=== PATIENT | female | born 1945 | race Caucasian/White ===

== ENCOUNTER → 2018-04-21 | Outpatient (CLI) | payer MEDICARE ==
[2018-04-21 17:43] LABS: Blood Urea Nitrogen 13 mg/dL (7-17)
--- NOTE | 2018-04-22 07:29 | CT ---
EXAMINATION TYPE: CT abdomen w con DATE OF EXAM: 04/21/2018 HISTORY: LUQ abd pain and constipation. CT DLP: 960.7mGycm Automated Exposure Control for Dose Reduction was Utilized. CONTRAST: CT scan of the abdomen is performed with oral and with IV Contrast, patient injected with 100ml mL of Isovue M300. COMPARISON: None. FINDINGS: LUNG BASES: Some focal lingular and right middle lobe linear scarring and/or atelectasis axial images 5 and 9 are both appreciated. LIVER/GB: Cholecystectomy clips are present. PANCREAS: No significant abnormality is seen. SPLEEN: No significant abnormality is seen. ADRENALS: No significant abnormality is seen. KIDNEYS: Subcentimeter low dense lesion anteriorly lower pole level left kidney series 5 image 48 is too small to further characterize but presumed benign. BOWEL: Oral contrast does not reach colonic level making evaluation slightly suboptimal. There is no suspicious small or large bowel dilatation seen. Decompressed redundant sigmoid colon is present. The re is poor distention of colon near level of splenic flexure also noted. There is no suspicious small bowel dilatation. LYMPH NODES: No greater than 1cm abdominal lymph nodes are appreciated. OSSEOUS STRUCTURES: Some loss of normal lumbar lordosis is seen. There is facet arthropathy lower lum bar levels. OTHER: No significant additional abnormality is seen. IMPRESSION: No significant acute finding is seen to account for patient's clinical symptoms.
== END | disposition home or self-care (01) ==
LOC: RADCTMAIN 17:13
DX: R10.12 Left upper quadrant pain (principal)
CPT/HCPCS: 82565; 84520; 74160; 36415; Q9967

== ENCOUNTER 2018-06-13 15:08 | Emergency (ER) | payer MEDICARE ==
--- NOTE | 2018-06-13 15:40 | ED ---
General Adult HPI - General Chief complaint: Chest Pain Stated complaint: Chest Pain Time Seen by Provider: 06/13/18 15:08 Source: patient, RN notes reviewed Mode of arrival: wheelchair Limitations: no limitations - History of Present Illness Initial comments: This is a 73-year-old female presents emergency department with past medical history significant for TIA high blood pressure and high cholesterol. Patient presents today because earlier morning she woke up with some pain in the lateral left chest wall. Patient states it hurts to take deep breaths any particular hurts to sneeze or cough. Patient states the pain is not there she just rests and does not take any deep breaths or does not cough or sneeze. Patient states she has not been coughing a lot however. Patient states it also hurts to press on the lateral chest wall. Patient denies any shortness of breath or difficulty breathing. Patient denies any diaphoresis. Patient denies any nausea vomiting. Patient denies any abdominal pain. Patient denies any anterior chest pain. Patient describes the pain is very sharp in nature particularly with coughing or sneezing. Patient denies any headache patient denies numbness weakness. Patient denies being lightheaded dizzy or having any near syncopal episode. Patient denies any recent fever or chills. - Related Data Home Medications Medication Instructions Recorded Confirmed Levothyroxine Sodium [Synthroid] 75 mcg PO DAILY 01/22/16 06/13/18 Simvastatin [Zocor] 10 mg PO HS 01/22/16 06/13/18 Multivit with Calcium,Iron,Min 1 tab PO DAILY 01/28/16 06/13/18 [Women's Daily Multivitamin] Pantoprazole Sodium 20 mg PO DAILY 06/13/18 06/13/18 Previous Rx's Medication Instructions Recorded Aspirin EC [Ecotrin] 325 mg PO DAILY #0 01/24/16 Clopidogrel [Plavix] 75 mg PO DAILY #0 01/24/16 Allergies Allergy/AdvReac Type Severity Reaction Status Date / Time codeine Allergy Unknown Verified 06/13/18 15:42 Review of Systems ROS Statement: Those systems with pertinent positive or pertinent negative responses have been documented in the HPI. ROS Other: All systems not noted in ROS Statement are negative. Past Medical History Past Medical History: CVA/TIA, GERD/Reflux, Hyperlipidemia, Hypertension, Thyroid Disorder Additional Past Medical History / Comment(s): 3-2-16 ADMITTED WITH STROKE LIKE SYMPTOMS-pt. states was told didn't have stroke, had TIA couple yrs. ago, saw family dr for cold sx., & cough History of Any Multi-Drug Resistant Organisms: None Reported Past Surgical History: Appendectomy, Section, Cholecystectomy Past Anesthesia/Blood Transfusion Reactions: No Reported Reaction Additional Past Anesthesia/Blood Transfusion Reaction / Comment(s): MILD CLAUSTROPHOBIA Past Psychological History: No Psychological Hx Reported Smoking Status: Never smoker Past Alcohol Use History: None Reported Past Drug Use History: None Reported - Past Family History Mother Family Medical History: Cancer Additional Family Medical History / Comment(s): UNSURE WHAT TYPE OF CANCER Father Family Medical History: Cancer Additional Family Medical History / Comment(s): BONE CANCER Brother(s) Family Medical History: Asthma Sister(s) Family Medical History: No Reported History Son(s) Family Medical History: No Reported History General Exam - General Exam Comments Initial Comments: GENERAL: Patient is well-developed and well-nourished. Patient is nontoxic and well- hydrated and is in mild distress. ENT: Neck is soft and supple. No significant lymphadenopathy is noted. Oropharynx is clear. Moist mucous membranes. Neck has full range of motion without eliciting any pain. EYES: The sclera were anicteric and conjunctiva were pink and moist. Extraocular movements were intact and pupils were equal round and reactive to light. Eyelids were unremarkable. PULMONARY: Unlabored respirations. Good breath sounds bilaterally. No audible rales rhonchi or wheezing was noted. CARDIOVASCULAR: There is a regular rate and rhythm without any murmurs gallops or rubs. ABDOMEN: Soft and nontender with normal bowel sounds. SKIN: Skin is clear with no lesions or rashes and otherwise unremarkable. NEUROLOGIC: Patient is alert and oriented x3. Cranial nerves II through XII are grossly intact. Motor and sensory are also intact. Normal speech, volume and content. Symmetrical smile. MUSCULOSKELETAL: Normal extremities with adequate strength and full range of motion. LYMPHATICS: No significant lymphadenopathy is noted PSYCHIATRIC: Normal psychiatric evaluation. Normal interpersonal interactions appears functionally intact in deals appropriately with others. No signs of depression. No signs of anxiety. Limitations: no limitations Course Vital Signs 06/13/18 06/13/18 15:16 16:52 Temperature 98.4 F Pulse Rate 79 70 Respiratory 20 18 Rate Blood Pressure 145/84 132/83 O2 Sat by Pulse 96 96 Oximetry Medical Decision Making - Medical Decision Making EKG shows normal sinus rhythm at 79 bpm WV interval is 154 QRS 76 QT interval 398 QTC is 456. EKG shows no ST segment elevation or depression or T-wave abdomen is noted. Patient's chest x-ray showed no acute abnormality. Patient received Toradol after the Toradol was given I went back to reevaluate her and she stated that it improved her pain considerably. - Lab Data Result diagrams: 06/13/18 15:34 06/13/18 15:34 Lab Results 06/13/18 06/13/18 06/13/18 Range/Units 15:34 15:34 15:34 WBC 6.8 (3.8-10.6) k/uL RBC 4.80 (3.80-5.40) m/uL Hgb 14.7 (11.4-16.0) gm/dL Hct 42.7 (34.0-46.0) % MCV 88.8 (80.0-100.0) fL MCH 30.6 (25.0-35.0) pg MCHC 34.5 (31.0-37.0) g/dL RDW 13.2 (11.5-15.5) % Plt Count 248 (150-450) k/uL Neutrophils % 70 % Lymphocytes % 17 % Monocytes % 9 % Eosinophils % 2 % Basophils % 1 % Neutrophils # 4.8 (1.3-7.7) k/uL Lymphocytes # 1.1 (1.0-4.8) k/uL Monocytes # 0.6 (0-1.0) k/uL Eosinophils # 0.2 (0-0.7) k/uL Basophils # 0.1 (0-0.2) k/uL PT (9.0-12.0) sec INR (<1.2) APTT (22.0-30.0) sec Sodium 140 (137-145) mmol/L Potassium 3.8 (3.5-5.1) mmol/L Chloride 110 H (98-107) mmol/L Carbon Dioxide 22 (22-30) mmol/L Anion Gap 8 mmol/L BUN 14 (7-17) mg/dL Creatinine 0.57 (0.52-1.04) mg/dL Est GFR (CKD-EPI)AfAm >90 (>60 ml/min/1.73 sqM) Est GFR (CKD-EPI)NonAf >90 (>60 ml/min/1.73 sqM) Glucose 111 H (74-99) mg/dL Calcium 8.9 (8.4-10.2) mg/dL Magnesium 2.2 (1.6-2.3) mg/dL Total Bilirubin 0.5 (0.2-1.3) mg/dL AST 32 (14-36) U/L ALT 41 (9-52) U/L Alkaline Phosphatase 70 (38-126) U/L Total Creatine Kinase 28 L (30-135) U/L CK-MB (CK-2) <0.2 (0.0-2.4) ng/mL CK-MB (CK-2) Rel Index Troponin I <0.012 (0.000-0.034) ng/mL Total Protein 6.6 (6.3-8.2) g/dL Albumin 3.6 (3.5-5.0) g/dL 06/13/18 Range/Units 15:34 WBC (3.8-10.6) k/uL RBC (3.80-5.40) m/uL Hgb (11.4-16.0) gm/dL Hct (34.0-46.0) % MCV (80.0-100.0) fL MCH (25.0-35.0) pg MCHC (31.0-37.0) g/dL RDW (11.5-15.5) % Plt Count (150-450) k/uL Neutrophils % % Lymphocytes % % Monocytes % % Eosinophils % % Basophils % % Neutrophils # (1.3-7.7) k/uL Lymphocytes # (1.0-4.8) k/uL Monocytes # (0-1.0) k/uL Eosinophils # (0-0.7) k/uL Basophils # (0-0.2) k/uL PT 10.8 (9.0-12.0) sec INR 1.1 (<1.2) APTT 23.7 (22.0-30.0) sec Sodium (137-145) mmol/L Potassium (3.5-5.1) mmol/L Chloride (98-107) mmol/L Carbon Dioxide (22-30) mmol/L Anion Gap mmol/L BUN (7-17) mg/dL Creatinine (0.52-1.04) mg/dL Est GFR (CKD-EPI)AfAm (>60 ml/min/1.73 sqM) Est GFR (CKD-EPI)NonAf (>60 ml/min/1.73 sqM) Glucose (74-99) mg/dL Calcium (8.4-10.2) mg/dL Magnesium (1.6-2.3) mg/dL Total Bilirubin (0.2-1.3) mg/dL AST (14-36) U/L ALT (9-52) U/L Alkaline Phosphatase (38-126) U/L Total Creatine Kinase (30-135) U/L CK-MB (CK-2) (0.0-2.4) ng/mL CK-MB (CK-2) Rel Index Troponin I (0.000-0.034) ng/mL Total Protein (6.3-8.2) g/dL Albumin (3.5-5.0) g/dL Disposition Clinical Impression: Chest wall pain Disposition: HOME SELF-CARE Condition: Good Instructions: Chest Wall Pain (ED) Is patient prescribed a controlled substance at d/c from ED?: No Referrals: Mayda Adames DO [Primary Care Provider] - 1-2 days Time of Disposition: 17:17
[2018-06-13 15:48] LABS: Basophils # (A) 0.1 k/uL (0-0.2); Basophils % (A) 1 %; Eosinophils # (A) 0.2 k/uL (0-0.7); Eosinophils % (A) 2 %; HCT 42.7 % (34.0-46.0); HGB 14.7 gm/dL (11.4-16.0); Lymphocytes # (A) 1.1 k/uL (1.0-4.8); Lymphocytes % (A) 17 %; MCH 30.6 pg (25.0-35.0); MCHC 34.5 g/dL (31.0-37.0); MCV 88.8 fL (80.0-100.0); Mean Platelet Volume 7.6; Monocytes # (A) 0.6 k/uL (0-1.0); Monocytes % (A) 9 %; Neutrophils # (A) 4.8 k/uL (1.3-7.7); Neutrophils % (A) 70 %; Platelet Count 248 k/uL (150-450); RDW 13.2 % (11.5-15.5); WBC 6.8 k/uL (3.8-10.6)
--- NOTE | 2018-06-13 15:55 | XR ---
EXAMINATION TYPE: XR chest 2V DATE OF EXAM: 06/13/2018 COMPARISON: 01/22/2016 HISTORY: 73-year-old female with chest pain TECHNIQUE: PA and lateral views FINDINGS: Heart upper limits of normal in size. Mild elongation thoracic aorta. Some strandy atelectasis medial right base. No consolidation or pleural effusion otherwise seen. IMPRESSION: No acute cardiopulmonary process.
[2018-06-13 15:58] LABS: ALT 41 U/L (9-52); AST 32 U/L (14-36); Albumin 3.6 g/dL (3.5-5.0); Alkaline Phosphatase 70 U/L (38-126); Anion Gap 8 mmol/L; Blood Urea Nitrogen 14 mg/dL (7-17); Calcium 8.9 mg/dL (8.4-10.2); Carbon Dioxide 22 mmol/L (22-30); Chloride 110 mmol/L (98-107); Glucose 111 mg/dL (74-99); Magnesium 2.2 mg/dL (1.6-2.3); Potassium 3.8 mmol/L (3.5-5.1); Sodium 140 mmol/L (137-145); Total Bilirubin 0.5 mg/dL (0.2-1.3); Total Protein 6.6 g/dL (6.3-8.2)
[2018-06-13 16:11] LABS: Creatine Kinase 28 U/L (30-135)
[2018-06-13] MEDS ORDERED: KETOROLAC 60 MG/2 ML VIAL IVP STA (16:18)
[2018-06-13 16:21] LABS: INR 1.1 (<1.2); Partial Thromboplastin Time 23.7 sec (22.0-30.0); Prothrombin Time 10.8 sec (9.0-12.0)
[2018-06-13 16:24] LABS: Creatine Kinase MB <0.2 ng/mL (0.0-2.4); Troponin I <0.012 ng/mL (0.000-0.034)
[2018-06-13 16:53] VITALS: BP 132/83; PULSE 70; RESP 18
[2018-06-13 17:23] VITALS: TEMP 98
== END 2018-06-13 17:26 | disposition home or self-care (01) ==
LOC: EC 15:08
DX: R07.89 Other chest pain (principal); E78.5 Hyperlipidemia, unspecified; E78.00 Pure hypercholesterolemia, unspecified; I10 Essential (primary) hypertension; K21.9 Gastro-esophageal reflux disease without esophagitis; E07.9 Disorder of thyroid, unspecified; Z79.899 Other long term (current) drug therapy; Z88.5 Allergy status to narcotic agent
CPT/HCPCS: 36415; 93005; 80053; 82550; 82553; 83735; 84484; 85025; 85610; 85730; 71046; 99285; 96374; J1885

== ENCOUNTER 2018-07-18 17:56 | Inpatient (IN) | payer MEDICARE ==
[2018-07-18] MEDS ORDERED: SODIUM CHLORIDE 0.9% 1,000 ML IV STA (18:22)
--- NOTE | 2018-07-18 18:38 | ED ---
General Adult HPI - General Chief complaint: Neuro Symptoms/Deficit Stated complaint: Numbness in face Time Seen by Provider: 07/18/18 18:22 Source: patient Mode of arrival: ambulatory Limitations: no limitations - History of Present Illness Initial comments: Kyra is a 73-year-old female who presents the emergency department today for evaluation of right-sided facial droop. Patient reports that on she noted that her face seemed to be drooping, she was evaluated at an outside hospital advised that this drooping was likely secondary to a muscle spasm in her neck, she was prescribed steroids and muscle relaxers and discharged home. Today the patient followed up with her primary care physician for repeat evaluation who expressed concern that she may have had a stroke and advised her to come to the ER for further evaluation. Patient reports that she has noted right side of her face is drooping and feels numb, this has persisted since , she also states that occasionally when she is talking she feels like she is not pronouncing words properly. Patient denies any additional symptoms including fevers, chills, nausea or vomiting, chest pain or palpitations. - Related Data Home Medications Medication Instructions Recorded Confirmed Levothyroxine Sodium [Synthroid] 75 mcg PO DAILY 01/22/16 07/18/18 Simvastatin [Zocor] 10 mg PO HS 01/22/16 07/18/18 Multivit with Calcium,Iron,Min 1 tab PO DAILY 01/28/16 07/18/18 [Women's Daily Multivitamin] Pantoprazole Sodium 20 mg PO DAILY 06/13/18 07/18/18 Eye Lubricant Combination No.1 1 applic BOTH EYES DAILY 07/18/18 07/18/18 [[place]] Previous Rx's Medication Instructions Recorded Aspirin EC [Ecotrin] 325 mg PO DAILY #0 01/24/16 Clopidogrel [Plavix] 75 mg PO DAILY #0 01/24/16 Allergies Allergy/AdvReac Type Severity Reaction Status Date / Time codeine Allergy Unknown Verified 07/18/18 19:49 Review of Systems ROS Statement: Those systems with pertinent positive or pertinent negative responses have been documented in the HPI. ROS Other: All systems not noted in ROS Statement are negative. Past Medical History Past Medical History: CVA/TIA, GERD/Reflux, Hyperlipidemia, Hypertension, Thyroid Disorder Additional Past Medical History / Comment(s): 3-2-16 ADMITTED WITH STROKE LIKE SYMPTOMS-pt. states was told didn't have stroke, history of TIAs History of Any Multi-Drug Resistant Organisms: None Reported Past Surgical History: Appendectomy, Section, Cholecystectomy Past Anesthesia/Blood Transfusion Reactions: No Reported Reaction Additional Past Anesthesia/Blood Transfusion Reaction / Comment(s): MILD CLAUSTROPHOBIA Past Psychological History: No Psychological Hx Reported Smoking Status: Never smoker Past Alcohol Use History: None Reported Past Drug Use History: None Reported - Past Family History Mother Family Medical History: Cancer Additional Family Medical History / Comment(s): UNSURE WHAT TYPE OF CANCER Father Family Medical History: Cancer Additional Family Medical History / Comment(s): BONE CANCER Brother(s) Family Medical History: Asthma Sister(s) Family Medical History: No Reported History Son(s) Family Medical History: No Reported History General Exam Limitations: no limitations General appearance: alert, in no apparent distress Head exam: Present: atraumatic, normocephalic Eye exam: Present: PERRL, EOMI. Absent: scleral icterus ENT exam: Present: mucous membranes moist (bite kinga to right buccal mucosa) Neck exam: Present: full ROM Respiratory exam: Present: normal lung sounds bilaterally. Absent: respiratory distress Cardiovascular Exam: Present: regular rate, normal rhythm GI/Abdominal exam: Present: soft. Absent: distended Rectal exam: Present: deferred Extremities exam: Present: full ROM, normal capillary refill. Absent: pedal edema Back exam: Present: normal inspection Neurological exam: Present: alert, oriented X3, normal gait Expanded Patient oriented to: Present: person, place, time Speech: Present: fluid speech Cranial nerves: EOM's Intact: Normal, Gag Reflex: Normal, Tongue Deviation: Normal, Facial Sensation: Abnormal Right, Facial Palsy with Forehead Movement: Abnormal Right Cerebellar function: Finger to Nose: Normal, Heel to Rosas: Normal, Romberg: Normal Motor strength exam: RUE: 4, LUE: 4, RLE: 4, LLE: 4 Eye Response: (4) open spontaneously Motor Response: (6) obeys commands Verbal Response: (5) oriented Psychiatric exam: Present: normal affect, normal mood Skin exam: Present: warm, dry Course Vital Signs 08/27/18 08/27/18 08/27/18 17:59 18:30 19:00 Temperature 98.4 F 98.2 F Pulse Rate 71 75 61 Respiratory 18 18 16 Rate Blood Pressure 154/84 148/78 156/84 O2 Sat by Pulse 98 98 96 Oximetry 07/18/18 19:30 Temperature Pulse Rate 73 Respiratory 16 Rate Blood Pressure 157/90 O2 Sat by Pulse 95 Oximetry EKG Findings - EKG Comments: EKG Findings:: EKG obtained at 1826, rate of 66, rhythm is sinus, normal axis, normal intervals, KS 154, QRS 80, QTC 427, there are no acute ST elevations or depressions no evidence of acute ischemia or infarction or arrhythmia. Medical Decision Making - Medical Decision Making The patient was seen and evaluated, history is obtained from the patient as well as at bedside Patient with a history of TIAs in the past, developed right-sided facial droop on , was evaluated an outside hospital and advised that she is likely having a muscle spasm of her neck muscles. Was given steroids and muscle relaxers. Patient followed up with her primary care physician today who expressed concern that the patient may have had a CVA On initial evaluation the patient does have right-sided facial droop sparing the forehead however the patient does complain of feeling as though she cannot close her right eye and does have some tearing. On exam the patient can close her right eye fully. Labs and CT were ordered CT of the head reveals old ischemic changes, nothing acute -however I do feel the patient requires further evaluation by neurology for possible CVA with right -sided deficit Patient care was discussed with Dr. Barkley who accepts admission, requests MRI of brain, CTA, Echo and consult to neurology Plan for admission was discussed with the patient who expresses some disappointment as she was scheduled to fly to [place] tomorrow for her nieces upcoming wedding. I advised the patient that at this time I feel is in her best interest and the interest of her [facility] and safety that she be evaluated. Patient is agreeable. Admission orders placed - Lab Data Result diagrams: 07/18/18 18:44 07/18/18 18:44 Lab Results 07/18/18 07/18/18 07/18/18 Range/Units 18:44 18:44 18:44 WBC 7.3 (3.8-10.6) k/uL RBC 4.77 (3.80-5.40) m/uL Hgb 14.2 (11.4-16.0) gm/dL Hct 43.6 (34.0-46.0) % MCV 91.4 (80.0-100.0) fL MCH 29.8 (25.0-35.0) pg MCHC 32.6 (31.0-37.0) g/dL RDW 13.3 (11.5-15.5) % Plt Count 252 (150-450) k/uL Neutrophils % 64 % Lymphocytes % 22 % Monocytes % 10 % Eosinophils % 2 % Basophils % 1 % Neutrophils # 4.7 (1.3-7.7) k/uL Lymphocytes # 1.6 (1.0-4.8) k/uL Monocytes # 0.7 (0-1.0) k/uL Eosinophils # 0.2 (0-0.7) k/uL Basophils # 0.0 (0-0.2) k/uL PT (9.0-12.0) sec INR (<1.2) APTT (22.0-30.0) sec Sodium 139 (137-145) mmol/L Potassium 3.7 (3.5-5.1) mmol/L Chloride 110 H (98-107) mmol/L Carbon Dioxide 22 (22-30) mmol/L Anion Gap 7 mmol/L BUN 21 H (7-17) mg/dL Creatinine 0.60 (0.52-1.04) mg/dL Est GFR (CKD-EPI)AfAm >90 (>60 ml/min/1.73 sqM) Est GFR (CKD-EPI)NonAf >90 (>60 ml/min/1.73 sqM) Glucose 95 (74-99) mg/dL Calcium 9.0 (8.4-10.2) mg/dL Total Bilirubin 0.4 (0.2-1.3) mg/dL AST 18 (14-36) U/L ALT 41 (9-52) U/L Alkaline Phosphatase 81 (38-126) U/L Total Creatine Kinase 29 L (30-135) U/L CK-MB (CK-2) 0.4 (0.0-2.4) ng/mL CK-MB (CK-2) Rel Index 1.4 Troponin I <0.012 (0.000-0.034) ng/mL Total Protein 6.5 (6.3-8.2) g/dL Albumin 3.5 (3.5-5.0) g/dL 07/18/18 Range/Units 18:44 WBC (3.8-10.6) k/uL RBC (3.80-5.40) m/uL Hgb (11.4-16.0) gm/dL Hct (34.0-46.0) % MCV (80.0-100.0) fL MCH (25.0-35.0) pg MCHC (31.0-37.0) g/dL RDW (11.5-15.5) % Plt Count (150-450) k/uL Neutrophils % % Lymphocytes % % Monocytes % % Eosinophils % % Basophils % % Neutrophils # (1.3-7.7) k/uL Lymphocytes # (1.0-4.8) k/uL Monocytes # (0-1.0) k/uL Eosinophils # (0-0.7) k/uL Basophils # (0-0.2) k/uL PT 10.4 (9.0-12.0) sec INR 1.1 (<1.2) APTT 22.9 (22.0-30.0) sec Sodium (137-145) mmol/L Potassium (3.5-5.1) mmol/L Chloride (98-107) mmol/L Carbon Dioxide (22-30) mmol/L Anion Gap mmol/L BUN (7-17) mg/dL Creatinine (0.52-1.04) mg/dL Est GFR (CKD-EPI)AfAm (>60 ml/min/1.73 sqM) Est GFR (CKD-EPI)NonAf (>60 ml/min/1.73 sqM) Glucose (74-99) mg/dL Calcium (8.4-10.2) mg/dL Total Bilirubin (0.2-1.3) mg/dL AST (14-36) U/L ALT (9-52) U/L Alkaline Phosphatase (38-126) U/L Total Creatine Kinase (30-135) U/L CK-MB (CK-2) (0.0-2.4) ng/mL CK-MB (CK-2) Rel Index Troponin I (0.000-0.034) ng/mL Total Protein (6.3-8.2) g/dL Albumin (3.5-5.0) g/dL Disposition Clinical Impression: Facial droop Disposition: ADMITTED IP TO THIS [facility] Condition: Stable Referrals: Mayda Adames DO [Primary Care Provider] - 1-2 days Time of Disposition: 21:37
[2018-07-18 18:55] LABS: Basophils % (A) 1 %; Eosinophils # (A) 0.2 k/uL (0-0.7); Eosinophils % (A) 2 %; HCT 43.6 % (34.0-46.0); HGB 14.2 gm/dL (11.4-16.0); Lymphocytes # (A) 1.6 k/uL (1.0-4.8); Lymphocytes % (A) 22 %; MCH 29.8 pg (25.0-35.0); MCHC 32.6 g/dL (31.0-37.0); MCV 91.4 fL (80.0-100.0); Mean Platelet Volume 7.2; Monocytes # (A) 0.7 k/uL (0-1.0); Monocytes % (A) 10 %; Neutrophils # (A) 4.7 k/uL (1.3-7.7); Neutrophils % (A) 64 %; Platelet Count 252 k/uL (150-450); RBC 4.77 m/uL (3.80-5.40); RDW 13.3 % (11.5-15.5); WBC 7.3 k/uL (3.8-10.6)
[2018-07-18 19:05] LABS: Creatine Kinase 29 U/L (30-135)
[2018-07-18 19:07] LABS: ALT 41 U/L (9-52); AST 18 U/L (14-36); Albumin 3.5 g/dL (3.5-5.0); Alkaline Phosphatase 81 U/L (38-126); Anion Gap 7 mmol/L; Blood Urea Nitrogen 21 mg/dL (7-17); Carbon Dioxide 22 mmol/L (22-30); Chloride 110 mmol/L (98-107); Glucose 95 mg/dL (74-99); Potassium 3.7 mmol/L (3.5-5.1); Sodium 139 mmol/L (137-145); Total Bilirubin 0.4 mg/dL (0.2-1.3); Total Protein 6.5 g/dL (6.3-8.2)
[2018-07-18 19:12] LABS: INR 1.1 (<1.2); Partial Thromboplastin Time 22.9 sec (22.0-30.0); Prothrombin Time 10.4 sec (9.0-12.0)
[2018-07-18 19:19] LABS: Creatine Kinase MB 0.4 ng/mL (0.0-2.4); Troponin I <0.012 ng/mL (0.000-0.034)
--- NOTE | 2018-07-18 19:26 | XR ---
EXAMINATION TYPE: XR chest 2V DATE OF EXAM: 07/18/2018 COMPARISON: 06/13/2018 HISTORY: Altered mental status TECHNIQUE: Frontal and lateral views of the chest are obtained. FINDINGS: There is no heart failure nor confluent pneumonic infiltrate. Costophrenic angles are agnieszka r. There are chest leads. Bony thorax is intact. IMPRESSION: No active cardiopulmonary disease. No change. Normal heart.
--- NOTE | 2018-07-18 19:28 | CT ---
EXAMINATION TYPE: CT brain wo con DATE OF EXAM: 07/18/2018 COMPARISON: 01/22/2016 HISTORY: Neuro deficits. CT DLP: 1067 mGycm Automated exposure control for dose reduction was used. FINDINGS: There is mild cerebral cortical atrophy. There is no mass effect nor midline shift. There is no sign of intracranial hemorrhage. There is some hypodensity in the anterior internal capsule bilaterally. T he calvarium appears intact. 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 NO ACUTE INTRACRANIAL ABNORMALITY. NO SIGNIF ICANT CHANGE.
--- NOTE | 2018-07-18 22:44 | CT ---
EXAMINATION TYPE: CT angio head neck DATE OF EXAM: 07/18/2018 HISTORY: Right facial droop. COMPARISON: None CT DLP: 263.1 mGycm. Automated Exposure Control for Dose Reduction was Utilized. TECHNIQUE: CTA scan of the neck is performed with IV Contrast, patient injected with 65 mL of Isovue 370, axial images are obtained, coronal and sagittal reformatted images are reviewed. Three-D recons tructed images are created on an independent workstation and reviewed. FINDINGS: There is normal branching pattern of the great vessels on the aortic arch. There is arterial flow in both vertebral arteries which are fairly symmetric. There is arterial flow in the vertebrobasilar artery system. There is arterial flow in the common internal and external egan tid arteries bilaterally. There is wide patency of the carotid artery bifurcations. There is no evide nce of carotid artery aneurysm or dissection. There is no evidence of carotid stenosis. There is no v ertebral artery dissection. There is arterial flow in the anterior middle and posterior cerebral arteries. I see no evidence of a neurysm or neovascularity. There is a large basilar artery. There is normal contrast opacification of the venous sinuses. There is no evidence of intracranial arterial stenosis. IMPRESSION: Negative CT angiogram of the neck. Negative CT angiogram of the brain. There is a large proximal basilar artery that measure 6 mm and probable normal variation.
[2018-07-18 23:01] VITALS: BMI 27.8
[2018-07-19 00:47] LABS: Cholesterol 158 mg/dL (<200); HDL Cholesterol 45 mg/dL (40-60); LDL Cholesterol,Calculated 89 mg/dL (0-99); Triglycerides 121 mg/dL (<150)
[2018-07-19] MEDS: LEVOTHYROXINE 75 MCG TAB PO SCH (07:58)
[2018-07-19] MEDS: PANTOPRAZOLE 40 MG TABLET PO SCH ×2 (07:58→23:16)
[2018-07-19] MEDS: CLOPIDOGREL 75 MG TAB PO SCH (07:58)
--- NOTE | 2018-07-19 10:28 | ECHOF ---
Referral Reason:Thrombus MEASUREMENTS -------- HEIGHT: 165.1 cm WEIGHT: 76.7 kg BP: 132/92 RVIDd: 2.8 cm (< 3.3) IVSd: 1.2 cm (0.6 - 1.1) LVIDd: 3.8 cm (3.9 - 5.3) LVPWd: 1.2 cm (0.6 - 1.1) IVSs: 1.9 cm LVIDs: 3.1 cm LVPWs: 1.7 cm LA Diam: 3.2 cm (2.7 - 3.8) LAESV Index (A-L): 14.71 ml/m Ao Diam: 3.5 cm (2.0 - 3.7) AV Cusp: 2.0 cm (1.5 - 2.6) MV EXCURSION: 13.991 mm (> 18.000) MV EF SLOPE: 28 mm/s (70 - 150) EPSS: 1.1 cm MV E Juan Manuel: 0.66 m/s MV DecT: 231 ms MV A Juan Manuel: 0.96 m/s MV E/A Ratio: 0.68 AR PHT: 1061 ms RAP: 5.00 mmHg RVSP: 25.15 mmHg FINDINGS -------- Sinus rhythm. This was a technically adequate study. The left ventricular size is normal. There is borderline concentric left ventricular hypertrophy. Overall left ventricular systolic function is normal with, an EF between 55 - 60 %. The right ventricle is normal in size. Normal LA size by volume 22+/-6 ml/m2. The right atrium is normal in size. The aortic valve is trileaflet and appears structurally normal. There is mild aortic regurgitation. The mitral valve is normal. Mild mitral regurgitation is present. Mild tricuspid regurgitation present. Right ventricular systolic pressure is normal at < 35 mmHg. Trace/mild (physiologic) pulmonic regurgitation. The aortic root size is normal. IVC Not well visulized. There is no pericardial effusion. CONCLUSIONS -------- 1. Sinus rhythm. 2. This was a technically adequate study. 3. The left ventricular size is normal. 4. There is borderline concentric left ventricular hypertrophy. 5. Overall left ventricular systolic function is normal with, an EF between 55 - 60 %. 6. Normal LA size by volume 22+/-6 ml/m2. 7. The aortic valve is trileaflet and appears structurally normal. 8. There is mild aortic regurgitation. 9. Mild mitral regurgitation is present. 10. Mild tricuspid regurgitation present. 11. Right ventricular systolic pressure is normal at < 35 mmHg. 12. Trace/mild (physiologic) pulmonic regurgitation. 13. The aortic root size is normal. 14. IVC Not well visulized. 15. There is no pericardial effusion. BILLET HEATER OPERATOR: Christine Melgar RDCS
--- NOTE | 2018-07-19 12:03 | MR ---
EXAMINATION TYPE: MR brain wo/w con DATE OF EXAM: 07/19/2018 COMPARISON: Prior CT brain and CTA brain 07/18/2018 HISTORY: right facial droop TECHNIQUE: Multiplanar, multisequence images of the brain and brainstem is performed without and with IV contras t, utilizing 7.5 mL intravenous Gadavist . FINDINGS: Diffusion weighted images demonstrate no evidence of a recent infarct or other diffusion ab normality. There is no extra-axial fluid collection. There are scattered and alignment periventricu lar and deep white matter, subcortical and periventricular hyperintensities on inversion recovery and T2-weighted sequences, greater than 50 lesions are present. The ventricular system and cisternal [facility] [place] are normal in size and appearance. Prominent basilar artery again noted. The brain volume is age appropriate. Midline structures demonstrate normal morphology. The craniocervical junction appears within normal limits. Post contrast images demonstrate no abnormal enhancement. The dural venous sinuses appear pa tent. The visualized sinuses are clear and the globes are intact. IMPRESSION: Age-related chronic small vessel ischemia likely the etiology of patient's white matter d emyelination.
--- NOTE | 2018-07-19 14:49 | P.HPIM ---
History of Present Illness H&P Date: 07/19/18 Chief Complaint: right facial droop 73-year-old lady patient of Drs. Hastings. She has underlying history of hypertension, previous T IA, hyperlipidemia, GERD, hypertensive cardiovascular disease, who presented to [facility] secondary to right facial droop. She was seen at [facility] one week prior to admission secondary to similar symptoms. She was given steroids and [place] and was discharged to home. They blamed it from musculoskeletal spasms, the facial droop persisted along with right-sided neck pain, and headache, no speech abnormalities no motor deficits in the upper and lower extremity, patient has tired feeling on the right arm however on my clinical examination on the patient , she also has difficulty in closing the right eye, and difficulty in raising the right eyebrow, raising concern for Rosa's palsy than CVA. Patient comes in to evaluate for neurologic deficits, CTA of the neck was requested along with MRI of the brain. Echocardiogram. Consult to neurology Dr. Leslie. Review of Systems Constitutional: Reports as per HPI, Denies anorexia, Denies chills, Denies chronic headaches, Denies chronic pain, Denies daytime sleepiness, Denies fatigue, Denies fever, Denies lethargy, Denies malaise, Denies night sweats, Denies poor appetite, Denies sweats, Denies weakness, Denies weight gain, Denies weight loss Ears, nose, mouth and throat: Reports as per HPI, Denies ant. neck pain, Denies bleeding gums, Denies dental pain, Denies dysphagia, Denies epistaxis, Denies headache, Denies hoarseness, Denies mouth pain, Denies nasal congestion, Denies nasal discharge, Denies neck fullness/pressure, Denies neck lump, Denies nose pain, Denies odynophagia, Denies post-nasal drip, Denies sinus pain, Denies sinus pressure, Denies swelling in mouth, Denies swelling in throat, Denies sore throat, Denies vertigo, Denies voice changes Cardiovascular: Reports as per HPI, Denies chest pain, Denies claudication, Denies decreased exercise tolerance, Denies dyspnea on exertion, Denies edema, Denies high blood pressure, Denies irregular heart beat, Denies leg edema, Denies lightheadedness, Denies orthopnea, Denies palpitations, Denies paroxysmal nocturnal dyspnea, Denies phlebitis, Denies rapid heart beat, Denies shortness of breath, Denies syncope Respiratory: Reports as per HPI, Denies congestion, Denies cough, Denies cough with sputum, Denies dyspnea, Denies excessive sputum, Denies hemoptysis, Denies home oxygen, Denies pain, Denies pain on inspiration, Denies pleurisy, Denies respiratory infections, Denies sleep apnea, Denies snoring, Denies wheezing Gastrointestinal: Reports as per HPI, Denies abdominal pain, Denies belching, Denies bloating, Denies BRBPR, Denies change in bowel habits, Denies coffee ground emesis, Denies constipation, Denies diarrhea, Denies dyspepsia, Denies early satiety, Denies excessive gas, Denies heartburn, Denies hematemesis, Denies hematochezia, Denies indigestion, Denies jaundice, Denies lactose intolerance, Denies loss of appetite, Denies melena, Denies nausea, Denies vomiting Genitourinary: Reports as per HPI, Denies abnormal vaginal bleeding, Denies decreased libido, Denies difficulty conceiving, Denies difficulty voiding, Denies dysmenorrhea, Denies dyspareunia, Denies dysuria, Denies flank pain, Denies genital sores, Denies hematuria, Denies hot flashes, Denies incomplete emptying, Denies kidney stones, Denies menorrhagia, Denies mixed incontinence, Denies nocturia, Denies pelvic pain, Denies post void dribbling, Denies , Denies prolapse symptoms, Denies stress incontinence, Denies urge incontinence , Denies urgency, Denies urinary frequency, Denies vaginal discharge, Denies vaginal dryness, Denies vaginal itching, Denies vaginal odor Menstruation: Denies as per HPI, Denies amenorrhea, Denies amenorrhea on BC, Denies currently menstrual, Denies cycle < 21 days, Denies cycle > 35 days, Denies cycle variable, Denies menses 1-7 days, Denies menses 8 or > days, Denies menses variable, Denies period heavy, Denies period light, Denies period normal, Denies period spotting, Denies post hysterectomy, Denies postmenopausal , Denies premenarcheal Musculoskeletal: Reports as per HPI, Denies arm numbness/tingling, Denies atrophy, Denies fractures, Denies frequent falls, Denies gait dysfunction, Denies hot joints, Denies leg numbness/tingling, Denies limitation of motion, Denies loss of height, Denies low back pain, Denies morning stiffness, Denies muscle cramps, Denies muscle weakness, Denies myalgias, Denies neck pain, Denies neck stiffness, Denies prior amputations, Denies redness of joints, Denies shooting arm pain, Denies shooting leg pain Integumentary: Reports as per HPI Neurological: Reports as per HPI, Reports motor disturbance (right facial droop right lid lag), Denies aphasia, Denies ataxia, Denies balance difficulties, Denies burning pain, Denies change in mentation, Denies change in smell/taste, Denies change in speech, Denies confusion, Denies convulsions, Denies double vision, Denies gait dysfunction, Denies head injury, Denies headaches, Denies hearing difficulties, Denies lack of coordination, Denies loss of vision, Denies memory loss, Denies migraines, Denies numbness, Denies paralysis, Denies paresthesias, Denies seizures, Denies sensory deficit, Denies spasticity, Denies syncope, Denies tic, Denies tingling, Denies transient paralysis, Denies tremors, Denies vertigo, Denies weakness, Denies visual changes Psychiatric: Reports as per HPI, Reports memory loss, Denies anhedonia, Denies anxiety, Denies anxiety attacks, Denies change in appetite, Denies change in libido, Denies change in sleep habits, Denies confusion, Denies depression, Denies difficulty concentrating, Denies disorientation, Denies hallucinations, Denies hopelessness, Denies hypersomnia, Denies insomnia, Denies irritability, Denies mood swings, Denies paranoia, Denies sadness/tearfulness, Denies sleep disturbances, Denies suicidal ideation Endocrine: Reports as per HPI, Denies cold intolerance, Denies deepening of the voice, Denies excessive sweating, Denies excessive thirst, Denies fatigue, Denies flushing, Denies heat intolerance, Denies high blood sugars, Denies increase in ring/shoe/hat size, Denies low blood sugars, Denies nocturia, Denies palpitations, Denies polydipsia, Denies polyphagia, Denies polyuria, Denies proptosis, Denies recent glucocorticoid use, Denies thyroid mass, Denies weight change Hematologic/Lymphatic: Reports as per HPI, Denies easy bleeding, Denies easy bruising, Denies lymphadenopathy, Denies lymphedema, Denies thrombophilia Allergic/Immunologic: Reports as per HPI, Denies allergic rhinitis, Denies anaphylaxis, Denies angioedema, Denies gluten intolerance, Denies persistent infections, Denies seasonal allergies, Denies urticaria, Denies wheezing Past Medical History Past Medical History: CVA/TIA, GERD/Reflux, Hyperlipidemia, Hypertension, Thyroid Disorder Additional Past Medical History / Comment(s): 89 ADMITTED WITH STROKE LIKE SYMPTOMS-pt. states was told didn't have stroke, history of TIAs,DIVERTICULITIS History of Any Multi-Drug Resistant Organisms: None Reported Past Surgical History: Appendectomy, Section, Cholecystectomy Past Anesthesia/Blood Transfusion Reactions: No Reported Reaction Additional Past Anesthesia/Blood Transfusion Reaction / Comment(s): MILD CLAUSTROPHOBIA Past Psychological History: No Psychological Hx Reported Smoking Status: Never smoker Past Alcohol Use History: None Reported Past Drug Use History: None Reported - Past Family History Mother Family Medical History: Cancer Additional Family Medical History / Comment(s): UNSURE WHAT TYPE OF CANCER Father Family Medical History: Cancer Additional Family Medical History / Comment(s): BONE CANCER Brother(s) Family Medical History: Asthma Sister(s) Family Medical History: No Reported History Son(s) Family Medical History: No Reported History Medications and Allergies Home Medications Medication Instructions Recorded Confirmed Type Levothyroxine Sodium [Synthroid] 75 mcg PO DAILY 01/22/16 07/18/18 History Simvastatin [Zocor] 10 mg PO HS 01/22/16 07/18/18 History Aspirin EC [Ecotrin] 325 mg PO DAILY #0 01/24/16 07/18/18 Rx Clopidogrel [Plavix] 75 mg PO DAILY #0 01/24/16 07/18/18 Rx Multivit with Calcium,Iron,Min 1 tab PO DAILY 01/28/16 07/18/18 History [Women's Daily Multivitamin] Pantoprazole Sodium 20 mg PO DAILY 06/13/18 07/18/18 History Eye Lubricant Combination No.1 1 applic BOTH EYES DAILY 07/18/18 07/18/18 History [Freshkote] Allergies Allergy/AdvReac Type Severity Reaction Status Date / Time codeine Allergy Unknown Verified 07/18/18 19:49 Physical Exam Vitals: Vital Signs Temp Pulse Pulse Resp BP BP Pulse Ox 07/19/18 12:00 70 18 143/85 93 L 07/19/18 08:00 69 18 135/88 96 07/19/18 03:57 64 18 07/19/18 03:56 97.2 F L 70 18 132/92 96 07/18/18 23:36 97.0 F L 62 17 130/76 98 07/18/18 22:29 97.5 F L 64 16 137/89 97 07/18/18 22:27 97.5 F L 64 15 137/99 97 07/18/18 19:30 73 16 157/90 95 07/18/18 19:00 61 16 156/84 96 07/18/18 18:30 98.2 F 75 18 148/78 98 07/18/18 17:59 98.4 F 71 18 154/84 98 Intake and Output 07/18/18 07/19/18 07/19/18 22:59 06:59 14:59 Intake Total 300 200 Balance 300 200 Intake: Oral 300 200 Other: Voiding Method Toilet # Voids 1 Weight 75.75 kg 76.7 kg - Constitutional General appearance: cooperative, no acute distress - EENT Right lid lag, flattened forehead crease right side right facial droop weekend blowing of the right cheek Eyes: anicteric sclerae, PERRLA, dentition normal, normal appearance ENT: hard of hearing, no hearing grossly normal, no NA/AT, no normal oropharynx , no other, no pharyngeal erythema, no thrush, no tonsillar exudates, no tonsillar swelling - Respiratory Respiratory: bilateral: CTA, negative: diminished, dullness, rales - Cardiovascular Rhythm: regular Heart sounds: normal: S1, S2 Abnormal Heart Sounds: no systolic murmur, no diastolic murmur, no rub, no S3 Gallop, no S4 Gallop, no click, no other - Gastrointestinal General gastrointestinal: normal bowel sounds, soft - Integumentary Integumentary: normal, normal turgor - Neurologic Neurologic: CNII-XII intact - Musculoskeletal Musculoskeletal: gait normal, strength equal bilaterally - Psychiatric Psychiatric: A&O x's 3, appropriate affect, intact judgment & insight Results CBC & Chem 7: 07/18/18 18:44 07/18/18 18:44 Labs: Abnormal Lab Results - Last 24 Hours (Table) 07/18/18 07/18/18 Range/Units 18:44 18:44 Chloride 110 H (98-107) mmol/L BUN 21 H (7-17) mg/dL Total Creatine Kinase 29 L (30-135) U/L Laboratory Results WBC 7.3 k/uL (3.8-10.6) 07/18/18 18:44 RBC 4.77 m/uL (3.80-5.40) 07/18/18 18:44 Hgb 14.2 gm/dL (11.4-16.0) 07/18/18 18:44 Hct 43.6 % (34.0-46.0) 07/18/18 18:44 MCV 91.4 fL (80.0-100.0) 07/18/18 18:44 MCH 29.8 pg (25.0-35.0) 07/18/18 18:44 MCHC 32.6 g/dL (31.0-37.0) 07/18/18 18:44 RDW 13.3 % (11.5-15.5) 07/18/18 18:44 Plt Count 252 k/uL (150-450) 07/18/18 18:44 Neutrophils % 64 % 07/18/18 18:44 Lymphocytes % 22 % 07/18/18 18:44 Monocytes % 10 % 07/18/18 18:44 Eosinophils % 2 % 07/18/18 18:44 Basophils % 1 % 07/18/18 18:44 Neutrophils # 4.7 k/uL (1.3-7.7) 07/18/18 18:44 Lymphocytes # 1.6 k/uL (1.0-4.8) 07/18/18 18:44 Monocytes # 0.7 k/uL (0-1.0) 07/18/18 18:44 Eosinophils # 0.2 k/uL (0-0.7) 07/18/18 18:44 Basophils # 0.0 k/uL (0-0.2) 07/18/18 18:44 PT 10.4 sec (9.0-12.0) 07/18/18 18:44 INR 1.1 (<1.2) 07/18/18 18:44 APTT 22.9 sec (22.0-30.0) 07/18/18 18:44 Sodium 139 mmol/L (137-145) 07/18/18 18:44 Potassium 3.7 mmol/L (3.5-5.1) 07/18/18 18:44 Chloride 110 mmol/L (98-107) H 07/18/18 18:44 Carbon Dioxide 22 mmol/L (22-30) 07/18/18 18:44 Anion Gap 7 mmol/L 07/18/18 18:44 BUN 21 mg/dL (7-17) H 07/18/18 18:44 Creatinine 0.60 mg/dL (0.52-1.04) 07/18/18 18:44 Est GFR (CKD-EPI)AfAm >90 (>60 ml/min/1.73 sqM) 07/18/18 18:44 Est GFR (CKD-EPI)NonAf >90 (>60 ml/min/1.73 sqM) 07/18/18 18:44 Glucose 95 mg/dL (74-99) 07/18/18 18:44 Calcium 9.0 mg/dL (8.4-10.2) 07/18/18 18:44 Total Bilirubin 0.4 mg/dL (0.2-1.3) 07/18/18 18:44 AST 18 U/L (14-36) 07/18/18 18:44 ALT 41 U/L (9-52) 07/18/18 18:44 Alkaline Phosphatase 81 U/L (38-126) 07/18/18 18:44 Total Creatine Kinase 29 U/L (30-135) L 07/18/18 18:44 CK-MB (CK-2) 0.4 ng/mL (0.0-2.4) 07/18/18 18:44 CK-MB (CK-2) Rel Index 1.4 07/18/18 18:44 Troponin I <0.012 ng/mL (0.000-0.034) 07/18/18 18:44 Total Protein 6.5 g/dL (6.3-8.2) 07/18/18 18:44 Albumin 3.5 g/dL (3.5-5.0) 07/18/18 18:44 Triglycerides 121 mg/dL (<150) 07/18/18 18:44 Cholesterol 158 mg/dL (<200) 07/18/18 18:44 LDL Cholesterol, Calc 89 mg/dL (0-99) 07/18/18 18:44 HDL Cholesterol 45 mg/dL (40-60) 07/18/18 18:44 Thrombosis Risk Factor Assmnt - Choose All That Apply Each Factor Represents 1 point: Obesity (BMI >25) Each Risk Factor Represents 2 Points: Age 61-74 years Thrombosis Risk Factor Assessment Total Risk Factor Score: 3 Thrombosis Risk Factor Assessment Level: Moderate Risk Assessment and Plan Plan: 1. Acute Rosa's palsy rather than CVA, patient's MRI was performed upon request ruled out CVA that shows age-related small vessel ischemia possibility of demyelinating lesions as the greater than 50 lesions present. CTA of the neck shows negative angiogram of the brain no evidence of carotid artery aneurysm or dissection, no evidence of carotid stenosis, no vertebral artery dissection large proximal basilar artery that measures 6 mm, possible normal variation. Patient is maintained on Plavix,, patient was started on Solu- Medrol 40 mg every every 6 hours 3 doses, and can be transitioned to oral prednisone anytime, patient also will be started on valacyclovir 1 g 3 times a day. Patient will be sent consultation by Dr. pineda on neurology, patient wants to wait for neurology prior to discharge 2. Abnormal MRI with possibility of demyelination 3. 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 Hyperlipidemia LDL of89 tried to the 121 6 Hypertension 7 Hypothyroidism 8 Echocardiogram findings showing EF 55-60%, concentric LVH, mild MR, mild AR, mild TR 9. CK D stage I. GFR over 90 Discharge planning, discharge later home today once seen by neurology, outpatient therapy
[2018-07-19] MEDS ORDERED: valACYclovir 500 MG TAB PO SCH (16:00)
[2018-07-19] MEDS ORDERED: methylPREDNISolone SOD SUCCI 40 MG/ML 1 ML VIAL IV SCH (16:00)
[2018-07-19] MEDS: valACYclovir HCL 1,000 MG TABLET PO SCH ×2 (17:42→20:27)
[2018-07-19] MEDS: INSULIN ASPART 100 UNIT/ML 1 ML 10 ML VIAL SQ SCH ×2 (17:50→21:36)
[2018-07-19] MEDS: ASPIRIN 325 MG TAB PO SCH (20:26)
[2018-07-19] MEDS: methylPREDNISolone SOD SUCCI 125 MG/2 ML VIAL IV SCH ×2 (20:30→23:12)
[2018-07-19] MEDS ORDERED: ATORVASTATIN 10 MG TAB PO SCH (21:00)
[2018-07-19 21:18] LABS: Glucose,Whole Blood 133 mg/dL (75-99)
--- NOTE | 2018-07-19 22:49 | CONS ---
CONSULTATION DATE OF CONSULTATION: 07/19/2018. CHIEF COMPLAINT: Right facial weakness. HISTORY OF PRESENT ILLNESS: Mrs. Stern is a pleasant 73-year-old female who is being evaluated by the neurology service per the request of Dr. Barkley for right facial weakness. The patient was brought into [facility] Emergency Room with the complaint of weakness involving her right face. She was initially seen late last week at [facility] with similar complaints and was given steroids and [place]. The patient states that when the symptoms did not improve, she decided to come into [facility] Emergency Room. She denies any symptoms in her extremities. She denies any previous history of Rosa palsy, but does report a previous history of transient ischemic attack. She does take Plavix and aspirin at home. The patient was started on IV Solu-Medrol 40 mg every 8 hours and Valtrex and admitted for further workup and management. An MRI of the brain was done which showed extensive small-vessel ischemic changes. Her CBC, INR, comprehensive metabolic profile, fasting lipid panel and cardiac enzymes were all reviewed and were normal. The patient also had a CT angiogram of the brain and neck, both of which were normal. At the time of my evaluation, she is sitting up in her bed and appears to be in no acute distress. She denies any new symptoms since her admission. PAST MEDICAL HISTORY: Transient ischemic attack, gastroesophageal reflux disease, dyslipidemia, hypertension, hypothyroidism, diverticulitis, history of appendectomy, , cholecystectomy. SOCIAL HISTORY: She denies any tobacco, alcohol or drug use. FAMILY HISTORY: Positive for cancer and asthma. HOME MEDICATIONS: Reviewed in the chart. ALLERGIES: CODEINE. REVIEW OF SYSTEMS: As mentioned above and otherwise negative. PHYSICAL EXAM: Vital signs show a temperature of 97.2, pulse 70, respirations 18, blood pressure 143/85. GENERAL APPEARANCE: The patient is a well-developed, female, who appears to be in no acute distress. She does have an obvious right facial drooping. NECK: Supple with no masses felt. HEENT: Normocephalic, atraumatic. Right facial weakness is seen. CARDIOVASCULAR: Regular rate and rhythm. ABDOMEN: Nontender nondistended. Extremities showed no edema or clubbing. NEUROLOGICAL: The patient is awake and oriented x3. Speech and language are normal. Strength is full in all 4 extremities. Sensory was normal to light touch in all 4 extremities. No tremors or seizure-like activity is seen. Cranial nerve testing showed right facial weakness involving the upper and lower face. IMPRESSION: 1. Rosa palsy, right side. 2. Extensive small vessel ischemic changes. 3. Hypertension. 4. Dyslipidemia. RECOMMENDATION: The patient's neurological examination is consistent with a Rosa palsy. I did review her CT scan of the brain and MRI of the brain. Both of which showed no evidence of any acute ischemia. She does have extensive small-vessel ischemic changes. She is already on Plavix and aspirin and I will continue her on this anti-platelet therapy. For her Rosa palsy, I will increase her IV Solu-Medrol to 125 mg every 8 hours. Continue Valtrex at the current dose. I do recommend an ophthalmic appointment, as her right eye is not closing due to the Rosa palsy. The patient does wear eyeglasses and she was told to always wear her glasses to protect her right eye, as her blinking is significantly affected. She will need Artificial Tears at least 4-6 times per day. She will also need outpatient physical therapy. No further inpatient neurological workup is needed. I will continue to follow with you as needed. Thank you for allowing me to participate in the care of your patient. If you have any questions, please feel free to contact me. BEAR / KALA: [phone] /
[2018-07-20 05:56] LABS: Glucose,Whole Blood 139 mg/dL (75-99)
[2018-07-20] MEDS: INSULIN ASPART 100 UNIT/ML 1 ML 10 ML VIAL SQ SCH ×2 (06:21→12:38)
[2018-07-20] MEDS ORDERED: ARTIFICIAL TEARS-HYPROMELLOSE DROPS 15 ML BTL BOTH EYES SCH (09:00)
[2018-07-20] MEDS: CLOPIDOGREL 75 MG TAB PO SCH (09:48)
[2018-07-20] MEDS: methylPREDNISolone SOD SUCCI 125 MG/2 ML VIAL IV SCH (09:48)
[2018-07-20] MEDS: ASPIRIN 325 MG TAB PO SCH (09:48)
[2018-07-20] MEDS: LEVOTHYROXINE 75 MCG TAB PO SCH (09:48)
[2018-07-20] MEDS: valACYclovir HCL 1,000 MG TABLET PO SCH (09:49)
[2018-07-20 10:05] VITALS: RESP 16
[2018-07-20 11:49] LABS: Glucose,Whole Blood 200 mg/dL (75-99)
[2018-07-20] MEDS ORDERED: MULTIVITAMINS, THERA 1 EACH TAB PO SCH (12:00)
[2018-07-20 12:43] VITALS: BP 121/79; PULSE 101; TEMP 97.2
--- NOTE | 2018-07-20 13:01 | P.DS ---
Providers Date of admission: 07/18/18 21:39 Expected date of discharge: 07/20/18 Attending physician: Janie Barkley Consults: 07/18/18 21:27 Consult Physician Urgent Consulting Provider: Patrick Haynes Consult Reason/Comments: rigth facial droop Do you want consulting provider notified?: Yes, Notify in am Primary care physician: Mayda Adames [facility] Course: 73-year-old lady patient of Drs. Hastings. She has underlying history of hypertension, previous TIA, hyperlipidemia, GERD, hypertensive cardiovascular disease, who presented to [facility] secondary to right facial droop. She was seen at [facility] one week prior to admission secondary to similar symptoms. She was given steroids and [place] and was discharged to home. They blamed it from musculoskeletal spasms, the facial droop persisted along with right-sided neck pain, and headache, no speech abnormalities no motor deficits in the upper and lower extremity, patient has tired feeling on the right arm however on my clinical examination on the patient, she also has difficulty in closing the right eye, and difficulty in raising the right eyebrow , raising concern for Rosa's palsy than CVA. Patient comes in to evaluate for neurologic deficits, CTA of the neck was requested along with MRI of the brain. Echocardiogram. Consult to neurology Dr. Leslie. 07/20: CTA of the head and neck shows negative for the brain. Large proximal basilar artery that measures 6 mm and probably normal variation. Echocardiogram reveals borderline concentric left nipple hypertrophy, EF 55-60% , mild mitral regurgitation, mild tricuspid regurgitation. MRI of the brain showed age-related chronic small vessel ischemic change likely the etiology of patient's white matter demyelination. Patient has been seen by Dr. Haynes and recommends continuing Plavix and aspirin for the extensive small vessel ischemic changes, and he increase his Solu-Medrol 225 mg every 8 hours recommends continuing Valtrex and recommends ophthalmic appointment, artificial tears 4-6 times per day and outpatient physical therapy. No further neurological workup is necessary. Patient will be discharged home today in stable condition. Discharge diagnoses: 1. Acute Rosa's palsy 2. Abnormal MRI with possibility of demyelination 3. 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 Hyperlipidemia LDL of89 tried to the 121 6. Hypertension 7. Hypothyroidism 8. CKD stage I. Discharge planning, discharge home today Impression and plan of care have been directed as dictated by the signing physician. Izabel Mcgregor nurse practitioner acting as scribe for signing physician. Patient Condition at Discharge: Good Plan - Discharge Summary Discharge Rx Participant: No New Discharge Prescriptions: New valACYclovir HCL [Valtrex] 1,000 mg PO TID 7 Days #21 tablet predniSONE 0 mg PO DIRECTED #30 tab Continue Simvastatin [Zocor] 10 mg PO HS Levothyroxine Sodium [Synthroid] 75 mcg PO DAILY Aspirin EC [Ecotrin] 325 mg PO DAILY #0 Clopidogrel [Plavix] 75 mg PO DAILY #0 Multivit with Calcium,Iron,Min [Women's Daily Multivitamin] 1 tab PO DAILY Pantoprazole Sodium 20 mg PO DAILY Eye Lubricant Combination No.1 [Freshkote] 1 applic BOTH EYES DAILY Discharge Medication List Levothyroxine Sodium [Synthroid] 75 mcg PO DAILY 01/22/16 [History] Simvastatin [Zocor] 10 mg PO HS 01/22/16 [History] Aspirin EC [Ecotrin] 325 mg PO DAILY #0 01/24/16 [Rx] Clopidogrel [Plavix] 75 mg PO DAILY #0 01/24/16 [Rx] Multivit with Calcium,Iron,Min [Women's Daily Multivitamin] 1 tab PO DAILY 01/27 [History] Pantoprazole Sodium 20 mg PO DAILY 06/13/18 [History] Eye Lubricant Combination No.1 [Freshkote] 1 applic BOTH EYES DAILY 07/18/18 [ History] valACYclovir HCL [Valtrex] 1,000 mg PO TID 7 Days #21 tablet 07/19/18 [Rx] predniSONE 0 mg PO DIRECTED #30 tab 07/20/18 [Rx] Follow up Appointment(s)/Referral(s): Layla Greenberg MD [STAFF PHYSICIAN] - 07/21/18 1:30 pm (Tomorrow. Please arrive a few minutes early to fill out paperwork) Mayda Adames DO [Primary Care Provider] - 07/29/18 9:20 am (Wednesday) Patrick Haynes MD [STAFF PHYSICIAN] - 3 Weeks (Spoke to corporate receptionist. Office will call with appointment time.) Patient Instructions/Handouts: Rosa Palsy (DC), Understanding Your Vision (GEN) , Your Vision (GEN) Activity/Diet/Wound Care/Special Instructions: Wear eye patch at night. Discharge Disposition: HOME SELF-CARE
== END 2018-07-20 13:08 | disposition home or self-care (01) | DRG 74 ==
LOC: EC 17:56 → 6SEL 21:39
PROVIDERS: ADMIT Family Medicine; ATTEND Family Medicine
DX: G51.0 Bell's palsy (principal); I08.1 Rheumatic disorders of both mitral and tricuspid valves; I13.10 Hypertensive heart and chronic kidney disease without heart failure, with stage 1 through stage 4 chronic kidney disease, or unspecified chronic kidney disease; N18.1 Chronic kidney disease, stage 1; E03.9 Hypothyroidism, unspecified; K21.9 Gastro-esophageal reflux disease without esophagitis; E78.5 Hyperlipidemia, unspecified; M54.2 Cervicalgia; R41.9 Unspecified symptoms and signs involving cognitive functions and awareness; R41.3 Other amnesia; F40.240 Claustrophobia; Z79.82 Long term (current) use of aspirin; Z79.02 Long term (current) use of antithrombotics/antiplatelets; Z79.890 Hormone replacement therapy; Z79.899 Other long term (current) drug therapy; Z86.73 Personal history of transient ischemic attack (TIA), and cerebral infarction without residual deficits; Z90.49 Acquired absence of other specified parts of digestive tract; Z87.19 Personal history of other diseases of the digestive system; Z88.5 Allergy status to narcotic agent; Z82.5 Family history of asthma and other chronic lower respiratory diseases; Z80.8 Family history of malignant neoplasm of other organs or systems
CPT/HCPCS: 36415; 70450; 70496; 70498; 70553; 71046; 80053; 80061; 82550; 82553; 84484; 85025; 85610; 85730; 93005; 93306; 96360; 99285

== ENCOUNTER → 2020-01-19 | Outpatient (CLI) | payer MEDICARE ==
--- NOTE | 2020-01-25 13:41 | MM ---
Reason for exam: screening (asymptomatic). Last mammogram was performed 1 year and 3 months ago. History: Patient is postmenopausal. Family history of breast cancer in aunt. Physical Findings: A clinical breast exam by your physician is recommended on an annual basis and results should be correlated with mammographic findings. MG 3D Screening Mammo W/Cad Bilateral CC and MLO view(s) were taken. Prior study comparison: October 26, 2018, mammogram, performed at [facility]. October 18, 2018, mammogram, performed at [facility]. There are scattered fibroglandular densities. Benign appearing few scattered bilateral calcifications. No true groups. No suspicious abnormality. No significant changes when compared with prior studies. ASSESSMENT: Benign, BI-RAD 2 RECOMMENDATION: Routine screening mammogram of both breasts in 1 year.
== END | disposition home or self-care (01) ==
LOC: RADMAMWWP 10:29
PROVIDERS: ATTEND Family Medicine
DX: Z12.31 Encounter for screening mammogram for malignant neoplasm of breast (principal)
CPT/HCPCS: 77063; 77067

== ENCOUNTER → 2021-02-03 | Outpatient (CLI) | payer MEDICARE ==
--- NOTE | 2021-02-05 11:56 | MM ---
Reason for exam: screening (asymptomatic). Last mammogram was performed 1 year and 1 month ago. History: Patient is postmenopausal. Family history of breast cancer in aunt. Physical Findings: A clinical breast exam by your physician is recommended on an annual basis and results should be correlated with mammographic findings. MG 3D Screening Mammo W/Cad Bilateral CC and MLO view(s) were taken. Prior study comparison: January 19, 2020, bilateral MG 3d screening mammo w/cad. October 26, 2018, mammogram, performed at [facility]. There are scattered fibroglandular densities. There is chronic nodularity in the left breast. No significant changes when compared with prior studies. ASSESSMENT: Benign, BI-RAD 2 RECOMMENDATION: Routine screening mammogram of both breasts in 1 year.
--- NOTE | 2021-02-07 08:03 | BD ---
EXAMINATION TYPE: Axial Bone Density DATE OF EXAM: 02/03/2021 COMPARISON: NONE CLINICAL HISTORY: Height: 61.5 Weight: 169.9 FRAX RISK QUESTIONS: Alcohol (3 or more units per day): no Family History (Parent hip fracture): no Glucocorticoids (More than 3mos): no (Ex: prednisone, prednisolone, methylprednisolone, dexamethasone, and hydrocortisone). History of Fracture in Adulthood: no Secondary Osteoporosis: 1. Type 1 Diabetes: no 2. Hyperthyroidism: no 3. Menopause before 45: no 4. Malnutrition: no 5. Chronic liver disease: no Rheumatoid Arthritis: no Current Tobacco Use: no RISK FACTORS HISTORY OF: Surgery to Spine/Hip(right/left)/Wrist (right/left): no Family History of Osteoporosis: no Active: no Diet low in dairy products/other sources of calcium: yes Postmenopausal woman: age 62 Lost more than 2 inches in height since high school: no MEDICATIONS: vitamin, aspirin, plavix, simvastatin, pantoprazole Thyroid Medications: synthroid How Lon years Additional History: EXAM MEASUREMENTS: Bone mineral densitometry was performed using the Bizimply System. Bone mineral density as measured about the Lumbar spine is: ----- L1-L4(G/cm2): 0.904 T Score Values are as follows: ----- L2: -2.8 ----- L3: -2.2 ----- L4: -1.8 ----- L1-L4: -2.3 Bone mineral density has: increased 5.2 % since study of: 10.09.2009 Bone mineral density about the R hip (g/cm2): 0.835 Bone mineral density about the L hip (g/cm2): 0.833 T Score values are as follows: -----R Neck: -1.5 -----L Neck: -1.5 -----R Total: -1.3 -----L Total: -0.7 Bone mineral density has: decreased -6.9 % since study of: 10.09.2009 IMPRESSION: Osteopenia (T Score between -2.5 and -1). There is slightly increased risk of fracture and the patient may be considered for treatment. Re-Screen 2-5 years. NOTE: T-SCORE=SD OF THE YOUNG ADULT MEAN.
== END ==
LOC: RADBDWWP 15:39
PROVIDERS: ATTEND Family Medicine
DX: Z12.31 Encounter for screening mammogram for malignant neoplasm of breast (principal); Z78.0 Asymptomatic menopausal state; Z80.3 Family history of malignant neoplasm of breast; M85.89 Other specified disorders of bone density and structure, multiple sites
CPT/HCPCS: 77063; 77067; 77080

== ENCOUNTER 2021-05-13 13:58 | Observation (INO) | payer MEDICARE ==
[2021-05-13 15:53] LABS: Basophils # (A) 0.1 k/uL (0-0.2); Basophils % (A) 1 %; Eosinophils # (A) 0.1 k/uL (0-0.7); Eosinophils % (A) 2 %; HCT 41.5 % (34.0-46.0); HGB 14.3 gm/dL (11.4-16.0); Lymphocytes # (A) 1.2 k/uL (1.0-4.8); Lymphocytes % (A) 16 %; MCH 31.7 pg (25.0-35.0); MCHC 34.5 g/dL (31.0-37.0); MCV 91.8 fL (80.0-100.0); Mean Platelet Volume 7.5; Monocytes # (A) 0.6 k/uL (0-1.0); Monocytes % (A) 8 %; Neutrophils # (A) 5.2 k/uL (1.3-7.7); Neutrophils % (A) 71 %; Platelet Count 245 k/uL (150-450); RBC 4.52 m/uL (3.80-5.40); RDW 12.4 % (11.5-15.5); WBC 7.3 k/uL (3.8-10.6)
[2021-05-13 16:01] LABS: Partial Thromboplastin Time 24.5 sec (22.0-30.0); Prothrombin Time 10.6 sec (9.0-12.0)
[2021-05-13 16:18] LABS: ALT 20 U/L (4-34); AST 22 U/L (14-36); African American GFR (CKD) >90 (>60 ml/min/1.73 sqM); Albumin 3.7 g/dL (3.5-5.0); Alkaline Phosphatase 83 U/L (38-126); Anion Gap 6 mmol/L; Blood Urea Nitrogen 16 mg/dL (7-17); Calcium 8.8 mg/dL (8.4-10.2); Carbon Dioxide 24 mmol/L (22-30); Chloride 109 mmol/L (98-107); Glucose 97 mg/dL (74-99); Non-African American GFR(CKD) >90 (>60 ml/min/1.73 sqM); Potassium 3.9 mmol/L (3.5-5.1); Sodium 139 mmol/L (137-145); Total Bilirubin 0.4 mg/dL (0.2-1.3); Total Protein 6.8 g/dL (6.3-8.2)
--- NOTE | 2021-05-13 16:51 | ED ---
General Adult HPI - General Chief complaint: Neuro Symptoms/Deficit Stated complaint: Arm numbness,Light headed Time Seen by Provider: 05/13/21 15:08 Source: patient, family, EMS Mode of arrival: EMS Limitations: no limitations - History of Present Illness Initial comments: This 76-year-old female presents with a complaint of developing some dizziness l ast night at approximately 11 PM. She then woke up with a feeling of some left arm numbness and weakness. She states that she was trying to grab a ball with her left hand which she does normally but was unable to do so very well. States that the symptoms have resolved at this point. She denies any difficulty with ambulation or any weakness or numbness of lower extremities. She denies any problems with vision or with speech. She does relate having a TIA approximately 8 years ago. She currently is on aspirin as well as Plavix. She denies any chest pain or shortness of breath. No other complaints or modifying factors. - Related Data Home Medications Medication Instructions Recorded Confirmed Levothyroxine Sodium [Synthroid] 75 mcg PO DAILY 01/22/16 05/13/21 Pantoprazole Sodium 20 mg PO DAILY 06/13/18 05/13/21 Polyvinyl Alcohol/Povidone 1 drop BOTH EYES DAILY PRN 07/18/18 05/13/21 [Freshkote Eye Drop] Aspirin EC [Ecotrin Low Dose] 81 mg PO DAILY 05/13/21 05/13/21 Multivit-Min/Iron/Folic/Lutein 1 tab PO DAILY 05/13/21 05/13/21 [Centrum Silver Women Tablet] Vit C/E/Zn/Coppr/Lutein/Zeaxan 1 cap PO BID 05/13/21 05/13/21 [Preservision Areds 2 Softgel] Previous Rx's Medication Instructions Recorded Clopidogrel [Plavix] 75 mg PO DAILY #0 01/24/16 Atorvastatin [Lipitor] 40 mg PO DAILY 30 Days #30 tab 05/15/21 Allergies Allergy/AdvReac Type Severity Reaction Status Date / Time codeine Allergy Unknown Verified 05/13/21 16:16 Review of Systems ROS Statement: Those systems with pertinent positive or pertinent negative responses have been documented in the HPI. ROS Other: All systems not noted in ROS Statement are negative. Past Medical History Past Medical History: CVA/TIA, GERD/Reflux, Hyperlipidemia, Hypertension, Thyroid Disorder Additional Past Medical History / Comment(s): 3-16 ADMITTED WITH STROKE LIKE SYMPTOMS-pt. states was told didn't have stroke, history of TIAs,DIVERTICULITIS History of Any Multi-Drug Resistant Organisms: None Reported Past Surgical History: Appendectomy, Section, Cholecystectomy Past Anesthesia/Blood Transfusion Reactions: No Reported Reaction Additional Past Anesthesia/Blood Transfusion Reaction / Comment(s): MILD CLAUSTROPHOBIA Past Psychological History: No Psychological Hx Reported Smoking Status: Never smoker Past Alcohol Use History: None Reported Past Drug Use History: None Reported - Past Family History Mother Family Medical History: Cancer Additional Family Medical History / Comment(s): UNSURE WHAT TYPE OF CANCER Father Family Medical History: Cancer Additional Family Medical History / Comment(s): BONE CANCER Brother(s) Family Medical History: Asthma Sister(s) Family Medical History: No Reported History Son(s) Family Medical History: No Reported History General Exam - General Exam Comments Initial Comments: GENERAL: The patient is well nourished and well hydrated. VITAL SIGNS: Heart rate, blood pressure, respiratory rate reviewed as recorded in nurse's notes. EYES: Pupils are round and reactive. Extraocular movements are intact. No conju nctival / lid redness or swelling. ENT: No external evidence of injury, swelling, or ecchymosis. Airway is patent. Throat is clear. NECK: Nontender. No swelling or evidence of injury. No subcutaneous emphysema. Trachea is midline. No thyroid mass. HEART: Regular rate and rhythm. Good peripheral pulses. LUNGS/CHEST: Breath sounds clear and equal bilaterally. No rales, rhonchi, or wheezes. No ecchymosis, subcutaneous emphysema, or tenderness. ABDOMEN: Abdomen soft without tenderness. No palpable masses or organomegaly. No peritoneal signs. No abdominal wall swelling or ecchymosis. EXTREMITIES: No extremity tenderness. Normal muscle tone and function. No thoracolumbar tenderness. There is no identifiable weakness identified to the extremities. There is no identifiable numbness currently. NEUROLOGIC: Sensation is grossly intact. Cranial nerve exam reveals face is symmetrical, tongue is midline, speech is clear. SKIN: No abrasions or ecchymosis is noted. No induration or masses noted. PSYCHIATRIC: Alert and oriented. Appropriate behavior and judgment. Limitations: no limitations Course Vital Signs 06/05/13/21 05/13/21 14:30 15:05 16:33 Temperature 98.2 F 98.2 F Pulse Rate 73 73 87 Respiratory 16 16 18 Rate Blood Pressure 141/83 141/83 140/78 O2 Sat by Pulse 97 97 97 Oximetry Medical Decision Making - Medical Decision Making The patient was seen and examined. All diagnostics are reviewed. An EKG is done which shows a normal sinus rhythm at a rate of 70. There is no acute ST-T wave changes noted. The WV intervals 174, the QRS duration is 76, and the QTC intervals 440. Laboratory is reviewed and overall is unremarkable. CTA of the head and neck and noncontrasted CT are all essentially within normal limits. Her symptoms seem consistent with a TIA. It is felt as though she would benefit from admission and neurology evaluation. Case is discussed with internal medicine and patient is admitted with neurology to consult. - Lab Data Result diagrams: 05/13/21 15:42 05/13/21 15:42 Lab Results 05/13/21 05/13/21 05/13/21 Range/Units 15:42 15:42 15:42 WBC 7.3 (3.8-10.6) k/uL RBC 4.52 (3.80-5.40) m/uL Hgb 14.3 (11.4-16.0) gm/dL Hct 41.5 (34.0-46.0) % MCV 91.8 (80.0-100.0) fL MCH 31.7 (25.0-35.0) pg MCHC 34.5 (31.0-37.0) g/dL RDW 12.4 (11.5-15.5) % Plt Count 245 (150-450) k/uL MPV 7.5 Neutrophils % 71 % Lymphocytes % 16 % Monocytes % 8 % Eosinophils % 2 % Basophils % 1 % Neutrophils # 5.2 (1.3-7.7) k/uL Lymphocytes # 1.2 (1.0-4.8) k/uL Monocytes # 0.6 (0-1.0) k/uL Eosinophils # 0.1 (0-0.7) k/uL Basophils # 0.1 (0-0.2) k/uL PT 10.6 (9.0-12.0) sec INR 1.0 (<1.2) APTT 24.5 (22.0-30.0) sec Sodium 139 (137-145) mmol/L Potassium 3.9 (3.5-5.1) mmol/L Chloride 109 H (98-107) mmol/L Carbon Dioxide 24 (22-30) mmol/L Anion Gap 6 mmol/L BUN 16 (7-17) mg/dL Creatinine 0.51 L (0.52-1.04) mg/dL Est GFR (CKD-EPI)AfAm >90 (>60 ml/min/1.73 sqM) Est GFR (CKD-EPI)NonAf >90 (>60 ml/min/1.73 sqM) Glucose 97 (74-99) mg/dL Calcium 8.8 (8.4-10.2) mg/dL Total Bilirubin 0.4 (0.2-1.3) mg/dL AST 22 (14-36) U/L ALT 20 (4-34) U/L Alkaline Phosphatase 83 (38-126) U/L Troponin I (0.000-0.034) ng/mL Total Protein 6.8 (6.3-8.2) g/dL Albumin 3.7 (3.5-5.0) g/dL TSH (0.465-4.680) mIU/L 05/13/21 05/13/21 Range/Units 15:42 15:42 WBC (3.8-10.6) k/uL RBC (3.80-5.40) m/uL Hgb (11.4-16.0) gm/dL Hct (34.0-46.0) % MCV (80.0-100.0) fL MCH (25.0-35.0) pg MCHC (31.0-37.0) g/dL RDW (11.5-15.5) % Plt Count (150-450) k/uL MPV Neutrophils % % Lymphocytes % % Monocytes % % Eosinophils % % Basophils % % Neutrophils # (1.3-7.7) k/uL Lymphocytes # (1.0-4.8) k/uL Monocytes # (0-1.0) k/uL Eosinophils # (0-0.7) k/uL Basophils # (0-0.2) k/uL PT (9.0-12.0) sec INR (<1.2) APTT (22.0-30.0) sec Sodium (137-145) mmol/L Potassium (3.5-5.1) mmol/L Chloride (98-107) mmol/L Carbon Dioxide (22-30) mmol/L Anion Gap mmol/L BUN (7-17) mg/dL Creatinine (0.52-1.04) mg/dL Est GFR (CKD-EPI)AfAm (>60 ml/min/1.73 sqM) Est GFR (CKD-EPI)NonAf (>60 ml/min/1.73 sqM) Glucose (74-99) mg/dL Calcium (8.4-10.2) mg/dL Total Bilirubin (0.2-1.3) mg/dL AST (14-36) U/L ALT (4-34) U/L Alkaline Phosphatase (38-126) U/L Troponin I <0.012 (0.000-0.034) ng/mL Total Protein (6.3-8.2) g/dL Albumin (3.5-5.0) g/dL TSH 1.070 (0.465-4.680) mIU/L Disposition Clinical Impression: Left arm weakness, Dizziness, Left arm numbness, Transient ischemic attack Disposition: ADMITTED IP TO THIS [facility] Condition: Stable Is patient prescribed a controlled substance at d/c from ED?: No Time of Disposition: 19:00 Decision Date: 05/13/21 Decision Time: 19:00
--- NOTE | 2021-05-13 17:19 | CT ---
EXAMINATION TYPE: CT brain wo con for TPA DATE OF EXAM: 05/13/2021 COMPARISON: 07/18/2018 HISTORY: dizziness, left arm numbness CT DLP: 1014 mGycm Automated exposure control for dose reduction was used. There is cerebral atrophy. There is no mass effect nor midline shift. There is no sign of intracrania l hemorrhage. The calvarium is intact. there is some hypodensity in the anterior internal capsule bi laterally. Skull base appears intact. There is normal aeration of the mastoid sinuses. There is proba mono a 1 cm old lacunar infarct in the left parietal lobe near the internal capsule. IMPRESSION: Cerebral atrophy. Chronic small vessel ischemia. No change compared to old exam.
--- NOTE | 2021-05-13 17:39 | CT ---
EXAMINATION TYPE: CT angio head neck DATE OF EXAM: 05/13/2021 COMPARISON: 07/18/2018 HISTORY: left arm numbness, dizziness CT DLP: 419.4 mGycm Automated exposure control for dose reduction was used. CONTRAST: Performed with IV Contrast, patient injected with 65 mL of Isovue 370. There are 3-D post processed images. Images obtained from the aortic arch to the vertex of the brain with IV contrast. There is normal branching pattern of the great vessels on the aortic arch. There is arterial flow in the common internal and external carotid arteries bilaterally. There is wide patency of the carotid a rtery bifurcations. There is arterial flow in both vertebral arteries. There is no evidence of caroti d or vertebral artery aneurysm or dissection. There is arterial flow in the vertebrobasilar artery sy stem. There is arterial flow in the anterior middle and posterior cerebral arteries. There is mild ectasia of the basilar artery without evidence of an aneurysm. There is no mass effect. There is no evidence of intracranial aneurysm or neovascularity. There is no evidence of hemodynamic stenosis. There is no rmal enhancement of the venous sinuses. Basilar artery ectasia measuring 6 mm is stable compared to o ld exam. IMPRESSION: Negative CT angiogram of the neck. Negative CT angiogram of the brain. No change.
--- NOTE | 2021-05-13 18:14 | XR ---
EXAMINATION TYPE: XR chest 2V DATE OF EXAM: 05/13/2021 COMPARISON: 07/18/2018 HISTORY: Altered mental status TECHNIQUE: FINDINGS: There is no heart failure nor confluent pneumonic infiltrate. Costophrenic angles are clear . There are chest leads. Bony thorax is intact. Thoracic aorta is atheromatous. IMPRESSION: No active cardiopulmonary disease. No significant change.
[2021-05-13] MEDS ORDERED: ARTIFICIAL TEARS-HYPROMELLOSE DROPS 15 ML BTL BOTH EYES PRN (19:06)
[2021-05-13] MEDS: VIT A,C & E-LUTEIN-MINERALS 1 EACH TAB PO SCH (21:10)
[2021-05-13] MEDS: ATORVASTATIN 20 MG TAB PO SCH (21:11)
--- NOTE | 2021-05-13 23:03 | HP ---
HISTORY AND PHYSICAL DATE OF SERVICE: 05/13/2021 CHIEF COMPLAINTS: Left hand numbness and dizziness. I am covering for Dr. Wheatley. HISTORY OF PRESENT ILLNESS: This 76-year-old woman with a past medical history of multiple medical problems, CVA/TIA, GERD, hypertension, hyperlipidemia, hypothyroidism, previous history of stroke- like symptoms developed dizziness and also patient had numbness of the left arm and the patient was concerned. The patient came to [facility] and admitted for further evaluation and treatment. The patient was unable to grab the ball and some weakness was also noted and the patient had a CT scan of the brain and CT angio which showed only some cerebral atrophy and small-vessel ischemia. Neurology evaluation has been sought. There is no history of fever, rigors. No history of headache, loss of consciousness, seizures. PAST MEDICAL: CVA, GERD, hyperlipidemia, appendectomy, section, claustrophobia, mild. MEDICATIONS: Home medications are vitamin C, zinc, multivitamin, aspirin, eye drops, Protonix. Synthroid, Plavix. Doses reviewed. ALLERGIES: CODEINE. FAMILY HISTORY: History of cancer in the family. SOCIAL HISTORY: No history of smoking. No alcohol intake. REVIEW OF SYSTEMS: ENT As mentioned earlier. CARDIOVASCULAR No angina or palpitations. RESPIRATORY No cough, no hemoptysis. GI No nausea, vomiting, or diarrhea. No dysuria or hematuria. NERVOUS As mentioned earlier. ALLERGY/IMMUNOLOGY No asthma or hayfever. MUSCULOSKELETAL As mentioned earlier. HEMATOLOGY/ONCOLOGY Negative. ENDOCRINE No history of diabetes or hypothyroidism. CONSTITUTIONAL As mentioned earlier. DERMATOLOGY Negative. RHEUMATOLOGY Negative, PSYCHIATRY As mentioned earlier. PHYSICAL EXAMINATION: Alert and oriented x3. Pulse 73, blood pressure 141/86, respirations 16, temperature 98.2, pulse ox 97% on room air. HEENT: Conjunctivae normal. Oral mucosa moist. NECK: No jugular venous distention. No lymph node enlargement. CARDIOVASCULAR: S1, S2, muffled. No S3, no S4, RESPIRATORY: Diminished breath sounds at the bases. No rhonchi, no crackles. ABDOMEN: Soft, nontender. No mass palpable. LEGS: No edema, no swelling. NERVOUS SYSTEM: Higher functions mentioned earlier. Moves all four limbs. No focal motor or sensory deficits. LYMPHATICS: No lymph node in neck or axilla. SKIN: No rash. JOINTS: No active deforming arthropathy. LABS: At this time show CBC within normal limits. Creatinine 0.9. CT scan noted. ASSESSMENT: 1. Dizziness and as well as left hand numbness for evaluation, possible acute transient ischemic attack. 2. History of CVA, TIA. 3. History of gastroesophageal reflux disease. 4. Hypertension. 5. Hyperlipidemia. 6. History of hypothyroidism. 7. History of appendectomy history. 8. History of section. 9. History of mild claustrophobia. RECOMMENDATIONS: In this 76-year-old woman who presented with multiple complex medical issues, we will monitor the patient closely, continue the current management and symptomatic treatment. Continue the antiplatelet agents, Lipitor. Otherwise, complete neurovascular workup, neurology evaluation. Resume the home medications. Prognosis guarded because of multiple complex medical issues. Further recommendations to follow. MMODL / IJN: [id number] /
[2021-05-14] MEDS: LEVOTHYROXINE 75 MCG TAB PO SCH (06:11)
[2021-05-14] MEDS: ATORVASTATIN 20 MG TAB PO SCH (08:39)
[2021-05-14] MEDS: MULTIVITAMINS, THERA 1 EACH TAB PO SCH (08:39)
[2021-05-14] MEDS: CLOPIDOGREL 75 MG TAB PO SCH (08:39)
[2021-05-14] MEDS: ASPIRIN 81 MG PO SCH (08:39)
[2021-05-14] MEDS: ENOXAPARIN 40 MG/0.4 ML SYRINGE SQ SCH (08:40)
[2021-05-14] MEDS: VIT A,C & E-LUTEIN-MINERALS 1 EACH TAB PO SCH ×2 (08:40→22:00)
[2021-05-14] MEDS: PANTOPRAZOLE SODIUM 40 MG GRANULE PKT PO SCH (08:45)
--- NOTE | 2021-05-14 12:56 | ECHOF ---
Referral Reason:Thrombus MEASUREMENTS -------- HEIGHT: 167.6 cm WEIGHT: 77.1 kg BP: 165/81 RVIDd: 2.9 cm (< 3.3) IVSd: 1.1 cm (0.6 - 1.1) LVIDd: 3.7 cm (3.9 - 5.3) LVPWd: 1.1 cm (0.6 - 1.1) IVSs: 1.7 cm LVIDs: 2.5 cm LVPWs: 1.8 cm LA Diam: 3.2 cm (2.7 - 3.8) LAESV Index (A-L): 23.00 ml/m Ao Diam: 3.4 cm (2.0 - 3.7) AV Cusp: 2.0 cm (1.5 - 2.6) MV EXCURSION: 11.714 mm (> 18.000) MV EF SLOPE: 26 mm/s (70 - 150) EPSS: 0.3 cm MV E Juan Manuel: 0.82 m/s MV DecT: 191 ms MV A Juan Manuel: 0.94 m/s MV E/A Ratio: 0.87 AR PHT: 763 ms RAP: 5.00 mmHg RVSP: 25.25 mmHg FINDINGS -------- Sinus rhythm. This was a technically adequate study. The left ventricular size is normal. There is borderline concentric left ventricular hypertrophy. Overall left ventricular systolic function is normal with, an EF between 60 - 65 %. The right ventricle is normal in size. Normal LA size by volume 22+/-6 ml/m2. The right atrium is normal in size. Interatrial and interventricular septum intact. There is [id number] aortic regurgitation. The mitral valve is normal. Mild tricuspid regurgitation present. Right ventricular systolic pressure is normal at < 35 mmHg. Trace/mild (physiologic) pulmonic regurgitation. The aortic root size is normal. IVC Not well visulized. There is no pericardial effusion. CONCLUSIONS -------- 1. The left ventricular size is normal. 2. There is borderline concentric left ventricular hypertrophy. 3. Overall left ventricular systolic function is normal with, an EF between 60 - 65 %. 4. Mild tricuspid regurgitation present. 5. Trace/mild (physiologic) pulmonic regurgitation. 6. There is no pericardial effusion. OPERATIONS RESEARCH MANAGER: Christine Melgar RDCS
--- NOTE | 2021-05-14 13:25 | P.PN ---
Subjective 76-year-old female with history of CVA came in with complaints of numbness in the left thumb patient denied any neck pain. Patient underwent workup with the CT angio of the head and neck and CT of the head which were negative. Patient had an echocardiogram which showed EF of around 65% without any ventricular thrombus. Patient will be evaluated by neurology. Lipase panel was ordered and results are still pending. Patient came in with the dizziness still complaining of dizziness which is lightheadedness although etiology of this dizziness is not really clear at this time. Patient is presently on 81 mg of aspirin. Her tingling numbness in the left arm along with weakness resolved yesterday after few hours of onset of symptoms. Constitutional: Denied any fatigue denied any fever. Cardio vascular: denied any chest pain, palpitations Gastrointestinal denied any nausea vomiting Pulmonary: Denied any shortness of breath cough Neurologic denied any new focal deficits All inpatient medications were reviewed and appropriate changes in these medications as dictated in the interval history and assessment and plan. Objective - Vital Signs Vital signs: Vital Signs Temp 97.7 F 05/14/21 07:00 Pulse 68 05/14/21 07:30 Resp 16 05/14/21 08:00 BP 142/82 05/14/21 07:30 Pulse Ox 96 05/14/21 07:00 Intake & Output 05/13/21 05/14/21 05/14/21 18:59 06:59 18:59 Intake Total 800 Balance 800 Weight 77.111 kg 77.111 kg Intake: Oral 800 Other: Voiding Method Toilet Toilet - Exam PHYSICAL EXAMINATION: GENERAL: The patient is alert and oriented x3, not in any acute distress. Well developed, well nourished. HEENT: Pupils are round and equally reacting to light. EOMI. No scleral icterus. No conjunctival pallor. Normocephalic, atraumatic. No pharyngeal erythema. No thyromegaly. CARDIOVASCULAR: S1 and S2 present. No murmurs, rubs, or gallops. PULMONARY: Chest is clear to auscultation, no wheezing or crackles. ABDOMEN: Soft, nontender, nondistended, normoactive bowel sounds. No palpable organomegaly. MUSCULOSKELETAL: No joint swelling or deformity. EXTREMITIES: No cyanosis, clubbing, or pedal edema. NEUROLOGICAL: Gross neurological examination did not reveal any focal deficits. SKIN: No rashes. - Labs CBC & Chem 7: 05/13/21 15:42 05/13/21 15:42 Labs: Abnormal Lab Results - Last 24 Hours (Table) 05/13/21 Range/Units 15:42 Chloride 109 H (98-107) mmol/L Creatinine 0.51 L (0.52-1.04) mg/dL Assessment and Plan Plan: -Left arm numbness and weakness: Patient is being evaluated for TIA although patient doesn't have any facial numbness or weakness. Neurology will evaluate the patient workup as mentioned above. -Dizziness/lightheadedness: Vertigo etiology is not clear although workup is so far negative -History of her TIA in the past Gastroesophageal reflux disease -Hypothyroidism -DVT prophylaxis: Ambulation
[2021-05-14 14:00] LABS: Chol/HDL Ratio 4.85; LDL Cholesterol,Calculated 124.2 mg/dL (0.0-131.0); VLDL Calculation 33.8 mg/dL (5.00-40.00)
--- NOTE | 2021-05-14 14:00 | P.CNNES ---
History of Present Illness Consult date: 05/14/21 Requesting physician: Hola Freeman Reason for Consult: TIA History of Present Illness: This is a 76-year-old woman with medical history of TIA, [place] palsy but does not remember which side, hypertension, hyperlipidemia, hypothyroidism percent emergency department on 05/13/2021 for dizziness that started the the night prior to presenting to the hospital around 11 PM. She was also complaining of left arm numbness and weakness. She felt like her left hand was weak and tingling. She stated that her dizziness she felt lightheaded as well as she felt the room is spinning mostly when she was moving the. Denies difficulty getting her words out or swallowing. She currently feels her weakness and tingling has resolved. She feels still dizzy when she is moving. Denies any diplopia, ringing in the ears or any near hearing loss. Denies any head trauma. Denies any focal weakness. She said that in the past she is to follow-up with Dr. Chan but has not done so recently. Home medication consisted off Plavix 75 mg daily, aspirin 81 mg daily, Protonix, Synthroid. Some of the workup in the hospital consisted of: Initial vital signs: Blood pressure of 141/83, heart rate is 73, respiratory of 16, initial temperature of 90.2 Fahrenheit oral and pulse ox of 97%. Orthostatic vitals is a supine blood pressure is 142/82 with a heart rate is 68; sitting is 155/96 with a heart rate is 69 and standing is 174/93 with a heart rate 72. Orthostatics are negative. CT of the head is reported as cerebral atrophy. Chronic small vessel ischemia. No change compared to old exam. CT angiography of the head and neck was reported as negative CT angiography of the head and neck. No change. EKG is reported as normal sinus rhythm. Normal EKG. CBC with differential as well as a the chemistry panel seems unremarkable. TSH is 1.070 which is within normal limits. Of note upon reviewing the patient's medical record that she was last seen by Dr. Kenney Chan on the 01/24/2016 and in his excessive plan he stated that the #1 acute ischemic stroke number to his expressive aphasia syndrome. And that the plan he stated that the patient came in that because of increased confusion disorientation and she had MRI of the brain which is reported as increased signal involving the dural on the T2 FLAIR data set within the supra-and infratentorial region is of uncertain etiology. Meningitis is not excluded. Chronic inflammatory processes skin the result in the similar appearance. The postcontrast MRI of the brain is recommended that. No MRI evidence to suggest acute vascular insult. Then the MRI with contrast as reported as there is enhancement O of the left and the right frontal and parietal cerebral lobe throughout. Differential could include meningitis and metastasis. Patient had a last MRI of the brain w/ and w/o on 07/11/2018 and is reported as age-related chronic small vessel ischemia likely etiology outpatient white matter demyelination. SHe had about puncture and the was clear, colorless, nuclear cells 0, glucose is 53 which is within normal limits, protein is 47 also within normal limits She had an EEG on 01/23/2016 and it is reported as moderately abnormal in diffuse fashion due to slowing of the EEG background. The EEG felt to reveal any focal lateralized or epileptiform normality. Review of Systems Review of system: The 12 point system was reviewed and apparent positive and negative per HPI. Past Medical History Past Medical History: CVA/TIA, GERD/Reflux, Hyperlipidemia, Thyroid Disorder Additional Past Medical History / Comment(s): 3--16 ADMITTED WITH STROKE LIKE SYMPTOMS-pt. states was told didn't have stroke, history of TIAs,DIVERTICULITIS History of Any Multi-Drug Resistant Organisms: None Reported Past Surgical History: Appendectomy, Section, Cholecystectomy Past Anesthesia/Blood Transfusion Reactions: No Reported Reaction Additional Past Anesthesia/Blood Transfusion Reaction / Comment(s): MILD CLAUSTROPHOBIA Past Psychological History: No Psychological Hx Reported Smoking Status: Never smoker Past Alcohol Use History: None Reported Past Drug Use History: None Reported - Past Family History Mother Family Medical History: Cancer Additional Family Medical History / Comment(s): UNSURE WHAT TYPE OF CANCER Father Family Medical History: Cancer Additional Family Medical History / Comment(s): BONE CANCER Brother(s) Family Medical History: Asthma Sister(s) Family Medical History: No Reported History Son(s) Family Medical History: No Reported History Medications and Allergies Home Medications Medication Instructions Recorded Confirmed Type Levothyroxine Sodium [Synthroid] 75 mcg PO DAILY 01/22/16 05/13/21 History Clopidogrel [Plavix] 75 mg PO DAILY #0 01/24/16 05/13/21 Rx Pantoprazole Sodium 20 mg PO DAILY 06/13/18 05/13/21 History Polyvinyl Alcohol/Povidone 1 drop BOTH EYES DAILY PRN 07/18/18 05/13/21 History [[place] Eye Drop] Aspirin EC [Ecotrin Low Dose] 81 mg PO DAILY 05/13/21 05/13/21 History Multivit-Min/Iron/Folic/Lutein 1 tab PO DAILY 05/13/21 05/13/21 History [Centrum Silver Women Tablet] Vit C/E/Zn/Coppr/Lutein/Zeaxan 1 cap PO BID 05/13/21 05/13/21 History [Preservision Areds 2 Softgel] Allergies Allergy/AdvReac Type Severity Reaction Status Date / Time codeine Allergy Unknown Verified 05/13/21 16:16 Physical Examination - Vital Signs Vital Signs: Vital Signs Temp Pulse Pulse Pulse Pulse Pulse Resp 05/14/21 08:00 16 05/14/21 07:30 69 72 68 05/14/21 07:00 97.7 F 70 16 05/14/21 01:01 97.9 F 63 16 05/13/21 22:00 18 05/13/21 21:33 98.0 F 69 18 05/13/21 16:33 87 18 05/13/21 15:05 98.2 F 73 16 05/13/21 14:30 98.2 F 73 16 BP BP BP BP BP Pulse Ox 05/14/21 08:00 05/14/21 07:30 155/96 174/93 142/82 05/14/21 07:00 158/77 96 05/14/21 01:01 165/81 95 05/13/21 22:00 05/13/21 21:33 130/80 96 05/13/21 16:33 140/78 97 05/13/21 15:05 141/83 97 05/13/21 14:30 141/83 97 Intake and Output 05/13/21 05/14/21 05/14/21 22:59 06:59 14:59 Intake Total 400 400 Balance 400 400 Intake: Oral 400 400 Other: Voiding Method Toilet Toilet Weight 77.111 kg GENERAL: The patient is lying in bed and is not in acute distress. CHEST: The heart rate is regular rate rhythm. No murmurs to auscultation. No carotid bruit bilaterally. LUNG: Clear to auscultation bilaterally no wheezing noted throughout. Not labored breathing. ABDOMEN/GI: Bowel sounds present in all 4 quadrants. No tenderness to palpation throughout. NEUROLOGICAL: Higher mental function: The patient is awake, alert, oriented to self, place and time. Patient is following commands. No aphasia and no neglect. Cranial nerves: The pupils are round, equal and reactive to light and accommo dation. Visual koehler are full to confrontation throughout. Extraocular movement is intact no nystagmus is noted. Facial sensation is normal to touch throughout. The facial strength is normal throughout. Hearing is mildly to moderately decreased bilaterally to hand rub. Tongue is midline and moved [id number] without any difficulty. No dysarthria is noted. Shoulder shrug is normal bilaterally. Motor: Gait is somewhat slow but not swaying to one side or the other. The strength is 5 over 5 throughout. Normal tone and bulk. Cerebellum: Normal finger to nose bilaterally. Sensation: Sensation is normal to touch throughout. Reflexes (right/left): 2+ Plantars are downgoing bilaterally. Results Patel virus PCR was not detected - Laboratory Findings CBC and BMP: 05/13/21 15:42 05/13/21 15:42 Abnormal Lab Findings: Abnormal Labs 05/13/21 15:42 Chloride 109 H Creatinine 0.51 L Assessment and Plan Assessment: Transient left hand weakness, tingling as well but continues to have vertigo. Likely due to Transient ischemic attack. History of TIA in the past Hypertension Hyperlipidemia Hypothyroidism Plan: Orthostatic vitals is a supine blood pressure is 142/82 with a heart rate is 68; sitting is 155/96 with a heart rate is 69 and standing is 174/93 with a heart rate 72. Orthostatics are negative. CT of the head is reported as cerebral atrophy. Chronic small vessel ischemia. No change compared to old exam. CT angiography of the head and neck was reported as negative CT angiography of the head and neck. No change. TSH is 1.070 which is within normal limits. Of note: History of meningeal enchancement of bilateral frontal/parietal region in 2016 imaging and CSF was negative for meningitis. her last MRI Brain w/ and w/o was not reported as enhancement. Not sure exact etiology. She has continued on the home dose of aspirin 81 and Plavix 75 mg daily. Patient refused the it to be on Brilinta and to discontinue Plavix. She was to continue on the same medication of her antiplatelets. Increased Lipitor 20 mg daily to 40mg daily. 2-D echo and lipid panel are ordered by the ED team is pending I consulted the physical therapy and occupational therapy I ordered HbA1c. Q4 hour neuro checks. Continue continous cardiac monitoring. Will defer the rest of medical management to the primary team. The patient stated if MRI Brain is negative for stroke she would like to be discharged home today. She was notified that she needs to follow-up with a neurologist as outpatient within 1-2 weeks (She will attempt to follow-up with Dr. Chan). The plan is discussed with the patient's son who is at bedside and her nurse. Thank you for the consultation. Marco Bhandari MD Neuro-Hospitalist Time with Patient: Greater than 30
[2021-05-14 22:03] LABS: Hemoglobin A1C 5.8 % (4.0-6.0)
--- NOTE | 2021-05-14 22:16 | MR ---
EXAMINATION TYPE: MR brain wo/w con DATE OF EXAM: 05/14/2021 COMPARISON: 07/19/2018 HISTORY: Left arm weakness, vertigo. CONTRAST: Standard multiplanar, multisequence MRI departmental protocol utilizing 7.5 mL intravenous Gadavist g adolinium contrast. There is some cerebral cortical atrophy. There is no mass effect nor midline shift. There is no sign of intracranial hemorrhage. Diffusion images show no evidence of an acute infarct. There are multiple foci of increased signal in the periventricular white matter on the T2 and FLAIR i mages. These are somewhat coalescent and measure up to 1 cm. Total number is approximately 35. There are scattered smaller foci at the zamora-white matter junction measuring up to 4 mm. The camden shows a small area of slight increased signal on the right side on the FLAIR images. This me asures 5 mm. The cerebellum is intact. There is mild thinning of the corpus callosum. The contrast images show no pathologic enhancement. There is normal enhancement of the venous sinuses . Sella turcica appears normal. There is no evidence of orbital mass. IMPRESSION: Extensive white matter signal changes around the ventricles and to a lesser extent more peripherally in the zamora-white matter junction. This appears not significantly different than old exam and could r elate to microvascular ischemia or demyelinating disease. No significant change overall compared to o ld exam. No acute infarct.
[2021-05-15] MEDS: VIT A,C & E-LUTEIN-MINERALS 1 EACH TAB PO SCH ×2 (00:03→09:26)
[2021-05-15] MEDS: LEVOTHYROXINE 75 MCG TAB PO SCH (06:00)
[2021-05-15 08:20] VITALS: BP 155/81; PULSE 77; RESP 16; TEMP 98
[2021-05-15] MEDS ORDERED: ATORVASTATIN 40 MG TAB PO SCH (09:00)
[2021-05-15] MEDS: ASPIRIN 81 MG PO SCH (09:25)
[2021-05-15] MEDS: MULTIVITAMINS, THERA 1 EACH TAB PO SCH (09:25)
[2021-05-15] MEDS: CLOPIDOGREL 75 MG TAB PO SCH (09:25)
[2021-05-15] MEDS: PANTOPRAZOLE SODIUM 40 MG GRANULE PKT PO SCH (09:26)
[2021-05-15] MEDS: ENOXAPARIN 40 MG/0.4 ML SYRINGE SQ SCH (09:26)
--- NOTE | 2021-05-15 16:32 | P.DS ---
Providers Date of admission: 05/13/21 19:02 Expected date of discharge: 05/15/21 Attending physician: Candida Chapman Consults: 05/13/21 19:03 Consult Physician Routine Consulting Provider: Marco Bhandari Consult Reason/Comments: tia Do you want consulting provider notified?: Yes Primary care physician: Marcelo Wheatley [facility] Course: Final diagnosis -Left arm numbness and weakness: possible TIA -Dizziness/lightheadedness: Vertigo etiology is not clear although workup is so far negative -History of TIA in the past -Gastroesophageal reflux disease -Hypothyroidism -DVT prophylaxis Discharge disposition Patient is being discharged in a stable condition with guarded prognosis to home. Patient will follow-up with in the outpatient setting upon discharge. Patient is to follow-up with neuro outpatient. Patient sees Dr. Solomon in the outpatient setting. Total time taken is greater than 35 minutes. Hospital course 76-year-old female with history of CVA came in with complaints of numbness in the left thumb patient denied any neck pain. Patient underwent workup with the CT angio of the head and neck and CT of the head which were negative. Patient had an echocardiogram which showed EF of around 65% without any ventricular thrombus. Patient will be evaluated by neurology. Lipase panel was ordered and results are still pending. Patient came in with the dizziness still complaining of dizziness which is lightheadedness although etiology of this dizziness is not really clear at this time. Patient is presently on 81 mg of aspirin. Her tingling numbness in the left arm along with weakness resolved yesterday after few hours of onset of symptoms. 05/15/2021 Patient is seen in follow-up this morning with no acute overnight issues. Patient underwent MRI which was negative for acute infarct. Patient instructed to closely follow with neurology outpatient and continue with aspirin and Plavix along with statin. Patient also instructed to follow-up with primary care provider upon discharge. Patient is asking to go home. Currently no reports of chest pain, shortness of breath, or palpitations. Patient is afebrile. No reports of nausea or vomiting and patient is tolerating diet. He should denies any dizziness or difficulty walking, or neuro deficits. Patient will be discharged home today. On exam vital signs are stable. Cardio S1, S2 are muffled. Respiratory system shows diminished breath sounds at the bases with no wheezing or rhonchi noted. Abdomen is soft and nontender. Nervous system shows no focal deficits. Please refer to medication reconciliation sheet for a list of medications. Patient Condition at Discharge: Stable Plan - Discharge Summary Discharge Rx Participant: No New Discharge Prescriptions: New Atorvastatin [Lipitor] 40 mg PO DAILY 30 Days #30 tab Continue Levothyroxine Sodium [Synthroid] 75 mcg PO DAILY Clopidogrel [Plavix] 75 mg PO DAILY #0 Pantoprazole Sodium 20 mg PO DAILY Polyvinyl Alcohol/Povidone [[place] Eye Drop] 1 drop BOTH EYES DAILY PRN PRN Reason: DRY EYES Aspirin EC [Ecotrin Low Dose] 81 mg PO DAILY Vit C/E/Zn/Coppr/Lutein/Zeaxan [Preservision Areds 2 Softgel] 1 cap PO BID Multivit-Min/Iron/Folic/Lutein [Centrum Silver Women Tablet] 1 tab PO DAILY Discharge Medication List Levothyroxine Sodium [Synthroid] 75 mcg PO DAILY 01/22/16 [History] Clopidogrel [Plavix] 75 mg PO DAILY #0 01/24/16 [Rx] Pantoprazole Sodium 20 mg PO DAILY 06/13/18 [History] Polyvinyl Alcohol/Povidone [[place] Eye Drop] 1 drop BOTH EYES DAILY PRN 07/18/18 [History] Aspirin EC [Ecotrin Low Dose] 81 mg PO DAILY 05/13/21 [History] Multivit-Min/Iron/Folic/Lutein [Centrum Silver Women Tablet] 1 tab PO DAILY 05/13/21 [History] Vit C/E/Zn/Coppr/Lutein/Zeaxan [Preservision Areds 2 Softgel] 1 cap PO BID 05/13/21 [History] Atorvastatin [Lipitor] 40 mg PO DAILY 30 Days #30 tab 05/15/21 [Rx] Follow up Appointment(s)/Referral(s): Nohemy Chan MD [REFERRING] - 1 Week (office will call patient with a ppointment time) Marcelo Wheatley MD [Primary Care Provider] - 1-2 days (please call office for appointment time) Patient Instructions/Handouts: Transient Ischemic Attack (DC), Heart Healthy Diet (DC) Activity/Diet/Wound Care/Special Instructions: Activity Limited until follow-up Follow-up with primary care provider upon discharge Follow-up with neurology outpatient this week Continue with aspirin and Plavix Continue with cholesterol medication Continue current diet Discharge Disposition: HOME SELF-CARE
--- NOTE | 2021-05-15 17:35 | P.PN ---
Subjective Progress Note Date: 05/15/21 The patient was seen at that side and she feels she is back to baseline. She denies of any neurological deficits. Objective - Vital Signs Vital signs: Vital Signs Temp 98.0 F 05/15/21 07:00 Pulse 77 05/15/21 07:00 Resp 16 05/15/21 07:00 BP 155/81 05/15/21 07:00 Pulse Ox 94 L 05/15/21 07:00 Intake & Output 05/14/21 05/15/21 05/15/21 18:59 06:59 18:59 Intake Total 600 200 Balance 600 200 Intake: Oral 600 200 Other: Voiding Method Toilet Toilet Toilet # Voids 3 1 - Exam GENERAL: The patient is lying in bed and is not in acute distress. NEUROLOGICAL: Higher mental function: The patient is awake, alert, oriented to self, place and time. Patient is following commands. No aphasia and no neglect. Cranial nerves: The pupils are round, equal and reactive to light and accommodation. Visual koehler are full to confrontation throughout. Extraocular movement is intact no nystagmus is noted. Facial sensation is normal to touch throughout. The facial strength is normal throughout. Hearing is mildly to moderately decreased bilaterally to hand rub. Tongue is midline and moved [id number] without any difficulty. No dysarthria is noted. Shoulder shrug is normal bilaterally. Motor: Gait is somewhat slow but not swaying to one side or the other. The strength is 5 over 5 throughout. Normal tone and bulk. Cerebellum: Normal finger to nose bilaterally. Sensation: Sensation is normal to touch throughout. Reflexes (right/left): 2+ Plantars are downgoing bilaterally. - Labs CBC & Chem 7: 05/13/21 15:42 05/13/21 15:42 Assessment and Plan Assessment: Transient left hand weakness, tingling as well but continues to have vertigo. Likely due to Transient ischemic attack. History of TIA in the past Hypertension Hyperlipidemia Hypothyroidism Plan: * Orthostatic vitals is a supine blood pressure is 142/82 with a heart rate is 68; sitting is 155/96 with a heart rate is 69 and standing is 174/93 with a heart rate 72. Orthostatics are negative. * Of note: History of meningeal enchancement of bilateral frontal/parietal region in 2016 imaging and CSF was negative for meningitis. her last MRI Brain w/ and w/o was not reported as enhancement. Not sure exact etiology. * MRI of the brain w/ and w/o on 05/14/21 is reported as extensive white matter signal changes around the ventricular and to lesser extent more preferably in the zamora-white matter junction. This appears not significantly different and old and could relate to microvascular ischemia or D buying disease. No significant change overall compared to old exam. No acute infarct. * 2-D echo was reported as borderline concerning the ventricular atrophy. Ejection fraction of 60-65%. * Hemoglobin A1c is 5.8. TSH is 1.07 which are normal * Lipid panel: Triglyceride of 169, cholesterol 19 and, LDLs 124 and HDL is 41. The LDL goal and strokes is less than 70. * She has continued on the home dose of aspirin 81 and Plavix 75 mg daily. Carlos powell refused the it to be on Brilinta and to discontinue Plavix. She was to continue on the same medication of her antiplatelets. Increased Lipitor 20 mg daily to 40mg daily. * Physical therapy and occupational therapy are consulted. * Q4 hour neuro checks. * Continue continous cardiac monitoring. * Will defer the rest of medical management to the primary team. * She was notified that she needs to follow-up with a neurologist as outpatient within 1-2 weeks (She will attempt to follow-up with Dr. Chan). The plan is discussed with the patient's son who is at bedside and her nurse. . Marco Bhandari MD Neuro-Hospitalist Time with Patient: Less than 30
== END 2021-05-15 13:35 | disposition home or self-care (01) ==
LOC: EC 13:58 → 6NMEDSUR 19:02
PROVIDERS: ADMIT Hospitalist; ATTEND Hospitalist
DX: G45.9 Transient cerebral ischemic attack, unspecified (principal); R42 Dizziness and giddiness; R20.0 Anesthesia of skin; R20.2 Paresthesia of skin; K21.9 Gastro-esophageal reflux disease without esophagitis; I10 Essential (primary) hypertension; E78.5 Hyperlipidemia, unspecified; Z20.822 Contact with and (suspected) exposure to COVID-19; E03.9 Hypothyroidism, unspecified; F40.240 Claustrophobia; R53.1 Weakness; G51.0 Bell's palsy; Z79.899 Other long term (current) drug therapy; Z88.5 Allergy status to narcotic agent; Z79.890 Hormone replacement therapy; Z79.82 Long term (current) use of aspirin; Z79.02 Long term (current) use of antithrombotics/antiplatelets; Z90.89 Acquired absence of other organs; Z90.49 Acquired absence of other specified parts of digestive tract; Z86.73 Personal history of transient ischemic attack (TIA), and cerebral infarction without residual deficits; Z87.19 Personal history of other diseases of the digestive system; Z98.891 History of uterine scar from previous surgery; Z82.5 Family history of asthma and other chronic lower respiratory diseases; Z80.9 Family history of malignant neoplasm, unspecified
CPT/HCPCS: 96372 ×2; 99285; 36415; 93005; 93306; 97162; 80061; 80053; 84443; 84484; 85025; 85610; 85730; 83036; 87635; 71046; 70496; 70450; 70498; 70553; G0378 ×3; J1650 ×2; A9585; Q9967

== ENCOUNTER → 2021-07-10 | Outpatient (CLI) | payer MEDICARE ==
[2021-07-10 19:25] LABS: Basophils # (A) 0.09 X 10*3/uL (0.00-0.10); Basophils % (A) 1.4 %; Eosinophils # (A) 0.17 X 10*3/uL (0.04-0.35); Eosinophils % (A) 2.6 %; HGB 15.1 g/dL (12.0-15.0); Lymphocytes % (A) 21.1 %; MCH 30.9 pg (27.0-32.0); MCHC 32.8 g/dL (32.0-37.0); MCV 94.3 fL (80.0-97.0); Mean Platelet Volume 11.4 fL (9.5-12.2); Monocytes # (A) 0.94 X 10*3/uL (0.20-1.00); Monocytes % (A) 14.2 %; Neutrophils # (A) 4.01 X 10*3/uL (1.80-7.70); Neutrophils % (A) 60.2 %; Platelet Count 247 X 10*3/uL (140-440); RBC 4.88 X 10*6/uL (4.10-5.20); RDW 12.6 % (11.5-14.5); WBC 6.64 X 10*3/uL (4.50-10.00)
[2021-07-10 21:51] LABS: African American GFR (CKD) 102.6 (60.0-200.0); Albumin 4.1 g/dL (3.80-4.90); Albumin/Globulin Ratio 1.46 (1.60-3.17); Anion Gap 10.8 mmol/L (4.00-12.00); BUN/Creat Ratio 21.67 Ratio (12.00-20.00); Carbon Dioxide 25.2 mmol/L (21.6-31.8); Chol/HDL Ratio 4.18; Globulin 2.8 g/dL (1.6-3.3); Non-African American GFR(CKD) 88.5 (60.0-200.0); Total Bilirubin 0.8 mg/dL (0.3-1.2); Total Protein 6.9 g/dL (6.2-8.2)
[2021-07-10 22:26] LABS: Hemoglobin A1C 5.4 % (4.0-6.0)
== END | disposition home or self-care (01) ==
LOC: LABWHC1 11:37
PROVIDERS: ATTEND Family Medicine
DX: I10 Essential (primary) hypertension (principal); E11.9 Type 2 diabetes mellitus without complications
CPT/HCPCS: 36415; 80053; 80061; 83036; 84443; 85025

== ENCOUNTER 2021-07-30 17:36 | Emergency (ER) | payer MEDICARE ==
[2021-07-30 17:51] VITALS: RESP 18; TEMP 98.1
[2021-07-30] MEDS ORDERED: IBUPROFEN 800 MG TAB PO STA (18:21)
--- NOTE | 2021-07-30 20:01 | US ---
EXAMINATION TYPE: US venous doppler duplex LE LT DATE OF EXAM: 07/30/2021 6:56 PM COMPARISON: NONE CLINICAL HISTORY: pain. left leg pain SIDE PERFORMED: left TECHNIQUE: The lower extremity deep venous system is examined utilizing real time linear array sonog eva with graded compression, doppler sonography and color-flow sonography. VESSELS IMAGED: Common Femoral Vein Deep Femoral Vein Greater Saphenous Vein * Femoral Vein Popliteal Vein Small Saphenous Vein * Proximal Calf Veins (* superficial vessels) Left Leg: Negative for DVT. Medial left calf, there is a complex fluid collection measuring 2.3 x 1. 0 x 2.8 cm IMPRESSION: No evidence of left lower extremity DVT. Fluid collection within the medial calf, appears simple on the represent Galarza's cyst. Confirmation w ith MRI may be obtained as clinically indicated.
--- NOTE | 2021-07-30 20:19 | ED ---
Lower Extremity Injury HPI - General Chief Complaint: Extremity Injury, Lower Stated Complaint: Pain in Lt Leg Time Seen by Provider: 07/30/21 18:17 Source: patient, RN notes reviewed Mode of arrival: ambulatory Limitations: no limitations - History of Present Illness Initial Comments: Patient is a 76-year-old female that presents to emergency department complaining of left calf pain. She notes that she slipped while walking between 2 cars grabbed onto the lateral one tried standing up and noticed that she had pain and left calf. She notes that she called her nurse friends who said that if her calf was purple she should come in for evaluation. Patient denied any history of clots. She is able to ambulate with pain. She was otherwise well-appearing 76 she'll female in no apparent distress or pain. She denied any chest pain shortness of breath headache nausea vomiting diarrhea constipation fever fatigue chills. - Related Data Home Medications Medication Instructions Recorded Confirmed Levothyroxine Sodium [Synthroid] 75 mcg PO DAILY 01/22/16 07/30/21 Aspirin EC [Ecotrin Low Dose] 81 mg PO DAILY 05/13/21 07/30/21 Multivit-Min/Iron/Folic/Lutein 1 tab PO DAILY 05/13/21 07/30/21 [Centrum Silver Women Tablet] Vit C/E/Zn/Coppr/Lutein/Zeaxan 1 cap PO BID 05/13/21 07/30/21 [Preservision Areds 2 Softgel] Pantoprazole [Protonix] 40 mg PO DAILY 07/30/21 07/30/21 Previous Rx's Medication Instructions Recorded Clopidogrel [Plavix] 75 mg PO DAILY #0 01/24/16 Atorvastatin [Lipitor] 40 mg PO DAILY 30 Days #30 tab 05/15/21 Allergies Allergy/AdvReac Type Severity Reaction Status Date / Time codeine Allergy Unknown Verified 07/30/21 20:00 Review of Systems ROS Statement: Those systems with pertinent positive or pertinent negative responses have been documented in the HPI. ROS Other: All systems not noted in ROS Statement are negative. Past Medical History Past Medical History: CVA/TIA, GERD/Reflux, Hyperlipidemia, Hypertension, Thyroid Disorder Additional Past Medical History / Comment(s): 3-2-16 ADMITTED WITH STROKE LIKE SYMPTOMS-pt. states was told didn't have stroke, history of TIAs,DIVERTICULITIS History of Any Multi-Drug Resistant Organisms: None Reported Past Surgical History: Appendectomy, Section, Cholecystectomy Past Anesthesia/Blood Transfusion Reactions: No Reported Reaction Additional Past Anesthesia/Blood Transfusion Reaction / Comment(s): MILD C LAUSTROPHOBIA Past Psychological History: No Psychological Hx Reported Smoking Status: Never smoker Past Alcohol Use History: None Reported Past Drug Use History: None Reported - Past Family History Mother Family Medical History: Cancer Additional Family Medical History / Comment(s): UNSURE WHAT TYPE OF CANCER Father Family Medical History: Cancer Additional Family Medical History / Comment(s): BONE CANCER Brother(s) Family Medical History: Asthma Sister(s) Family Medical History: No Reported History Son(s) Family Medical History: No Reported History General Exam Limitations: no limitations General appearance: alert, in no apparent distress Head exam: Present: atraumatic, normocephalic, normal inspection Eye exam: Present: normal appearance, PERRL, EOMI. Absent: scleral icterus, conjunctival injection, periorbital swelling Neck exam: Present: normal inspection Respiratory exam: Present: normal lung sounds bilaterally. Absent: respiratory distress, wheezes, rales, rhonchi, stridor Cardiovascular Exam: Present: regular rate, normal rhythm, normal heart sounds. Absent: systolic murmur, diastolic murmur, rubs, gallop, clicks Extremities exam: Present: normal inspection, full ROM, normal capillary refill. Absent: tenderness, pedal edema, joint swelling, calf tenderness Left Lower Leg exam: Present: full ROM, tenderness (Posterior aspect), ecchymosis (Posterior calf). Absent: normal inspection, swelling, abrasion, laceration, deformity, crepitus, dislocation, erythema Neurological exam: Present: alert, oriented X3 Psychiatric exam: Present: normal affect, normal mood Skin exam: Present: warm, dry, intact, normal color. Absent: rash Course Vital Signs 07/30/21 17:48 Temperature 98.1 F Pulse Rate 68 Respiratory 18 Rate Blood Pressure 154/94 O2 Sat by Pulse 96 Oximetry Medical Decision Making - Medical Decision Making 76-year-old female complaining of left lower extremity pain and minimal swelling. Ultrasound of the left lower extremity ordered. 800 mg of Motrin ordered for pain. Ultrasound shows a posterior medial fluid collection consistent with hematoma, and Galarza's cyst. Case discussed with Dr. Blackwell, patient can discharge home with follow-up to orthopedics for possible muscle tear. - Radiology Data Radiology results: report reviewed, image reviewed Ultrasound left lower extremity: Fluid collection with in the medial calf, appears simple on the represent Galarza's cyst. Confirmation with MRI may be obtained as clinically indicated. No evidence for DVT. Disposition Clinical Impression: Pain of left calf, Hematoma of left lower leg, Bakers cyst Disposition: HOME SELF-CARE Condition: Stable Instructions (If sedation given, give patient instructions): Hematoma (ED) Additional Instructions: Please return to the Emergency Department if symptoms worsen or any other concerns. Follow-up with orthopedics as needed. Take, Motrin as needed for pain. Is patient prescribed a controlled substance at d/c from ED?: No Referrals: Marcelo Wheatley MD [Primary Care Provider] - 1-2 days Time of Disposition: 20:19
[2021-07-30 20:37] VITALS: BP 147/78; PULSE 69
== END 2021-07-30 20:36 | disposition home or self-care (01) ==
LOC: EC 17:36
DX: S80.12XA Contusion of left lower leg, initial encounter (principal); M71.22 Synovial cyst of popliteal space [Baker], left knee; I10 Essential (primary) hypertension; E07.9 Disorder of thyroid, unspecified; Z88.5 Allergy status to narcotic agent; Z79.890 Hormone replacement therapy; W01.0XXA Fall on same level from slipping, tripping and stumbling without subsequent striking against object, initial encounter; Y93.01 Activity, walking, marching and hiking
CPT/HCPCS: 99283

== ENCOUNTER 2021-09-09 17:33 | Inpatient (IN) | payer MEDICARE ==
[2021-09-09] MEDS ORDERED: SODIUM CHLORIDE 0.9% 500 ML 500 ML IV STA (17:53)
[2021-09-09] MEDS ORDERED: ACETAMINOPHEN TAB 500 MG TAB PO STA (17:54)
[2021-09-09] MEDS ORDERED: IBUPROFEN 600 MG TAB PO STA (17:54)
[2021-09-09] MEDS ORDERED: ALBUTEROL HFA INHALER INHALATION STA (17:54)
[2021-09-09] MEDS ORDERED: DEXAMETHASONE SOD PHOSPHATE 10 MG/ML 1 ML VIAL IV STA (17:54)
--- NOTE | 2021-09-09 17:59 | ED ---
General Adult HPI - General Chief complaint: Upper Respiratory Infection Stated complaint: MANUELITO Time Seen by Provider: 09/09/21 17:35 Source: patient, RN notes reviewed, old records reviewed Mode of arrival: wheelchair Limitations: no limitations - History of Present Illness Initial comments: This is a 76-year-old female presents emergency Department stating for about 12 days she's been having upper respiratory infection. Patient states she's been tested for COVID she's negative. Patient states the cough and fatigue is getting considerably worse. Patient states she's also much more short of breath than she normally was. Patient was oxygenating 75% triage. Patient denies any chest pain or palpitations. Patient denies any abdominal pain. Patient denies any nausea vomiting diarrhea. Patient states she hasn't been eating or drinking much. - Related Data Home Medications Medication Instructions Recorded Confirmed Levothyroxine Sodium [Synthroid] 75 mcg PO DAILY 01/22/16 09/09/21 Aspirin EC [Ecotrin Low Dose] 81 mg PO DAILY 05/13/21 09/09/21 Multivit-Min/Iron/Folic/Lutein 1 tab PO DAILY 05/13/21 09/09/21 [Centrum Silver Women Tablet] Vit C/E/Zn/Coppr/Lutein/Zeaxan 1 cap PO BID 05/13/21 09/09/21 [Preservision Areds 2 Softgel] Pantoprazole [Protonix] 40 mg PO DAILY 07/30/21 09/09/21 Azithromycin [Zithromax] 500 mg PO DAILY 09/09/21 09/09/21 Meclizine HCl 12.5 mg PO BID PRN 09/09/21 09/09/21 methylPREDNISolone [Medrol Dose See Taper PO DIRECTED 09/09/21 09/09/21 Pack] Previous Rx's Medication Instructions Recorded Clopidogrel [Plavix] 75 mg PO DAILY #0 01/24/16 Atorvastatin [Lipitor] 40 mg PO DAILY 30 Days #30 tab 05/15/21 Allergies Allergy/AdvReac Type Severity Reaction Status Date / Time codeine Allergy Unknown Verified 09/09/21 19:00 Review of Systems ROS Statement: Those systems with pertinent positive or pertinent negative responses have been documented in the HPI. ROS Other: All systems not noted in ROS Statement are negative. Past Medical History Past Medical History: CVA/TIA, GERD/Reflux, Hyperlipidemia, Hypertension, Thyroid Disorder Additional Past Medical History / Comment(s): 3-2-16 ADMITTED WITH STROKE LIKE SYMPTOMS-pt. states was told didn't have stroke, history of TIAs,DIVERTICULITIS History of Any Multi-Drug Resistant Organisms: None Reported Past Surgical History: Appendectomy, Section, Cholecystectomy Past Anesthesia/Blood Transfusion Reactions: No Reported Reaction Additional Past Anesthesia/Blood Transfusion Reaction / Comment(s): MILD CLAUSTROPHOBIA Past Psychological History: No Psychological Hx Reported Smoking Status: Never smoker Past Alcohol Use History: None Reported Past Drug Use History: None Reported - Past Family History Mother Family Medical History: Cancer Additional Family Medical History / Comment(s): UNSURE WHAT TYPE OF CANCER Father Family Medical History: Cancer Additional Family Medical History / Comment(s): BONE CANCER Brother(s) Family Medical History: Asthma Sister(s) Family Medical History: No Reported History Son(s) Family Medical History: No Reported History General Exam - General Exam Comments Initial Comments: GENERAL: Patient is well-developed and well-nourished. Patient is nontoxic and well- hydrated and is in mild distress. ENT: Neck is soft and supple. No significant lymphadenopathy is noted. Oropharynx is clear. Moist mucous membranes. Neck has full range of motion without eliciting any pain. EYES: The sclera were anicteric and conjunctiva were pink and moist. Extraocular movements were intact and pupils were equal round and reactive to light. Eyelid s were unremarkable. PULMONARY: Patient has crackles bilateral bases CARDIOVASCULAR: There is a regular rate and rhythm without any murmurs gallops or rubs. ABDOMEN: Soft and nontender with normal bowel sounds. SKIN: Skin is clear with no lesions or rashes and otherwise unremarkable. NEUROLOGIC: Patient is alert and oriented x3. Cranial nerves II through XII are grossly intact. Motor and sensory are also intact. Normal speech, volume and content. Symmetrical smile. MUSCULOSKELETAL: Normal extremities with adequate strength and full range of motion. No lower extremity swelling or edema. No calf tenderness. LYMPHATICS: No significant lymphadenopathy is noted PSYCHIATRIC: Normal psychiatric evaluation. Limitations: no limitations Course Vital Signs 09/09/21 09/09/21 17:34 18:02 Temperature 100.6 F H Pulse Rate 107 H 97 Respiratory 22 22 Rate Blood Pressure 103/58 106/69 O2 Sat by Pulse 76 L 90 L Oximetry Medical Decision Making - Medical Decision Making EKG shows sinus tachycardia 101 bpm NV interval 138 QRSs 84 QT interval 364 QTC is 471. Patient's EKG shows no ST segment elevation or depression Chest x-ray shows bilateral infiltrates consistent with COVID pneumonia. Patient also has a white count so I'm going to treat the patient as if there may be a secondary bacterial infection. Patient got 2 g Rocephin emergency department started the patient so some. Spoke with Dr. Wheatley he agreed to admit the patient admitted the patient consult pulmonology and I continued a Decadron regime. Patient also is albuterol inhaler in the emergency department. Patient's pulse ox on 4 L was 90% - Lab Data Result diagrams: 09/09/21 17:59 09/09/21 17:59 Lab Results 09/09/21 09/09/21 09/09/21 Range/Units 17:59 17:59 17:59 WBC 14.6 H (3.8-10.6) k/uL RBC 4.71 (3.80-5.40) m/uL Hgb 15.0 (11.4-16.0) gm/dL Hct 42.1 (34.0-46.0) % MCV 89.5 (80.0-100.0) fL MCH 31.9 (25.0-35.0) pg MCHC 35.7 (31.0-37.0) g/dL RDW 12.8 (11.5-15.5) % Plt Count 353 (150-450) k/uL MPV 8.2 Neutrophils % 91 % Lymphocytes % 3 % Monocytes % 5 % Eosinophils % 0 % Basophils % 0 % Neutrophils # 13.2 H (1.3-7.7) k/uL Lymphocytes # 0.4 L (1.0-4.8) k/uL Monocytes # 0.7 (0-1.0) k/uL Eosinophils # 0.0 (0-0.7) k/uL Basophils # 0.0 (0-0.2) k/uL D-Dimer 0.70 H (<0.60) mg/L FEU Sodium (137-145) mmol/L Potassium (3.5-5.1) mmol/L Chloride (98-107) mmol/L Carbon Dioxide (22-30) mmol/L Anion Gap mmol/L BUN (7-17) mg/dL Creatinine (0.52-1.04) mg/dL Est GFR (CKD-EPI)AfAm (>60 ml/min/1.73 sqM) Est GFR (CKD-EPI)NonAf (>60 ml/min/1.73 sqM) Glucose (74-99) mg/dL Plasma Lactic Acid Josh (0.7-2.0) mmol/L Calcium (8.4-10.2) mg/dL Total Bilirubin (0.2-1.3) mg/dL AST (14-36) U/L ALT (4-34) U/L Alkaline Phosphatase (38-126) U/L Troponin I (0.000-0.034) ng/mL Total Protein (6.3-8.2) g/dL Albumin (3.5-5.0) g/dL Influenza Type A (PCR) Not Detected (Not Detectd) Influenza Type B (PCR) Not Detected (Not Detectd) RSV (PCR) Not Detected (Not Detectd) SARS-CoV-2 (PCR) Detected A (Not Detectd) 09/09/21 09/09/21 09/09/21 Range/Units 17:59 17:59 17:59 WBC (3.8-10.6) k/uL RBC (3.80-5.40) m/uL Hgb (11.4-16.0) gm/dL Hct (34.0-46.0) % MCV (80.0-100.0) fL MCH (25.0-35.0) pg MCHC (31.0-37.0) g/dL RDW (11.5-15.5) % Plt Count (150-450) k/uL MPV Neutrophils % % Lymphocytes % % Monocytes % % Eosinophils % % Basophils % % Neutrophils # (1.3-7.7) k/uL Lymphocytes # (1.0-4.8) k/uL Monocytes # (0-1.0) k/uL Eosinophils # (0-0.7) k/uL Basophils # (0-0.2) k/uL D-Dimer (<0.60) mg/L FEU Sodium 131 L (137-145) mmol/L Potassium 3.3 L (3.5-5.1) mmol/L Chloride 98 (98-107) mmol/L Carbon Dioxide 22 (22-30) mmol/L Anion Gap 11 mmol/L BUN 16 (7-17) mg/dL Creatinine 0.67 (0.52-1.04) mg/dL Est GFR (CKD-EPI)AfAm >90 (>60 ml/min/1.73 sqM) Est GFR (CKD-EPI)NonAf 86 (>60 ml/min/1.73 sqM) Glucose 155 H (74-99) mg/dL Plasma Lactic Acid Josh 3.3 H* (0.7-2.0) mmol/L Calcium 8.3 L (8.4-10.2) mg/dL Total Bilirubin 1.4 H (0.2-1.3) mg/dL AST 119 H (14-36) U/L ALT 69 H (4-34) U/L Alkaline Phosphatase 92 (38-126) U/L Troponin I 0.012 (0.000-0.034) ng/mL Total Protein 6.5 (6.3-8.2) g/dL Albumin 3.0 L (3.5-5.0) g/dL Influenza Type A (PCR) (Not Detectd) Influenza Type B (PCR) (Not Detectd) RSV (PCR) (Not Detectd) SARS-CoV-2 (PCR) (Not Detectd) Critical Care Time Critical Care Time: Yes Total Critical Care Time: 35 Disposition Clinical Impression: Pneumonia due to COVID-19 virus Disposition: ADMITTED IP TO THIS [facility] Referrals: Marcelo Wheatley MD [Primary Care Provider] - 1-2 days Time of Disposition: 20:10
[2021-09-09 18:06] LABS: Basophils % (A) 0 %; Eosinophils % (A) 0 %; HCT 42.1 % (34.0-46.0); Lymphocytes # (A) 0.4 k/uL (1.0-4.8); Lymphocytes % (A) 3 %; MCH 31.9 pg (25.0-35.0); MCHC 35.7 g/dL (31.0-37.0); MCV 89.5 fL (80.0-100.0); Mean Platelet Volume 8.2; Monocytes # (A) 0.7 k/uL (0-1.0); Monocytes % (A) 5 %; Neutrophils # (A) 13.2 k/uL (1.3-7.7); Neutrophils % (A) 91 %; Platelet Count 353 k/uL (150-450); RBC 4.71 m/uL (3.80-5.40); RDW 12.8 % (11.5-15.5); WBC 14.6 k/uL (3.8-10.6)
[2021-09-09 18:17] LABS: ALT 69 U/L (4-34); AST 119 U/L (14-36); African American GFR (CKD) >90 (>60 ml/min/1.73 sqM); Alkaline Phosphatase 92 U/L (38-126); Anion Gap 11 mmol/L; Blood Urea Nitrogen 16 mg/dL (7-17); Calcium 8.3 mg/dL (8.4-10.2); Carbon Dioxide 22 mmol/L (22-30); Chloride 98 mmol/L (98-107); Glucose 155 mg/dL (74-99); Non-African American GFR(CKD) 86 (>60 ml/min/1.73 sqM); Potassium 3.3 mmol/L (3.5-5.1); Sodium 131 mmol/L (137-145); Total Bilirubin 1.4 mg/dL (0.2-1.3); Total Protein 6.5 g/dL (6.3-8.2)
[2021-09-09] MEDS ORDERED: cefTRIAXone IN SWFI 1,000 MG/10 ML SYRINGE IVP STA (19:16)
[2021-09-09] MEDS ORDERED: SODIUM CHLORIDE 0.9% 1,000 ML IV ONE ×2 (19:40→20:12)
--- NOTE | 2021-09-09 20:06 | XR ---
EXAMINATION TYPE: XR chest 2V DATE OF EXAM: 09/09/2021 COMPARISON: 05/13/2021 HISTORY: 76 years Female. STUDY INDICATION GIVEN: difficulty breathing . TECHNIQUE: Frontal and lateral chest radiographs IMPRESSION: New patchy bibasilar opacities right greater than left concerning for multifocal pneumonia. Mild inte rstitial prominence likely reflective of mild pulmonary edema. There is mild enlargement of the heart. No pneumothorax or pleural effusion seen. No acute osseous abnormality seen.
[2021-09-09] MEDS ORDERED: AZITHROMYCIN 500 MG in SODIUM CHLORIDE 0.9% 250 ML IVPB STA (20:14)
[2021-09-10] MEDS: SYMBICORT 160-4.5 MCG INHALER INHALATION SCH ×2 (07:47→19:50)
[2021-09-10] MEDS: PANTOPRAZOLE 40 MG TABLET PO SCH (08:27)
[2021-09-10] MEDS: ENOXAPARIN 40 MG/0.4 ML SYRINGE SQ SCH (08:27)
[2021-09-10] MEDS: ATORVASTATIN 40 MG TAB PO SCH (08:27)
[2021-09-10] MEDS: ASCORBIC ACID 500 MG TAB PO SCH (08:27)
[2021-09-10] MEDS: ZINC SULFATE 220 MG CAP PO SCH (08:27)
[2021-09-10] MEDS: LEVOTHYROXINE 75 MCG TAB PO SCH (08:28)
[2021-09-10] MEDS: VIT A,C & E-LUTEIN-MINERALS 1 EACH TAB PO SCH (08:28)
[2021-09-10] MEDS: CLOPIDOGREL 75 MG TAB PO SCH (08:28)
[2021-09-10] MEDS: ASPIRIN 81 MG PO SCH (08:28)
[2021-09-10] MEDS: ERGOCALCIFEROL 1,250 MCG (50,000 IU) CAPSULE PO SCH (08:28)
[2021-09-10] MEDS ORDERED: dexAMETHasone 2 MG TAB PO SCH (09:00)
[2021-09-10] MEDS ORDERED: DEXAMETHASONE SOD PHOSPHATE 10 MG/ML 1 ML VIAL IV SCH (09:00)
--- NOTE | 2021-09-10 12:55 | ECHOF ---
Referral Reason:hypoxia MEASUREMENTS -------- HEIGHT: 162.6 cm WEIGHT: 77.1 kg BP: IVSd: 1.0 cm (0.6 - 1.1) LVIDd: 3.5 cm (3.9 - 5.3) LVPWd: 1.2 cm (0.6 - 1.1) EDV(Teich): 49 ml IVSs: 1.5 cm LVIDs: 1.7 cm LVPWs: 1.8 cm %IVS Thck: 53 % ESV(Teich): 8 ml EF(Teich): 83 % %FS: 51 % SV(Teich): 41 ml Ao Diam: 2.9 cm (2.0 - 3.7) LA Diam: 2.4 cm (2.7 - 3.8) AV Cusp: 1.5 cm (1.5 - 2.6) EPSS: 0.8 cm MV E Juan Manuel: 0.76 m/s MV DecT: 158 ms MV Dec Davidson: 4.8 m/s MV A Juan Manuel: 0.91 m/s MV E/A Ratio: 0.83 MV PHT: 46 ms MR Vmax: 1.29 m/s MR maxP.68 mmHg AV Vmax: 1.40 m/s AV maxP.82 mmHg AR Vmax: 2.27 m/s AR maxP.58 mmHg AR PHT: 934 ms AR Dec Time: 3220 ms AR Dec Davidson: 0.7 m/s TR Vmax: 2.01 m/s TR maxP.17 mmHg RAP: 5.00 mmHg RVSP: 21.17 mmHg MV EF SLOPE: 37.61 mm/s (70 - 150) MV EXCURSION: 10.07 mm (> 18.000) FINDINGS -------- This was a technically good study. The left ventricular size is normal. Left ventricular wall thickness is normal. Overall left vent ricular systolic function is normal with, an EF between 55 - 60 %. The right ventricle is normal in size. The left atrial size is normal. The right atrial size is normal. The aortic valve is trileaflet and appears structurally normal. There is mild aortic regurgitation. The mitral valve is normal. Mild mitral regurgitation is present. The tricuspid valve appears structurally normal. Trace tricuspid regurgitation present. Right arturo tricular systolic pressure is normal at < 35 mmHg. There is no pulmonic regurgitation present. The aortic root size is normal. Normal inferior vena cava with normal inspiratory collapse consistent with estimated right atrial pre ssure of 5 mmHg. There is no pericardial effusion. CONCLUSIONS -------- 1. The left ventricular size is normal. 2. Left ventricular wall thickness is normal. 3. Overall left ventricular systolic function is normal with, an EF between 55 - 60 %. 4. There is mild aortic regurgitation. 5. Mild mitral regurgitation is present. 6. Trace tricuspid regurgitation present. 7. There is no pericardial effusion. VISION REHABILITATION THERAPIST: Regina Manriquez RDCS
--- NOTE | 2021-09-10 16:45 | P.CNPUL ---
History of Present Illness Consult date: 09/10/21 Reason for consult: dyspnea, cough, hypoxemia Chief complaint: Shortness breath History of present illness: Patient is a 76-year-old female who came into the hospital with increasing aches and pains malaise, symptoms started about 10-12 days ago, patient has outpatient covert testing which was negative however due to worsening system symptoms she decided to come into the hospital, patient oxygen saturation was just 75% in triage at room air, her appetite has been poor as well on specific questioning she denies any chest pain, denies any nausea vomiting diarrhea Past medical history significant for hypothyroidism, GERD, history of TIA, hypertension and hypertensive cardiovascular disease, thyroid disorder, history of the stroke,/TIA, patient is a nonsmokerhistory of substance In emergency department she underwent a chest x-ray which revealed bilateral patchy infiltrate more so on the bases on the right side compared to left side, EKG revealed sinus tachycardia, echocardiogram revealed ejection fraction 55%, mild TR and MR was noted along with AR, labs are significant for leukocytosis with WBC count of 14,600, primarily elevated 0.7, sodium is 1:30" 3.3, BUN/creatinine 16.67, glucose 155, AST and ALT Elevated, lactic acid is 3.3,, T-max 100.6 now currently afebrile, she is 90% on 15 L nonrebreather mask improved to 94% currently on 15 L nonrebreather mask, she came back positive for COVID-19 infection PCR, pro-calcitonin also elevated of 0.13 currently she is being treated with Y Lucinda as well as Zithromax, Decadron 6 mg daily, Lovenox 40 mg daily Review of Systems All systems: negative Past Medical History Past Medical History: CVA/TIA, GERD/Reflux, Hyperlipidemia, Hypertension, Thyroid Disorder Additional Past Medical History / Comment(s): 3-2-16 ADMITTED WITH STROKE LIKE SYMPTOMS-pt. states was told didn't have stroke, history of TIAs,DIVERTICULITIS History of Any Multi-Drug Resistant Organisms: None Reported Past Surgical History: Appendectomy, Section, Cholecystectomy Past Anesthesia/Blood Transfusion Reactions: No Reported Reaction Additional Past Anesthesia/Blood Transfusion Reaction / Comment(s): MILD CLAUSTROPHOBIA Past Psychological History: No Psychological Hx Reported Smoking Status: Never smoker Past Alcohol Use History: None Reported Past Drug Use History: None Reported - Past Family History Mother Family Medical History: Cancer Additional Family Medical History / Comment(s): UNSURE WHAT TYPE OF CANCER Father Family Medical History: Cancer Additional Family Medical History / Comment(s): BONE CANCER Brother(s) Family Medical History: Asthma Sister(s) Family Medical History: No Reported History Son(s) Family Medical History: No Reported History Medications and Allergies Home Medications Medication Instructions Recorded Confirmed Type Levothyroxine Sodium [Synthroid] 75 mcg PO DAILY 01/22/16 09/09/21 History Clopidogrel [Plavix] 75 mg PO DAILY #0 01/24/16 09/09/21 Rx Aspirin EC [Ecotrin Low Dose] 81 mg PO DAILY 05/13/21 09/09/21 History Multivit-Min/Iron/Folic/Lutein 1 tab PO DAILY 05/13/21 09/09/21 History [Centrum Silver Women Tablet] Vit C/E/Zn/Coppr/Lutein/Zeaxan 1 cap PO BID 05/13/21 09/09/21 History [Preservision Areds 2 Softgel] Atorvastatin [Lipitor] 40 mg PO DAILY 30 Days #30 tab 05/15/21 09/09/21 Rx Pantoprazole [Protonix] 40 mg PO DAILY 07/30/21 09/09/21 History Azithromycin [Zithromax] 500 mg PO DAILY 09/09/21 09/09/21 History Meclizine HCl 12.5 mg PO BID PRN 09/09/21 09/09/21 History methylPREDNISolone [Medrol Dose See Taper PO DIRECTED 09/09/21 09/09/21 History Pack] Allergies Allergy/AdvReac Type Severity Reaction Status Date / Time codeine Allergy Unknown Verified 09/09/21 19:00 Physical Exam Vitals: Vital Signs Temp Pulse Resp BP Pulse Ox 09/10/21 16:24 97.3 F L 75 22 109/68 94 L 09/10/21 12:00 80 22 115/74 94 L 09/10/21 11:00 81 22 94 L 09/10/21 10:20 84 22 94 L 09/10/21 08:00 97.2 F L 86 22 110/68 94 L 09/10/21 06:00 68 20 119/69 93 L 09/10/21 05:00 63 22 115/77 93 L 09/10/21 04:00 68 21 111/77 93 L 09/10/21 03:00 68 22 98/63 93 L 09/10/21 02:00 65 22 102/60 90 L 09/10/21 01:00 71 22 106/65 88 L 09/10/21 00:00 76 22 110/66 88 L 09/09/21 23:00 97.5 F L 83 22 110/66 94 L 09/09/21 20:00 87 22 101/64 92 L 09/09/21 18:02 97 22 106/69 90 L 09/09/21 17:34 100.6 F H 107 H 22 103/58 76 L - Constitutional General appearance: mild distress - EENT Eyes: PERRLA Ears: bilateral: normal - Neck Neck: normal ROM Carotids: bilateral: upstroke normal - Respiratory Respiratory: bilateral: diminished - Cardiovascular Rhythm: regular Heart sounds: normal: S1, S2 - Gastrointestinal General gastrointestinal: decreased bowel sounds - Neurologic Neurologic: CNII-XII intact - Musculoskeletal Musculoskeletal: generalized weakness - Psychiatric Psychiatric: A&O x's 3, appropriate affect Results - Laboratory Findings CBC and BMP: 09/09/21 17:59 09/09/21 17:59 PT/INR, D-dimer D-Dimer 0.70 mg/L FEU (<0.60) H 09/09/21 17:59 Abnormal lab findings: Abnormal Labs 09/09/21 09/09/21 09/09/21 17:59 17:59 17:59 WBC 14.6 H Neutrophils # 13.2 H Lymphocytes # 0.4 L D-Dimer 0.70 H Sodium Potassium Glucose Plasma Lactic Acid Josh Calcium Total Bilirubin AST ALT Albumin Procalcitonin SARS-CoV-2 (PCR) Detected A 09/09/21 09/09/21 09/09/21 17:59 17:59 20:17 WBC Neutrophils # Lymphocytes # D-Dimer Sodium 131 L Potassium 3.3 L Glucose 155 H Plasma Lactic Acid Josh 3.3 H* Calcium 8.3 L Total Bilirubin 1.4 H AST 119 H ALT 69 H Albumin 3.0 L Procalcitonin 0.13 H SARS-CoV-2 (PCR) - Diagnostic Findings Chest x-ray: report reviewed, image reviewed Assessment and Plan Assessment: Acute hypoxic respiratory failure Sepsis due to COVID-19 pneumonia with elevated lactic acid COVID-19 pneumonia Electrolyte imbalance with hypokalemia Elevated liver enzymes Elevated d-dimer and pro-calcitonin Plan: We'll start IV steroids Continue high flow oxygen with deep breathing exercise incentive spirometry Continue Lovenox 40 mg daily for now Will schedule computed tomography scan angiogram to rule out pulmonary embolism Patient is out of window of beneficial effect of REMdesivir Further recommendations pending plan of care as per clinical response of patient Time with Patient: Greater than 30
[2021-09-10] MEDS ORDERED: AZITHROMYCIN 500 MG in SODIUM CHLORIDE 0.9% 250 ML IVPB SCH (21:00)
[2021-09-10] MEDS: methylPREDNISolone SOD SUCCI 125 MG/2 ML VIAL IV SCH (21:21)
--- NOTE | 2021-09-10 22:52 | P.CONS ---
History of Present Illness - Reason for Consult Consult date: 09/10/21 Covid 19 pneumonia Requesting physician: Marcelo Wheatley - Chief Complaint weakness and shortness of breath x 10 days - History of Present Illness History of present illness : Patient is 76-year-old female presenting to the ER last night for evaluation of generalized weakness increasing shortness of breath and fatigue in this patient symptom has been going on for about 10 to 12 days patient denies having any URI symptoms patient denies high-grade fever did have some chills positive has been profound weakness and no energy along with generalized body aches the patient also have increasing shortness of breath patient did have a cough which is mild to moderate intensity but mostly dry in nature not been up any purulent sputum did have some nausea decreased oral intake but no vomiting did have diarrhea but no abdominal mucus in the stool on presentation to the hospital the patient did have a fever of 100.6 daily for right the patient was hypoxic with O2 sat of 76% on arrival she is currently 90% on 12 L high flow oxygen patient did have a white count of 14.6 with a left shift and lymphopenia D-dimer was 0.70 pulmonary congestion was 3.3 creatinine was normal limits other mildly elevated riggs PCR was positive for calcium 0.13 patient did have a chest x-ray new patchy bibasilar opacities right greater than left concerning for multifocal pneumonia patient was admitted to hospital infectious disease was consulted for further management Review of system: CONSTITUTIONAL: Positive for weakness along with the fever. EYES: No complaint. ENT: No complaint. RESPIRATORY as per history of present illness. CARDIOVASCULAR: No complaint. GENITOURINARY: No complaint. GASTROINTESTINAL: As per history of present illness. MUSCULOSKELETAL: No complaint. INTEGUMENTARY: No complaint. PSYCHOLOGIC: No complaint. ENDOCRINE: No complaint. NEUROLOGIC: No complaint. Past medical history : Reviewed, documented below Past surgical history : Reviewed, documented below Social history: Reviewed, documented below Medications: Reviewed, as documented below EXAMINATION: Vital sigans= Reviewed and documented below GENERAL DESCRIPTION: Elderly female lying in bed, no distress. No tachypnea or accessory muscle of respiration use. HEENT: Shows Pallor , no scleral icterus. Oral mucous membrane is dry. NECK: Trachea central, no thyromegaly. LUNGS: Unlabored breathing. Coarse rhonchi bilaterally. HEART: S1, S2, regular rate and rhythm. ABDOMEN: Soft, no tenderness , guarding or rigidity EXTREMITIES: No edema of feet. SKIN: No rash, no masses palpable. NEUROLOGICAL: The patient is awake, alert, oriented x3, mood and affect normal. LABS AND RADIOLOGY: Reviewed results see below Assessment : Patient presented to hospital with acute respiratory failure in this patient did have significant hypoxemia on presentation with O2 sats of 76% patient did have evidence of multifocal pneumonia secondary to COVID-19 infection in this patient unfortunately presented to hospital almost 10 to 12 days after symptom onset and would not qualify for remdesivir per my clinical policy may be candidate for Baricitinab Plan: 1-patient started on Lovenox Solu-Medrol zinc and ascorbic acid 2-no need for systemic antibiotic therapy clinically doubt secondary bacterial pneumonia Zithromax discontinued 3-detailed discussion with pharmacist about Baricitinab, however apparently patient do not qualify per [facility] policy 4-droplet isolation and respiratory support We will follow on clinical condition and cultures to further adjust medication if needed Thank you for this consultation we will follow the patient along with you Past Medical History Past Medical History: CVA/TIA, GERD/Reflux, Hyperlipidemia, Hypertension, Thyr oid Disorder Additional Past Medical History / Comment(s): 01-22-16 ADMITTED WITH STROKE LIKE SYMPTOMS-pt. states was told didn't have stroke, history of TIAs,DIVERTICULITIS History of Any Multi-Drug Resistant Organisms: None Reported Past Surgical History: Appendectomy, Section, Cholecystectomy Past Anesthesia/Blood Transfusion Reactions: No Reported Reaction Additional Past Anesthesia/Blood Transfusion Reaction / Comm: MILD CLAUSTROPHOBIA Past Psychological History: No Psychological Hx Reported Smoking Status: Never smoker Past Alcohol Use History: None Reported Past Drug Use History: None Reported - Past Family History Mother Family Medical History: Cancer Additional Family Medical History / Comment(s): UNSURE WHAT TYPE OF CANCER Father Family Medical History: Cancer Additional Family Medical History / Comment(s): BONE CANCER Brother(s) Family Medical History: Asthma Sister(s) Family Medical History: No Reported History Son(s) Family Medical History: No Reported History Medications and Allergies Home Medications Medication Instructions Recorded Confirmed Type Levothyroxine Sodium [Synthroid] 75 mcg PO DAILY 01/22/16 09/09/21 History Clopidogrel [Plavix] 75 mg PO DAILY #0 01/24/16 09/09/21 Rx Aspirin EC [Ecotrin Low Dose] 81 mg PO DAILY 05/13/21 09/09/21 History Multivit-Min/Iron/Folic/Lutein 1 tab PO DAILY 05/13/21 09/09/21 History [Centrum Silver Women Tablet] Vit C/E/Zn/Coppr/Lutein/Zeaxan 1 cap PO BID 05/13/21 09/09/21 History [Preservision Areds 2 Softgel] Atorvastatin [Lipitor] 40 mg PO DAILY 30 Days #30 tab 05/15/21 09/09/21 Rx Pantoprazole [Protonix] 40 mg PO DAILY 07/30/21 09/09/21 History Azithromycin [Zithromax] 500 mg PO DAILY 09/09/21 09/09/21 History Meclizine HCl 12.5 mg PO BID PRN 09/09/21 09/09/21 History methylPREDNISolone [Medrol Dose See Taper PO DIRECTED 09/09/21 09/09/21 History Pack] Allergies Allergy/AdvReac Type Severity Reaction Status Date / Time codeine Allergy Unknown Verified 09/09/21 19:00 Physical Exam Vitals: Vital Signs Temp Pulse Resp BP Pulse Ox 09/10/21 12:00 80 22 115/74 94 L 09/10/21 11:00 81 22 94 L 09/10/21 10:20 84 22 94 L 09/10/21 08:00 86 22 110/68 94 L 09/10/21 06:00 68 20 119/69 93 L 09/10/21 05:00 63 22 115/77 93 L 09/10/21 04:00 68 21 111/77 93 L 09/10/21 03:00 68 22 98/63 93 L 09/10/21 02:00 65 22 102/60 90 L 09/10/21 01:00 71 22 106/65 88 L 09/10/21 00:00 76 22 110/66 88 L 09/09/21 23:00 97.5 F L 83 22 110/66 94 L 09/09/21 20:00 87 22 101/64 92 L 09/09/21 18:02 97 22 106/69 90 L 09/09/21 17:34 100.6 F H 107 H 22 103/58 76 L Results CBC & Chem 7: 09/09/21 17:59 09/09/21 17:59 Labs: Abnormal Lab Results - Last 24 Hours (Table) 09/09/21 09/09/21 09/09/21 Range/Units 17:59 17:59 17:59 WBC 14.6 H (3.8-10.6) k/uL Neutrophils # 13.2 H (1.3-7.7) k/uL Lymphocytes # 0.4 L (1.0-4.8) k/uL D-Dimer 0.70 H (<0.60) mg/L FEU Sodium (137-145) mmol/L Potassium (3.5-5.1) mmol/L Glucose (74-99) mg/dL Plasma Lactic Acid Josh (0.7-2.0) mmol/L Calcium (8.4-10.2) mg/dL Total Bilirubin (0.2-1.3) mg/dL AST (14-36) U/L ALT (4-34) U/L Albumin (3.5-5.0) g/dL Procalcitonin (0.02-0.09) ng/mL SARS-CoV-2 (PCR) Detected A (Not Detectd) 09/09/21 09/09/21 09/09/21 Range/Units 17:59 17:59 20:17 WBC (3.8-10.6) k/uL Neutrophils # (1.3-7.7) k/uL Lymphocytes # (1.0-4.8) k/uL D-Dimer (<0.60) mg/L FEU Sodium 131 L (137-145) mmol/L Potassium 3.3 L (3.5-5.1) mmol/L Glucose 155 H (74-99) mg/dL Plasma Lactic Acid Josh 3.3 H* (0.7-2.0) mmol/L Calcium 8.3 L (8.4-10.2) mg/dL Total Bilirubin 1.4 H (0.2-1.3) mg/dL AST 119 H (14-36) U/L ALT 69 H (4-34) U/L Albumin 3.0 L (3.5-5.0) g/dL Procalcitonin 0.13 H (0.02-0.09) ng/mL SARS-CoV-2 (PCR) (Not Detectd)
--- NOTE | 2021-09-10 23:06 | CT ---
EXAMINATION TYPE: CT angio chest DATE OF EXAM: 09/10/2021 COMPARISON: None HISTORY: SOB CT DLP: 390.6 mGycm Automated exposure control for dose reduction was used. CONTRAST: Performed with IV Contrast, patient injected with 100 mL of Isovue 370. Images obtained from the thoracic inlet to the diaphragm with IV contrast. There are 3-D post process ed images. There is some coarse interstitial density in the lung koehler bilaterally. There is groundglass inters titial infiltrate. There are a few mediastinal lymph nodes that measure up to 1.5 cm. There are a few bronchial lymph nodes up to 1 cm. Thoracic aorta shows no aneurysm or dissection. The ascending aort a measures 3.4 cm. There are clips from cholecystectomy. Liver and spleen and stomach that are visualized appear intact. Pancreas is intact. There is normal contrast opacification of the pulmonary arteries. There are no filling defects. Thoracic vertebra appear intact. There is no compression fracture. Sternum is intact. The ribs appear intact. IMPRESSION: No evidence of pulmonary embolism. There is diffuse groundglass pulmonary interstitial pneumonia. The re is no discrete significant solid pulmonary mass.
[2021-09-11] MEDS: methylPREDNISolone SOD SUCCI 125 MG/2 ML VIAL IV SCH ×4 (00:41→18:01)
[2021-09-11] MEDS: LEVOTHYROXINE 75 MCG TAB PO SCH (05:54)
[2021-09-11] MEDS: SYMBICORT 160-4.5 MCG INHALER INHALATION SCH ×2 (05:56→21:12)
--- NOTE | 2021-09-11 08:45 | HP ---
HISTORY AND PHYSICAL This is a 76-year-old white female admitted with COVID pneumonia she came in with failed outpatient treatment after 12 or 14 days. She was started on steroids, zinc. Hospital will not let us use remdesivir at this time. 1 is going to try to start another medication of some kind to treat the COVID. Will give her Symbicort inhaler, Lovenox subcutaneously. Chest CTA was done today which shows COVID pneumonia bilaterally. No pulmonary embolism. She states she is breathing a little bit better but not much since admission. REVIEW OF SYSTEMS: Fourteen-point review of systems: Weakness, fatigue, loss of taste and smell, generalized weakness. Otherwise negative. PAST MEDICAL HISTORY: Hypothyroidism, CVA, TIA, GERD, dyslipidemia, hypertension, hypothyroidism, PAST SURGICAL HISTORY: Appendectomy, , cholecystectomy. FAMILY HISTORY: Mother with bone cancer. Brother with asthma. Sister negative. MEDICATIONS: Lipitor 40 mg daily, Protonix 40 mg daily, meclizine 12.5 b.i.d., azithromycin 500 mg daily, steroids. ALLERGIES: CODEINE. PHYSICAL EXAMINATION: Temperature is 97.3, pulse 80s to 90s, respiratory rate 18 to 22, blood pressure 111 to 130s over 60s to 70s. O2 on admission was 76. Now she is 94 on 2 L. LUNGS: Scattered rhonchi, wheeze. Decreased breath sounds. CARDIOVASCULAR: S1, S2. GI: Soft. INTEGUMENT: Dry skin. Poor skin turgor. Dry mucous membranes. PSYCH: Fair mood and affect. LABS: White count 14.6, hemoglobin is 13.2. COVID positive. Elevated LDH, elevated ferritin. ASSESSMENT: 1. Acute hypoxemic respiratory failure with sepsis secondary to COVID-19 pneumonia. 2. Lactic acidosis. 3. COVID-19 pneumonia. 4. Electrolyte imbalance. 5. Hypokalemia. 6. Elevated D-dimer, procalcitonin. IV steroids, IV antibiotics. Lovenox. Please see further orders. Prognosis extremely guarded. MMODL / IJN: [id number] /
[2021-09-11] MEDS: PANTOPRAZOLE 40 MG TABLET PO SCH (10:14)
[2021-09-11] MEDS: VIT A,C & E-LUTEIN-MINERALS 1 EACH TAB PO SCH ×2 (10:14→21:05)
[2021-09-11] MEDS: ASPIRIN 81 MG PO SCH (10:14)
[2021-09-11] MEDS: ENOXAPARIN 40 MG/0.4 ML SYRINGE SQ SCH (10:14)
[2021-09-11] MEDS: CLOPIDOGREL 75 MG TAB PO SCH (10:14)
[2021-09-11] MEDS: ATORVASTATIN 40 MG TAB PO SCH (10:14)
[2021-09-11] MEDS: ASCORBIC ACID 500 MG TAB PO SCH (10:14)
[2021-09-11] MEDS: ZINC SULFATE 220 MG CAP PO SCH (10:15)
[2021-09-11 13:07] LABS: Basophils # (A) 0.03 X 10*3/uL (0.00-0.10); Basophils % (A) 0.2 %; Eosinophils # (A) 0 X 10*3/uL (0.04-0.35); Eosinophils % (A) 0 %; HGB 14.1 g/dL (12.0-15.0); Lymphocytes # (A) 0.49 X 10*3/uL (0.90-5.00); Lymphocytes % (A) 3.3 %; MCH 30.5 pg (27.0-32.0); MCHC 33.6 g/dL (32.0-37.0); MCV 90.9 fL (80.0-97.0); Mean Platelet Volume 10.5 fL (9.5-12.2); Monocytes # (A) 0.84 X 10*3/uL (0.20-1.00); Monocytes % (A) 5.7 %; Neutrophils # (A) 13.11 X 10*3/uL (1.80-7.70); Neutrophils % (A) 89.3 %; Platelet Count 462 X 10*3/uL (140-440); RBC 4.62 X 10*6/uL (4.10-5.20); RDW 12.9 % (11.5-14.5); WBC 14.69 X 10*3/uL (4.50-10.00)
[2021-09-11 13:28] LABS: African American GFR (CKD) 101.6 (60.0-200.0); Albumin 2.8 g/dL (3.8-4.9); Albumin/Globulin Ratio 0.95 (1.60-3.17); Anion Gap 17.2 mmol/L (4.00-12.00); BUN/Creat Ratio 26.17 Ratio (12.00-20.00); Blood Urea Nitrogen 16.2 mg/dL (9.0-27.0); C Reactive Protein 6.5 mg/dL (0.00-0.80); Calcium 8.2 mg/dL (8.7-10.3); Carbon Dioxide 18.8 mmol/L (21.6-31.8); Globulin 2.9 g/dL (1.6-3.3); Non-African American GFR(CKD) 87.6 (60.0-200.0); Total Bilirubin 0.7 mg/dL (0.30-1.20); Total Protein 5.7 g/dL (6.2-8.2)
--- NOTE | 2021-09-11 17:17 | PN ---
PROGRESS NOTE DATE OF SERVICE: 09/11/2021 REASON FOR FOLLOWUP: COVID-19 pneumonia. INTERVAL HISTORY: The patient is afebrile. The patient is breathing slightly comfortably still requiring high-flow oxygen, though. The patient denies having any chest pain. Cough, but not bringing up any sputum. No abdominal pain or diarrhea. PHYSICAL EXAMINATION: Blood pressure 119/73 with a pulse of 90, temperature 98.5. She is 90% on 15 L high- flow oxygen. General description is a middle-aged female lying in bed in no distress. RESPIRATORY SYSTEM: Unlabored breathing. Coarse breath sounds bilaterally. No wheeze. HEART: S1, S2. Regular rate and rhythm. ABDOMEN: Soft. No tenderness. LABS: Hemoglobin is 14.9, white count 14.69, creatinine 0.6. DIAGNOSTIC IMPRESSION AND PLAN: Patient with acute COVID-19 pneumonia. The patient does not qualify for remdesivir or baricitinib; [facility] policy. Patient is covered with Lovenox while monitoring clinical course closely. Continue supportive care. MMODL / IJN: [id number] /
--- NOTE | 2021-09-11 23:50 | P.PN ---
Progress Note - Text Progress Note Date: 09/11/21 Presenting complaint: Short of breath Interval history: Admitted with COVID 19 pneumonia 09/11/2021: Reclining in bed. High flow nasal cannula. 8 some. Congested cough. Tired. No bowel movement. Review of systems: Was done for constitutional, cardiovascular, GI, pulmonary. relevant finding as above Active Medications Ascorbic Acid (Ascorbic Acid 500 Mg Tab) 1,000 mg PO DAILY [facility] Last Admin: 09/11/21 10:14 Dose: 1,000 mg Documented by: Aspirin (Aspirin 81 Mg) 81 mg PO DAILY [facility] Last Admin: 09/11/21 10:14 Dose: 81 mg Documented by: Atorvastatin Calcium (Atorvastatin 40 Mg Tab) 40 mg PO DAILY [facility] Last Admin: 09/11/21 10:14 Dose: 40 mg Documented by: Budesonide/Formoterol Fumarate (Symbicort 160-4.5 Mcg Inhaler) 2 puff INHALATION RT-BID [facility] Last Admin: 09/11/21 21:12 Dose: 2 puff Documented by: Clopidogrel Bisulfate (Clopidogrel 75 Mg Tab) 75 mg PO DAILY [facility] Last Admin: 09/11/21 10:14 Dose: 75 mg Documented by: Enoxaparin Sodium (Enoxaparin 40 Mg/0.4 Ml Syringe) 40 mg SQ DAILY [facility] Last Admin: 09/11/21 10:14 Dose: 40 mg Documented by: Ergocalciferol (Ergocalciferol 1,250 Mcg (50,000 Iu) Capsule) 1,250 mcg PO Q72H [facility] Last Admin: 09/10/21 08:28 Dose: 1,250 mcg Documented by: Levothyroxine Sodium (Levothyroxine 75 Mcg Tab) 75 mcg PO DAILY@0630 [facility] Last Admin: 09/11/21 05:54 Dose: 75 mcg Documented by: Methylprednisolone Sodium Succinate (Methylprednisolone Sod Succi 125 Mg/2 Ml Vial) 60 mg IV Q6HR [facility] Last Admin: 09/11/21 18:01 Dose: 60 mg Documented by: Multivitamins/Minerals (Vit A,C & H-Gstpmn-Eflfgbvl 1 Each Tab) 1 each PO BID [facility] Last Admin: 09/11/21 21:05 Dose: 1 each Documented by: Pantoprazole Sodium (Pantoprazole 40 Mg Tablet) 40 mg PO AC-BRKFST [facility] Last Admin: 09/11/21 10:14 Dose: 40 mg Documented by: Zinc Sulfate (Zinc Sulfate 220 Mg Cap) 220 mg PO DAILY [facility] Last Admin: 09/11/21 10:15 Dose: 220 mg Documented by: On examination: VITAL SIGNS: 98.2, 81, 19, 131/70, 90% on 15 L high flow cannula GENERAL APPEARANCE: Laying in bed, awake, tired, short of breath. PSYCHIATRY: Alert and oriented x3. Mood and affect anxious NEUROLOGICAL: No facial asymmetry. Moving all 4 limbs Rest of exam per pulmonary and nursing Investigations: WBC 4.6 hemoglobin 14.1 d-dimer 1 potassium 3. 16.2 creatinine 0.6 AST 44 ALT 51 CRP 6.5 pro-calcitonin 0.95 Influenza type A, type B, RSV [PCR]: All not detected COVID 19 E CRR: Detected CT angiogram chest: No evidence of PE. Diffuse groundglass pulmonary interstitial pneumonia. 2-D echocardiogram: EF 55-60% Assessment plan: -Acute severe COVID 19 pneumonitis: Slow to respond. Patient did not qualify for Remdesivir or antibodies. Subcu Lovenox. Steroids. -Acute hypoxic respiratory failure: Slow to respond On 15 L high flow oxygen -GERD Protonix 40 mg a day -Hyperlipidemia Lipitor 40 mg a day -Hypothyroid Synthroid 75 g a day Patient currently on IV Solu-Medrol, zinc, vitamin D 2. High flow oxygen. Patient advised to sit up in a chair as possible. Incentive spirometry.
[2021-09-12] MEDS: methylPREDNISolone SOD SUCCI 125 MG/2 ML VIAL IV SCH ×5 (01:13→23:50)
[2021-09-12] MEDS: LEVOTHYROXINE 75 MCG TAB PO SCH (06:10)
[2021-09-12] MEDS: SYMBICORT 160-4.5 MCG INHALER INHALATION SCH ×2 (07:50→19:50)
[2021-09-12] MEDS: ENOXAPARIN 40 MG/0.4 ML SYRINGE SQ SCH (09:13)
[2021-09-12] MEDS: ATORVASTATIN 40 MG TAB PO SCH (09:14)
[2021-09-12] MEDS: ASPIRIN 81 MG PO SCH (09:14)
[2021-09-12] MEDS: CLOPIDOGREL 75 MG TAB PO SCH (09:15)
[2021-09-12] MEDS: ASCORBIC ACID 500 MG TAB PO SCH (09:15)
[2021-09-12] MEDS: ZINC SULFATE 220 MG CAP PO SCH (09:15)
[2021-09-12] MEDS: PANTOPRAZOLE 40 MG TABLET PO SCH (09:16)
[2021-09-12] MEDS: VIT A,C & E-LUTEIN-MINERALS 1 EACH TAB PO SCH ×2 (09:41→20:24)
--- NOTE | 2021-09-12 12:25 | P.PN ---
Subjective Progress Note Date: 09/12/21 Principal diagnosis: Acute hypoxic respiratory failure Sepsis due to COVID-19 pneumonia with elevated lactic acid COVID-19 pneumonia Electrolyte imbalance with hypokalemia Elevated liver enzymes Elevated d-dimer and pro-calcitonin 09/12/2021, patient seen eval examined during the rounds labs reviewed medications reviewed care plan discussed, respiratory status is still marginal but stable, patient remains on 100% oxygen nonrebreather mask, T-max is 99.4, saturation is 89% to 90%, computed tomography scan of his chest consistent with interstitial pneumonia and COVID-19, no pulmonary embolism seen, patient remains on IV steroids and anticoagulation breathing treatment and continuation of home medications, Patient is a 76-year-old female who came into the hospital with increasing aches and pains malaise, symptoms started about 10-12 days ago, patient has outpatient covert testing which was negative however due to worsening system symptoms she decided to come into the hospital, patient oxygen saturation was just 75% in triage at room air, her appetite has been poor as well on specific questioning she denies any chest pain, denies any nausea vomiting diarrhea Past medical history significant for hypothyroidism, GERD, history of TIA, hypertension and hypertensive cardiovascular disease, thyroid disorder, history of the stroke,/TIA, patient is a nonsmokerhistory of substance In emergency department she underwent a chest x-ray which revealed bilateral pat alexi infiltrate more so on the bases on the right side compared to left side, EKG revealed sinus tachycardia, echocardiogram revealed ejection fraction 55%, mild TR and MR was noted along with AR, labs are significant for leukocytosis with WBC count of 14,600, primarily elevated 0.7, sodium is 1:30" 3.3, BUN/creatinine 16.67, glucose 155, AST and ALT Elevated, lactic acid is 3.3,, T-max 100.6 now currently afebrile, she is 90% on 15 L nonrebreather mask improved to 94% currently on 15 L nonrebreather mask, she came back positive for COVID-19 infection PCR, pro-calcitonin also elevated of 0.13 currently she is being treated with Y Lucinda as well as Zithromax, Decadron 6 mg daily, Lovenox 40 mg daily Objective - Vital Signs Vital signs: Vital Signs Temp 99.4 F 09/12/21 10:00 Pulse 99 09/12/21 10:00 Resp 16 10/22/21 10:00 BP 134/80 09/12/21 10:00 Pulse Ox 89 L 09/12/21 10:00 Intake & Output 09/11/21 09/12/21 09/12/21 18:59 06:59 18:59 Intake Total 400 236 Output Total 500 Balance -100 236 Intake: Oral 400 236 Output: Urine 500 Other: Voiding Method Toilet Toilet Toilet Bedside Commode Bedside Commode Bedside Commode # Voids 3 # Bowel Movements 1 - Exam - Constitutional General appearance: mild distress - EENT Eyes: PERRLA Ears: bilateral: normal - Neck Neck: normal ROM Carotids: bilateral: upstroke normal - Respiratory Respiratory: bilateral: diminished - Cardiovascular Rhythm: regular Heart sounds: normal: S1, S2 - Gastrointestinal General gastrointestinal: decreased bowel sounds - Neurologic Neurologic: CNII-XII intact - Musculoskeletal Musculoskeletal: generalized weakness - Psychiatric Psychiatric: A&O x's 3, appropriate affect - Labs CBC & Chem 7: 09/11/21 07:07 09/11/21 07:07 Labs: Abnormal Lab Results - Last 24 Hours (Table) 09/11/21 09/11/21 Range/Units 07:07 07:07 WBC 14.69 H (4.50-10.00) X 10*3/uL Plt Count 462 H (140-440) X 10*3/uL Immature Gran # 0.22 H (0.00-0.04) X 10*3/uL Neutrophils # 13.11 H (1.80-7.70) X 10*3/uL Lymphocytes # 0.49 L (0.90-5.00) X 10*3/uL Eosinophils # 0 L (0.04-0.35) X 10*3/uL Potassium 3.0 L (3.5-5.5) mmol/L Carbon Dioxide 18.8 L (21.6-31.8) mmol/L Anion Gap 17.20 H (4.00-12.00) mmol/L BUN/Creatinine Ratio 26.17 H (12.00-20.00) Ratio Glucose 140 H (70-110) mg/dL Calcium 8.2 L (8.7-10.3) mg/dL Ferritin 644.0 H (10.0-291.0) ng/mL AST 44 H (13-35) U/L ALT 51 H (8-44) U/L Lactate Dehydrogenase 524 H (120-246) U/L C-Reactive Protein 6.50 H (0.00-0.80) mg/dL Total Protein 5.7 L (6.2-8.2) g/dL Albumin 2.8 L (3.8-4.9) g/dL Albumin/Globulin Ratio 0.95 L (1.60-3.17) g/dL Microbiology - Last 24 Hours (Table) 09/09/21 18:53 Blood Culture - Preliminary Blood No Growth after 48 hours 09/09/21 18:53 Blood Culture - Preliminary Blood No Growth after 48 hours Assessment and Plan Assessment: Acute hypoxic respiratory failure Sepsis due to COVID-19 pneumonia with elevated lactic acid COVID-19 pneumonia Electrolyte imbalance with hypokalemia Elevated liver enzymes Elevated d-dimer and pro-calcitonin Plan: Continue steroids Continue high flow oxygen with deep breathing exercise incentive spirometry Continue Lovenox 40 mg daily for now Computed tomography scan reviewed Further recommendations pending plan of care as per clinical response of patient Time with Patient: Greater than 30
--- NOTE | 2021-09-12 16:44 | P.PN ---
Progress Note - Text Progress Note Date: 09/12/21 Presenting complaint: Short of breath Interval history: Admitted with COVID 19 pneumonia 09/11/2021: Reclining in bed. High flow nasal cannula. 8 some. Congested cough. Tired. No bowel movement. 09/12/2021: Sitting up in a chair. Some shortness of breath. Eating some. Had a bowel movement. Diet. On 15 L of high flow nasal cannula. Review of systems: Was done for constitutional, cardiovascular, GI, pulmonary. relevant finding as above Active Medications Ascorbic Acid (Ascorbic Acid 500 Mg Tab) 1,000 mg PO DAILY [facility] Last Admin: 09/12/21 09:15 Dose: 1,000 mg Documented by: Aspirin (Aspirin 81 Mg) 81 mg PO DAILY [facility] Last Admin: 09/12/21 09:14 Dose: 81 mg Documented by: Atorvastatin Calcium (Atorvastatin 40 Mg Tab) 40 mg PO DAILY [facility] Last Admin: 09/12/21 09:14 Dose: 40 mg Documented by: Baricitinib (Baricitinib 2 Mg Tablet) 4 mg PO DAILY@1700 [facility] Stop: 09/25/21 17:01 Budesonide/Formoterol Fumarate (Symbicort 160-4.5 Mcg Inhaler) 2 puff INHALATION RT-BID [facility] Last Admin: 09/12/21 07:50 Dose: 2 puff Documented by: Clopidogrel Bisulfate (Clopidogrel 75 Mg Tab) 75 mg PO DAILY [facility] Last Admin: 09/12/21 09:15 Dose: 75 mg Documented by: Enoxaparin Sodium (Enoxaparin 40 Mg/0.4 Ml Syringe) 40 mg SQ DAILY [facility] Last Admin: 09/12/21 09:13 Dose: 40 mg Documented by: Ergocalciferol (Ergocalciferol 1,250 Mcg (50,000 Iu) Capsule) 1,250 mcg PO Q72H [facility] Last Admin: 09/10/21 08:28 Dose: 1,250 mcg Documented by: Levothyroxine Sodium (Levothyroxine 75 Mcg Tab) 75 mcg PO DAILY@0630 [facility] Last Admin: 09/12/21 06:10 Dose: 75 mcg Documented by: Methylprednisolone Sodium Succinate (Methylprednisolone Sod Succi 125 Mg/2 Ml V ial) 60 mg IV Q6HR [facility] Last Admin: 09/12/21 13:05 Dose: 60 mg Documented by: Multivitamins/Minerals (Vit A,C & Y-Ofrota-Dfdtdlmm 1 Each Tab) 1 each PO BID [facility] Last Admin: 09/12/21 09:41 Dose: 1 each Documented by: Pantoprazole Sodium (Pantoprazole 40 Mg Tablet) 40 mg PO AC-BRKFST [facility] Last Admin: 09/12/21 09:16 Dose: 40 mg Documented by: Zinc Sulfate (Zinc Sulfate 220 Mg Cap) 220 mg PO DAILY [facility] Last Admin: 09/12/21 09:15 Dose: 220 mg Documented by: On examination: VITAL SIGNS: 99.4, 99, 16, 134/80, 89% on 15 L high flow nasal cannula GENERAL APPEARANCE: Up in a chair, awake, tired, short of breath. PSYCHIATRY: Alert and oriented x3. Mood and affect anxious NEUROLOGICAL: No facial asymmetry. Moving all 4 limbs Rest of exam per pulmonary and nursing Investigations: WBC 4.6 hemoglobin 14.1 d-dimer 1 potassium 3. 16.2 creatinine 0.6 AST 44 ALT 51 CRP 6.5 pro-calcitonin 0.95 Influenza type A, type B, RSV [PCR]: All not detected COVID 19 E CRR: Detected CT angiogram chest: No evidence of PE. Diffuse groundglass pulmonary interstitial pneumonia. 2-D echocardiogram: EF 55-60% Assessment plan: -Acute severe COVID 19 pneumonitis: Slow to respond. Patient did not qualify for Remdesivir or antibodies. Subcu Lovenox. Steroids. -Acute hypoxic respiratory failure: Slow to respond On 15 L high flow oxygen -GERD Protonix 40 mg a day -Hyperlipidemia Lipitor 40 mg a day -Hypothyroid Synthroid 75 g a day IV Solu-Medrol, zinc, vitamin D 2. High flow oxygen. Incentive spirometry. Discussed
[2021-09-12] MEDS: BARICITINIB 2 MG TABLET PO SCH (17:46)
--- NOTE | 2021-09-12 22:37 | PN ---
PROGRESS NOTE DATE OF SERVICE: 09/12/2021 REASON FOR FOLLOWUP: COVID-19 pneumonia. INTERVAL HISTORY: The patient is afebrile. The patient did have slight worsening of her clinical condition and is currently on a non-rebreather. The patient denies having any chest pain, though she did have a cough, not bringing up any sputum. No vomiting, no abdominal pain and no diarrhea. PHYSICAL EXAMINATION: Blood pressure 119/77 with a pulse of 103, temperature 97.9. She is 90% on 15 L high- flow oxygen. General description is an elderly female up in the room in no distress. RESPIRATORY SYSTEM: Unlabored breathing. Decreased intensity of breath sounds. No wheeze. HEART: S1, S2. Regular rate and rhythm. ABDOMEN: Soft. No tenderness. EXTREMITIES: No edema of the feet. LABS: Hemoglobin is 14.9, white count of 14.69. D-dimer is 1.0. DIAGNOSTIC IMPRESSION AND PLAN: Patient with acute COVID-19 pneumonia in this patient who did not qualify for remdesivir, as the patient was on day 12 of her illness when she presented to hospital. Initially she did not qualify for baricitinib; however, with worsening of her clinical condition it was discussed in detail with the pharmacist, and the patient now qualifies for baricitinib, which has been ordered. Will recheck her inflammatory markers tomorrow and continue with Solu-Medrol, Lovenox and ascorbic acid. Continue supportive care. MMODL / IJN: [id number] /
[2021-09-13] MEDS: methylPREDNISolone SOD SUCCI 125 MG/2 ML VIAL IV SCH ×2 (06:10→11:41)
[2021-09-13] MEDS: LEVOTHYROXINE 75 MCG TAB PO SCH (06:20)
[2021-09-13 07:04] LABS: ALT 47 U/L (4-34); AST 43 U/L (14-36); African American GFR (CKD) >90 (>60 ml/min/1.73 sqM); Albumin 2.5 g/dL (3.5-5.0); Albumin/Globulin Ratio 0.8; Alkaline Phosphatase 75 U/L (38-126); Anion Gap 8 mmol/L; Blood Urea Nitrogen 22 mg/dL (7-17); C Reactive Protein 2.9 mg/dL (<1.0); Calcium 8.3 mg/dL (8.4-10.2); Carbon Dioxide 25 mmol/L (22-30); Chloride 105 mmol/L (98-107); Glucose 149 mg/dL (74-99); LDH 878 U/L (313-618); Non-African American GFR(CKD) 89 (>60 ml/min/1.73 sqM); Potassium 3.9 mmol/L (3.5-5.1); Sodium 138 mmol/L (137-145); Total Bilirubin 0.5 mg/dL (0.2-1.3); Total Protein 5.5 g/dL (6.3-8.2)
[2021-09-13] MEDS: SYMBICORT 160-4.5 MCG INHALER INHALATION SCH ×2 (07:56→19:44)
[2021-09-13 09:06] LABS: Basophils # (A) 0.04 X 10*3/uL (0.00-0.10); Basophils % (A) 0.5 %; Eosinophils # (A) 0 X 10*3/uL (0.04-0.35); Eosinophils % (A) 0 %; HCT 38.1 % (37.2-46.3); HGB 12.7 g/dL (12.0-15.0); Lymphocytes # (A) 0.52 X 10*3/uL (0.90-5.00); Lymphocytes % (A) 5.9 %; MCH 30.7 pg (27.0-32.0); MCHC 33.3 g/dL (32.0-37.0); Mean Platelet Volume 9.9 fL (9.5-12.2); Monocytes # (A) 0.66 X 10*3/uL (0.20-1.00); Monocytes % (A) 7.5 %; Neutrophils # (A) 7.26 X 10*3/uL (1.80-7.70); Neutrophils % (A) 82.1 %; Platelet Count 486 X 10*3/uL (140-440); RBC 4.14 X 10*6/uL (4.10-5.20); RDW 13.1 % (11.5-14.5); WBC 8.83 X 10*3/uL (4.50-10.00)
--- NOTE | 2021-09-13 09:10 | P.PN ---
Subjective Principal diagnosis: Acute hypoxic respiratory failure Sepsis due to COVID-19 pneumonia with elevated lactic acid COVID-19 pneumonia Electrolyte imbalance with hypokalemia Elevated liver enzymes Elevated d-dimer and pro-calcitonin 09/13/2021, patient seen eval examined during the rounds labs reviewed medications reviewed care plan discussed, patient remains on the 15 L high flow oxygen along with nonrebreather mask with that saturation is 88-90%, labs from today reviewed white cell count come down to 8000, labs stable production up to 3.9, BUN/creatinine 22/.6, 09/12/2021, patient seen eval examined during the rounds labs reviewed medications reviewed care plan discussed, respiratory status is still marginal but stable, patient remains on 100% oxygen nonrebreather mask, T-max is 99.4, saturation is 89% to 90%, computed tomography scan of his chest consistent with interstitial pneumonia and COVID-19, no pulmonary embolism seen, patient remains on IV steroids and anticoagulation breathing treatment and continuation of home medications, Patient is a 76-year-old female who came into the hospital with increasing aches and pains malaise, symptoms started about 10-12 days ago, patient has outpatient covert testing which was negative however due to worsening system symptoms she decided to come into the hospital, patient oxygen saturation was just 75% in triage at room air, her appetite has been poor as well on specific questioning she denies any chest pain, denies any nausea vomiting diarrhea Past medical history significant for hypothyroidism, GERD, history of TIA, hypertension and hypertensive cardiovascular disease, thyroid disorder, history of the stroke,/TIA, patient is a nonsmokerhistory of substance In emergency department she underwent a chest x-ray which revealed bilateral patchy infiltrate more so on the bases on the right side compared to left side, EKG revealed sinus tachycardia, echocardiogram revealed ejection fraction 55%, mild TR and MR was noted along with AR, labs are significant for leukocytosis with WBC count of 14,600, primarily elevated 0.7, sodium is 1:30" 3.3, BUN/creatinine 16.67, glucose 155, AST and ALT Elevated, lactic acid is 3.3,, T-max 100.6 now currently afebrile, she is 90% on 15 L nonrebreather mask improved to 94% currently on 15 L nonrebreather mask, she came back positive for COVID-19 infection PCR, pro-calcitonin also elevated of 0.13 currently she is being treated with Y Lucinda as well as Zithromax, Decadron 6 mg daily, Lovenox 40 mg daily Objective - Vital Signs Vital signs: Vital Signs Temp 97.5 F L 09/13/21 05:06 Pulse 69 09/13/21 05:06 Resp 17 09/13/21 05:06 BP 136/78 09/13/21 05:06 Pulse Ox 96 09/13/21 05:06 Intake & Output 09/12/21 09/13/21 09/13/21 18:59 06:59 18:59 Intake Total 1022 Balance 1022 Intake: Oral 1022 Other: Voiding Method Toilet Toilet Bedside Commode Bedside Commode # Voids 3 1 - Exam - Constitutional General appearance: mild distress - EENT Eyes: PERRLA Ears: bilateral: normal - Neck Neck: normal ROM Carotids: bilateral: upstroke normal - Respiratory Respiratory: bilateral: diminished - Cardiovascular Rhythm: regular Heart sounds: normal: S1, S2 - Gastrointestinal General gastrointestinal: decreased bowel sounds - Neurologic Neurologic: CNII-XII intact - Musculoskeletal Musculoskeletal: generalized weakness - Psychiatric Psychiatric: A&O x's 3, appropriate affect - Labs CBC & Chem 7: 09/11/21 07:07 09/13/21 05:56 Labs: Abnormal Lab Results - Last 24 Hours (Table) 09/13/21 09/13/21 Range/Units 05:56 05:56 D-Dimer 0.91 H (<0.60) mg/L FEU BUN 22 H (7-17) mg/dL Glucose 149 H (74-99) mg/dL Calcium 8.3 L (8.4-10.2) mg/dL AST 43 H (14-36) U/L ALT 47 H (4-34) U/L Lactate Dehydrogenase 878 H (313-618) U/L C-Reactive Protein 2.9 H (<1.0) mg/dL Total Protein 5.5 L (6.3-8.2) g/dL Albumin 2.5 L (3.5-5.0) g/dL Microbiology - Last 24 Hours (Table) 09/09/21 18:53 Blood Culture - Preliminary Blood No Growth after 72 hours 09/09/21 18:53 Blood Culture - Preliminary Blood No Growth after 72 hours Assessment and Plan Assessment: Acute hypoxic respiratory failure Sepsis due to COVID-19 pneumonia with elevated lactic acid COVID-19 pneumonia Electrolyte imbalance with hypokalemia Elevated liver enzymes Elevated d-dimer and pro-calcitonin Plan: Continue steroids Continue high flow oxygen with deep breathing exercise incentive spirometry Continue Lovenox 40 mg daily for now Computed tomography scan reviewed Further recommendations pending plan of care as per clinical response of patient Time with Patient: Greater than 30
[2021-09-13] MEDS: ASCORBIC ACID 500 MG TAB PO SCH (09:40)
[2021-09-13] MEDS: CLOPIDOGREL 75 MG TAB PO SCH (09:40)
[2021-09-13] MEDS: ASPIRIN 81 MG PO SCH (09:40)
[2021-09-13] MEDS: VIT A,C & E-LUTEIN-MINERALS 1 EACH TAB PO SCH ×2 (09:40→20:15)
[2021-09-13] MEDS: ENOXAPARIN 40 MG/0.4 ML SYRINGE SQ SCH (09:40)
[2021-09-13] MEDS: PANTOPRAZOLE 40 MG TABLET PO SCH (09:40)
[2021-09-13] MEDS: ATORVASTATIN 40 MG TAB PO SCH (09:40)
[2021-09-13] MEDS: ZINC SULFATE 220 MG CAP PO SCH (09:40)
[2021-09-13] MEDS: ERGOCALCIFEROL 1,250 MCG (50,000 IU) CAPSULE PO SCH (10:10)
--- NOTE | 2021-09-13 16:17 | P.PN ---
Progress Note - Text Progress Note Date: 09/13/21 Presenting complaint: Short of breath Interval history: Admitted with COVID 19 pneumonia 09/11/2021: Reclining in bed. High flow nasal cannula. 8 some. Congested cough. Tired. No bowel movement. 09/12/2021: Sitting up in a chair. Some shortness of breath. Eating some. Had a bowel movement. Diet. On 15 L of high flow nasal cannula. 09/13/2021: Reclining in bed. Short of breath. Eating some food. On 15 L high flow nasal cannula. Tired. Started on IV Baricitinib yesterday Review of systems: Was done for constitutional, cardiovascular, GI, pulmonary. relevant finding as above Active Medications Ascorbic Acid (Ascorbic Acid 500 Mg Tab) 1,000 mg PO DAILY [facility] Last Admin: 09/13/21 09:40 Dose: 1,000 mg Documented by: Aspirin (Aspirin 81 Mg) 81 mg PO DAILY [facility] Last Admin: 09/13/21 09:40 Dose: 81 mg Documented by: Atorvastatin Calcium (Atorvastatin 40 Mg Tab) 40 mg PO DAILY [facility] Last Admin: 09/13/21 09:40 Dose: 40 mg Documented by: Baricitinib (Baricitinib 2 Mg Tablet) 4 mg PO DAILY@1700 [facility] Stop: 09/25/21 17:01 Last Admin: 09/12/21 17:46 Dose: 4 mg Documented by: Budesonide/Formoterol Fumarate (Symbicort 160-4.5 Mcg Inhaler) 2 puff INHALATION RT-BID [facility] Last Admin: 09/13/21 07:56 Dose: 2 puff Documented by: Clopidogrel Bisulfate (Clopidogrel 75 Mg Tab) 75 mg PO DAILY [facility] Last Admin: 09/13/21 09:40 Dose: 75 mg Documented by: Enoxaparin Sodium (Enoxaparin 40 Mg/0.4 Ml Syringe) 40 mg SQ DAILY [facility] Last Admin: 09/13/21 09:40 Dose: 40 mg Documented by: Ergocalciferol (Ergocalciferol 1,250 Mcg (50,000 Iu) Capsule) 1,250 mcg PO Q72H [facility] Last Admin: 09/13/21 10:10 Dose: 1,250 mcg Documented by: Levothyroxine Sodium (Levothyroxine 75 Mcg Tab) 75 mcg PO DAILY@0630 [facility] Last Admin: 09/13/21 06:20 Dose: 75 mcg Documented by: Methylprednisolone Sodium Succinate (Methylprednisolone Sod Succi 125 Mg/2 Ml Vial) 60 mg IV Q6HR [facility] Last Admin: 09/13/21 11:41 Dose: 60 mg Documented by: Multivitamins/Minerals (Vit A,C & C-Rnnbps-Mhvnqrha 1 Each Tab) 1 each PO BID [facility] Last Admin: 09/13/21 09:40 Dose: 1 each Documented by: Pantoprazole Sodium (Pantoprazole 40 Mg Tablet) 40 mg PO AC-BRKFST [facility] Last Admin: 09/13/21 09:40 Dose: 40 mg Documented by: Zinc Sulfate (Zinc Sulfate 220 Mg Cap) 220 mg PO DAILY [facility] Last Admin: 09/13/21 09:40 Dose: 220 mg Documented by: On examination: VITAL SIGNS: 97.5, 75, 20, 140s over 70, 93% on 15 L GENERAL APPEARANCE: Reclining in bed awake, tired, short of breath. PULMONARY: Respiratory rate increased PSYCHIATRY: Alert and oriented x3. Mood and affect anxious NEUROLOGICAL: No facial asymmetry. Moving all 4 limbs Rest of exam per pulmonary and nursing Investigations: September 13: White count 8.3 hemoglobin 12.7 d-dimer 0.91 potassium 3.9 creatinine 0.6 WBC 4.6 hemoglobin 14.1 d-dimer 1 potassium 3. 16.2 creatinine 0.6 AST 44 ALT 51 CRP 6.5 pro-calcitonin 0.95 Influenza type A, type B, RSV [PCR]: All not detected COVID 19 E CRR: Detected CT angiogram chest: No evidence of PE. Diffuse groundglass pulmonary interstitial pneumonia. 2-D echocardiogram: EF 55-60% Assessment plan: -Acute severe COVID 19 pneumonitis: Slow to respond. Patient did not qualify for Remdesivir or antibodies. Subcu Lovenox. Steroids. Started Baricitinib on September 12 -Acute hypoxic respiratory failure: Slow to respond On 15 L high flow oxygen -GERD Protonix 40 mg a day -Hyperlipidemia Lipitor 40 mg a day -Hypothyroid Synthroid 75 g a day -Hypoalbuminemia, acute phase reactant -Mild hepatitis, likely from COVID 19 IV Solu-Medrol, zinc, vitamin D 2. High flow oxygen. Incentive spirometry. Discussed. IV Baricitinib
[2021-09-13] MEDS: BARICITINIB 2 MG TABLET PO SCH (16:43)
[2021-09-13] MEDS: methylPREDNISolone SOD SUCCI 40 MG/ML 1 ML VIAL IV SCH (20:15)
[2021-09-13 20:31] LABS: Glucose,Whole Blood 230 mg/dL (75-99)
--- NOTE | 2021-09-13 22:02 | PN ---
PROGRESS NOTE DATE OF SERVICE: 09/13/2021 REASON FOR FOLLOWUP: COVID-19 pneumonia. INTERVAL HISTORY: The patient is afebrile. Mentioned breathing slightly comfortably, however, still requiring nonrebreather. The patient denies having any chest pain. Cough has decreased in intensity, mostly dry in nature. No vomiting. No abdominal pain, no diarrhea. PHYSICAL EXAMINATION: Blood pressure 121/75 with a pulse of 70, temperature 97.6. She is 93% on 15 L high- flow oxygen. General description is a middle-aged female up in the room in no distress. Respiratory system: Unlabored breathing, decreased intensity of the breath sounds. No wheeze. Heart S1, S2. Regular rate and rhythm. Abdomen soft, no tenderness. Extremities: No edema of the feet. LABS: Hemoglobin is 12.7, white count 8.83, creatinine 0.60. DIAGNOSTIC IMPRESSION AND PLAN: Patient with acute COVID-19 pneumonia in this patient did have worsening after ( ). She has been started on baricitinib, to continue ( ), Lovenox, zinc and ascorbic acid and continue with supportive care. MMODL / IJN: [id number] /
[2021-09-14] MEDS: methylPREDNISolone SOD SUCCI 40 MG/ML 1 ML VIAL IV SCH ×3 (05:03→22:05)
[2021-09-14] MEDS: LEVOTHYROXINE 75 MCG TAB PO SCH (05:03)
[2021-09-14] MEDS: SYMBICORT 160-4.5 MCG INHALER INHALATION SCH ×2 (07:42→20:52)
[2021-09-14] MEDS: ENOXAPARIN 40 MG/0.4 ML SYRINGE SQ SCH (09:25)
[2021-09-14] MEDS: VIT A,C & E-LUTEIN-MINERALS 1 EACH TAB PO SCH ×2 (09:26→22:05)
[2021-09-14] MEDS: ZINC SULFATE 220 MG CAP PO SCH (09:26)
[2021-09-14] MEDS: ASCORBIC ACID 500 MG TAB PO SCH (09:26)
[2021-09-14] MEDS: CLOPIDOGREL 75 MG TAB PO SCH (09:26)
[2021-09-14] MEDS: PANTOPRAZOLE 40 MG TABLET PO SCH (09:26)
[2021-09-14] MEDS: ATORVASTATIN 40 MG TAB PO SCH (09:26)
[2021-09-14] MEDS: ASPIRIN 81 MG PO SCH (09:26)
[2021-09-14] MEDS: BARICITINIB 2 MG TABLET PO SCH (15:53)
--- NOTE | 2021-09-14 22:15 | P.PN ---
Progress Note - Text Progress Note Date: 09/14/21 Presenting complaint: Short of breath Interval history: Admitted with COVID 19 pneumonia 09/11/2021: Reclining in bed. High flow nasal cannula. 8 some. Congested cough. Tired. No bowel movement. 09/12/2021: Sitting up in a chair. Some shortness of breath. Eating some. Had a bowel movement. Diet. On 15 L of high flow nasal cannula. 09/13/2021: Reclining in bed. Short of breath. Eating some food. On 15 L high flow nasal cannula. Tired. Started on IV Baricitinib yesterday 09/14/2021: Sitting on the chair. Short of breath. Eating close to 100%. On 15 L high flow nasal cannula. Short of breath. Cough Review of systems: Was done for constitutional, cardiovascular, GI, pulmonary. relevant finding as above Active Medications Ascorbic Acid (Ascorbic Acid 500 Mg Tab) 1,000 mg PO DAILY [facility] Last Admin: 09/14/21 09:26 Dose: 1,000 mg Documented by: Aspirin (Aspirin 81 Mg) 81 mg PO DAILY [facility] Last Admin: 09/14/21 09:26 Dose: 81 mg Documented by: Atorvastatin Calcium (Atorvastatin 40 Mg Tab) 40 mg PO DAILY [facility] Last Admin: 09/14/21 09:26 Dose: 40 mg Documented by: Baricitinib (Baricitinib 2 Mg Tablet) 4 mg PO DAILY@1700 [facility] Stop: 09/25/21 17:01 Last Admin: 09/14/21 15:53 Dose: 4 mg Documented by: Budesonide/Formoterol Fumarate (Symbicort 160-4.5 Mcg Inhaler) 2 puff INHALATION RT-BID [facility] Last Admin: 09/14/21 20:52 Dose: 2 puff Documented by: Clopidogrel Bisulfate (Clopidogrel 75 Mg Tab) 75 mg PO DAILY [facility] Last Admin: 09/14/21 09:26 Dose: 75 mg Documented by: Enoxaparin Sodium (Enoxaparin 40 Mg/0.4 Ml Syringe) 40 mg SQ DAILY [facility] Last Admin: 09/14/21 09:25 Dose: 40 mg Documented by: Ergocalciferol (Ergocalciferol 1,250 Mcg (50,000 Iu) Capsule) 1,250 mcg PO Q72H [facility] Last Admin: 09/13/21 10:10 Dose: 1,250 mcg Documented by: Levothyroxine Sodium (Levothyroxine 75 Mcg Tab) 75 mcg PO DAILY@0630 [facility] Last Admin: 09/14/21 05:03 Dose: 75 mcg Documented by: Methylprednisolone Sodium Succinate (Methylprednisolone Sod Succi 40 Mg/Ml 1 Ml Vial) 40 mg IV Q8H [facility] Last Admin: 09/14/21 22:05 Dose: 40 mg Documented by: Multivitamins/Minerals (Vit A,C & A-Yotqjo-Osjahdgk 1 Each Tab) 1 each PO BID [facility] Last Admin: 09/14/21 22:05 Dose: 1 each Documented by: Pantoprazole Sodium (Pantoprazole 40 Mg Tablet) 40 mg PO AC-BRKFST [facility] Last Admin: 09/14/21 09:26 Dose: 40 mg Documented by: Zinc Sulfate (Zinc Sulfate 220 Mg Cap) 220 mg PO DAILY [facility] Last Admin: 09/14/21 09:26 Dose: 220 mg Documented by: On examination: VITAL SIGNS: 97.8, 93, 22, 115/73, 91% on 15 L GENERAL APPEARANCE: Sitting up in a chair, tired, short of breath. PULMONARY: Respiratory rate increased PSYCHIATRY: Alert and oriented x3. Mood and affect anxious NEUROLOGICAL: No facial asymmetry. Moving all 4 limbs Rest of exam per pulmonary and nursing Investigations: September 14: D-dimer 1.1 CRP 1.5 September 13: White count 8.3 hemoglobin 12.7 d-dimer 0.91 potassium 3.9 creatinine 0.6 WBC 4.6 hemoglobin 14.1 d-dimer 1 potassium 3. 16.2 creatinine 0.6 AST 44 ALT 51 CRP 6.5 pro-calcitonin 0.95 Influenza type A, type B, RSV [PCR]: All not detected COVID 19 E CRR: Detected CT angiogram chest: No evidence of PE. Diffuse groundglass pulmonary interstitial pneumonia. 2-D echocardiogram: EF 55-60% Assessment plan: -Acute severe COVID 19 pneumonitis: Slow to respond. Patient did not qualify for Remdesivir or antibodies. Subcu Lovenox. Steroids. Started Baricitinib on September 12 -Acute hypoxic respiratory failure: Slow to respond On 15 L high flow oxygen -GERD Protonix 40 mg a day -Hyperlipidemia Lipitor 40 mg a day -Hypothyroid Synthroid 75 g a day -Hypoalbuminemia, acute phase reactant -Mild hepatitis, likely from COVID 19 IV Solu-Medrol, zinc, vitamin D 2. High flow oxygen-15 L. Discussed. IV Baricitinib
--- NOTE | 2021-09-14 22:23 | PN ---
PROGRESS NOTE DATE OF SERVICE: 09/14/2021 REASON FOR FOLLOWUP: COVID-19 pneumonia. INTERVAL HISTORY: The patient is afebrile. The patient is breathing slightly comfortably today. The patient denies having any chest pain. Did have a cough, decreased in intensity. No vomiting. No abdominal pain or diarrhea. PHYSICAL EXAMINATION: Blood pressure 124/78 with a pulse of 81, temperature 97.4. He is 92% on 15 L high- flow oxygen. General description is an elderly female up in the chair in no distress. RESPIRATORY SYSTEM: Unlabored breathing. Decreased intensity of breath sounds. No wheeze. HEART: S1, S2. Regular rate and rhythm. ABDOMEN: Soft. No tenderness. EXTREMITIES: No edema of the feet. LABS: No new labs have been obtained today. DIAGNOSTIC IMPRESSION AND PLAN: Patient with acute COVID-19 pneumonia. Patient is currently covered with Solu-Medrol, Lovenox, baricitinib, zinc and ascorbic acid; to continue while monitoring clinical course closely. Continue with supportive care. MMODL / IJN: [id number] /
[2021-09-15] MEDS: methylPREDNISolone SOD SUCCI 40 MG/ML 1 ML VIAL IV SCH ×3 (03:30→21:22)
[2021-09-15] MEDS: LEVOTHYROXINE 75 MCG TAB PO SCH (03:30)
[2021-09-15] MEDS: SYMBICORT 160-4.5 MCG INHALER INHALATION SCH ×2 (07:35→20:17)
[2021-09-15] MEDS: ENOXAPARIN 40 MG/0.4 ML SYRINGE SQ SCH (08:34)
[2021-09-15] MEDS: ATORVASTATIN 40 MG TAB PO SCH (08:34)
[2021-09-15] MEDS: VIT A,C & E-LUTEIN-MINERALS 1 EACH TAB PO SCH ×2 (08:34→21:23)
[2021-09-15] MEDS: CLOPIDOGREL 75 MG TAB PO SCH (08:34)
[2021-09-15] MEDS: PANTOPRAZOLE 40 MG TABLET PO SCH (08:34)
[2021-09-15] MEDS: ASCORBIC ACID 500 MG TAB PO SCH (08:34)
[2021-09-15] MEDS: ZINC SULFATE 220 MG CAP PO SCH (08:34)
[2021-09-15] MEDS: ASPIRIN 81 MG PO SCH (08:34)
[2021-09-15] MEDS: BARICITINIB 2 MG TABLET PO SCH (16:41)
--- NOTE | 2021-09-16 00:11 | PN ---
PROGRESS NOTE This 76-year-old COVID pneumonia. Remains 89% on 12 L. Blood pressure 127/82, temperature 98.3, pulse 98, respiratory rate 18-20. CARDIOVASCULAR: S1, S2. LUNGS: Scattered rhonchi and wheeze. HEMATOLOGY: Negative Homans. ASSESSMENT: 1. COVID-19 pneumonia. 2. Acute hypoxemic respiratory distress. 3. Generalized weakness, fatigue. 4. Hypoxemia, significant nature. Continue with Lovenox, baricitinib, zinc, ascorbic acid, Solu-Medrol. Prognosis extremely guarded. Will need Dr. Wells for rehab. MMODL / IJN: [id number] /
--- NOTE | 2021-09-16 01:06 | PN ---
PROGRESS NOTE DATE OF SERVICE: 09/15/2021 REASON FOR FOLLOWUP: COVID-19 pneumonia. INTERVAL HISTORY: The patient is afebrile. The patient is breathing slightly comfortably. The patient denies having any chest pain. She did have a cough; no sputum, though. No nausea, no vomiting. No abdominal pain or diarrhea. PHYSICAL EXAMINATION: Blood pressure 119/74 with a pulse of 90, temperature 97.7. She is 94% on 12 L high- flow oxygen. General description is a middle-aged female up in the bed in no distress. RESPIRATORY SYSTEM: Unlabored breathing. Decreased intensity of breath sounds. No wheeze. HEART: S1, S2. Regular rate and rhythm. ABDOMEN: Soft. No tenderness. LABS: D-dimer is 1.09. CRP is 1.3. DIAGNOSTIC IMPRESSION AND PLAN: Patient with acute COVID-19 pneumonia in this patient who did have minimal clinical improvement. Patient to continue with baricitinib, Solu-Medrol, Lovenox, zinc and ascorbic acid. Continue with supportive care. MMODL / IJN: [id number] /
[2021-09-16] MEDS: LEVOTHYROXINE 75 MCG TAB PO SCH (05:07)
[2021-09-16] MEDS: methylPREDNISolone SOD SUCCI 40 MG/ML 1 ML VIAL IV SCH ×3 (05:08→20:46)
[2021-09-16] MEDS: PANTOPRAZOLE 40 MG TABLET PO SCH (07:40)
[2021-09-16] MEDS: ASPIRIN 81 MG PO SCH (07:40)
[2021-09-16] MEDS: CLOPIDOGREL 75 MG TAB PO SCH (07:40)
[2021-09-16] MEDS: ENOXAPARIN 40 MG/0.4 ML SYRINGE SQ SCH (07:40)
[2021-09-16] MEDS: ERGOCALCIFEROL 1,250 MCG (50,000 IU) CAPSULE PO SCH (07:40)
[2021-09-16] MEDS: ASCORBIC ACID 500 MG TAB PO SCH (07:40)
[2021-09-16] MEDS: ZINC SULFATE 220 MG CAP PO SCH (07:40)
[2021-09-16] MEDS: VIT A,C & E-LUTEIN-MINERALS 1 EACH TAB PO SCH ×2 (07:40→20:46)
[2021-09-16] MEDS: ATORVASTATIN 40 MG TAB PO SCH (07:41)
[2021-09-16] MEDS: SYMBICORT 160-4.5 MCG INHALER INHALATION SCH ×2 (07:50→21:06)
--- NOTE | 2021-09-16 08:04 | XR ---
EXAMINATION TYPE: XR chest 1V DATE OF EXAM: 09/16/2021 CLINICAL HISTORY: COVID progress study. TECHNIQUE: Single AP portable upright view of the chest is obtained. COMPARISON: Chest x-ray from one week earlier. CTA chest 6 days ago. FINDINGS: Multifocal and diffuse reticular and reticulonodular opacities bilaterally are redemonstra david with relative sparing of the left upper lung. Stable cardiomegaly. Underlying scoliosis is redemo nstrated. Elevated left hemidiaphragm again seen. IMPRESSION: Multifocal and diffuse bilateral reticular and reticulonodular opacities consistent with covid-19 infection are redemonstrated. No significant change from most recent prior studies.
[2021-09-16 10:18] LABS: ALT 55 U/L (4-34); AST 35 U/L (14-36); African American GFR (CKD) >90 (>60 ml/min/1.73 sqM); Albumin 2.7 g/dL (3.5-5.0); Albumin/Globulin Ratio 0.8; Alkaline Phosphatase 104 U/L (38-126); Anion Gap 7 mmol/L; Blood Urea Nitrogen 17 mg/dL (7-17); Calcium 8.7 mg/dL (8.4-10.2); Carbon Dioxide 28 mmol/L (22-30); Chloride 103 mmol/L (98-107); Globulin 3.2 g/dL; Glucose 144 mg/dL (74-99); Non-African American GFR(CKD) >90 (>60 ml/min/1.73 sqM); Potassium 5.2 mmol/L (3.5-5.1); Sodium 138 mmol/L (137-145); Total Bilirubin 0.9 mg/dL (0.2-1.3); Total Protein 5.9 g/dL (6.3-8.2)
--- NOTE | 2021-09-16 12:42 | P.CONS ---
History of Present Illness - Chief Complaint Pulmonary debility due to covert pneumonia - History of Present Illness I had the opportunity to see patient for inpatient rehab consultation with regard to pulmonary debility. Patient admitted to [facility] September 09 with shortness of breath 10 days' duration. Seen by Dr. Nicolas and Dr. Sawyer for covert positive pneumonia. Chest x-rays followed for infiltrates which are consistent. CTA demonstrates groundglass appearance and negative for PE. Previous functional history as elicited patient: 76-year-old right-handed white female who is single lives in a first-floor 2 floor home with son and granddaughter. She was retired and son in disability. Granddaughter is a student. Patient describes that she did most of the cooking, laundry, driving a. Independent with standing shower and gait without device. PCP Dr. Marcelo Wheatley. Denies tobacco or alcohol. Review of Systems Review of systems: ENT: Denies sneezes or discharge. Eyes: Denies discharge or photophobia. Cardiac: Denies chest pain or palpitation. Pulmonary: Moderate shortness of breath. Breast: Denies discharge or lumps. Gastrointestinal: Denies nausea, emesis, constipation, diarrhea. Genitourinary: Denies discharge or frequency. Musculoskeletal: Denies muscle or bone aches. Neurologic: Generalized weakness. Endocrine: Denies shakes or sweats. Oncology: Denies cancers. Dermatologic: Denies rash, itching, pruritus. ALLERGY/immunology: Denies sneezes, rashes. Past Medical History Past Medical History: CVA/TIA, GERD/Reflux, Hyperlipidemia, Hypertension, Thyroid Disorder Additional Past Medical History / Comment(s): 3-2-16 ADMITTED WITH STROKE LIKE SYMPTOMS-pt. states was told didn't have stroke, history of TIAs,DIVERTICULITIS History of Any Multi-Drug Resistant Organisms: None Reported Past Surgical History: Appendectomy, Section, Cholecystectomy Past Anesthesia/Blood Transfusion Reactions: No Reported Reaction Additional Past Anesthesia/Blood Transfusion Reaction / Comm: MILD CLAUSTROPHOBIA Past Psychological History: No Psychological Hx Reported Smoking Status: Never smoker Past Alcohol Use History: None Reported Past Drug Use History: None Reported - Past Family History Mother Family Medical History: Cancer Additional Family Medical History / Comment(s): UNSURE WHAT TYPE OF CANCER Father Family Medical History: Cancer Additional Family Medical History / Comment(s): BONE CANCER Brother(s) Family Medical History: Asthma Sister(s) Family Medical History: No Reported History Son(s) Family Medical History: No Reported History Medications and Allergies Home Medications Medication Instructions Recorded Confirmed Type Levothyroxine Sodium [Synthroid] 75 mcg PO DAILY 01/22/16 09/09/21 History Clopidogrel [Plavix] 75 mg PO DAILY #0 01/24/16 09/09/21 Rx Aspirin EC [Ecotrin Low Dose] 81 mg PO DAILY 05/13/21 09/09/21 History Multivit-Min/Iron/Folic/Lutein 1 tab PO DAILY 05/13/21 09/09/21 History [Centrum Silver Women Tablet] Vit C/E/Zn/Coppr/Lutein/Zeaxan 1 cap PO BID 05/13/21 09/09/21 History [Preservision Areds 2 Softgel] Atorvastatin [Lipitor] 40 mg PO DAILY 30 Days #30 tab 05/15/21 09/09/21 Rx Pantoprazole [Protonix] 40 mg PO DAILY 07/30/21 09/09/21 History Azithromycin [Zithromax] 500 mg PO DAILY 09/09/21 09/09/21 History Meclizine HCl 12.5 mg PO BID PRN 09/09/21 09/09/21 History methylPREDNISolone [Medrol Dose See Taper PO DIRECTED 09/09/21 09/09/21 History Pack] Allergies Allergy/AdvReac Type Severity Reaction Status Date / Time codeine Allergy Unknown Verified 09/09/21 19:00 Physical Exam Vitals: Vital Signs Temp Pulse Resp BP Pulse Ox 09/16/21 09:19 98.2 F 100 18 120/77 89 L 09/16/21 07:50 92 L 09/16/21 07:40 81 21 09/16/21 05:38 98.4 F 81 21 138/77 93 L 09/16/21 01:59 97.6 F 84 20 163/83 91 L 09/15/21 20:00 97.7 F 90 19 118/74 94 L 09/15/21 17:08 98.3 F 98 18 127/82 89 L 09/15/21 14:43 98.1 F 105 H 20 126/75 89 L Intake and Output 09/15/21 09/16/21 09/16/21 22:59 06:59 14:59 Other: Voiding Method Toilet Bedside Commode # Voids 3 1 Skin: Atrophic, intact. General: Medium build and comfortable appearance. Head: Normocephalic, atraumatic. Eyes: Symmetric. Pupils equal round. Ears: Symmetric. Hearing within normal limits. Mouth: Clear. Neck: Supple. Carotid without bruit. Cardiac: Regular rate and rhythm. Lungs: Clear anteriorly and posteriorly. Abdomen: Soft active nontender. Extremities: Normal tone. Neurological: Mental status: Alert, cooperative, pleasant. Cranial nerves: Symmetric facial tone and trapezius. Motor: Can actively elevate all 4 limbs off of bed. Sensation: Intact throughout. DTRs: Symmetric and equal throughout. Mobility: Requires physical assist for bed mobility. Results CBC & Chem 7: 09/13/21 05:56 09/16/21 09:21 Labs: Abnormal Lab Results - Last 24 Hours (Table) 09/16/21 Range/Units 09:21 Potassium 5.2 H (3.5-5.1) mmol/L Glucose 144 H (74-99) mg/dL ALT 55 H (4-34) U/L Total Protein 5.9 L (6.3-8.2) g/dL Albumin 2.7 L (3.5-5.0) g/dL Microbiology - Last 24 Hours (Table) 09/09/21 18:53 Blood Culture - Final Blood No Growth after 144 hours 09/09/21 18:53 Blood Culture - Final Blood No Growth after 144 hours Assessment and Plan (1) Pneumonia due to COVID-19 virus Current Visit: Yes Status: Acute Code(s): U07.1 - COVID-19; J12.82 - Pneumonia due to coronavirus disease 2019 SNOMED Code(s): [id number] Plan: Impression: 1. Pulmonary debility with recent, pneumonia and acute hypoxic respiratory failure. 2. Hypertension. 3. Dyslipidemia. 4. History of stroke with left hemiparesthesias and a aphasia/dysarthria. 5. Hypothyroid. 6. Reflux. Comments and plan: Purpose of the consult was for possible inpatient rehabilitation. To this end, have prescribed physical and occupational therapies. Follow therapies with yourself. Have discussed with patient that there will be involved insurance criteria and guidelines regard to admission processes.
[2021-09-16] MEDS: BARICITINIB 2 MG TABLET PO SCH (16:34)
--- NOTE | 2021-09-16 18:30 | P.PN ---
Subjective Progress Note Date: 09/16/21 Principal diagnosis: Acute hypoxic respiratory failure Sepsis due to COVID-19 pneumonia with elevated lactic acid COVID-19 pneumonia Electrolyte imbalance with hypokalemia Elevated liver enzymes Elevated d-dimer and pro-calcitonin 09/16/2021, patient seen eval examined during the rounds labs reviewed medications reviewed care plan discussed, respiratory status remains marginal get short of breath activity and exertion, patient still have dry nonproductive cough, she is on 12 L high flow oxygen at times he uses a mask as well, she is afebrile with heart rate of 102, blood pressure HEENT hemodynamic stable oxygen saturation improved to 90-94% now, chest x-ray earlier this morning continued to show multifocal diffuse reticular and radicular nodular appearance bilaterally 09/15/2021, patient overall in good spirits breathing comfortably but get short of breath on activity and exertion continue to have intermittent dry cough, patient remains on 12 L high flow oxygen along with as needed 15 L face mask, remains afebrile, oxygen saturation is mostly 89-92%, d-dimer remains elevated, patient remains on the Lovenox IV steroids will repeat follow-up chest x-ray 09/13/2021, patient seen eval examined during the rounds labs reviewed medications reviewed care plan discussed, patient remains on the 15 L high flow oxygen along with nonrebreather mask with that saturation is 88-90%, labs from today reviewed white cell count come down to 8000, labs stable production up to 3.9, BUN/creatinine 22/.6, 09/12/2021, patient seen eval examined during the rounds labs reviewed medications reviewed care plan discussed, respiratory status is still marginal but stable, patient remains on 100% oxygen nonrebreather mask, T-max is 99.4, saturation is 89% to 90%, computed tomography scan of his chest consistent with interstitial pneumonia and COVID-19, no pulmonary embolism seen, patient remains on IV steroids and anticoagulation breathing treatment and continuation of home medications, Patient is a 76-year-old female who came into the hospital with increasing aches and pains malaise, symptoms started about 10-12 days ago, patient has outpatient covert testing which was negative however due to worsening system symptoms she decided to come into the hospital, patient oxygen saturation was just 75% in triage at room air, her appetite has been poor as well on specific questioning she denies any chest pain, denies any nausea vomiting diarrhea Past medical history significant for hypothyroidism, GERD, history of TIA, hypertension and hypertensive cardiovascular disease, thyroid disorder, history of the stroke,/TIA, patient is a nonsmokerhistory of substance In emergency department she underwent a chest x-ray which revealed bilateral patchy infiltrate more so on the bases on the right side compared to left side, EKG revealed sinus tachycardia, echocardiogram revealed ejection fraction 55%, mild TR and MR was noted along with AR, labs are significant for leukocytosis with WBC count of 14,600, primarily elevated 0.7, sodium is 1:30" 3.3, BUN/creatinine 16.67, glucose 155, AST and ALT Elevated, lactic acid is 3.3,, T-max 100.6 now currently afebrile, she is 90% on 15 L nonrebreather mask improved to 94% currently on 15 L nonrebreather mask, she came back positive for COVID-19 infection PCR, pro-calcitonin also elevated of 0.13 currently she is being treated with Y Lucinda as well as Zithromax, Decadron 6 mg daily, Lovenox 40 mg daily Objective - Vital Signs Vital signs: Vital Signs Temp 98.8 F 09/16/21 17:20 Pulse 102 H 09/16/21 17:20 Resp 20 09/16/21 17:20 BP 118/76 09/16/21 17:20 Pulse Ox 92 L 09/16/21 17:20 Intake & Output 09/15/21 09/16/21 09/16/21 18:59 06:59 18:59 Output Total 1 Balance -1 Weight 77.111 kg Output: Urine 1 Other: Voiding Method Toilet Toilet Bedside Commode Bedside Commode # Voids 3 1 # Bowel Movements 1 - Exam - Constitutional General appearance: mild distress - EENT Eyes: PERRLA Ears: bilateral: normal - Neck Neck: normal ROM Carotids: bilateral: upstroke normal - Respiratory Respiratory: bilateral: diminished - Cardiovascular Rhythm: regular Heart sounds: normal: S1, S2 - Gastrointestinal General gastrointestinal: decreased bowel sounds - Neurologic Neurologic: CNII-XII intact - Musculoskeletal Musculoskeletal: generalized weakness - Psychiatric Psychiatric: A&O x's 3, appropriate affect - Labs CBC & Chem 7: 09/13/21 05:56 09/16/21 09:21 Labs: Abnormal Lab Results - Last 24 Hours (Table) 09/16/21 Range/Units 09:21 Potassium 5.2 H (3.5-5.1) mmol/L Glucose 144 H (74-99) mg/dL ALT 55 H (4-34) U/L Total Protein 5.9 L (6.3-8.2) g/dL Albumin 2.7 L (3.5-5.0) g/dL Microbiology - Last 24 Hours (Table) 09/09/21 18:53 Blood Culture - Final Blood No Growth after 144 hours 09/09/21 18:53 Blood Culture - Final Blood No Growth after 144 hours Assessment and Plan Assessment: Acute hypoxic respiratory failure Sepsis due to COVID-19 pneumonia with elevated lactic acid COVID-19 pneumonia 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
--- NOTE | 2021-09-16 22:28 | PN ---
PROGRESS NOTE Kyra Stern is a 76-year-old white female with COVID-19 pneumonia. Remains on Symbicort, Plavix, Lovenox, vitamin D, Synthroid, Solu-Medrol, Protonix, Orazinc, vitamin C, aspirin. The patient is sitting up in a chair, feels like she is getting better. We are going to get a consult with Dr. Wells for rehab. She is 92% to 94% on 12 L. Blood pressure is 118/76, heart rate is 100 to 102, respiratory rate 18 to 20, temperature 98. Cardiovascular: S1, S2. Lungs: Scattered rhonchi and wheeze. Hematology: Negative Homans. Psych: Fair mood and affect. Neurologic: Alert and oriented x3. ASSESSMENT: 1. COVID-19 pneumonia. 2. Encephalopathy. 3. Acute hypoxemic respiratory distress. Plan is to continue current treatment. 4. Pulmonary debility with recent pneumonia. 5. Hypoxemic respiratory distress. 6. Hypertension. 7. Dyslipidemia. 8. Prior history of stroke. 9. Hypothyroid. 10.Gastroesophageal reflux disease. PT/OT. Waiting for Dr. Wells to approve transfer to the rehab center. Prognosis guarded. Continue with weaning oxygen as tolerated. MMODL / IJN: [id number] /
--- NOTE | 2021-09-16 23:04 | PN ---
PROGRESS NOTE DATE OF SERVICE: 09/16/2021 REASON FOR FOLLOWUP: COVID-19 pneumonia. INTERVAL HISTORY: The patient is afebrile. The patient is breathing slightly comfortably, still requiring non-rebreather the patient denies having any chest pain or any worsening cough. No abdominal pain or diarrhea. PHYSICAL EXAMINATION: Blood pressure is 130/75 with a pulse of 72, temperature 98.2. She is 90% on L high-flow oxygen. General description is an elderly female up in the bed in no distress. RESPIRATORY SYSTEM: Unlabored breathing. Coarse breath sounds at the bases bilaterally. No wheeze. HEART: S1, S2. Regular rate and rhythm. ABDOMEN: Soft. No tenderness. EXTREMITIES: No edema of the feet. LABS: Creatinine 0.56. CRP is down to 1.3. DIAGNOSTIC IMPRESSION AND PLAN: Patient with acute respiratory failure secondary to COVID-19 infection. Patient is currently on baricitinib and Solu-Medrol, Lovenox, zinc and ascorbic acid along with respiratory support. Monitor clinical course closely. MMODL / IJN: [id number] /
[2021-09-17] MEDS: methylPREDNISolone SOD SUCCI 40 MG/ML 1 ML VIAL IV SCH ×3 (05:09→20:04)
[2021-09-17] MEDS: LEVOTHYROXINE 75 MCG TAB PO SCH (05:09)
[2021-09-17 07:07] LABS: Basophils % (A) 0 %; Eosinophils % (A) 0 %; HCT 43.3 % (34.0-46.0); HGB 14.3 gm/dL (11.4-16.0); Lymphocytes # (A) 0.3 k/uL (1.0-4.8); Lymphocytes % (A) 2 %; MCH 31.2 pg (25.0-35.0); MCHC 33.2 g/dL (31.0-37.0); Mean Platelet Volume 7.3; Monocytes # (A) 0.5 k/uL (0-1.0); Monocytes % (A) 3 %; Neutrophils # (A) 14.1 k/uL (1.3-7.7); Neutrophils % (A) 94 %; Platelet Count 577 k/uL (150-450); RDW 13.1 % (11.5-15.5)
[2021-09-17 07:21] LABS: ALT 47 U/L (4-34); AST 27 U/L (14-36); African American GFR (CKD) >90 (>60 ml/min/1.73 sqM); Albumin 2.6 g/dL (3.5-5.0); Albumin/Globulin Ratio 0.8; Alkaline Phosphatase 85 U/L (38-126); Anion Gap 3 mmol/L; Blood Urea Nitrogen 17 mg/dL (7-17); Calcium 8.6 mg/dL (8.4-10.2); Carbon Dioxide 29 mmol/L (22-30); Chloride 105 mmol/L (98-107); Globulin 3.1 g/dL; Glucose 123 mg/dL (74-99); Non-African American GFR(CKD) >90 (>60 ml/min/1.73 sqM); Potassium 5.6 mmol/L (3.5-5.1); Sodium 137 mmol/L (137-145); Total Bilirubin 0.8 mg/dL (0.2-1.3); Total Protein 5.7 g/dL (6.3-8.2)
[2021-09-17] MEDS: SYMBICORT 160-4.5 MCG INHALER INHALATION SCH ×2 (08:15→21:30)
[2021-09-17] MEDS: ENOXAPARIN 40 MG/0.4 ML SYRINGE SQ SCH (08:55)
[2021-09-17] MEDS: ATORVASTATIN 40 MG TAB PO SCH (08:56)
[2021-09-17] MEDS: ASPIRIN 81 MG PO SCH (08:56)
[2021-09-17] MEDS: ZINC SULFATE 220 MG CAP PO SCH (08:56)
[2021-09-17] MEDS: CLOPIDOGREL 75 MG TAB PO SCH (08:56)
[2021-09-17] MEDS: ASCORBIC ACID 500 MG TAB PO SCH (08:56)
[2021-09-17] MEDS: PANTOPRAZOLE 40 MG TABLET PO SCH (08:56)
[2021-09-17] MEDS: VIT A,C & E-LUTEIN-MINERALS 1 EACH TAB PO SCH ×2 (08:56→20:03)
[2021-09-17] MEDS: BARICITINIB 2 MG TABLET PO SCH (15:57)
--- NOTE | 2021-09-17 19:17 | P.PN ---
Subjective Progress Note Date: 09/17/21 Principal diagnosis: Acute hypoxic respiratory failure Sepsis due to COVID-19 pneumonia with elevated lactic acid COVID-19 pneumonia Electrolyte imbalance with hypokalemia Elevated liver enzymes Elevated d-dimer and pro-calcitonin 09/17/2021, patient seen eval examined during the rounds labs reviewed medications reviewed care plan discussed, history status patient is still short of breath continued to require high flow oxygen via nasal cannula as well as nasal mask as needed, that oxygen saturation improved to 91-92%, patient remains afebrile, remains on IV steroids supplements and Lovenox for anticoagulation, less distress is used to see before 09/16/2021, patient seen eval examined during the rounds labs reviewed medications reviewed care plan discussed, respiratory status remains marginal get short of breath activity and exertion, patient still have dry nonproductive cough, she is on 12 L high flow oxygen at times he uses a mask as well, she is afebrile with heart rate of 102, blood pressure HEENT hemodynamic stable oxygen saturation improved to 90-94% now, chest x-ray earlier this morning continued to show multifocal diffuse reticular and radicular nodular appearance bilaterally 09/15/2021, patient overall in good spirits breathing comfortably but get short of breath on activity and exertion continue to have intermittent dry cough, patient remains on 12 L high flow oxygen along with as needed 15 L face mask, remains afebrile, oxygen saturation is mostly 89-92%, d-dimer remains elevated, patient remains on the Lovenox IV steroids will repeat follow-up chest x-ray 09/13/2021, patient seen eval examined during the rounds labs reviewed medicati ons reviewed care plan discussed, patient remains on the 15 L high flow oxygen along with nonrebreather mask with that saturation is 88-90%, labs from today reviewed white cell count come down to 8000, labs stable production up to 3.9, BUN/creatinine 22/.6, 09/12/2021, patient seen eval examined during the rounds labs reviewed medications reviewed care plan discussed, respiratory status is still marginal but stable, patient remains on 100% oxygen nonrebreather mask, T-max is 99.4, saturation is 89% to 90%, computed tomography scan of his chest consistent with interstitial pneumonia and COVID-19, no pulmonary embolism seen, patient remains on IV steroids and anticoagulation breathing treatment and continuation of home medications, Patient is a 76-year-old female who came into the hospital with increasing aches and pains malaise, symptoms started about 10-12 days ago, patient has outpatient covert testing which was negative however due to worsening system symptoms she decided to come into the hospital, patient oxygen saturation was just 75% in triage at room air, her appetite has been poor as well on specific questioning she denies any chest pain, denies any nausea vomiting diarrhea Past medical history significant for hypothyroidism, GERD, history of TIA, hypertension and hypertensive cardiovascular disease, thyroid disorder, history of the stroke,/TIA, patient is a nonsmokerhistory of substance In emergency department she underwent a chest x-ray which revealed bilateral p atchy infiltrate more so on the bases on the right side compared to left side, EKG revealed sinus tachycardia, echocardiogram revealed ejection fraction 55%, mild TR and MR was noted along with AR, labs are significant for leukocytosis with WBC count of 14,600, primarily elevated 0.7, sodium is 1:30" 3.3, BUN/creatinine 16.67, glucose 155, AST and ALT Elevated, lactic acid is 3.3,, T-max 100.6 now currently afebrile, she is 90% on 15 L nonrebreather mask improved to 94% currently on 15 L nonrebreather mask, she came back positive for COVID-19 infection PCR, pro-calcitonin also elevated of 0.13 currently she is being treated with Y Lucinda as well as Zithromax, Decadron 6 mg daily, Lovenox 40 mg daily Objective - Vital Signs Vital signs: Vital Signs Temp 98.6 F 09/17/21 18:00 Pulse 58 L 09/17/21 18:00 Resp 20 09/17/21 18:00 BP 127/75 09/17/21 18:00 Pulse Ox 91 L 09/17/21 18:00 Intake & Output 09/17/21 09/17/21 09/18/21 06:59 18:59 06:59 Intake Total 300 236 Balance 300 236 Intake: Oral 300 236 Other: # Voids 2 3 # Bowel Movements 1 - Exam - Constitutional General appearance: mild distress - EENT Eyes: PERRLA Ears: bilateral: normal - Neck Neck: normal ROM Carotids: bilateral: upstroke normal - Respiratory Respiratory: bilateral: diminished - Cardiovascular Rhythm: regular Heart sounds: normal: S1, S2 - Gastrointestinal General gastrointestinal: decreased bowel sounds - Neurologic Neurologic: CNII-XII intact - Musculoskeletal Musculoskeletal: generalized weakness - Psychiatric Psychiatric: A&O x's 3, appropriate affect - Labs CBC & Chem 7: 09/17/21 06:38 09/17/21 06:38 Labs: Abnormal Lab Results - Last 24 Hours (Table) 09/17/21 09/17/21 Range/Units 06:38 06:38 WBC 15.0 H (3.8-10.6) k/uL Plt Count 577 H (150-450) k/uL Neutrophils # 14.1 H (1.3-7.7) k/uL Lymphocytes # 0.3 L (1.0-4.8) k/uL Potassium 5.6 H (3.5-5.1) mmol/L Glucose 123 H (74-99) mg/dL ALT 47 H (4-34) U/L Total Protein 5.7 L (6.3-8.2) g/dL Albumin 2.6 L (3.5-5.0) g/dL Assessment and Plan Assessment: Acute hypoxic respiratory failure Sepsis due to COVID-19 pneumonia with elevated lactic acid COVID-19 pneumonia 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
--- NOTE | 2021-09-17 23:28 | PN ---
PROGRESS NOTE DATE OF SERVICE: 09/17/2021 REASON FOR FOLLOWUP: COVID-19 pneumonia. INTERVAL HISTORY: The patient is afebrile. She is breathing slightly comfortably, still requiring high- flow nasal cannula oxygen. Patient denies having any chest pain or worsening cough. No abdominal pain or diarrhea. PHYSICAL EXAMINATION: Blood pressure 137/51, pulse of 91, temperature 98.5. She is 89% on L high-flow oxygen. General description is an elderly female up in the bed in no distress. RESPIRATORY SYSTEM: Unlabored breathing. Decreased intensity of breath sounds. No wheeze. HEART: S1, S2. Regular rate and rhythm. ABDOMEN: Soft. No tenderness. LABS: Hemoglobin is , white count 15. BUN of 17, creatinine 0.52. DIAGNOSTIC IMPRESSION AND PLAN: Patient with acute COVID-19 pneumonia. The patient's condition remains critical. The patient is currently covered with baricitinib, dexamethasone, Lovenox, zinc, ascorbic acid; to continue along with respiratory support and monitor her clinical course closely. Prognosis remains guarded. MMODL / IJN: [id number] /
[2021-09-18] MEDS: methylPREDNISolone SOD SUCCI 40 MG/ML 1 ML VIAL IV SCH ×3 (04:02→20:39)
[2021-09-18] MEDS: LEVOTHYROXINE 75 MCG TAB PO SCH (05:36)
--- NOTE | 2021-09-18 07:06 | P.PN ---
Progress Note - Text Patient currently supervision level for except gait 50 ft hand held and toilet transfers. So would not meet insurance criteria for IPR admission.
[2021-09-18] MEDS: ATORVASTATIN 40 MG TAB PO SCH (07:20)
[2021-09-18] MEDS: ASCORBIC ACID 500 MG TAB PO SCH (07:20)
[2021-09-18] MEDS: PANTOPRAZOLE 40 MG TABLET PO SCH (07:20)
[2021-09-18] MEDS: CLOPIDOGREL 75 MG TAB PO SCH (07:20)
[2021-09-18] MEDS: ZINC SULFATE 220 MG CAP PO SCH (07:20)
[2021-09-18] MEDS: ASPIRIN 81 MG PO SCH (07:20)
[2021-09-18] MEDS: ENOXAPARIN 40 MG/0.4 ML SYRINGE SQ SCH (07:21)
[2021-09-18] MEDS: VIT A,C & E-LUTEIN-MINERALS 1 EACH TAB PO SCH ×2 (07:21→20:39)
[2021-09-18] MEDS: SYMBICORT 160-4.5 MCG INHALER INHALATION SCH ×2 (09:33→20:55)
--- NOTE | 2021-09-18 11:59 | P.PN ---
Subjective Progress Note Date: 09/18/21 Principal diagnosis: Acute hypoxic respiratory failure Sepsis due to COVID-19 pneumonia with elevated lactic acid COVID-19 pneumonia Electrolyte imbalance with hypokalemia Elevated liver enzymes Elevated d-dimer and pro-calcitonin 09/18/2021, patient seen eval examined during the rounds labs reviewed medications reviewed care plan discussed, oxygen saturation remained stable 92% on the high flow oxygen 12 L but however patient continued to require nonrebreather mask on top of that intermittently especially during some motion movement and activity, remains afebrile, will decrease the Solu-Medrol to every 12 now Other supportive measures and therapy 09/17/2021, patient seen eval examined during the rounds labs reviewed medications reviewed care plan discussed, history status patient is still short of breath continued to require high flow oxygen via nasal cannula as well as nasal mask as needed, that oxygen saturation improved to 91-92%, patient remains afebrile, remains on IV steroids supplements and Lovenox for anticoagulation, less distress is used to see before 09/16/2021, patient seen eval examined during the rounds labs reviewed medications reviewed care plan discussed, respiratory status remains marginal get short of breath activity and exertion, patient still have dry nonproductive cough, she is on 12 L high flow oxygen at times he uses a mask as well, she is afebrile with heart rate of 102, blood pressure HEENT hemodynamic stable oxygen saturation improved to 90-94% now, chest x-ray earlier this morning continued to show multifocal diffuse reticular and radicular nodular appearance bilaterally 09/15/2021, patient overall in good spirits breathing comfortably but get short of breath on activity and exertion continue to have intermittent dry cough, patient remains on 12 L high flow oxygen along with as needed 15 L face mask, remains afebrile, oxygen saturation is mostly 89-92%, d-dimer remains elevated, patient remains on the Lovenox IV steroids will repeat follow-up chest x-ray 09/13/2021, patient seen eval examined during the rounds labs reviewed medications reviewed care plan discussed, patient remains on the 15 L high flow oxygen along with nonrebreather mask with that saturation is 88-90%, labs from today reviewed white cell count come down to 8000, labs stable production up to 3.9, BUN/creatinine 22/.6, 09/12/2021, patient seen eval examined during the rounds labs reviewed medications reviewed care plan discussed, respiratory status is still marginal but stable, patient remains on 100% oxygen nonrebreather mask, T-max is 99.4, saturation is 89% to 90%, computed tomography scan of his chest consistent with interstitial pneumonia and COVID-19, no pulmonary embolism seen, patient remains on IV steroids and anticoagulation breathing treatment and continuation of home medications, Patient is a 76-year-old female who came into the hospital with increasing aches and pains malaise, symptoms started about 10-12 days ago, patient has outpatient covert testing which was negative however due to worsening system symptoms she decided to come into the hospital, patient oxygen saturation was just 75% in triage at room air, her appetite has been poor as well on specific questioning she denies any chest pain, denies any nausea vomiting diarrhea Past medical history significant for hypothyroidism, GERD, history of TIA, hypertension and hypertensive cardiovascular disease, thyroid disorder, history of the stroke,/TIA, patient is a nonsmokerhistory of substance In emergency department she underwent a chest x-ray which revealed bilateral patchy infiltrate more so on the bases on the right side compared to left side, EKG revealed sinus tachycardia, echocardiogram revealed ejection fraction 55%, mild TR and MR was noted along with AR, labs are significant for leukocytosis with WBC count of 14,600, primarily elevated 0.7, sodium is 1:30" 3.3, BUN/creatinine 16.67, glucose 155, AST and ALT Elevated, lactic acid is 3.3,, T-max 100.6 now currently afebrile, she is 90% on 15 L nonrebreather mask improved to 94% currently on 15 L nonrebreather mask, she came back positive for COVID-19 infection PCR, pro-calcitonin also elevated of 0.13 currently she is being treated with Y Lucinda as well as Zithromax, Decadr on 6 mg daily, Lovenox 40 mg daily Objective - Vital Signs Vital signs: Vital Signs Temp 98.2 F 09/18/21 09:54 Pulse 108 H 09/18/21 09:54 Resp 22 09/18/21 09:54 BP 107/64 09/18/21 09:54 Pulse Ox 92 L 09/18/21 09:54 Intake & Output 09/17/21 09/18/21 09/18/21 18:59 06:59 18:59 Intake Total 236 Balance 236 Intake: Oral 236 Other: # Voids 3 1 - Exam - Constitutional General appearance: mild distress - EENT Eyes: PERRLA Ears: bilateral: normal - Neck Neck: normal ROM Carotids: bilateral: upstroke normal - Respiratory Respiratory: bilateral: diminished - Cardiovascular Rhythm: regular Heart sounds: normal: S1, S2 - Gastrointestinal General gastrointestinal: decreased bowel sounds - Neurologic Neurologic: CNII-XII intact - Musculoskeletal Musculoskeletal: generalized weakness - Psychiatric Psychiatric: A&O x's 3, appropriate affect - Labs CBC & Chem 7: 09/17/21 06:38 09/18/21 04:30 Labs: Abnormal Lab Results - Last 24 Hours (Table) 09/18/21 Range/Units 04:30 Potassium 5.4 H (3.5-5.1) mmol/L Assessment and Plan Assessment: Acute hypoxic respiratory failure Sepsis due to COVID-19 pneumonia with elevated lactic acid COVID-19 pneumonia 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
[2021-09-18] MEDS: BARICITINIB 2 MG TABLET PO SCH (15:53)
--- NOTE | 2021-09-18 19:46 | PN ---
PROGRESS NOTE DATE OF SERVICE: 09/18/2021 REASON FOR FOLLOWUP: COVID-19 pneumonia. INTERVAL HISTORY: The patient is afebrile. The patient is currently breathing slightly comfortably. Still requiring ( ) high-flow oxygen. The patient denies having any chest pain. She did have a cough, mostly dry in nature. No nausea, no vomiting. No abdominal pain and no diarrhea. PHYSICAL EXAMINATION: Blood pressure 125/81, pulse of 99, temperature 98. She is 91% on 12 L high-flow oxygen. General description is an elderly female up in the bed in no distress. Respiratory system: Unlabored breathing, decreased intensity of breath sounds, no wheeze. Heart S1, S2. Regular rate and rhythm. Abdomen soft, no tenderness. LABS: Hemoglobin is 14.1, while count 15, creatinine 0.52 as of yesterday. Potassium 5.4. DIAGNOSTIC IMPRESSION AND PLAN: Patient with acute COVID-19 pneumonia, currently being treated with baricitinib, Solu- Medrol, Lovenox, zinc and ascorbic acid. Monitor clinical course closely. ( ) tomorrow. Continue supportive care. MMODL / IJN: [id number] /
--- NOTE | 2021-09-18 23:08 | PN ---
PROGRESS NOTE DATE OF SERVICE: 09/17/2021 This is a 76-year-old white female with COVID pneumonia, acute hypoxemic respiratory distress, maintaining 12 L, low 90s. Remains on IV Solu-Medrol, Lovenox, Plavix, Symbicort, baricitinib 4 mg p.o. daily, Lipitor, vitamin C . Prognosis extremely guarded. Slow improvement is seen and she is sitting up in chair daily. She is waiting for rehab. Lungs have decreased breath sounds x4. Cardiovascular: S1-S2. Hematology: Negative Homans. ASSESSMENT: 1. COVID pneumonia. 2. Encephalopathy. 3. Acute hypoxemic respiratory distress. Continue current medicines as mentioned above. Prognosis extremely guarded. PT/OT or rehab center will be needed. Wean down oxygen as tolerated. MMOZZIEL / FREDIN: [id number] /
--- NOTE | 2021-09-18 23:25 | PN ---
PROGRESS NOTE [id number]-old white female with COVID pneumonia remains on Lovenox, Solu-Medrol, Symbicort. She is 92% on 2 L. blood pressure, pulse is 82, temperature 98.6. Cardiovascular: S1, S2. Lungs: Rales at the base. Scattered rhonchi. Hematology: Negative Homans. Psych: Fair mood and affect. ASSESSMENT: 1. COVID pneumonia. 2. Chronic obstructive pulmonary disease. 3. Acute hypoxemic respiratory distress. 4. Generalized weakness. 5. Encephalopathy. Continue current treatment for COVID she is weaned on oxygen. Continue on blood thinners, etc. Prognosis guarded. Follow up in next 24 to 48 hours. MMODL / IJN: [id number] /
[2021-09-19] MEDS: LEVOTHYROXINE 75 MCG TAB PO SCH (05:44)
[2021-09-19] MEDS: SYMBICORT 160-4.5 MCG INHALER INHALATION SCH ×2 (07:55→20:28)
[2021-09-19] MEDS: ENOXAPARIN 40 MG/0.4 ML SYRINGE SQ SCH (08:45)
[2021-09-19] MEDS: ERGOCALCIFEROL 1,250 MCG (50,000 IU) CAPSULE PO SCH (08:45)
[2021-09-19] MEDS: methylPREDNISolone SOD SUCCI 40 MG/ML 1 ML VIAL IV SCH ×2 (08:45→21:09)
[2021-09-19] MEDS: VIT A,C & E-LUTEIN-MINERALS 1 EACH TAB PO SCH ×2 (08:45→21:09)
[2021-09-19] MEDS: ASCORBIC ACID 500 MG TAB PO SCH (08:46)
[2021-09-19] MEDS: PANTOPRAZOLE 40 MG TABLET PO SCH (08:46)
[2021-09-19] MEDS: ZINC SULFATE 220 MG CAP PO SCH (08:46)
[2021-09-19] MEDS: ATORVASTATIN 40 MG TAB PO SCH (08:46)
[2021-09-19] MEDS: CLOPIDOGREL 75 MG TAB PO SCH (08:46)
[2021-09-19] MEDS: ASPIRIN 81 MG PO SCH (08:47)
[2021-09-19 08:50] LABS: ALT 36 U/L (4-34); AST 21 U/L (14-36); African American GFR (CKD) >90 (>60 ml/min/1.73 sqM); Albumin 2.5 g/dL (3.5-5.0); Albumin/Globulin Ratio 0.8; Alkaline Phosphatase 76 U/L (38-126); Anion Gap 5 mmol/L; Blood Urea Nitrogen 18 mg/dL (7-17); Calcium 8.6 mg/dL (8.4-10.2); Carbon Dioxide 25 mmol/L (22-30); Chloride 105 mmol/L (98-107); Glucose 98 mg/dL (74-99); Non-African American GFR(CKD) >90 (>60 ml/min/1.73 sqM); Potassium 4.8 mmol/L (3.5-5.1); Sodium 135 mmol/L (137-145); Total Bilirubin 0.7 mg/dL (0.2-1.3); Total Protein 5.5 g/dL (6.3-8.2)
[2021-09-19 11:01] LABS: Basophils # (A) 0.03 X 10*3/uL (0.00-0.10); Basophils % (A) 0.2 %; Eosinophils # (A) 0 X 10*3/uL (0.04-0.35); Eosinophils % (A) 0 %; HCT 40.4 % (37.2-46.3); HGB 13.5 g/dL (12.0-15.0); Lymphocytes # (A) 0.43 X 10*3/uL (0.90-5.00); Lymphocytes % (A) 2.6 %; MCH 31.7 pg (27.0-32.0); MCHC 33.4 g/dL (32.0-37.0); MCV 94.8 fL (80.0-97.0); Monocytes # (A) 1.11 X 10*3/uL (0.20-1.00); Monocytes % (A) 6.7 %; Neutrophils # (A) 14.77 X 10*3/uL (1.80-7.70); Neutrophils % (A) 89.3 %; Platelet Count 502 X 10*3/uL (140-440); RBC 4.26 X 10*6/uL (4.10-5.20); RDW 13.5 % (11.5-14.5); WBC 16.54 X 10*3/uL (4.50-10.00)
--- NOTE | 2021-09-19 13:54 | P.PN ---
Subjective Progress Note Date: 09/19/21 Principal diagnosis: Acute hypoxic respiratory failure Sepsis due to COVID-19 pneumonia with elevated lactic acid COVID-19 pneumonia Electrolyte imbalance with hypokalemia Elevated liver enzymes Elevated d-dimer and pro-calcitonin 09/19/2021, patient seen eval examined, oxygen remains low requiring supplemental oxygen with 12-13 L high flow intermittently has been using mask as well, remains afebrile, labs reviewed white cell count 16,400 hemoglobin and hematocrit is 30 and 40, rehab has been following for placement, ID service following patient is still on too much oxygen to place and the rehab, 09/18/2021, patient seen eval examined during the rounds labs reviewed medications reviewed care plan discussed, oxygen saturation remained stable 92% on the high flow oxygen 12 L but however patient continued to require nonrebreather mask on top of that intermittently especially during some motion movement and activity, remains afebrile, will decrease the Solu-Medrol to every 12 now Other supportive measures and therapy 09/17/2021, patient seen eval examined during the rounds labs reviewed medications reviewed care plan discussed, history status patient is still short of breath continued to require high flow oxygen via nasal cannula as well as nasal mask as needed, that oxygen saturation improved to 91-92%, patient remains afebrile, remains on IV steroids supplements and Lovenox for anticoagulation, less distress is used to see before 09/16/2021, patient seen eval examined during the rounds labs reviewed medications reviewed care plan discussed, respiratory status remains marginal get short of breath activity and exertion, patient still have dry nonproductive cough, she is on 12 L high flow oxygen at times he uses a mask as well, she is afebrile with heart rate of 102, blood pressure HEENT hemodynamic stable oxygen saturation improved to 90-94% now, chest x-ray earlier this morning continued to show multifocal diffuse reticular and radicular nodular appearance bilaterally 09/15/2021, patient overall in good spirits breathing comfortably but get short of breath on activity and exertion continue to have intermittent dry cough, patient remains on 12 L high flow oxygen along with as needed 15 L face mask, remains afebrile, oxygen saturation is mostly 89-92%, d-dimer remains elevated, patient remains on the Lovenox IV steroids will repeat follow-up chest x-ray 09/13/2021, patient seen eval examined during the rounds labs reviewed medicati ons reviewed care plan discussed, patient remains on the 15 L high flow oxygen along with nonrebreather mask with that saturation is 88-90%, labs from today reviewed white cell count come down to 8000, labs stable production up to 3.9, BUN/creatinine 22/.6, 09/12/2021, patient seen eval examined during the rounds labs reviewed medications reviewed care plan discussed, respiratory status is still marginal but stable, patient remains on 100% oxygen nonrebreather mask, T-max is 99.4, saturation is 89% to 90%, computed tomography scan of his chest consistent with interstitial pneumonia and COVID-19, no pulmonary embolism seen, patient remains on IV steroids and anticoagulation breathing treatment and continuation of home medications, Patient is a 76-year-old female who came into the hospital with increasing aches and pains malaise, symptoms started about 10-12 days ago, patient has outpatient covert testing which was negative however due to worsening system symptoms she decided to come into the hospital, patient oxygen saturation was just 75% in triage at room air, her appetite has been poor as well on specific questioning she denies any chest pain, denies any nausea vomiting diarrhea Past medical history significant for hypothyroidism, GERD, history of TIA, hypertension and hypertensive cardiovascular disease, thyroid disorder, history of the stroke,/TIA, patient is a nonsmokerhistory of substance In emergency department she underwent a chest x-ray which revealed bilateral p atchy infiltrate more so on the bases on the right side compared to left side, EKG revealed sinus tachycardia, echocardiogram revealed ejection fraction 55%, mild TR and MR was noted along with AR, labs are significant for leukocytosis with WBC count of 14,600, primarily elevated 0.7, sodium is 1:30" 3.3, BUN/creatinine 16.67, glucose 155, AST and ALT Elevated, lactic acid is 3.3,, T-max 100.6 now currently afebrile, she is 90% on 15 L nonrebreather mask improved to 94% currently on 15 L nonrebreather mask, she came back positive for COVID-19 infection PCR, pro-calcitonin also elevated of 0.13 currently she is being treated with Y Lucinda as well as Zithromax, Decadron 6 mg daily, Lovenox 40 mg daily Objective - Vital Signs Vital signs: Vital Signs Temp 97.7 F 09/19/21 09:30 Pulse 76 09/19/21 09:30 Resp 20 09/19/21 09:30 BP 113/68 09/19/21 09:30 Pulse Ox 93 L 09/19/21 09:30 Intake & Output 09/18/21 09/19/21 09/19/21 18:59 06:59 18:59 Intake Total 400 Balance 400 Intake: Oral 400 Other: Voiding Method Toilet Bedside Commode # Voids 3 2 # Bowel Movements 0 - Exam - Constitutional General appearance: mild distress - EENT Eyes: PERRLA Ears: bilateral: normal - Neck Neck: normal ROM Carotids: bilateral: upstroke normal - Respiratory Respiratory: bilateral: diminished - Cardiovascular Rhythm: regular Heart sounds: normal: S1, S2 - Gastrointestinal General gastrointestinal: decreased bowel sounds - Neurologic Neurologic: CNII-XII intact - Musculoskeletal Musculoskeletal: generalized weakness - Psychiatric Psychiatric: A&O x's 3, appropriate affect - Labs CBC & Chem 7: 09/19/21 08:10 09/19/21 08:10 Labs: Abnormal Lab Results - Last 24 Hours (Table) 09/19/21 09/19/21 Range/Units 08:10 08:10 WBC 16.54 H (4.50-10.00) X 10*3/uL Plt Count 502 H (140-440) X 10*3/uL Immature Gran # 0.20 H (0.00-0.04) X 10*3/uL Neutrophils # 14.77 H (1.80-7.70) X 10*3/uL Lymphocytes # 0.43 L (0.90-5.00) X 10*3/uL Monocytes # 1.11 H (0.20-1.00) X 10*3/uL Eosinophils # 0 L (0.04-0.35) X 10*3/uL Sodium 135 L (137-145) mmol/L BUN 18 H (7-17) mg/dL Creatinine 0.50 L (0.52-1.04) mg/dL ALT 36 H (4-34) U/L Total Protein 5.5 L (6.3-8.2) g/dL Albumin 2.5 L (3.5-5.0) g/dL Assessment and Plan Assessment: Acute hypoxic respiratory failure Sepsis due to COVID-19 pneumonia with elevated lactic acid COVID-19 pneumonia 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
--- NOTE | 2021-09-19 15:38 | CDI ---
Documentation Clarification Form Date: 09/19/2021 03:22:54 PM From: Simona Wilson RN, CCDS Admit Date: 09/09/2021 08:12:00 PM Patient Name: Kyra Stern Visit Number: [id number] ATTENTION: The Clinical Documentation Specialists (CDI) and [facility] Coding Staff appreciate your assistance in clarifying documentation. Please respond to the clarification below the line at the bottom and electronically sign. The CDI & [facility] Coding staff will review the response and follow-up if needed. Please note: Queries are made part of the Legal Health Record. If you have any questions, please contact the author of this message via ITS. Dr. Marcelo Wheatley Encephalopathy is documented 09/16-09/18 Attending Progress Notes. Additional clarification regarding the type of encephalopathy is requested. History/Risk Factors: COVID 19, Acute Hypoxic Respiratory Failure, Elevated LFT's, Hypothyroid, CVA, HTN Clinical Indicators: 09/09-09/19 Labs: WBC 14.6/14.69/15/16.54, Neutrophils: 13.2/13.1/7.26/14.1/14.77, Ferritin 644/428, Total Bili 1.4/.7/.5, AST 119/44/43/35/27/21, ALT 69/51/47/55/47/36, LDH 524/878, CRP: 6.5/2.9/1.5/1.3 EEG: Not Done CT/MRI Brain: Not Done Documented infection: Covid 19 Pneumonia Metabolic Dysfunction: Acute hypoxemic Respiratory Failure Treatment: 09/09 Zithromax 500 mg IVPB OT 09/09 Rocephin 2gm IVPB x 1 09/12 Baricitinib 4 mg PO QD x 14 doses 09/10 Hexadrol 6 mg PO x 1 dose 09/09 Decadron 10 mg IVP OT followed by IV Solumedrol taper 09/09 1.5 L 0.9% NS IVF BOLUS followed by 1L @ 75 cc/hr. Please clarify the type of encephalopathy, if known: [ ] Anoxic Encephalopathy [ ] Metabolic Encephalopathy [ ] Septic Encephalopathy [ ] Other, please specify [ ] Unable to determine (Template Last Revised: January 2021) MTDD
[2021-09-19] MEDS: BARICITINIB 2 MG TABLET PO SCH (17:27)
--- NOTE | 2021-09-19 20:06 | PN ---
PROGRESS NOTE DATE OF SERVICE: 09/19/2021 REASON FOR FOLLOWUP: COVID-19 pneumonia. INTERVAL HISTORY: The patient is afebrile. Still complaining of shortness of breath and some right-sided chest pain. The patient denies any nausea. No vomiting, no abdominal pain and no diarrhea. PHYSICAL EXAMINATION: Her blood pressure is 107/69, pulse of 109, temperature 97.6. She is 93% on 13 L high- flow oxygen. General description is an elderly female up in the bed in no distress. RESPIRATORY SYSTEM: Unlabored breathing. Decreased intensity of breath sounds. No wheeze. HEART: S1, S2. Regular rate and rhythm. ABDOMEN: Soft. No tenderness. LABS: Hemoglobin 13.5, white count 16.54, creatinine 0.50. DIAGNOSTIC IMPRESSION AND PLAN: Patient with acute COVID-19 pneumonia in this patient currently on baricitinib, Lovenox, Solu-Medrol, zinc and ascorbic acid. Will in the x-ray tomorrow. Continue supportive care. MMODL / IJN: [id number] /
[2021-09-19] MEDS: AZITHROMYCIN 500 MG in SODIUM CHLORIDE 0.9% 250 ML IVPB SCH (22:38)
--- NOTE | 2021-09-19 22:41 | PN ---
PROGRESS NOTE COVID pneumonia. She is still sitting up in a chair. She still has shortness of breath, cough, congestion, not really improving in her vitals. Temperature is 98.1, pulse is 99-109, respiratory rate 18-20, blood pressure 129/82. She is 88% on high- flow 15 L of oxygen, between 13 and 15. Discussed with her about starting Luvox, antidepressant that helps with COVID. I am going to start that tonight. Will increase the Solu-Medrol, start her on azithromycin. Check chest x-ray, procalcitonin level. Continue current treatments. Lungs with scattered rhonchi and wheeze. Cardiovascular: S1, S2. Abdomen is soft. Neurologic: Alert and oriented x3. Hematology: Negative Homans. ASSESSMENT: 1. COVID pneumonia. 2. Acute hypoxemic respiratory distress. 3. Encephalopathy. 4. Depression. Not really improving. Continue with current treatments. Increase Solu-Medrol. Continue Lovenox. May have to increase Lovenox dose. Multivitamins. Prognosis extremely guarded. MMODL / IJN: [id number] /
[2021-09-19 23:25] LABS: Appearance,Urine Clear (Clear); Bilirubin,Urine Negative (Negative); Blood,Urine Negative (Negative); Color,Urine Light Yellow; Glucose,Urine (UA) Negative (Negative); Ketones,Urine Negative (Negative); Leukocyte Esterase,Urine Moderate (Negative); Mucus,Urine Rare /hpf; Nitrite,Urine Negative (Negative); PH, Urine 6.5 (5.0-8.0); Protein,Urine Negative (Negative); RBC,Urine 2 /hpf (0-5); Specific Gravity,Urine 1.013 (1.001-1.035); Squamous Epithelial Cell,Urine 1 /hpf (0-4); Urobilinogen,Urine <2.0 mg/dL (<2.0); WBC,Urine 10 /hpf (0-5)
[2021-09-20] MEDS: methylPREDNISolone SOD SUCCI 125 MG/2 ML VIAL IV SCH ×4 (00:10→17:05)
[2021-09-20] MEDS: LEVOTHYROXINE 75 MCG TAB PO SCH (05:41)
--- NOTE | 2021-09-20 08:00 | XR ---
EXAMINATION TYPE: XR chest 1V portable DATE OF EXAM: 09/20/2021 COMPARISON: Chest x-ray 09/16/2021 HISTORY: Pneumonia TECHNIQUE: Single frontal view of the chest is obtained. FINDINGS: There has been interval development of a crescentic lucency superolaterally in the right c hest adjacent to airspace disease within the lung. Bilateral airspace disease appears somewhat more c onfluent. No evident pleural effusion, cardiac mediastinal silhouette is likely stable. There are ove rlying artifacts. IMPRESSION: Difficult to exclude a small right apical pneumothorax, follow-up is suggested A Red level critical message alert has been initiated for Eze Sawyer via the [facility] Results System on 09/20/2021 7:58 AM. This message alert has been sent to Eze Sawyer via the preferences provided by the clinician for the receipt of Radiology Critical Findings. Message ID [id number].
[2021-09-20] MEDS: ASPIRIN 81 MG PO SCH (08:36)
[2021-09-20] MEDS: ENOXAPARIN 40 MG/0.4 ML SYRINGE SQ SCH (08:36)
[2021-09-20] MEDS: ZINC SULFATE 220 MG CAP PO SCH (08:36)
[2021-09-20] MEDS: ATORVASTATIN 40 MG TAB PO SCH (08:36)
[2021-09-20] MEDS: PANTOPRAZOLE 40 MG TABLET PO SCH (08:36)
[2021-09-20] MEDS: ASCORBIC ACID 500 MG TAB PO SCH (08:36)
[2021-09-20] MEDS: CLOPIDOGREL 75 MG TAB PO SCH (08:36)
[2021-09-20] MEDS: VIT A,C & E-LUTEIN-MINERALS 1 EACH TAB PO SCH ×2 (08:37→21:36)
[2021-09-20] MEDS: AZITHROMYCIN 500 MG in SODIUM CHLORIDE 0.9% 250 ML IVPB SCH (09:04)
[2021-09-20] MEDS: SYMBICORT 160-4.5 MCG INHALER INHALATION SCH ×2 (09:10→20:52)
--- NOTE | 2021-09-20 10:23 | CT ---
"EXAMINATION TYPE: CT chest wo con DATE OF EXAM: 09/20/2021 COMPARISON: CT chest 09/10/2021, chest x-ray same day HISTORY: Covid Pneumonia CT DLP: 361.7 mGycm. Automated Exposure Control for Dose Reduction was Utilized. TECHNIQUE: CT scan of the thorax is performed without IV contrast. FINDINGS: LUNGS: The lungs are remarkable for peripheral and confluent groundglass density within the lungs, bi lateral airspace disease is noted as on prior CT. There is a small right-sided pneumothorax as noted on plain film same date.. There is no pleural effusion. The tracheobronchial tree is patent. MEDIASTINUM: Lack of IV contrast is noted to limit evaluation for mediastinal and especially hilar ad enopathy. There are no definitive greater than 1 cm hilar or mediastinal lymph nodes. No cardiomega ly or pericardial effusion is seen. Prominence of pulmonary artery could be indicative of pulmonary a rtery hypertension. There are some coronary artery calcification. OTHER: Elevated left hemidiaphragm again noted. IMPRESSION: Small right pneumothorax as noted on patient's chest x-ray. Findings consistent with lenin ent's history of Covid pneumonia. Noncontrast exam. A Red level critical message alert has been initiated for Marcelo Wheatley MD via the [facility] | Critical Results System on 09/20/2021 10:21 AM. This message alert has been sent to Tal Abernathy via the preferences provided by the clinician for the receipt of Radiology Critical Findings. [place] ID [id number]."
[2021-09-20 11:54] LABS: Basophils % (A) 0 %; Eosinophils % (A) 0 %; HCT 42.2 % (34.0-46.0); HGB 13.3 gm/dL (11.4-16.0); Lymphocytes # (A) 0.2 k/uL (1.0-4.8); Lymphocytes % (A) 2 %; MCH 30.3 pg (25.0-35.0); MCHC 31.6 g/dL (31.0-37.0); MCV 96.1 fL (80.0-100.0); Mean Platelet Volume 7.5; Monocytes # (A) 0.4 k/uL (0-1.0); Monocytes % (A) 3 %; Neutrophils % (A) 95 %; Platelet Count 452 k/uL (150-450); RBC 4.39 m/uL (3.80-5.40); RDW 12.7 % (11.5-15.5); WBC 11.6 k/uL (3.8-10.6)
[2021-09-20 12:11] LABS: ALT 34 U/L (4-34); AST 19 U/L (14-36); African American GFR (CKD) >90 (>60 ml/min/1.73 sqM); Albumin 2.5 g/dL (3.5-5.0); Albumin/Globulin Ratio 0.9; Alkaline Phosphatase 96 U/L (38-126); Anion Gap 5 mmol/L; Blood Urea Nitrogen 18 mg/dL (7-17); C Reactive Protein 0.6 mg/dL (<1.0); Calcium 8.1 mg/dL (8.4-10.2); Carbon Dioxide 23 mmol/L (22-30); Chloride 105 mmol/L (98-107); Globulin 2.9 g/dL; Glucose 207 mg/dL (74-99); LDH 772 U/L (313-618); Non-African American GFR(CKD) >90 (>60 ml/min/1.73 sqM); Potassium 4.5 mmol/L (3.5-5.1); Sodium 133 mmol/L (137-145); Total Bilirubin 0.5 mg/dL (0.2-1.3); Total Protein 5.4 g/dL (6.3-8.2)
[2021-09-20] MEDS: BARICITINIB 2 MG TABLET PO SCH (17:06)
--- NOTE | 2021-09-20 18:07 | PN ---
PROGRESS NOTE DATE OF SERVICE: 09/20/2021 REASON FOR FOLLOWUP: COVID-19 pneumonia. INTERVAL HISTORY: The patient is afebrile. The patient's right-sided chest pain has slightly decreased in intensity. Still complaining of shortness of breath; no worsening, though. She is requiring 15 L high-flow oxygen. Patient denies having any nausea. No vomiting, no abdominal pain or diarrhea. PHYSICAL EXAMINATION: Blood pressure 115/74, pulse of 102, temperature 98.5. She is 90% on 15 L high-flow oxygen. General description is an elderly female lying in bed in no distress. RESPIRATORY SYSTEM: Unlabored breathing. Decreased intensity of breath sounds. No wheeze. HEART: S1, S2. Regular rate and rhythm. ABDOMEN: Soft. No tenderness. LABS: Hemoglobin 13.3, white count 11.6. D-dimer is 0.97, creatinine 0.47. The patient did have a chest x-ray suggestive of right-sided pneumothorax confirm it. DIAGNOSTIC IMPRESSION AND PLAN: Patient with acute COVID-19 pneumonia in this patient with acute respiratory failure, now with complicating factor of a pneumothorax. The patient is currently being monitored closely by Pulmonary Service. The patient is covered with baricitinib, Solu- Medrol, zinc and ascorbic acid; to continue while monitoring clinical course closely. Continue supportive care. MMODL / IJN: [id number] /
[2021-09-21] MEDS: methylPREDNISolone SOD SUCCI 125 MG/2 ML VIAL IV SCH ×5 (00:38→23:52)
[2021-09-21] MEDS: LEVOTHYROXINE 75 MCG TAB PO SCH (05:29)
--- NOTE | 2021-09-21 07:38 | XR ---
EXAMINATION TYPE: XR chest 1V portable DATE OF EXAM: 09/21/2021 COMPARISON: Chest x-ray 09/20/2021 HISTORY: Pneumothorax TECHNIQUE: Single frontal view of the chest is obtained. FINDINGS: Right-sided pneumothorax is slightly increased in size compared to previous exam. There is interval development of pneumomediastinum. Subcutaneous emphysema has developed over the left chest. Heart size is stable. No evident effusion. IMPRESSION: Interval pneumomediastinum, slight progression in patient's right-sided pneumothorax. Ad ditional findings above.
[2021-09-21] MEDS: SYMBICORT 160-4.5 MCG INHALER INHALATION SCH ×2 (07:51→19:52)
[2021-09-21] MEDS: CLOPIDOGREL 75 MG TAB PO SCH (09:16)
[2021-09-21] MEDS: ZINC SULFATE 220 MG CAP PO SCH (09:16)
[2021-09-21] MEDS: PANTOPRAZOLE 40 MG TABLET PO SCH (09:16)
[2021-09-21] MEDS: VIT A,C & E-LUTEIN-MINERALS 1 EACH TAB PO SCH ×2 (09:17→21:15)
[2021-09-21] MEDS: ATORVASTATIN 40 MG TAB PO SCH (09:17)
[2021-09-21] MEDS: ASPIRIN 81 MG PO SCH (09:17)
[2021-09-21] MEDS: ASCORBIC ACID 500 MG TAB PO SCH (09:17)
[2021-09-21] MEDS: FLUTICASONE 50MCG/SPRAY NASAL 16GM EA NOSTRIL SCH (09:18)
[2021-09-21] MEDS: ENOXAPARIN 40 MG/0.4 ML SYRINGE SQ SCH (09:18)
[2021-09-21] MEDS: AZITHROMYCIN 500 MG in SODIUM CHLORIDE 0.9% 250 ML IVPB SCH (09:34)
[2021-09-21] MEDS ORDERED: ACETAMINOPHEN TAB 325 MG TAB PO PRN (11:04)
--- NOTE | 2021-09-21 13:02 | PN ---
PROGRESS NOTE DATE OF SERVICE: 09/20/2021 76-year-old white female. She was found to have a small pneumothorax. Her chest x-ray and CT scan were not big enough to put a chest tube in. She is fighting COVID pneumonia. Her oxygen level is 90% on 15 high-flow. Temp 98, pulse 70-76, respiratory rate 18-20, blood pressure 130s/70s. Cardiovascular S1-S2. Lungs: Scattered rhonchi and wheeze GI soft. Hematology negative Homans'. White count remains high at 11.6, but is improved. D-dimer is 0.97, which I think is improved too. Sodium 133, potassium 4.5. UA shows moderate leukocyte esterase, 10 white cells. Blood cultures are negative. ASSESSMENT: COVID pneumonia and pneumothorax, new. Prognosis extremely guarded, acute hypoxic respiratory failure. Continue broad-spectrum treatment for COVID. Patient has slow improvement and not improving at all, she is about the same as she has been over the past week. Continue to maintain on 15 L at this time. MMODL / IJN: [id number] /
[2021-09-21] MEDS: BARICITINIB 2 MG TABLET PO SCH (17:52)
--- NOTE | 2021-09-21 22:25 | PN ---
PROGRESS NOTE This 76-year-old white female is being treated for COVID pneumonia. The patient still remains in critical condition, not really improving much. She is 88 to 90 on 15 L. Heart rate is about 102 to 103. Pulse is 97, 98. Blood pressure is 116 to 130s over 70s. CARDIOVASCULAR: S1, S2. LUNGS: Scattered rhonchi and wheeze. HEMATOLOGY: Negative Homans. PSYCH: Fair mood and affect. NEUROLOGIC: Alert and oriented x3. White count is down to 11.6. D-dimer 0.97. She has a mild pneumothorax, for which Cardiothoracic Surgery is going to be seeing her. Prognosis extremely guarded. Please see further orders. MMODL / IJN: [id number] /
--- NOTE | 2021-09-22 01:01 | PN ---
PROGRESS NOTE DATE OF SERVICE: 09/21/2021 REASON FOR FOLLOWUP: COVID-19 pneumonia. INTERVAL HISTORY: The patient is afebrile. The patient mentioned breathing slightly comfortably. The patient's chest pain has decreased in intensity. Denies having any nausea or vomiting. No abdominal pain or diarrhea. PHYSICAL EXAMINATION: Blood pressure is 128/86, pulse of 89, temperature 98.1. She is 90% on 15 L high-flow oxygen. General description is an elderly female lying in bed in no distress. RESPIRATORY SYSTEM: Unlabored breathing. Decreased intensity of breath sounds. No wheeze. HEART: S1, S2. Regular rate and rhythm. ABDOMEN: Soft. No tenderness. LABS: Hemoglobin is 13.3, white count 11.6, creatinine 0.47. DIAGNOSTIC IMPRESSION AND PLAN: Patient with acute COVID-[address] Surgery has been consulted. The patient is covered with Lovenox, Solu-Medrol, zinc and ascorbic acid along with baricitinib. Monitor clinical course closely. Continue supportive care. BEAR / FREDIN: [id number] /
[2021-09-22] MEDS: LEVOTHYROXINE 75 MCG TAB PO SCH (06:25)
[2021-09-22] MEDS: methylPREDNISolone SOD SUCCI 125 MG/2 ML VIAL IV SCH ×3 (06:25→17:38)
--- NOTE | 2021-09-22 07:13 | XR ---
EXAMINATION TYPE: XR chest 1V portable DATE OF EXAM: 09/22/2021 COMPARISON: Chest x-ray 09/21/2021 HISTORY: Pneumothorax TECHNIQUE: Single frontal view of the chest is obtained. FINDINGS: Small right apical pneumothorax is present, findings may be indicative of trapped lung. Bi lateral airspace disease is present. Pneumomediastinum changes are less conspicuous. Cardiac mediasti nal silhouette shows a similar appearance. No evident pleural effusion. There is emphysema is again s een. IMPRESSION: There is some improvement as described. Bilateral airspace disease persists.
[2021-09-22] MEDS: AZITHROMYCIN 500 MG in SODIUM CHLORIDE 0.9% 250 ML IVPB SCH (08:36)
[2021-09-22] MEDS: ATORVASTATIN 40 MG TAB PO SCH (08:37)
[2021-09-22] MEDS: ASPIRIN 81 MG PO SCH (08:37)
[2021-09-22] MEDS: ENOXAPARIN 40 MG/0.4 ML SYRINGE SQ SCH (08:37)
[2021-09-22] MEDS: ZINC SULFATE 220 MG CAP PO SCH (08:37)
[2021-09-22] MEDS: PANTOPRAZOLE 40 MG TABLET PO SCH (08:37)
[2021-09-22] MEDS: CLOPIDOGREL 75 MG TAB PO SCH (08:37)
[2021-09-22] MEDS: ERGOCALCIFEROL 1,250 MCG (50,000 IU) CAPSULE PO SCH (08:37)
[2021-09-22] MEDS: ASCORBIC ACID 500 MG TAB PO SCH (08:37)
[2021-09-22] MEDS: FLUTICASONE 50MCG/SPRAY NASAL 16GM EA NOSTRIL SCH (08:38)
[2021-09-22] MEDS: VIT A,C & E-LUTEIN-MINERALS 1 EACH TAB PO SCH ×2 (08:38→20:58)
[2021-09-22] MEDS: SYMBICORT 160-4.5 MCG INHALER INHALATION SCH ×2 (09:09→20:55)
--- NOTE | 2021-09-22 09:37 | P.GSCN ---
History of Present Illness Consult date: 09/22/21 Reason for Consult: Pneumothorax Requesting physician: Marcelo Wheatley History of present illness: This is a 76-year-old female who follows on an outpatient basis with Dr. Marcelo Wheatley for primary care. She is a previous medical history of hypertension, hyperlipidemia, hypothyroid, TIAs, GERD, never smoker. Apparently she's been having shortness of breath with cough over the past 2 weeks. States she was initially tested for covered by primary care and was diagnosed as negative, was given antibiotics and Medrol Dosepak. After several days she stated she was still not feeling any better, discussed with her primary care and was requested to report to the emergency room. In the ER her oxygen saturation was found to be 76% on room air. WBC 14.6, d-dimer 0.7, pro-calcitonin 0.13, lactic acid 3.3, and Covid PCR positive. Chest x-ray was concerning for multifocal pneumonia. Her temperature was 100.6F on admission. She was admitted for evaluation and treatment for Covid pneumonia with consultation placed to pulmonology and infectious disease. She is currently on IV steroids, IV Zithromax, zinc, and baricitinib. On September 20 she was noted to have a small pneumothorax on chest x-ray, chest CT was completed confirming small right sided pneumothorax. On September 21 her right-sided pneumothorax appeared slightly larger on chest x-ray and consultation was placed to Dr. Gambino from cardiothoracic surgery for recommendations. Review of Systems Review of systems was completed was negative except as noted - Respiratory Reports as per HPI, Reports congestion, Reports cough, Reports dyspnea, Reports respiratory infections Past Medical History Past Medical History: CVA/TIA, GERD/Reflux, Hyperlipidemia, Hypertension, Thyroid Disorder Additional Past Medical History / Comment(s): 3-2-16 ADMITTED WITH STROKE LIKE SYMPTOMS-pt. states was told didn't have stroke, history of TIAs,DIVERTICULITIS History of Any Multi-Drug Resistant Organisms: None Reported Past Surgical History: Appendectomy, Section, Cholecystectomy Past Anesthesia/Blood Transfusion Reactions: No Reported Reaction Additional Past Anesthesia/Blood Transfusion Reaction / Comm: MILD CLAUSTROPHOBIA Past Psychological History: No Psychological Hx Reported Smoking Status: Never smoker Past Alcohol Use History: None Reported Past Drug Use History: None Reported - Past Family History Mother Family Medical History: Cancer Additional Family Medical History / Comment(s): UNSURE WHAT TYPE OF CANCER Father Family Medical History: Cancer Additional Family Medical History / Comment(s): BONE CANCER Brother(s) Family Medical History: Asthma Sister(s) Family Medical History: No Reported History Son(s) Family Medical History: No Reported History Medications and Allergies Home Medications Medication Instructions Recorded Confirmed Type Levothyroxine Sodium [Synthroid] 75 mcg PO DAILY 01/22/16 09/09/21 History Clopidogrel [Plavix] 75 mg PO DAILY #0 01/24/16 09/09/21 Rx Aspirin EC [Ecotrin Low Dose] 81 mg PO DAILY 05/13/21 09/09/21 History Multivit-Min/Iron/Folic/Lutein 1 tab PO DAILY 05/13/21 09/09/21 History [Centrum Silver Women Tablet] Vit C/E/Zn/Coppr/Lutein/Zeaxan 1 cap PO BID 05/13/21 09/09/21 History [Preservision Areds 2 Softgel] Atorvastatin [Lipitor] 40 mg PO DAILY 30 Days #30 tab 05/15/21 09/09/21 Rx Pantoprazole [Protonix] 40 mg PO DAILY 07/30/21 09/09/21 History Azithromycin [Zithromax] 500 mg PO DAILY 09/09/21 09/09/21 History Meclizine HCl 12.5 mg PO BID PRN 09/09/21 09/09/21 History methylPREDNISolone [Medrol Dose See Taper PO DIRECTED 09/09/21 09/09/21 History Pack] Allergies Allergy/AdvReac Type Severity Reaction Status Date / Time codeine Allergy Unknown Verified 09/09/21 19:00 Surgical - Exam Vital Signs Temp Pulse Resp BP Pulse Ox 100.6 F H 107 H 22 103/58 76 L 09/09/21 17:34 09/09/21 17:34 09/09/21 17:34 09/09/21 17:34 09/09/21 17:34 CONSTITUTIONAL: Awake and alert, cooperative, well-developed, well-nourished, no pain EYES: Pupils equal, round, reactive to light, normal ocular movement ENT: Dry mucous membranes NECK: No masses, no bruits, trachea midline RESPIRATORY: Lungs sounds diminished and course bilaterally. Respirations even, nonlabored. Currently on 15 L high flow nasal cannula with oxygen saturation 90%. Strong cough. CARDIOVASCULAR: S1, S2 present. Regular rate and rhythm. Palpable peripheral pulses bilaterally. No edema present. No calf pain or tenderness noted. GASTROINTESTINAL: Abdomen soft, nontender, nondistended without masses or organomegaly noted. There is no rebound or guarding present. Active bowel sounds present 4 quadrants. GENITOURINARY: Deferred INTEGUMENTARY: Skin is warm and dry with evidence of good perfusion. NEUROLOGIC: Cranial nerves II through XII intact, normal coordination, no obvious motor or sensory deficits, speech is normal MUSKULOSKELETAL: Able to move all extremities, strength equal bilaterally, normal posture PSYCHIATRIC: Alert and oriented to person place and time, appropriate affect, intact judgment and insight Results - Labs 09/20/21 10:50 09/20/21 10:50 Abnormal Lab Results - Last 24 Hours (Table) 09/22/21 Range/Units 06:39 Plasma Lactic Acid Josh 2.2 H* (0.7-2.0) mmol/L - Imaging Chest x-ray: report reviewed, image reviewed CT scan - chest: report reviewed, image reviewed Assessment and Plan Assessment: 1. Small right-sided pneumothorax 2. COVID-19 pneumonia 3. Acute hypoxic respiratory failure, shortness of breath secondary to above 4. Sepsis with elevated lactic acid on admission, leukocytosis, febrile, se condary to above 5. History of hypertension 6. History of hyperlipidemia 7. Hypothyroid 8. History of TIAs 9. GERD 10. Never smoker Plan: The patient was seen and examined on the medical surgical unit. Chart/diagnostics reviewed. Case was discussed in detail with Dr. Gambino who did observe the patient yesterday and reviewed all of her scans as well as her history. At this time no surgical intervention is warranted. Continue to monitor daily chest x-rays. Encourage incentive spirometry use. Wean O2 as tolerated. Covid management per infectious disease, pulmonology. Medical management of other comorbidities per primary care. More recommendations to fol low based on patient's progress Thank you Dr. Wheatley for this consult. We will continue to follow along with you Time with Patient: Greater than 30
--- NOTE | 2021-09-22 09:59 | CDI ---
Documentation Clarification Form 2nd Request Date: 09/19/2021 03:22:54 PM From: Simona Wilson RN, CCDS Admit Date: 09/09/2021 08:12:00 PM Patient Name: Kyra Stern Visit Number: [id number] ATTENTION: The Clinical Documentation Specialists (CDI) and [facility] Coding Staff appreciate your assistance in clarifying documentation. Please respond to the clarification below the line at the bottom and electronically sign. The CDI & [facility] Coding staff will review the response and follow-up if needed. Please note: Queries are made part of the Legal Health Record. If you have any questions, please contact the author of this message via ITS. Dr. Marcelo Wheatley Encephalopathy is documented 09/16-09/18 Attending Progress Notes. Additional clarification regarding the type of encephalopathy is requested. History/Risk Factors: COVID 19, Acute Hypoxic Respiratory Failure, Elevated LFT's, Hypothyroid, CVA, HTN Clinical Indicators: 09/09-09/19 Labs: WBC 14.6/14.69/15/16.54, Neutrophils: 13.2/13.1/7.26/14.1/14.77, Ferritin 644/428, Total Bili 1.4/.7/.5, AST 119/44/43/35/27/21, ALT 69/51/47/55/47/36, LDH 524/878, CRP: 6.5/2.9/1.5/1.3 EEG: Not Done CT/MRI Brain: Not Done Documented infection: Covid 19 Pneumonia Metabolic Dysfunction: Acute hypoxemic Respiratory Failure Treatment: 09/09 Zithromax 500 mg IVPB OT 09/09 Rocephin 2gm IVPB x 1 09/12 Baricitinib 4 mg PO QD x 14 doses 09/10 Hexadrol 6 mg PO x 1 dose 09/09 Decadron 10 mg IVP OT followed by IV Solumedrol taper 09/09 1.5 L 0.9% NS IVF BOLUS followed by 1L @ 75 cc/hr. Please clarify the type of encephalopathy, if known: [ ] Anoxic Encephalopathy [ ] Metabolic Encephalopathy [ ] Septic Encephalopathy [ ] Other, please specify [ ] Unable to determine (Template Last Revised: January 2021) MTDD
[2021-09-22 11:07] LABS: Basophils # (A) 0.01 X 10*3/uL (0.00-0.10); Basophils % (A) 0.1 %; Eosinophils # (A) 0 X 10*3/uL (0.04-0.35); Eosinophils % (A) 0 %; HCT 41.2 % (37.2-46.3); HGB 13.3 g/dL (12.0-15.0); Lymphocytes # (A) 0.32 X 10*3/uL (0.90-5.00); Lymphocytes % (A) 2.8 %; MCH 30.4 pg (27.0-32.0); MCHC 32.3 g/dL (32.0-37.0); MCV 94.3 fL (80.0-97.0); Mean Platelet Volume 10.3 fL (9.5-12.2); Monocytes # (A) 0.65 X 10*3/uL (0.20-1.00); Monocytes % (A) 5.7 %; Neutrophils # (A) 10.42 X 10*3/uL (1.80-7.70); Neutrophils % (A) 90.8 %; Platelet Count 460 X 10*3/uL (140-440); RBC 4.37 X 10*6/uL (4.10-5.20); RDW 13.8 % (11.5-14.5); WBC 11.47 X 10*3/uL (4.50-10.00)
[2021-09-22] MEDS ORDERED: SODIUM CHLORIDE 0.9% 500 ML 250 ML IV ONE (11:19)
[2021-09-22 11:22] LABS: African American GFR (CKD) 103.6 (60.0-200.0); Albumin 2.9 g/dL (3.8-4.9); Albumin/Globulin Ratio 1.25 (1.60-3.17); Anion Gap 10.3 mmol/L (4.00-12.00); BUN/Creat Ratio 32.42 Ratio (12.00-20.00); Blood Urea Nitrogen 18.9 mg/dL (9.0-27.0); Calcium 8.5 mg/dL (8.7-10.3); Carbon Dioxide 22.9 mmol/L (21.6-31.8); Globulin 2.3 g/dL (1.6-3.3); Non-African American GFR(CKD) 89.4 (60.0-200.0); Potassium 4.8 mmol/L (3.5-5.5); Total Bilirubin 0.6 mg/dL (0.30-1.20); Total Protein 5.3 g/dL (6.2-8.2)
[2021-09-22] MEDS: SODIUM CHLORIDE 0.9% 1,000 ML IV SCH ×2 (13:09→20:58)
--- NOTE | 2021-09-22 16:10 | P.PN ---
Subjective Progress Note Date: 09/22/21 Principal diagnosis: Acute hypoxic respiratory failure Sepsis due to COVID-19 pneumonia with elevated lactic acid COVID-19 pneumonia Electrolyte imbalance with hypokalemia Elevated liver enzymes Elevated d-dimer and pro-calcitonin 09/22/2021, patient seen eval examined during the rounds care plan discussed with RN at length, labs reviewed radiographic studies reviewed, and computed tomography scan of his chest reviewed as well, patient has incidental tiny right-sided apical pneumothorax discovered, no significant change in oxygenation patient remains on the 12 L high flow oxygen and as needed 100% nonrebreather mask saturation 88-90%, denies any chest pain some discomfort as needed improved with the Tylenol, patient remains on IV steroids, today's x-ray shows some improvement in tiny pneumothorax as well as 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, thoracic surgery is on consult in case emergent chest tube is required, noted lactic acid slightly elevated showing up or trend, patient is on Zithromax we will add cephapirin as well for healthcare associated pneumonia, computed tomography scan x-ray remains unchanged continue show bilateral basal infiltrate as well as patchy upper lobe infiltrate consistent with COVID-19 pneumonia, white cell count improved to 11,400, platelet count 4 60,000, lactic acid is 2.4 subsequent 2.6, pro-calcitonin has been normal 0.03 still September 20, 09/19/2021, patient seen eval examined, oxygen remains low requiring supplemental oxygen with 12-13 L high flow intermittently has been using mask as well, remains afebrile, labs reviewed white cell count 16,400 hemoglobin and hematocrit is 30 and 40, rehab has been following for placement, ID service following patient is still on too much oxygen to place and the rehab, 09/18/2021, patient seen eval examined during the rounds labs reviewed medications reviewed care plan discussed, oxygen saturation remained stable 92% on the high flow oxygen 12 L but however patient continued to require nonrebreather mask on top of that intermittently especially during some motion movement and activity, remains afebrile, will decrease the Solu-Medrol to every 12 now Other supportive measures and therapy 09/17/2021, patient seen eval examined during the rounds labs reviewed medications reviewed care plan discussed, history status patient is still short of breath continued to require high flow oxygen via nasal cannula as well as nasal mask as needed, that oxygen saturation improved to 91-92%, patient remains afebrile, remains on IV steroids supplements and Lovenox for anticoagulation, less distress is used to see before 09/16/2021, patient seen eval examined during the rounds labs reviewed medications reviewed care plan discussed, respiratory status remains marginal get short of breath activity and exertion, patient still have dry nonproductive cough, she is on 12 L high flow oxygen at times he uses a mask as well, she is afebrile with heart rate of 102, blood pressure HEENT hemodynamic stable oxygen saturation improved to 90-94% now, chest x-ray earlier this morning continued to show multifocal diffuse reticular and radicular nodular appearance bilaterally 09/15/2021, patient overall in good spirits breathing comfortably but get short of breath on activity and exertion continue to have intermittent dry cough, patient remains on 12 L high flow oxygen along with as needed 15 L face mask, remains afebrile, oxygen saturation is mostly 89-92%, d-dimer remains elevated, patient remains on the Lovenox IV steroids will repeat follow-up chest x-ray 09/13/2021, patient seen eval examined during the rounds labs reviewed medic ations reviewed care plan discussed, patient remains on the 15 L high flow oxygen along with nonrebreather mask with that saturation is 88-90%, labs from today reviewed white cell count come down to 8000, labs stable production up to 3.9, BUN/creatinine 22/.6, 09/12/2021, patient seen eval examined during the rounds labs reviewed medications reviewed care plan discussed, respiratory status is still marginal but stable, patient remains on 100% oxygen nonrebreather mask, T-max is 99.4, saturation is 89% to 90%, computed tomography scan of his chest consistent with interstitial pneumonia and COVID-19, no pulmonary embolism seen, patient remains on IV steroids and anticoagulation breathing treatment and continuation of home medications, Patient is a 76-year-old female who came into the hospital with increasing aches and pains malaise, symptoms started about 10-12 days ago, patient has outpatient covert testing which was negative however due to worsening system symptoms she decided to come into the hospital, patient oxygen saturation was just 75% in triage at room air, her appetite has been poor as well on specific questioning she denies any chest pain, denies any nausea vomiting diarrhea Past medical history significant for hypothyroidism, GERD, history of TIA, hypertension and hypertensive cardiovascular disease, thyroid disorder, history of the stroke,/TIA, patient is a nonsmokerhistory of substance In emergency department she underwent a chest x-ray which revealed bilateral patchy infiltrate more so on the bases on the right side compared to left side, EKG revealed sinus tachycardia, echocardiogram revealed ejection fraction 55%, mild TR and MR was noted along with AR, labs are significant for leukocytosis with WBC count of 14,600, primarily elevated 0.7, sodium is 1:30" 3.3, BUN/creatinine 16.67, glucose 155, AST and ALT Elevated, lactic acid is 3.3,, T-max 100.6 now currently afebrile, she is 90% on 15 L nonrebreather mask improved to 94% currently on 15 L nonrebreather mask, she came back positive for COVID-19 infection PCR, pro-calcitonin also elevated of 0.13 currently she is being treated with Y Lucinda as well as Zithromax, Decadron 6 mg daily, Lovenox 40 mg daily Objective - Vital Signs Vital signs: Vital Signs Temp 97.6 F 09/22/21 13:00 Pulse 108 H 09/22/21 13:00 Resp 16 09/22/21 13:00 BP 115/71 09/22/21 13:00 Pulse Ox 90 L 09/22/21 13:00 Intake & Output 09/21/21 09/22/21 09/22/21 18:59 06:59 18:59 Intake Total 100 472 Balance 100 472 Intake: Oral 100 472 Other: Voiding Method Toilet Toilet Bedside Commode Bedside Commode # Voids 1 2 # Bowel Movements 2 - Exam - Constitutional General appearance: mild distress - EENT Eyes: PERRLA Ears: bilateral: normal - Neck Neck: normal ROM Carotids: bilateral: upstroke normal - Respiratory Respiratory: bilateral: diminished - Cardiovascular Rhythm: regular Heart sounds: normal: S1, S2 - Gastrointestinal General gastrointestinal: decreased bowel sounds - Neurologic Neurologic: CNII-XII intact - Musculoskeletal Musculoskeletal: generalized weakness - Psychiatric Psychiatric: A&O x's 3, appropriate affect - Labs CBC & Chem 7: 09/22/21 06:39 09/22/21 06:39 Labs: Abnormal Lab Results - Last 24 Hours (Table) 09/22/21 09/22/21 09/22/21 Range/Units 06:39 06:39 06:39 WBC 11.47 H (4.50-10.00) X 10*3/uL Plt Count 460 H (140-440) X 10*3/uL Immature Gran # 0.07 H (0.00-0.04) X 10*3/uL Neutrophils # 10.42 H (1.80-7.70) X 10*3/uL Lymphocytes # 0.32 L (0.90-5.00) X 10*3/uL Eosinophils # 0 L (0.04-0.35) X 10*3/uL BUN/Creatinine Ratio 32.42 H (12.00-20.00) Ratio Glucose 142 H (70-110) mg/dL Plasma Lactic Acid Josh 2.2 H* (0.7-2.0) mmol/L Calcium 8.5 L (8.7-10.3) mg/dL AST 12 L (13-35) U/L Total Protein 5.3 L (6.2-8.2) g/dL Albumin 2.9 L (3.8-4.9) g/dL Albumin/Globulin Ratio 1.25 L (1.60-3.17) g/dL 09/22/21 09/22/21 Range/Units 09:52 12:58 WBC (4.50-10.00) X 10*3/uL Plt Count (140-440) X 10*3/uL Immature Gran # (0.00-0.04) X 10*3/uL Neutrophils # (1.80-7.70) X 10*3/uL Lymphocytes # (0.90-5.00) X 10*3/uL Eosinophils # (0.04-0.35) X 10*3/uL BUN/Creatinine Ratio (12.00-20.00) Ratio Glucose (70-110) mg/dL Plasma Lactic Acid Josh 2.4 H* 2.6 H* (0.7-2.0) mmol/L Calcium (8.7-10.3) mg/dL AST (13-35) U/L Total Protein (6.2-8.2) g/dL Albumin (3.8-4.9) g/dL Albumin/Globulin Ratio (1.60-3.17) g/dL Assessment and Plan Assessment: Small tiny right apical pneumothorax incidentally discovered improved on today's radiographic study 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 Sepsis related to healthcare associated pneumonia cannot be excluded Acute hypoxic respiratory failure Sepsis due to COVID-19 pneumonia with elevated lactic acid COVID-19 pneumonia 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 Electrolyte imbalance with hypokalemia Elevated liver enzymes Elevated d-dimer and pro-calcitonin due to chronic inflammation Plan: As pneumothorax is very small to put any chest tube will monitor observe it Thoracic surgery on consult in case emergent chest tube was required Evaluated for healthcare associated pneumonia, will check pro-calcitonin level, will restart cefapime IV every 12 Continue steroids Continue deep breathing exercises incentive spirometry Continue high flow oxygen with deep breathing exercise incentive spirometry Titrated oxygen down as tolerated Continue Lovenox 40 mg daily for now Computed tomography scan reviewed and as well as recent chest x-ray reviewed Further recommendations pending plan of care as per clinical response of patient Time with Patient: Greater than 30
[2021-09-22] MEDS: BARICITINIB 2 MG TABLET PO SCH (17:39)
[2021-09-22] MEDS ORDERED: CEFEPIME 1 GM in SODIUM CHLORIDE 0.9% 50 ML IVPB SCH (21:00)
--- NOTE | 2021-09-22 22:11 | PN ---
PROGRESS NOTE DATE OF SERVICE: 09/22/2021 REASON FOR FOLLOWUP: COVID-19 pneumonia. INTERVAL HISTORY: The patient is afebrile. The patient is breathing slightly comfortably today, still requiring 15 L high-flow oxygen. No chest pain. No worsening cough or sputum production. No abdominal pain or diarrhea. PHYSICAL EXAMINATION: Blood pressure is 136/73, pulse of 83, temperature 97.6. She is 91% on 15 L high-flow oxygen. General description is an elderly female up in the chair in no distress. RESPIRATORY SYSTEM: Unlabored breathing. Decreased intensity of breath sounds. No wheeze. HEART: S1, S2. Regular rate and rhythm. ABDOMEN: Soft. No tenderness. LABS: Hemoglobin 13.3, white count 11.7. Lactic acid is elevated. Creatinine is 0.6. Chest x- ray did show some improvement. DIAGNOSTIC IMPRESSION AND PLAN: Patient with acute COVID-19 pneumonia with a complicated infection of a pneumothorax. However, the x-ray completed this morning did show some improvement. CT Surgery is following the patient. The patient is covered with baricitinib, Solu-Medrol, Lovenox, zinc and ascorbic acid; to continue while monitoring her clinical course closely. Continue supportive care. MMODL / IJN: [id number] /
--- NOTE | 2021-09-22 22:58 | PN ---
PROGRESS NOTE This 76-year-old [place] female with COVID-19 pneumonia is still on 15 L, but her saturations are anywhere from 90% to 94%. She has shortness of breath at rest or with any exertion. She has some cough and sputum production. Blood pressure is 136/73, pulse 83, temperature 97.6, 91 to 94 on 15 L high-flow. Sitting up in a chair. HEART: S1, S2. Lungs have rales and rhonchi at the base. ABDOMEN: Soft. Hemoglobin is 13 3, white count 11 7. Lactic acid is elevated. Increased fluids and boluses were given today for elevated lactic acid. Chest x-ray did show some improvement. She had complication of COVID-19 pneumonia with pneumothorax. Chest x- ray showed some improvement. CT Surgery is following her. Continue an baricitinib, Solu-Medrol, Lovenox, . Prognosis extremely guarded. MMODL / IJN: [id number] /
[2021-09-23] MEDS: methylPREDNISolone SOD SUCCI 125 MG/2 ML VIAL IV SCH ×5 (00:28→23:51)
[2021-09-23] MEDS: LEVOTHYROXINE 75 MCG TAB PO SCH (05:42)
--- NOTE | 2021-09-23 07:11 | P.PN ---
Progress Note - Text PT reports minimal assist for gait 30ft, no device. OT reports minimal assist for lower dress, bath, functional mobility/transfers. So now with safety concerns and could be IPR candidate. IPR currently full but could have bed later today or tomorrow.
[2021-09-23] MEDS: ASCORBIC ACID 500 MG TAB PO SCH (07:59)
[2021-09-23] MEDS: ZINC SULFATE 220 MG CAP PO SCH (07:59)
[2021-09-23] MEDS: ATORVASTATIN 40 MG TAB PO SCH (07:59)
[2021-09-23] MEDS: ENOXAPARIN 40 MG/0.4 ML SYRINGE SQ SCH (07:59)
[2021-09-23] MEDS: CLOPIDOGREL 75 MG TAB PO SCH (07:59)
[2021-09-23] MEDS: ASPIRIN 81 MG PO SCH (07:59)
[2021-09-23] MEDS: PANTOPRAZOLE 40 MG TABLET PO SCH (07:59)
[2021-09-23] MEDS: VIT A,C & E-LUTEIN-MINERALS 1 EACH TAB PO SCH ×2 (08:00→20:18)
[2021-09-23] MEDS: AZITHROMYCIN 500 MG TAB PO SCH (08:00)
[2021-09-23] MEDS: FLUTICASONE 50MCG/SPRAY NASAL 16GM EA NOSTRIL SCH (08:03)
--- NOTE | 2021-09-23 08:12 | P.PN ---
Subjective Progress Note Date: 09/23/21 Principal diagnosis: Small right-sided pneumothorax, COVID-19 pneumonia, acute hypoxic respiratory failure, sepsis with elevated lactic acid on admission, leukocytosis, febrile on admission. Previous medical history of hypertension, hyperlipidemia, hypothyroid, TIAs, GERD, never smoker, remains unvaccinated against Covid The patient is currently sitting up in bed on the medical surgical floor in no acute distress. Remains on 15 L high flow nasal cannula, only able to achieve 750 mL on incentive spirometry. Remains afebrile, lactic acid down to 1.9. Denies any pain, continues to reveal short of breath with activity. Chest x-ray reviewed this morning, right-sided pneumothorax appears minimal if at all Objective - Vital Signs Vital signs: Vital Signs Temp 98.0 F 09/23/21 05:09 Pulse 106 H 09/23/21 05:09 Resp 19 09/22/21 21:43 BP 169/88 09/23/21 05:09 Pulse Ox 95 09/23/21 05:09 Intake & Output 09/22/21 09/23/21 09/23/21 18:59 06:59 18:59 Intake Total 694 Balance 694 Intake: Oral 694 Other: # Voids 1 0 # Bowel Movements 0 - Exam CONSTITUTIONAL: Appears comfortable, cooperative, no acute distress RESPIRATORY: Lungs sounds diminished bilaterally with faint expiratory wheezes present. Respirations even, nonlabored. Currently on 15 L high flow nasal cannula with oxygen saturation 95%. Able to achieve 750 mL on incentive spirometry. Strong cough. CARDIOVASCULAR: S1, S2 present. Regular rate and rhythm. Palpable peripheral pulses bilaterally. No edema present. No calf pain or tenderness noted. GASTROINTESTINAL: Abdomen soft, nontender, nondistended. Active bowel sounds present 4 quadrants. Tolerating diet. GENITOURINARY: Continues to void clear, yellow urine INTEGUMENTARY: Skin is warm and dry with evidence of good perfusion. NEUROLOGIC: Cranial nerves II through XII intact MUSKULOSKELETAL: Able to move all extremities, strength equal bilaterally PSYCHIATRIC: Alert and oriented to person place and time, appropriate affect, intact judgment and insight - Allied health notes Allied health notes reviewed: nursing - Labs CBC & Chem 7: 09/23/21 07:27 09/22/21 06:39 Labs: Abnormal Lab Results - Last 24 Hours (Table) 09/22/21 09/22/21 09/22/21 Range/Units 06:39 06:39 09:52 WBC 11.47 H (4.50-10.00) X 10*3/uL Plt Count 460 H (140-440) X 10*3/uL Immature Gran # 0.07 H (0.00-0.04) X 10*3/uL Neutrophils # 10.42 H (1.80-7.70) X 10*3/uL Lymphocytes # 0.32 L (0.90-5.00) X 10*3/uL Eosinophils # 0 L (0.04-0.35) X 10*3/uL BUN/Creatinine Ratio 32.42 H (12.00-20.00) Ratio Glucose 142 H (70-110) mg/dL Plasma Lactic Acid Josh 2.4 H* (0.7-2.0) mmol/L Calcium 8.5 L (8.7-10.3) mg/dL AST 12 L (13-35) U/L Total Protein 5.3 L (6.2-8.2) g/dL Albumin 2.9 L (3.8-4.9) g/dL Albumin/Globulin Ratio 1.25 L (1.60-3.17) g/dL 09/22/21 09/22/21 09/22/21 Range/Units 12:58 16:51 19:39 WBC (4.50-10.00) X 10*3/uL Plt Count (140-440) X 10*3/uL Immature Gran # (0.00-0.04) X 10*3/uL Neutrophils # (1.80-7.70) X 10*3/uL Lymphocytes # (0.90-5.00) X 10*3/uL Eosinophils # (0.04-0.35) X 10*3/uL BUN/Creatinine Ratio (12.00-20.00) Ratio Glucose (70-110) mg/dL Plasma Lactic Acid Josh 2.6 H* 2.5 H* 2.6 H* (0.7-2.0) mmol/L Calcium (8.7-10.3) mg/dL AST (13-35) U/L Total Protein (6.2-8.2) g/dL Albumin (3.8-4.9) g/dL Albumin/Globulin Ratio (1.60-3.17) g/dL - Imaging and Cardiology Chest x-ray: image reviewed Assessment and Plan Assessment: 1. Small right-sided pneumothorax 2. COVID-19 pneumonia 3. Acute hypoxic respiratory failure, shortness of breath secondary to above 4. Sepsis with elevated lactic acid on admission, leukocytosis, febrile, secondary to above 5. History of hypertension 6. History of hyperlipidemia 7. Hypothyroid 8. History of TIAs 9. GERD 10. Never smoker Plan: 1. No surgical intervention is warranted, continue to monitor 2. Continue to monitor daily chest x-rays 3. Encourage incentive spirometry use 4. Wean O2 as tolerated 5. Covid management per infectious disease, pulmonology 6. Medical management of other comorbidities per primary care 7. More recommendations to follow based on patient's progress Time with Patient: Greater than 30
[2021-09-23 08:22] LABS: Basophils % (A) 0 %; Eosinophils % (A) 0 %; HCT 39.2 % (34.0-46.0); HGB 12.7 gm/dL (11.4-16.0); Lymphocytes # (A) 0.2 k/uL (1.0-4.8); Lymphocytes % (A) 2 %; MCH 31.5 pg (25.0-35.0); MCHC 32.5 g/dL (31.0-37.0); MCV 96.9 fL (80.0-100.0); Mean Platelet Volume 7.5; Monocytes # (A) 0.3 k/uL (0-1.0); Monocytes % (A) 3 %; Neutrophils # (A) 10.4 k/uL (1.3-7.7); Neutrophils % (A) 95 %; Platelet Count 335 k/uL (150-450); RBC 4.04 m/uL (3.80-5.40); RDW 12.9 % (11.5-15.5)
[2021-09-23] MEDS: SYMBICORT 160-4.5 MCG INHALER INHALATION SCH ×2 (08:28→22:18)
[2021-09-23 08:39] LABS: ALT 29 U/L (4-34); AST 17 U/L (14-36); African American GFR (CKD) >90 (>60 ml/min/1.73 sqM); Albumin 2.3 g/dL (3.5-5.0); Albumin/Globulin Ratio 0.9; Alkaline Phosphatase 69 U/L (38-126); Anion Gap 3 mmol/L; Blood Urea Nitrogen 16 mg/dL (7-17); Calcium 8.2 mg/dL (8.4-10.2); Carbon Dioxide 25 mmol/L (22-30); Chloride 108 mmol/L (98-107); Globulin 2.6 g/dL; Glucose 131 mg/dL (74-99); Non-African American GFR(CKD) >90 (>60 ml/min/1.73 sqM); Potassium 4.5 mmol/L (3.5-5.1); Sodium 136 mmol/L (137-145); Total Bilirubin 0.7 mg/dL (0.2-1.3); Total Protein 4.9 g/dL (6.3-8.2)
--- NOTE | 2021-09-23 09:26 | XR ---
EXAMINATION TYPE: XR chest 1V DATE OF EXAM: 09/23/2021 COMPARISON: 09/22/2021 INDICATION: Pneumothorax TECHNIQUE: Single frontal view of the chest is obtained. FINDINGS: The heart size is normal. The pulmonary vasculature is prominent. Previous right-sided pneumothorax resolved. Diffuse increased lung markings into the right perihilar region. Mid left and lower lung field consolidation is present. Subcutaneous emphysema is along the l eft chest. IMPRESSION: 1. Patchy bilateral lung infiltrates are nonspecific. Consider atypical pneumonia. 2. Prior right side pneumothorax resolved. Monitoring can be performed as clinically indicated.
--- NOTE | 2021-09-23 16:42 | P.PN ---
Subjective Progress Note Date: 09/23/21 Principal diagnosis: Acute hypoxic respiratory failure Sepsis due to COVID-19 pneumonia with elevated lactic acid COVID-19 pneumonia Electrolyte imbalance with hypokalemia Elevated liver enzymes Elevated d-dimer and pro-calcitonin 09/23/2021, patient seen eval reexamined during the rounds patient has been on 12 L high flow oxygen with that her sats are about 88-90%, as needed she has been using nonrebreather mask, chest x-ray performed today reviewed decrease in size of the mediastinal emphysema is noted, pneumothorax seen on the right upper extremity with sleep not visualized anymore, lactic acid as well as normalized, 09/22/2021, patient seen eval examined during the rounds care plan discussed with RN at length, labs reviewed radiographic studies reviewed, and computed tomography scan of his chest reviewed as well, patient has incidental tiny right-sided apical pneumothorax discovered, no significant change in oxygenation patient remains on the 12 L high flow oxygen and as needed 100% nonrebreather mask saturation 88-90%, denies any chest pain some discomfort as needed improved with the Tylenol, patient remains on IV steroids, today's x-ray shows some im provement in tiny pneumothorax as well as 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, thoracic surgery is on consult in case emergent chest tube is required, noted lactic acid slightly elevated showing up or trend, patient is on Zithromax we will add cephapirin as well for healthcare associated pneumonia, computed tomography scan x-ray remains unchanged continue show bilateral basal infiltrate as well as patchy upper lobe infiltrate consistent with COVID-19 pneumonia, white cell count improved to 11,400, platelet count 4 60,000, lactic acid is 2.4 subsequent 2.6, pro-calcitonin has been normal 0.03 still September 2009/19/2021, patient seen eval examined, oxygen remains low requiring supplemental oxygen with 12-13 L high flow intermittently has been using mask as well, remains afebrile, labs reviewed white cell count 16,400 hemoglobin and hematocrit is 30 and 40, rehab has been following for placement, ID service following patient is still on too much oxygen to place and the rehab, pro- calcitonin remains normal 09/18/2021, patient seen eval examined during the rounds labs reviewed medications reviewed care plan discussed, oxygen saturation remained stable 92% on the high flow oxygen 12 L but however patient continued to require nonrebreather mask on top of that intermittently especially during some motion movement and activity, remains afebrile, will decrease the Solu-Medrol to every 12 now Other supportive measures and therapy 09/17/2021, patient seen eval examined during the rounds labs reviewed medications reviewed care plan discussed, history status patient is still short of breath continued to require high flow oxygen via nasal cannula as well as nasal mask as needed, that oxygen saturation improved to 91-92%, patient remains afebrile, remains on IV steroids supplements and Lovenox for anticoagulation, less distress is used to see before 09/16/2021, patient seen eval examined during the rounds labs reviewed medications reviewed care plan discussed, respiratory status remains marginal get short of breath activity and exertion, patient still have dry nonproductive cough, she is on 12 L high flow oxygen at times he uses a mask as well, she is afebrile with heart rate of 102, blood pressure HEENT hemodynamic stable oxygen saturation improved to 90-94% now, chest x-ray earlier this morning continued to show multifocal diffuse reticular and radicular nodular appearance bilaterally 09/15/2021, patient overall in good spirits breathing comfortably but get short of breath on activity and exertion continue to have intermittent dry cough, patient remains on 12 L high flow oxygen along with as needed 15 L face mask, remains afebrile, oxygen saturation is mostly 89-92%, d-dimer remains elevated, patient remains on the Lovenox IV steroids will repeat follow-up chest x-ray 09/13/2021, patient seen eval examined during the rounds labs reviewed medications reviewed care plan discussed, patient remains on the 15 L high flow oxygen along with nonrebreather mask with that saturation is 88-90%, labs from today reviewed white cell count come down to 8000, labs stable production up to 3.9, BUN/creatinine 22/.6, 09/12/2021, patient seen eval examined during the rounds labs reviewed medications reviewed care plan discussed, respiratory status is still marginal but stable, patient remains on 100% oxygen nonrebreather mask, T-max is 99.4, saturation is 89% to 90%, computed tomography scan of his chest consistent with interstitial pneumonia and COVID-19, no pulmonary embolism seen, patient remains on IV steroids and anticoagulation breathing treatment and continuation of home medications, Patient is a 76-year-old female who came into the hospital with increasing aches and pains malaise, symptoms started about 10-12 days ago, patient has outpatient covert testing which was negative however due to worsening system symptoms she decided to come into the hospital, patient oxygen saturation was just 75% in triage at room air, her appetite has been poor as well on specific questioning she denies any chest pain, denies any nausea vomiting diarrhea Past medical history significant for hypothyroidism, GERD, history of TIA, hypertension and hypertensive cardiovascular disease, thyroid disorder, history of the stroke,/TIA, patient is a nonsmokerhistory of substance In emergency department she underwent a chest x-ray which revealed bilateral patchy infiltrate more so on the bases on the right side compared to left side, EKG revealed sinus tachycardia, echocardiogram revealed ejection fraction 55%, mild TR and MR was noted along with AR, labs are significant for leukocytosis with WBC count of 14,600, primarily elevated 0.7, sodium is 1:30" 3.3, BUN/creatinine 16.67, glucose 155, AST and ALT Elevated, lactic acid is 3.3,, T-max 100.6 now currently afebrile, she is 90% on 15 L nonrebreather mask improved to 94% currently on 15 L nonrebreather mask, she came back positive for COVID-19 infection PCR, pro-calcitonin also elevated of 0.13 currently she is being treated with Y Lucinda as well as Zithromax, D ecadron 6 mg daily, Lovenox 40 mg daily Objective - Vital Signs Vital signs: Vital Signs Temp 98.1 F 09/23/21 14:32 Pulse 102 H 09/23/21 14:32 Resp 20 09/23/21 14:32 BP 128/76 09/23/21 14:32 Pulse Ox 92 L 09/23/21 14:32 Intake & Output 09/22/21 09/23/21 09/23/21 18:59 06:59 18:59 Intake Total 694 Balance 694 Intake: Oral 694 Other: # Voids 1 0 # Bowel Movements 0 - Exam - Constitutional General appearance: mild distress - EENT Eyes: PERRLA Ears: bilateral: normal - Neck Neck: normal ROM Carotids: bilateral: upstroke normal - Respiratory Respiratory: bilateral: diminished - Cardiovascular Rhythm: regular Heart sounds: normal: S1, S2 - Gastrointestinal General gastrointestinal: decreased bowel sounds - Neurologic Neurologic: CNII-XII intact - Musculoskeletal Musculoskeletal: generalized weakness - Psychiatric Psychiatric: A&O x's 3, appropriate affect - Labs CBC & Chem 7: 09/23/21 07:27 09/23/21 07:27 Labs: Abnormal Lab Results - Last 24 Hours (Table) 09/22/21 09/22/21 09/23/21 Range/Units 16:51 19:39 07:27 WBC 11.0 H (3.8-10.6) k/uL Neutrophils # 10.4 H (1.3-7.7) k/uL Lymphocytes # 0.2 L (1.0-4.8) k/uL Sodium (137-145) mmol/L Chloride (98-107) mmol/L Creatinine (0.52-1.04) mg/dL Glucose (74-99) mg/dL Plasma Lactic Acid Josh 2.5 H* 2.6 H* (0.7-2.0) mmol/L Calcium (8.4-10.2) mg/dL Total Protein (6.3-8.2) g/dL Albumin (3.5-5.0) g/dL 09/23/21 Range/Units 07:27 WBC (3.8-10.6) k/uL Neutrophils # (1.3-7.7) k/uL Lymphocytes # (1.0-4.8) k/uL Sodium 136 L (137-145) mmol/L Chloride 108 H (98-107) mmol/L Creatinine 0.49 L (0.52-1.04) mg/dL Glucose 131 H (74-99) mg/dL Plasma Lactic Acid Josh (0.7-2.0) mmol/L Calcium 8.2 L (8.4-10.2) mg/dL Total Protein 4.9 L (6.3-8.2) g/dL Albumin 2.3 L (3.5-5.0) g/dL Assessment and Plan Assessment: Small tiny right apical pneumothorax incidentally discovered improved on today's radiographic study Mediastinal emphysema slightly improved on today's examination Sepsis related to COVID-19 pneumonia Acute hypoxic respiratory failure COVID-19 pneumonia 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 Electrolyte imbalance with hypokalemia Elevated liver enzymes Elevated d-dimer and pro-calcitonin due to chronic inflammation Plan: As pneumothorax is very small and on today's x-ray not visualized will get a follow-up chest x-ray Thoracic surgery on consult in case emergent chest tube was required Continue steroids Continue Baricitinib, Continue deep breathing exercises incentive spirometry Continue high flow oxygen with deep breathing exercise incentive spirometry Titrated oxygen down as tolerated Continue Lovenox 40 mg daily for now Computed tomography scan reviewed and as well as recent chest x-ray reviewed Further recommendations pending plan of care as per clinical response of patient Time with Patient: Greater than 30
[2021-09-23] MEDS: BARICITINIB 2 MG TABLET PO SCH (17:15)
[2021-09-23] MEDS: SODIUM CHLORIDE 0.9% 1,000 ML IV SCH ×2 (20:16→23:52)
--- NOTE | 2021-09-23 22:11 | PN ---
PROGRESS NOTE DATE OF SERVICE: 09/23/2021 REASON FOR FOLLOWUP: COVID-19 pneumonia. INTERVAL HISTORY: The patient is afebrile. The patient is breathing comfortably. Still requiring high- flow nasal cannula oxygen. Denies having any chest pain or worsening cough. No nausea, no vomiting. No abdominal pain or diarrhea. PHYSICAL EXAMINATION: Blood pressure 120/71 with pulse of 88, temperature 97.3. She is 96% on 15 L high-flow oxygen. General description is an elderly female up in the chair in no distress. RESPIRATORY SYSTEM: Unlabored breathing. Decreased intensity of breath sounds. No wheeze. HEART: S1, S2. Regular rate and rhythm. ABDOMEN: Soft. No tenderness. LAB: Hemoglobin is 12. , white count of 11. BUN of 16, creatinine 0.49. DIAGNOSTIC IMPRESSION AND PLAN: Patient with acute COVID-19 pneumonia in this patient who did have minimal clinical improvement. Condition remains patient did have resolution of the pneumothorax on the repeat x-rays. Patient is covered with baricitinib, Lovenox, Solu-Medrol; to continue along with respiratory support and monitor clinical course closely. MMODL / IJN: [id number] /
--- NOTE | 2021-09-24 06:09 | PN ---
PROGRESS NOTE SUBJECTIVE: 76-year-old female with Covid pneumonia, acute hypoxemic respiratory distress, is slowly improving. Her oxygen up to 96% on 15 L. Temperature 97.3, respiratory 18-20, blood pressure 130/71. Cardiovascular S1, S2. Lungs are rales at the bases. Hematology: Negative Homans'. Psych: Fair mood and affect. ASSESSMENT: 1. Acute hypoxemic respiratory distress secondary to Covid pneumonia. 2. A small pneumothorax. She appears to be slowly improving. 3. Pulmonary fibrosis due to Covid 19 pneumonia. 4. Electrolyte imbalance. 5. Hyperkalemia. 6. Elevated liver enzymes. 7. Elevated D-dimer and procalcitonin. 8. Prognosis extremely guarded. We will monitor slow improvement with her breathing. Wean oxygen as tolerated. Continue on current medications. Continue steroids. Continue baricitinib. Continue . Prognosis guarded. Continue current treatment. MMODL / IJN: [id number] /
[2021-09-24] MEDS: LEVOTHYROXINE 75 MCG TAB PO SCH (06:15)
[2021-09-24] MEDS: methylPREDNISolone SOD SUCCI 125 MG/2 ML VIAL IV SCH ×4 (06:15→23:28)
--- NOTE | 2021-09-24 07:34 | XR ---
EXAMINATION TYPE: XR chest 1V portable DATE OF EXAM: 09/24/2021 Comparison: 09/23/2021 Clinical History: 76-year-old female Covid pneumonia Findings: Heart is mildly enlarged. Diffuse interstitial and patchy bilateral airspace opacities have become sl ightly more confluent. No pleural effusion. Impression: Slight worsening multifocal patchy and interstitial infiltrates.
[2021-09-24] MEDS: SYMBICORT 160-4.5 MCG INHALER INHALATION SCH ×2 (08:00→20:37)
[2021-09-24 08:29] LABS: Basophils % (A) 0 %; Eosinophils % (A) 0 %; HCT 37.7 % (34.0-46.0); HGB 12.4 gm/dL (11.4-16.0); Lymphocytes # (A) 0.2 k/uL (1.0-4.8); Lymphocytes % (A) 2 %; MCH 31.7 pg (25.0-35.0); MCHC 32.8 g/dL (31.0-37.0); MCV 96.7 fL (80.0-100.0); Mean Platelet Volume 7.6; Monocytes # (A) 0.4 k/uL (0-1.0); Monocytes % (A) 4 %; Neutrophils % (A) 94 %; Platelet Count 301 k/uL (150-450); RDW 12.9 % (11.5-15.5); WBC 10.7 k/uL (3.8-10.6)
[2021-09-24] MEDS: ATORVASTATIN 40 MG TAB PO SCH (08:48)
[2021-09-24] MEDS: ENOXAPARIN 40 MG/0.4 ML SYRINGE SQ SCH (08:48)
[2021-09-24] MEDS: CLOPIDOGREL 75 MG TAB PO SCH (08:49)
[2021-09-24] MEDS: AZITHROMYCIN 500 MG TAB PO SCH (08:49)
[2021-09-24] MEDS: ASCORBIC ACID 500 MG TAB PO SCH (08:49)
[2021-09-24] MEDS: VIT A,C & E-LUTEIN-MINERALS 1 EACH TAB PO SCH ×2 (08:49→20:25)
[2021-09-24] MEDS: ASPIRIN 81 MG PO SCH (08:49)
[2021-09-24] MEDS: ZINC SULFATE 220 MG CAP PO SCH (08:49)
[2021-09-24] MEDS: PANTOPRAZOLE 40 MG TABLET PO SCH (08:49)
[2021-09-24 08:57] LABS: ALT 30 U/L (4-34); AST 19 U/L (14-36); African American GFR (CKD) >90 (>60 ml/min/1.73 sqM); Albumin 2.2 g/dL (3.5-5.0); Albumin/Globulin Ratio 0.8; Alkaline Phosphatase 63 U/L (38-126); Anion Gap 3 mmol/L; Blood Urea Nitrogen 15 mg/dL (7-17); Calcium 8.2 mg/dL (8.4-10.2); Carbon Dioxide 25 mmol/L (22-30); Chloride 108 mmol/L (98-107); Globulin 2.6 g/dL; Glucose 137 mg/dL (74-99); Non-African American GFR(CKD) >90 (>60 ml/min/1.73 sqM); Potassium 4.5 mmol/L (3.5-5.1); Sodium 136 mmol/L (137-145); Total Bilirubin 0.7 mg/dL (0.2-1.3); Total Protein 4.8 g/dL (6.3-8.2)
--- NOTE | 2021-09-24 09:06 | CDI ---
Documentation Clarification Form 3rd Request Date: 09/19/2021 03:22:54 PM From: Simona Wilson RN, CCDS Admit Date: 09/09/2021 08:12:00 PM Patient Name: Kyra Stern Visit Number: [id number] ATTENTION: The Clinical Documentation Specialists (CDI) and [facility] Coding Staff appreciate your assistance in clarifying documentation. Please respond to the clarification below the line at the bottom and electronically sign. The CDI & [facility] Coding staff will review the response and follow-up if needed. Please note: Queries are made part of the Legal Health Record. If you have any questions, please contact the author of this message via ITS. Dr. Marcelo Wheatley Encephalopathy is documented 09/16-09/18 Attending Progress Notes. Additional clarification regarding the type of encephalopathy is requested. History/Risk Factors: COVID 19, Acute Hypoxic Respiratory Failure, Elevated LFT's, Hypothyroid, CVA, HTN Clinical Indicators: 09/09-09/19 Labs: WBC 14.6/14.69/15/16.54, Neutrophils: 13.2/13.1/7.26/14.1/14.77, Ferritin 644/428, Total Bili 1.4/.7/.5, AST 119/44/43/35/27/21, ALT 69/51/47/55/47/36, LDH 524/878, CRP: 6.5/2.9/1.5/1.3 EEG: Not Done CT/MRI Brain: Not Done Documented infection: Covid 19 Pneumonia Metabolic Dysfunction: Acute hypoxemic Respiratory Failure Treatment: 09/09 Zithromax 500 mg IVPB OT 09/09 Rocephin 2gm IVPB x 1 09/12 Baricitinib 4 mg PO QD x 14 doses 09/10 Hexadrol 6 mg PO x 1 dose 09/09 Decadron 10 mg IVP OT followed by IV Solumedrol taper 09/09 1.5 L 0.9% NS IVF BOLUS followed by 1L @ 75 cc/hr. Please clarify the type of encephalopathy, if known: [ ] Anoxic Encephalopathy [ ] Metabolic Encephalopathy [ ] Septic Encephalopathy [ ] Other, please specify [ ] Unable to determine (Template Last Revised: January 2021) MTDD
[2021-09-24] MEDS: FLUTICASONE 50MCG/SPRAY NASAL 16GM EA NOSTRIL SCH (13:09)
[2021-09-24] MEDS: SODIUM CHLORIDE 0.9% 1,000 ML IV SCH ×2 (15:59→23:30)
--- NOTE | 2021-09-24 16:03 | P.PN ---
Subjective Progress Note Date: 09/24/21 Principal diagnosis: Acute hypoxic respiratory failure Sepsis due to COVID-19 pneumonia with elevated lactic acid COVID-19 pneumonia Electrolyte imbalance with hypokalemia Elevated liver enzymes Elevated d-dimer and pro-calcitonin 09/24/2021, patient seen eval examined during the rounds labs reviewed medications reviewed care plan discussed, respiratory status remains stable denies any chest pain, patient remains on high flow oxygen and needed has been using nonrebreather mask saturation are now mid 90s to low 90s, chest x-ray done earlier this morning reviewed no pneumothorax is seen, patient will get a midline, would plan to continue IV steroids and supportive care 09/23/2021, patient seen eval reexamined during the rounds patient has been on 12 L high flow oxygen with that her sats are about 88-90%, as needed she has been using nonrebreather mask, chest x-ray performed today reviewed decrease in size of the mediastinal emphysema is noted, pneumothorax seen on the right upper extremity with sleep not visualized anymore, lactic acid as well as normalized, 09/22/2021, patient seen eval examined during the rounds care plan discussed with RN at length, labs reviewed radiographic studies reviewed, and computed tomography scan of his chest reviewed as well, patient has incidental tiny right-sided apical pneumothorax discovered, no significant change in oxygenation patient remains on the 12 L high flow oxygen and as needed 100% nonrebreather mask saturation 88-90%, denies any chest pain some discomfort as needed improved with the Tylenol, patient remains on IV steroids, today's x-ray shows some improvement in tiny pneumothorax as well as 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, thoracic surgery is on consult in case emergent chest tube is required, noted lactic acid slightly elevated showing up or trend, patient is on Zithromax we will add cephapirin as well for healthcare associated pneumonia, computed tomography scan x-ray remains unchanged continue show bilateral basal infiltrate as well as patchy upper lobe infiltrate consistent with COVID-19 pneumonia, white cell count improved to 11,400, platelet count 4 60,000, lactic acid is 2.4 subsequent 2.6, pro-calcitonin has been normal 0.03 still September 20, 09/19/2021, patient seen eval examined, oxygen remains low requiring supplemental oxygen with 12-13 L high flow intermittently has been using mask as well, remains afebrile, labs reviewed white cell count 16,400 hemoglobin and hematocrit is 30 and 40, rehab has been following for placement, ID service following patient is still on too much oxygen to place and the rehab, pro- calcitonin remains normal 09/18/2021, patient seen eval examined during the rounds labs reviewed medications reviewed care plan discussed, oxygen saturation remained stable 92% on the high flow oxygen 12 L but however patient continued to require nonrebreather mask on top of that intermittently especially during some motion movement and activity, remains afebrile, will decrease the Solu-Medrol to every 12 now Other supportive measures and therapy 09/17/2021, patient seen eval examined during the rounds labs reviewed medications reviewed care plan discussed, history status patient is still short of breath continued to require high flow oxygen via nasal cannula as well as nasal mask as needed, that oxygen saturation improved to 91-92%, patient remains afebrile, remains on IV steroids supplements and Lovenox for anticoagulation, less distress is used to see before 09/16/2021, patient seen eval examined during the rounds labs reviewed medications reviewed care plan discussed, respiratory status remains marginal get short of breath activity and exertion, patient still have dry nonproductive cough, she is on 12 L high flow oxygen at times he uses a mask as well, she is afebrile with heart rate of 102, blood pressure HEENT hemodynamic stable oxygen saturation improved to 90-94% now, chest x-ray earlier this morning continued to show multifocal diffuse reticular and radicular nodular appearance bilaterally 09/15/2021, patient overall in good spirits breathing comfortably but get short of breath on activity and exertion continue to have intermittent dry cough, patient remains on 12 L high flow oxygen along with as needed 15 L face mask, remains afebrile, oxygen saturation is mostly 89-92%, d-dimer remains elevated, patient remains on the Lovenox IV steroids will repeat follow-up chest x-ray 09/13/2021, patient seen eval examined during the rounds labs reviewed medications reviewed care plan discussed, patient remains on the 15 L high flow oxygen along with nonrebreather mask with that saturation is 88-90%, labs from today reviewed white cell count come down to 8000, labs stable production up to 3.9, BUN/creatinine 22/.6, 09/12/2021, patient seen eval examined during the rounds labs reviewed medications reviewed care plan discussed, respiratory status is still marginal but stable, patient remains on 100% oxygen nonrebreather mask, T-max is 99.4, saturation is 89% to 90%, computed tomography scan of his chest consistent with interstitial pneumonia and COVID-19, no pulmonary embolism seen, patient remains on IV steroids and anticoagulation breathing treatment and continuation of home medications, Patient is a 76-year-old female who came into the hospital with increasing aches and pains malaise, symptoms started about 10-12 days ago, patient has outpatient covert testing which was negative however due to worsening system symptoms she decided to come into the hospital, patient oxygen saturation was just 75% in triage at room air, her appetite has been poor as well on specific questioning she denies any chest pain, denies any nausea vomiting diarrhea Past medical history significant for hypothyroidism, GERD, history of TIA, hypertension and hypertensive cardiovascular disease, thyroid disorder, history of the stroke,/TIA, patient is a nonsmokerhistory of substance In emergency department she underwent a chest x-ray which revealed bilateral patchy infiltrate more so on the bases on the right side compared to left side, EKG revealed sinus tachycardia, echocardiogram revealed ejection fraction 55%, mild TR and MR was noted along with AR, labs are significant for leukocytosis with WBC count of 14,600, primarily elevated 0.7, sodium is 1:30" 3.3, BUN/creatinine 16.67, glucose 155, AST and ALT Elevated, lactic acid is 3.3,, T-max 100.6 now currently afebrile, she is 90% on 15 L nonrebreather mask improved to 94% currently on 15 L nonrebreather mask, she came back positive for COVID-19 infection PCR, pro-calcitonin also elevated of 0.13 currently she is being treated with Y Lucinda as well as Zithromax, Decadron 6 mg daily, Lovenox 40 mg daily Objective - Vital Signs Vital signs: Vital Signs Temp 97.8 F 09/24/21 14:00 Pulse 79 09/24/21 14:00 Resp 16 09/24/21 14:00 BP 122/68 09/24/21 14:00 Pulse Ox 94 L 09/24/21 14:00 Intake & Output 09/23/21 09/24/21 09/24/21 18:59 06:59 18:59 Intake Total 1100 236 Balance 1100 236 Intake: Intake, IV Titration 650 Amount Cefepime 1 gm In Sodium 50 Chloride 0.9% 50 ml @ 12. 5 mls/hr IVPB Q12HR [facility] Rx#:[id number] Sodium Chloride 0.9% 1, 600 000 ml @ 75 mls/hr IV . [id number] [facility] Rx#:[id number] Oral 450 236 Other: Voiding Method Toilet Bedside Commode # Voids 3 1 - Exam - Constitutional General appearance: mild distress - EENT Eyes: PERRLA Ears: bilateral: normal - Neck Neck: normal ROM Carotids: bilateral: upstroke normal - Respiratory Respiratory: bilateral: diminished - Cardiovascular Rhythm: regular Heart sounds: normal: S1, S2 - Gastrointestinal General gastrointestinal: decreased bowel sounds - Neurologic Neurologic: CNII-XII intact - Musculoskeletal Musculoskeletal: generalized weakness - Psychiatric Psychiatric: A&O x's 3, appropriate affect - Labs CBC & Chem 7: 09/24/21 07:11 09/24/21 07:11 Labs: Abnormal Lab Results - Last 24 Hours (Table) 09/24/21 09/24/21 Range/Units 07:11 07:11 WBC 10.7 H (3.8-10.6) k/uL Neutrophils # 10.0 H (1.3-7.7) k/uL Lymphocytes # 0.2 L (1.0-4.8) k/uL Sodium 136 L (137-145) mmol/L Chloride 108 H (98-107) mmol/L Creatinine 0.48 L (0.52-1.04) mg/dL Glucose 137 H (74-99) mg/dL Calcium 8.2 L (8.4-10.2) mg/dL Total Protein 4.8 L (6.3-8.2) g/dL Albumin 2.2 L (3.5-5.0) g/dL Microbiology - Last 24 Hours (Table) 09/22/21 16:51 Blood Culture - Preliminary Blood No Growth after 24 hours Assessment and Plan Assessment: Pneumothorax right side resolved 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 Sepsis related to COVID-19 pneumonia Acute hypoxic respiratory failure COVID-19 pneumonia 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 Electrolyte imbalance with hypokalemia Elevated liver enzymes Elevated d-dimer and pro-calcitonin due to chronic inflammation Plan: Reviewed chest x-ray no pneumothorax seen mediastinal emphysema resolved significantly Continue steroids Continue Baricitinib, Continue deep breathing exercises incentive spirometry Continue high flow oxygen with deep breathing exercise incentive spirometry Titrated oxygen down as tolerated Continue Lovenox 40 mg daily for now Computed tomography scan reviewed and as well as recent chest x-ray reviewed Further recommendations pending plan of care as per clinical response of patient Time with Patient: Greater than 30
[2021-09-24] MEDS: BARICITINIB 2 MG TABLET PO SCH (16:35)
--- NOTE | 2021-09-24 23:52 | PN ---
PROGRESS NOTE DATE OF SERVICE: 09/24/2021 REASON FOR FOLLOWUP: COVID-19 pneumonia. INTERVAL HISTORY: Patient is afebrile. The patient is breathing slightly comfortably. However, still requiring 15 L high-flow nasal cannula oxygen. Denies having any chest pain. Did have a dry cough but not bringing up any sputum. No nausea, vomiting. No abdominal pain or diarrhea. PHYSICAL EXAMINATION: Blood pressure 121/69, pulse of 72, temperature of 97.9. She is 94% on 15 L high-flow oxygen. General description is an elderly female lying in bed in no distress. Respiratory system: Unlabored breathing. Decreased intensity in breath sounds. No wheeze. Heart S1, S2. Regular rate and rhythm. Abdomen is soft. No tenderness. LABS: Hemoglobin is 12.4, white count 10.7, creatinine 0.48. DIAGNOSTIC IMPRESSION AND PLAN: Patient with acute COVID-19 pneumonia with acute respiratory failure. Patient is currently on Baricitinib and Solu-Medrol, Lovenox, zinc and ascorbic acid to continue along with respiratory support and monitor clinical course closely. MMODL / IJN: [id number] /
--- NOTE | 2021-09-25 00:06 | PN ---
PROGRESS NOTE 76 -year-old white female Covid pneumonia. Remains on 14 L of oxygen. Continues current treatment at this time. Remains on Covid protocol, steroids, antivirals, Luvox. Still sitting up in the chair on 15 L, sating around 96-94. She looks better. Her chest x-ray is better. Lungs: Scattered rhonchi and wheeze. Cardiovascular S1-S2. Hematology: Negative Homans'. ASSESSMENT AND PLAN: 1. Covid pneumonia. 2. Acute hypoxemic respiratory failure. 3. Chronic obstructive pulmonary disease exacerbation. 4. Acute hypoxemic respiratory failure. 5. Prognosis guarded. 6. Follow up next 24 to 48 hours. 7. Continue with Covid protocol. 8. Current treatments steroids, antibiotics, antivirals, vitamins. PROGNOSIS: Guarded. Continue to wean oxygen as tolerated. PT, OT, Symbicort 160/4.5 two puffs b.i.d. MMMAYRA / FREDIN: [id number] /
[2021-09-25] MEDS: methylPREDNISolone SOD SUCCI 125 MG/2 ML VIAL IV SCH ×4 (05:59→23:24)
[2021-09-25] MEDS: LEVOTHYROXINE 75 MCG TAB PO SCH (05:59)
[2021-09-25] MEDS: SYMBICORT 160-4.5 MCG INHALER INHALATION SCH ×2 (07:41→20:37)
[2021-09-25 08:11] LABS: Basophils % (A) 0 %; Eosinophils % (A) 0 %; HCT 38.9 % (34.0-46.0); HGB 12.6 gm/dL (11.4-16.0); Lymphocytes # (A) 0.1 k/uL (1.0-4.8); Lymphocytes % (A) 1 %; MCH 31.3 pg (25.0-35.0); MCHC 32.3 g/dL (31.0-37.0); Mean Platelet Volume 7.4; Monocytes # (A) 0.3 k/uL (0-1.0); Monocytes % (A) 3 %; Neutrophils # (A) 9.9 k/uL (1.3-7.7); Neutrophils % (A) 96 %; Platelet Count 291 k/uL (150-450); RBC 4.01 m/uL (3.80-5.40); RDW 13.1 % (11.5-15.5); WBC 10.4 k/uL (3.8-10.6)
[2021-09-25 08:30] LABS: ALT 35 U/L (4-34); AST 20 U/L (14-36); African American GFR (CKD) >90 (>60 ml/min/1.73 sqM); Albumin 2.4 g/dL (3.5-5.0); Alkaline Phosphatase 77 U/L (38-126); Anion Gap 3 mmol/L; Blood Urea Nitrogen 16 mg/dL (7-17); Calcium 8.2 mg/dL (8.4-10.2); Carbon Dioxide 26 mmol/L (22-30); Chloride 108 mmol/L (98-107); Globulin 2.4 g/dL; Glucose 140 mg/dL (74-99); Non-African American GFR(CKD) >90 (>60 ml/min/1.73 sqM); Potassium 4.2 mmol/L (3.5-5.1); Sodium 137 mmol/L (137-145); Total Bilirubin 0.8 mg/dL (0.2-1.3); Total Protein 4.8 g/dL (6.3-8.2)
[2021-09-25] MEDS: FLUTICASONE 50MCG/SPRAY NASAL 16GM EA NOSTRIL SCH (09:09)
[2021-09-25] MEDS: ZINC SULFATE 220 MG CAP PO SCH (09:30)
[2021-09-25] MEDS: ATORVASTATIN 40 MG TAB PO SCH (09:30)
[2021-09-25] MEDS: ASCORBIC ACID 500 MG TAB PO SCH (09:30)
[2021-09-25] MEDS: ASPIRIN 81 MG PO SCH (09:30)
[2021-09-25] MEDS: CLOPIDOGREL 75 MG TAB PO SCH (09:32)
[2021-09-25] MEDS: AZITHROMYCIN 500 MG TAB PO SCH (09:32)
[2021-09-25] MEDS: VIT A,C & E-LUTEIN-MINERALS 1 EACH TAB PO SCH ×2 (09:32→21:06)
[2021-09-25] MEDS: PANTOPRAZOLE 40 MG TABLET PO SCH (09:32)
[2021-09-25] MEDS: ENOXAPARIN 40 MG/0.4 ML SYRINGE SQ SCH (09:33)
[2021-09-25] MEDS: ERGOCALCIFEROL 1,250 MCG (50,000 IU) CAPSULE PO SCH (09:33)
[2021-09-25] MEDS: SODIUM CHLORIDE 0.9% 1,000 ML IV SCH (16:51)
[2021-09-25] MEDS: BARICITINIB 2 MG TABLET PO SCH (16:51)
--- NOTE | 2021-09-25 22:34 | PN ---
PROGRESS NOTE DATE OF SERVICE: 09/25/2021 REASON FOR FOLLOWUP: COVID-19 pneumonia. INTERVAL HISTORY: The patient is afebrile. She mentioned breathing slightly comfortably. The patient denies having any chest pain. Cough has decreased in intensity. No abdominal pain or diarrhea. PHYSICAL EXAMINATION: Blood pressure is 126/72 with a pulse of 94, temperature 97.9. She is 93% on 15 L high- flow oxygen. General description is an elderly female up in the bed in no distress. RESPIRATORY SYSTEM: Unlabored breathing. Decreased intensity of breath sounds. No wheeze. HEART: S1, S2. Regular rate and rhythm. ABDOMEN: Soft. No tenderness. EXTREMITIES: No edema of the feet. LABS: Hemoglobin is 12.0, white count 10.4, creatinine 0.50. DIAGNOSTIC IMPRESSION AND PLAN: Patient with acute respiratory failure secondary to COVID-19 pneumonia in this patient who has completed a 2-week course of baricitinib. Seems to have some clinical improvement. However, x-rays did show slight worsening. Patient is to continue with Lovenox, Solu-Medrol, zinc and ascorbic acid along with respiratory support and monitor clinical course closely. MMODL / IJN: [id number] /
[2021-09-26] MEDS: SODIUM CHLORIDE 0.9% 1,000 ML IV SCH ×2 (04:17→18:27)
[2021-09-26] MEDS: LEVOTHYROXINE 75 MCG TAB PO SCH (05:43)
[2021-09-26] MEDS: methylPREDNISolone SOD SUCCI 125 MG/2 ML VIAL IV SCH ×2 (05:43→11:44)
[2021-09-26] MEDS: SYMBICORT 160-4.5 MCG INHALER INHALATION SCH ×2 (07:35→20:45)
[2021-09-26] MEDS: VIT A,C & E-LUTEIN-MINERALS 1 EACH TAB PO SCH ×2 (09:02→20:31)
[2021-09-26] MEDS: AZITHROMYCIN 500 MG TAB PO SCH (09:02)
[2021-09-26] MEDS: ENOXAPARIN 40 MG/0.4 ML SYRINGE SQ SCH (09:02)
[2021-09-26] MEDS: CLOPIDOGREL 75 MG TAB PO SCH (09:02)
[2021-09-26] MEDS: PANTOPRAZOLE 40 MG TABLET PO SCH (09:02)
[2021-09-26] MEDS: ATORVASTATIN 40 MG TAB PO SCH (09:02)
[2021-09-26] MEDS: ASCORBIC ACID 500 MG TAB PO SCH (09:02)
[2021-09-26] MEDS: ASPIRIN 81 MG PO SCH (09:02)
[2021-09-26] MEDS: ZINC SULFATE 220 MG CAP PO SCH (09:02)
[2021-09-26] MEDS: FLUTICASONE 50MCG/SPRAY NASAL 16GM EA NOSTRIL SCH (09:04)
[2021-09-26 15:17] LABS: Glucose,Whole Blood 197 mg/dL (75-99)
[2021-09-26] MEDS ORDERED: SODIUM CHLORIDE 0.9% 1,000 ML IV ONE (15:31)
[2021-09-26 15:44] LABS: Basophils % (A) 0 %; Eosinophils % (A) 0 %; HCT 39.3 % (34.0-46.0); HGB 12.8 gm/dL (11.4-16.0); Lymphocytes # (A) 0.1 k/uL (1.0-4.8); Lymphocytes % (A) 1 %; MCH 31.5 pg (25.0-35.0); MCHC 32.6 g/dL (31.0-37.0); MCV 96.9 fL (80.0-100.0); Mean Platelet Volume 7.6; Monocytes # (A) 0.3 k/uL (0-1.0); Monocytes % (A) 2 %; Neutrophils # (A) 12.3 k/uL (1.3-7.7); Neutrophils % (A) 97 %; Platelet Count 259 k/uL (150-450); RBC 4.05 m/uL (3.80-5.40); RDW 13.1 % (11.5-15.5); WBC 12.7 k/uL (3.8-10.6)
[2021-09-26 15:50] LABS: Glucose,Whole Blood 199 mg/dL (75-99)
[2021-09-26 16:03] LABS: Partial Thromboplastin Time 22.6 sec (22.0-30.0); Prothrombin Time 10.6 sec (9.0-12.0)
[2021-09-26 16:15] LABS: ALT 38 U/L (4-34); AST 24 U/L (14-36); African American GFR (CKD) >90 (>60 ml/min/1.73 sqM); Albumin 2.3 g/dL (3.5-5.0); Albumin/Globulin Ratio 0.9; Alkaline Phosphatase 95 U/L (38-126); Anion Gap 3 mmol/L; Blood Urea Nitrogen 14 mg/dL (7-17); Calcium 8.1 mg/dL (8.4-10.2); Carbon Dioxide 25 mmol/L (22-30); Chloride 108 mmol/L (98-107); Globulin 2.6 g/dL; Glucose 219 mg/dL (74-99); Non-African American GFR(CKD) >90 (>60 ml/min/1.73 sqM); Potassium 4.1 mmol/L (3.5-5.1); Sodium 136 mmol/L (137-145); Total Bilirubin 0.7 mg/dL (0.2-1.3); Total Protein 4.9 g/dL (6.3-8.2)
--- NOTE | 2021-09-26 16:31 | P.PN ---
Subjective Progress Note Date: 09/26/21 Principal diagnosis: Lower GI bleed Acute diverticulitis Acute hypoxic respiratory failure Sepsis due to COVID-19 pneumonia with elevated lactic acid COVID-19 pneumonia Electrolyte imbalance with hypokalemia Elevated liver enzymes Elevated d-dimer and Normal pro-calcitonin 09/26/2021, patient seen eval examined during the rounds patient has a massive lower GI bleed after that patient was starting feeling dizzy lightheaded blood was bright red patient emergently transferred to ICU Y tones were check blood pressure is stable status CBC was sent hemoglobin remained stable at 12 however patient has been rehydrated to 1 L of crystalloids has been given patient has been started on 100 mL an hour, Protonix have been changed to 40 mg IV every 12, general surgery on consult, will put patient on IV Zosyn likely diverticular bleed, will stop Lovenox, Plavix and aspirin for now, we'll check hemoglobin and hematocrit every 8 hourly, patient however remains on 15 L high flow oxygen sats are 96-97% significantly improved however we'll decrease IV steroids to every 8 instead of 60 every 6, critical care time spent 35 minutes 09/24/2021, patient seen eval examined during the rounds labs reviewed medications reviewed care plan discussed, respiratory status remains stable denies any chest pain, patient remains on high flow oxygen and needed has been using nonrebreather mask saturation are now mid 90s to low 90s, chest x-ray done earlier this morning reviewed no pneumothorax is seen, patient will get a midline, would plan to continue IV steroids and supportive care 09/23/2021, patient seen eval reexamined during the rounds patient has been on 12 L high flow oxygen with that her sats are about 88-90%, as needed she has been using nonrebreather mask, chest x-ray performed today reviewed decrease in size of the mediastinal emphysema is noted, pneumothorax seen on the right upper extremity with sleep not visualized anymore, lactic acid as well as normalized, 09/22/2021, patient seen eval examined during the rounds care plan discussed with RN at length, labs reviewed radiographic studies reviewed, and computed tomography scan of his chest reviewed as well, patient has incidental tiny right-sided apical pneumothorax discovered, no significant change in oxygenation patient remains on the 12 L high flow oxygen and as needed 100% nonrebreather mask saturation 88-90%, denies any chest pain some discomfort as needed improved with the Tylenol, patient remains on IV steroids, today's x-ray shows some improvement in tiny pneumothorax as well as 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, thoracic surgery is on consult in case emergent chest tube is required, noted lactic acid slightly elevated showing up or trend, patient is on Zithromax we will add cephapirin as well for healthcare associated pneumonia, computed tomography scan x-ray remains unchanged continue show bilateral basal infiltrate as well as patchy upper lobe infiltrate consistent with COVID-19 pneumonia, white cell count improved to 11,400, platelet count 4 60,000, lactic acid is 2.4 subsequent 2.6, pro-calcitonin has been normal 0.03 still September 20, 09/19/2021, patient seen eval examined, oxygen remains low requiring supplemental oxygen with 12-13 L high flow intermittently has been using mask as well, remains afebrile, labs reviewed white cell count 16,400 hemoglobin and hematocrit is 30 and 40, rehab has been following for placement, ID service following patient is still on too much oxygen to place and the rehab, pro- calcitonin remains normal 09/18/2021, patient seen eval examined during the rounds labs reviewed medications reviewed care plan discussed, oxygen saturation remained stable 92% on the high flow oxygen 12 L but however patient continued to require nonrebreather mask on top of that intermittently especially during some motion movement and activity, remains afebrile, will decrease the Solu-Medrol to every 12 now Other supportive measures and therapy 09/17/2021, patient seen eval examined during the rounds labs reviewed medications reviewed care plan discussed, history status patient is still short of breath continued to require high flow oxygen via nasal cannula as well as nasal mask as needed, that oxygen saturation improved to 91-92%, patient remains afebrile, remains on IV steroids supplements and Lovenox for anticoagulation, less distress is used to see before 09/16/2021, patient seen eval examined during the rounds labs reviewed medications reviewed care plan discussed, respiratory status remains marginal get short of breath activity and exertion, patient still have dry nonproductive cough, she is on 12 L high flow oxygen at times he uses a mask as well, she is afebrile with heart rate of 102, blood pressure HEENT hemodynamic stable oxygen saturation improved to 90-94% now, chest x-ray earlier this morning continued to show multifocal diffuse reticular and radicular nodular appearance bilaterally 09/15/2021, patient overall in good spirits breathing comfortably but get short of breath on activity and exertion continue to have intermittent dry cough, patient remains on 12 L high flow oxygen along with as needed 15 L face mask, remains afebrile, oxygen saturation is mostly 89-92%, d-dimer remains elevated, patient remains on the Lovenox IV steroids will repeat follow-up chest x-ray 09/13/2021, patient seen eval examined during the rounds labs reviewed medications reviewed care plan discussed, patient remains on the 15 L high flow oxygen along with nonrebreather mask with that saturation is 88-90%, labs from today reviewed white cell count come down to 8000, labs stable production up to 3.9, BUN/creatinine 22/.6, 09/12/2021, patient seen eval examined during the rounds labs reviewed medications reviewed care plan discussed, respiratory status is still marginal but stable, patient remains on 100% oxygen nonrebreather mask, T-max is 99.4, saturation is 89% to 90%, computed tomography scan of his chest consistent with interstitial pneumonia and COVID-19, no pulmonary embolism seen, patient remains on IV steroids and anticoagulation breathing treatment and continuation of home medications, Patient is a 76-year-old female who came into the hospital with increasing aches and pains malaise, symptoms started about 10-12 days ago, patient has outpatient covert testing which was negative however due to worsening system symptoms she decided to come into the hospital, patient oxygen saturation was just 75% in triage at room air, her appetite has been poor as well on specific questioning she denies any chest pain, denies any nausea vomiting diarrhea Past medical history significant for hypothyroidism, GERD, history of TIA, hypertension and hypertensive cardiovascular disease, thyroid disorder, history of the stroke,/TIA, patient is a nonsmokerhistory of substance In emergency department she underwent a chest x-ray which revealed bilateral patchy infiltrate more so on the bases on the right side compared to left side, EKG revealed sinus tachycardia, echocardiogram revealed ejection fraction 55%, mild TR and MR was noted along with AR, labs are significant for leukocytosis with WBC count of 14,600, primarily elevated 0.7, sodium is 1:30" 3.3, BUN/creatinine 16.67, glucose 155, AST and ALT Elevated, lactic acid is 3.3,, T-max 100.6 now currently afebrile, she is 90% on 15 L nonrebreather mask improved to 94% currently on 15 L nonrebreather mask, she came back positive for COVID-19 infection PCR, pro-calcitonin also elevated of 0.13 currently she is being treated with Y Lucinda as well as Zithromax, Decadron 6 mg daily, Lovenox 40 mg daily Objective - Vital Signs Vital signs: Vital Signs Temp 97.7 F 09/26/21 15:08 Pulse 96 09/26/21 15:22 Resp 18 09/26/21 15:08 BP 120/66 09/26/21 15:22 Pulse Ox 91 L 09/26/21 15:22 Intake & Output 09/25/21 09/26/21 09/26/21 18:59 06:59 18:59 Intake Total 236 990 Output Total 300 Balance 236 690 Intake: Intake, IV Titration 750 Amount Sodium Chloride 0.9% 1, 750 000 ml @ 75 mls/hr IV . [id number] [facility] Rx#:[id number] Oral 236 240 Output: Urine 300 Other: Voiding Method Bedside Commode Bedside Commode # Voids 1 2 - Exam - Constitutional General appearance: mild distress, bleeding currently stopped now - EENT Eyes: PERRLA Ears: bilateral: normal - Neck Neck: normal ROM Carotids: bilateral: upstroke normal - Respiratory Respiratory: bilateral: diminished - Cardiovascular Rhythm: regular Heart sounds: normal: S1, S2 - Gastrointestinal General gastrointestinal: decreased bowel sounds - Neurologic Neurologic: CNII-XII intact - Musculoskeletal Musculoskeletal: generalized weakness - Psychiatric Psychiatric: A&O x's 3, appropriate affect - Labs CBC & Chem 7: 09/26/21 15:22 09/26/21 15:22 Labs: Abnormal Lab Results - Last 24 Hours (Table) 09/26/21 09/26/21 09/26/21 Range/Units 15:09 15:22 15:22 WBC 12.7 H (3.8-10.6) k/uL Neutrophils # 12.3 H (1.3-7.7) k/uL Lymphocytes # 0.1 L (1.0-4.8) k/uL Sodium 136 L (137-145) mmol/L Chloride 108 H (98-107) mmol/L Glucose 219 H (74-99) mg/dL POC Glucose (mg/dL) 197 H (75-99) mg/dL Calcium 8.1 L (8.4-10.2) mg/dL ALT 38 H (4-34) U/L Total Protein 4.9 L (6.3-8.2) g/dL Albumin 2.3 L (3.5-5.0) g/dL 09/26/21 Range/Units 15:48 WBC (3.8-10.6) k/uL Neutrophils # (1.3-7.7) k/uL Lymphocytes # (1.0-4.8) k/uL Sodium (137-145) mmol/L Chloride (98-107) mmol/L Glucose (74-99) mg/dL POC Glucose (mg/dL) 199 H (75-99) mg/dL Calcium (8.4-10.2) mg/dL ALT (4-34) U/L Total Protein (6.3-8.2) g/dL Albumin (3.5-5.0) g/dL Microbiology - Last 24 Hours (Table) 09/22/21 16:51 Blood Culture - Preliminary Blood No Growth after 72 hours Assessment and Plan Assessment: Lower GI bleed massive initial hemoglobin however is stable likely diverticular bleed Suspect acute diverticulitis, Upper GI bleed manifesting of his lower GI bleed less likely however will increase Protonix to every 12 changed to IV keep patient nothing by mouth Pneumothorax right side resolved 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 Sepsis related to COVID-19 pneumonia Acute hypoxic respiratory failure COVID-19 pneumonia 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 Electrolyte imbalance with hypokalemia Elevated liver enzymes Elevated d-dimer and pro-calcitonin due to chronic inflammation Plan: IV fluid bolus 1 L followed by normal saline and received cc an hour Protonix 40 mg IV every 12 Zosyn 3.375 every 8 hourly for diverticulosis/diverticulitis Repeat H&H every 8 hourly transfuse his hemoglobin dropped down to 8 or recurrence of another massive bleed General surgery on consult Hold aspirin and Plavix and Lovenox Patient will be closely monitor observe in the ICU Reviewed chest x-ray no pneumothorax seen mediastinal emphysema resolved significantly Continue steroids, however we'll decrease the Solu-Medrol to 40 every 8 Monitor off of Baricitinib, Continue deep breathing exercises incentive spirometry Continue high flow oxygen with deep breathing exercise incentive spirometry Titrated oxygen down as tolerated Once stable will do the computed tomography scan of the abdominal and pelvis Time with Patient: Greater than 30
--- NOTE | 2021-09-26 18:14 | PN ---
PROGRESS NOTE DATE OF SERVICE: 09/25/2021. 76 -year-old white female. She was saturating in the low 90s to mid 90s on 15 L. Resting comfortably. She is sitting up in the chair. She still has progressive shortness of breath. Blood pressure is 126/72, pulse is 90, temp 97. O2 93 on 15 L high-flow. Lungs are nonlabored breathing. Heart: S1, S2. White count 10.4, hemoglobin 12, creatinine 0.5. ASSESSMENT: 1. Covid pneumonia. 2. Acute hypoxemic respiratory distress, some clinical improvement. X-ray shows slight worsening. Prognosis guarded. If she gets worse, we will transfer down to the ICU. Prognosis guarded. MMODL / IJN: [id number] /
--- NOTE | 2021-09-26 18:17 | PN ---
PROGRESS NOTE DATE OF SERVICE: 09/26/2021 REASON FOR FOLLOWUP: COVID-19 pneumonia. INTERVAL HISTORY: The patient is afebrile. The patient apparently did have a small bloody bowel movement for which the patient was transferred out of the ICU. The patient denies any abdominal pain. The patient denies any chest pain or shortness of breath or cough. Overall feeling better. PHYSICAL EXAMINATION: Blood pressure 120/66, pulse of 93, temperature 97.7. She is 99% on 15 L high-flow oxygen. General description is an elderly female lying in bed in no distress. Respiratory system: Unlabored breathing, decreased intensity of breath sounds. No wheeze. Heart S1, S2. Regular rate and rhythm. Abdomen: Soft. No tenderness. LABS: Hemoglobin is 12.1, white count 12.7, creatinine 0.54. DIAGNOSTIC IMPRESSION AND PLAN: Patient with acute respiratory failure secondary to Covid 19 pneumonia in this patient seems to have shown overall improvement in clinical condition now with concern for a GI bleed for which the patient is transferred to ICU. Hemoglobin will be monitored closely. stable. Continue the patient on Solu-Medrol, zinc and ascorbic acid and respiratory support. Discussed with the admitting physician. DERRICKL / IJN: [id number] /
--- NOTE | 2021-09-26 19:35 | P.EN ---
A- team: Indication: Bright red blood per rectum Arrived on Scene to find: Patient in chair with nursing present Patient seen and examined at bedside. [place] that she had to go to the bathroom, and nursing noted a large volume of bright red blood passing. SOB unchanged per patient, no chest pain, not light headed or dizzy, no abdominal pain, was unaware that she had blood in the stool. Hx Diverticultitis and acid reflux, no hx of GI bleed. Vital signs reviewed General: non toxic, no distress, appears at stated age Derm: warm, dry Head: atraumatic, normocephalic, symmetric Eyes: EOMI, no lid lag, anicteric sclera Mouth: no lip lesion, mucus membranes moist Cardiovascular: S1S2 reg, no murmur, positive posterior tibial pulse bilateral, Lungs: Course bs bilateral, no rhonchi, no rales , no accessory muscle use Abdominal: soft, nontender to palpation, no guarding, no appreciable organomegaly Ext: no gross muscle atrophy, no edema, no contractures Neuro: CN II-XI grossly intact, no focal neuro deficits Psych: Alert, oriented, appropriate affect Assessment: Acute GI bleed likely lower COVID pneumonia Plan: Transfer to ICU Hold aspirin, plavix, lovenox 0.9 NS 1L bolus Stat CBC, PT, PTT Type and screen Notified: Dr. Grier of GI bleed Dr. Nicolas of transfer to ICU, he arrived at bedside. A Total of 32 minutes of critical care time was spent on the complex care of this patient.
[2021-09-26] MEDS: PANTOPRAZOLE 40 MG/10 ML VIAL IVP SCH (20:30)
--- NOTE | 2021-09-26 20:37 | P.GSCN ---
History of Present Illness Consult date: 09/26/21 Reason for Consult: GI bleed History of present illness: 76-year-old female in the hospital for cold with pneumonia. Patient went to the restroom this afternoon felt dizzy and then became near syncopal. The A team was called. Repeat hemoglobin remained stable. Patient had a large amount of right red blood per rectum. Remains short of breath. No longer feels dizzy. Patient denies abdominal pain. No history of similar events. Last colonoscopy 3-5 years ago. History of polyps and diverticulosis. No history of ulcers. No black stools. Patient is on prophylactic Lovenox. Patient was transferred to the ICU for further evaluation. Coags are normal. Review of Systems The patient denies any acute changes in vision or hearing, no dysphagia or odynophagia, no chest pain or shortness of breath, no dysuria or hematuria, no headache, no runny nose, no melena, no unexplained weight loss Past Medical History Past Medical History: CVA/TIA, GERD/Reflux, Hyperlipidemia, Hypertension, Thyroid Disorder Additional Past Medical History / Comment(s): 3 ADMITTED WITH STROKE LIKE SYMPTOMS-pt. states was told didn't have stroke, history of TIAs,DIVERTICULITIS History of Any Multi-Drug Resistant Organisms: None Reported Past Surgical History: Appendectomy, Section, Cholecystectomy Past Anesthesia/Blood Transfusion Reactions: No Reported Reaction Additional Past Anesthesia/Blood Transfusion Reaction / Comm: MILD CLAUSTROPHOB IA Past Psychological History: No Psychological Hx Reported Smoking Status: Never smoker Past Alcohol Use History: None Reported Past Drug Use History: None Reported - Past Family History Mother Family Medical History: Cancer Additional Family Medical History / Comment(s): UNSURE WHAT TYPE OF CANCER Father Family Medical History: Cancer Additional Family Medical History / Comment(s): BONE CANCER Brother(s) Family Medical History: Asthma Sister(s) Family Medical History: No Reported History Son(s) Family Medical History: No Reported History Medications and Allergies Home Medications Medication Instructions Recorded Confirmed Type Levothyroxine Sodium [Synthroid] 75 mcg PO DAILY 01/22/16 09/09/21 History Clopidogrel [Plavix] 75 mg PO DAILY #0 01/24/16 09/09/21 Rx Aspirin EC [Ecotrin Low Dose] 81 mg PO DAILY 05/13/21 09/09/21 History Multivit-Min/Iron/Folic/Lutein 1 tab PO DAILY 05/13/21 09/09/21 History [Centrum Silver Women Tablet] Vit C/E/Zn/Coppr/Lutein/Zeaxan 1 cap PO BID 05/13/21 09/09/21 History [Preservision Areds 2 Softgel] Atorvastatin [Lipitor] 40 mg PO DAILY 30 Days #30 tab 05/15/21 09/09/21 Rx Pantoprazole [Protonix] 40 mg PO DAILY 07/30/21 09/09/21 History Azithromycin [Zithromax] 500 mg PO DAILY 09/09/21 09/09/21 History Meclizine HCl 12.5 mg PO BID PRN 09/09/21 09/09/21 History methylPREDNISolone [Medrol Dose See Taper PO DIRECTED 09/09/21 09/09/21 Hist ory Pack] Allergies Allergy/AdvReac Type Severity Reaction Status Date / Time codeine Allergy Unknown Verified 09/09/21 19:00 Surgical - Exam Vital Signs Temp Pulse Resp BP Pulse Ox 100.6 F H 107 H 22 103/58 76 L 09/09/21 17:34 09/09/21 17:34 09/09/21 17:34 09/09/21 17:34 09/09/21 17:34 Physical exam: General: Elderly female mildly short of breath HEENT: Normocephalic, sclerae nonicteric Abdomen: Nontender, nondistended Extremities: No edema Neuro: Alert and oriented Results - Labs 09/26/21 15:22 09/26/21 15:22 Abnormal Lab Results - Last 24 Hours (Table) 09/26/21 09/26/21 09/26/21 Range/Units 15:09 15:22 15:22 WBC 12.7 H (3.8-10.6) k/uL Neutrophils # 12.3 H (1.3-7.7) k/uL Lymphocytes # 0.1 L (1.0-4.8) k/uL Sodium 136 L (137-145) mmol/L Chloride 108 H (98-107) mmol/L Glucose 219 H (74-99) mg/dL POC Glucose (mg/dL) 197 H (75-99) mg/dL Calcium 8.1 L (8.4-10.2) mg/dL ALT 38 H (4-34) U/L Total Protein 4.9 L (6.3-8.2) g/dL Albumin 2.3 L (3.5-5.0) g/dL 09/26/21 Range/Units 15:48 WBC (3.8-10.6) k/uL Neutrophils # (1.3-7.7) k/uL Lymphocytes # (1.0-4.8) k/uL Sodium (137-145) mmol/L Chloride (98-107) mmol/L Glucose (74-99) mg/dL POC Glucose (mg/dL) 199 H (75-99) mg/dL Calcium (8.4-10.2) mg/dL ALT (4-34) U/L Total Protein (6.3-8.2) g/dL Albumin (3.5-5.0) g/dL Microbiology - Last 24 Hours (Table) 09/22/21 16:51 Blood Culture - Preliminary Blood No Growth after 96 hours Diabetes panel 09/26/21 Range/Units 15:22 Sodium 136 L (137-145) mmol/L Potassium 4.1 (3.5-5.1) mmol/L Chloride 108 H (98-107) mmol/L Carbon Dioxide 25 (22-30) mmol/L BUN 14 (7-17) mg/dL Creatinine 0.54 (0.52-1.04) mg/dL Glucose 219 H (74-99) mg/dL Calcium 8.1 L (8.4-10.2) mg/dL AST 24 (14-36) U/L ALT 38 H (4-34) U/L Alkaline Phosphatase 95 (38-126) U/L Total Protein 4.9 L (6.3-8.2) g/dL Albumin 2.3 L (3.5-5.0) g/dL Calcium panel 09/26/21 Range/Units 15:22 Calcium 8.1 L (8.4-10.2) mg/dL Albumin 2.3 L (3.5-5.0) g/dL Pituitary panel 09/26/21 Range/Units 15:22 Sodium 136 L (137-145) mmol/L Potassium 4.1 (3.5-5.1) mmol/L Chloride 108 H (98-107) mmol/L Carbon Dioxide 25 (22-30) mmol/L BUN 14 (7-17) mg/dL Creatinine 0.54 (0.52-1.04) mg/dL Glucose 219 H (74-99) mg/dL Calcium 8.1 L (8.4-10.2) mg/dL Adrenal panel 09/26/21 Range/Units 15:22 Sodium 136 L (137-145) mmol/L Potassium 4.1 (3.5-5.1) mmol/L Chloride 108 H (98-107) mmol/L Carbon Dioxide 25 (22-30) mmol/L BUN 14 (7-17) mg/dL Creatinine 0.54 (0.52-1.04) mg/dL Glucose 219 H (74-99) mg/dL Calcium 8.1 L (8.4-10.2) mg/dL Total Bilirubin 0.7 (0.2-1.3) mg/dL AST 24 (14-36) U/L ALT 38 H (4-34) U/L Alkaline Phosphatase 95 (38-126) U/L Total Protein 4.9 L (6.3-8.2) g/dL Albumin 2.3 L (3.5-5.0) g/dL Assessment and Plan (1) Lower GI bleed Narrative/Plan: 76-year-old female with lower GI bleed. Suspect probable diverticular source. Keep nothing by mouth. Recheck labs tomorrow. Maintain ICU observation. We'll follow. Current Visit: Yes Status: Acute Code(s): K92.2 - GASTROINTESTINAL HEMORRHAGE, UNSPECIFIED SNOMED Code(s): 56525383
[2021-09-26] MEDS: IOPAMIDOL CONTRAST (ORAL USE) VIAL PO PRN ×2 (20:48→21:58)
[2021-09-26 21:41] LABS: Basophils % (A) 0 %; Eosinophils % (A) 0 %; HCT 30.2 % (34.0-46.0); HGB 10.1 gm/dL (11.4-16.0); Lymphocytes # (A) 0.2 k/uL (1.0-4.8); Lymphocytes % (A) 1 %; MCH 32.2 pg (25.0-35.0); MCHC 33.6 g/dL (31.0-37.0); MCV 95.8 fL (80.0-100.0); Mean Platelet Volume 7.6; Monocytes # (A) 0.4 k/uL (0-1.0); Monocytes % (A) 3 %; Neutrophils # (A) 10.7 k/uL (1.3-7.7); Neutrophils % (A) 95 %; Platelet Count 216 k/uL (150-450); RBC 3.15 m/uL (3.80-5.40); WBC 11.3 k/uL (3.8-10.6)
[2021-09-26] MEDS: methylPREDNISolone SOD SUCCI 40 MG/ML 1 ML VIAL IV SCH (23:31)
[2021-09-26] MEDS: PIPERACILLIN-TAZOBACTAM 3.375 GM in SODIUM CHLORIDE 0.9% 100 ML IVPB SCH (23:31)
[2021-09-27 00:45] LABS: Basophils % (A) 0 %; Eosinophils # (A) 0.1 k/uL (0-0.7); Eosinophils % (A) 1 %; HCT 28.5 % (34.0-46.0); HGB 9.5 gm/dL (11.4-16.0); Lymphocytes # (A) 0.3 k/uL (1.0-4.8); Lymphocytes % (A) 3 %; MCH 32.3 pg (25.0-35.0); MCHC 33.2 g/dL (31.0-37.0); MCV 97.1 fL (80.0-100.0); Mean Platelet Volume 7.5; Monocytes # (A) 0.5 k/uL (0-1.0); Monocytes % (A) 4 %; Neutrophils # (A) 12.3 k/uL (1.3-7.7); Neutrophils % (A) 93 %; Platelet Count 220 k/uL (150-450); RBC 2.93 m/uL (3.80-5.40); RDW 13.9 % (11.5-15.5); WBC 13.3 k/uL (3.8-10.6)
--- NOTE | 2021-09-27 03:51 | CT ---
EXAMINATION TYPE: CT abdomen pelvis wo con DATE OF EXAM: 09/26/2021 COMPARISON: 04/21/2018 HISTORY: GI Bleed CT DLP: 987.50 mGycm Automated exposure control for dose reduction was used. Images obtained from the diaphragm to the floor the pelvis with oral contrast only. There is some patchy groundglass interstitial infiltrates in the lower lung koehler bilaterally. There is no pleural effusion. Heart size is normal. There is no pericardial effusion. Spleen is intact. Th ere is no evidence of pancreatic mass. There are clips from cholecystectomy. Liver has normal size an d contour. There is no focal defect. Bile ducts are not dilated. The stomach is intact. There is no adrenal mass. Kidneys have normal size. There is no hydronephrosis. There is no retroperi toneal adenopathy. Bladder distends smoothly. There is no inguinal hernia. There is no free fluid in the pelvis. There is no mesenteric edema. There is no ascites or free air. There is no bowel obstruction. Appendi x not definitely seen. No sign of thickened appendix. Lumbar vertebra have normal alignment. There is 20% anterior wedging of L1 vertebra related to an old mild compression fracture. There is L4-5 disc space narrowing. I see no acute fracture. Bony pelvis is intact. The hip joints are intact. IMPRESSION: No acute abnormality within the abdomen pelvis. Old L1 mild compression fracture. Patchy predominantly interstitial infiltrates at both lung bases appears new compared to old exam. Th is is consistent with multifocal pneumonia. Pulmonary infiltrates appear not changed compared to [facility] t [facility] scan of 09/20/2021.
[2021-09-27 04:51] LABS: Basophils % (A) 0 %; Eosinophils % (A) 0 %; HCT 28.4 % (34.0-46.0); HGB 9.6 gm/dL (11.4-16.0); Lymphocytes # (A) 0.2 k/uL (1.0-4.8); Lymphocytes % (A) 1 %; MCH 32.5 pg (25.0-35.0); MCHC 33.8 g/dL (31.0-37.0); MCV 96.2 fL (80.0-100.0); Mean Platelet Volume 7.9; Monocytes # (A) 0.5 k/uL (0-1.0); Monocytes % (A) 3 %; Neutrophils # (A) 15.3 k/uL (1.3-7.7); Neutrophils % (A) 95 %; Platelet Count 197 k/uL (150-450); RBC 2.95 m/uL (3.80-5.40); RDW 13.2 % (11.5-15.5); WBC 16.2 k/uL (3.8-10.6)
[2021-09-27 05:09] LABS: ALT 29 U/L (4-34); AST 16 U/L (14-36); African American GFR (CKD) >90 (>60 ml/min/1.73 sqM); Albumin 1.8 g/dL (3.5-5.0); Alkaline Phosphatase 57 U/L (38-126); Anion Gap 0 mmol/L; Blood Urea Nitrogen 22 mg/dL (7-17); Calcium 7.4 mg/dL (8.4-10.2); Carbon Dioxide 24 mmol/L (22-30); Chloride 110 mmol/L (98-107); Glucose 130 mg/dL (74-99); Non-African American GFR(CKD) >90 (>60 ml/min/1.73 sqM); Potassium 4.2 mmol/L (3.5-5.1); Sodium 134 mmol/L (137-145); Total Bilirubin 0.6 mg/dL (0.2-1.3); Total Protein 3.8 g/dL (6.3-8.2)
[2021-09-27] MEDS: LEVOTHYROXINE 75 MCG TAB PO SCH (05:47)
[2021-09-27] MEDS: SYMBICORT 160-4.5 MCG INHALER INHALATION SCH ×2 (08:27→20:32)
[2021-09-27] MEDS: ASCORBIC ACID 500 MG TAB PO SCH (08:49)
[2021-09-27] MEDS: ZINC SULFATE 220 MG CAP PO SCH (08:50)
[2021-09-27] MEDS: methylPREDNISolone SOD SUCCI 40 MG/ML 1 ML VIAL IV SCH ×2 (08:50→16:49)
[2021-09-27] MEDS: ATORVASTATIN 40 MG TAB PO SCH (08:50)
[2021-09-27] MEDS: PANTOPRAZOLE 40 MG/10 ML VIAL IVP SCH ×2 (08:50→20:45)
[2021-09-27] MEDS: SODIUM CHLORIDE 0.9% 1,000 ML IV SCH ×2 (08:51→20:44)
[2021-09-27] MEDS: PIPERACILLIN-TAZOBACTAM 3.375 GM in SODIUM CHLORIDE 0.9% 100 ML IVPB SCH ×2 (08:51→16:49)
[2021-09-27] MEDS: VIT A,C & E-LUTEIN-MINERALS 1 EACH TAB PO SCH ×2 (08:52→20:45)
[2021-09-27] MEDS: AZITHROMYCIN 500 MG TAB PO SCH (08:52)
[2021-09-27 09:18] LABS: Glucose,Whole Blood 129 mg/dL (75-99)
[2021-09-27 09:39] LABS: Basophils % (A) 0 %; Eosinophils # (A) 0.1 k/uL (0-0.7); Eosinophils % (A) 1 %; HCT 27.1 % (34.0-46.0); HGB 9.1 gm/dL (11.4-16.0); Lymphocytes # (A) 0.2 k/uL (1.0-4.8); Lymphocytes % (A) 2 %; MCH 32.6 pg (25.0-35.0); MCHC 33.6 g/dL (31.0-37.0); MCV 96.9 fL (80.0-100.0); Monocytes # (A) 0.3 k/uL (0-1.0); Monocytes % (A) 2 %; Neutrophils # (A) 12.4 k/uL (1.3-7.7); Neutrophils % (A) 95 %; Platelet Count 199 k/uL (150-450); RBC 2.79 m/uL (3.80-5.40); RDW 13.4 % (11.5-15.5)
--- NOTE | 2021-09-27 10:19 | P.PN ---
Subjective Progress Note Date: 09/27/21 Principal diagnosis: GI bleeding Patient remains in the ICU. Hemodynamically stable. Blood pressure has been on the lower side of normal however. She is not tachycardic. Denies abdominal pain. She had a CAT scan performed of the abdomen last night which showed fluid within the colon possibly consistent with blood. No obvious diverticulitis or mass. Hemoglobin this morning 9.1. She has had a few more bloody stools moderate sized 1 this morning. Objective - Vital Signs Vital signs: Vital Signs Temp 98.1 F 09/27/21 04:00 Pulse 89 09/27/21 07:00 Resp 14 09/27/21 07:00 BP 92/60 09/27/21 07:00 Pulse Ox 94 L 09/27/21 08:27 Intake & Output 09/26/21 09/27/21 09/27/21 18:59 06:59 18:59 Intake Total 75 1000 75 Output Total 1 300 Balance 74 700 75 Intake: Intake, IV Titration 75 1000 75 Amount Piperacillin-Tazobactam 3 100 .375 gm In Sodium Chloride 0.9% 100 ml @ 25 mls/hr IVPB Q8HR [facility] Rx# :[id number] Sodium Chloride 0.9% 1, 75 900 75 000 ml @ 75 mls/hr IV . [id number] [facility] Rx#:[id number] Output: Urine 300 Stool 1 Other: Voiding Method Bedside Commode Bedside Commode # Voids 1 # Bowel Movements 1 - Exam Abdomen: Soft, nontender, nondistended - Labs CBC & Chem 7: 09/27/21 04:17 09/27/21 04:17 Labs: Abnormal Lab Results - Last 24 Hours (Table) 09/26/21 09/26/21 09/26/21 Range/Units 15:09 15:22 15:22 WBC 12.7 H (3.8-10.6) k/uL RBC (3.80-5.40) m/uL Hgb (11.4-16.0) gm/dL Hct (34.0-46.0) % Neutrophils # 12.3 H (1.3-7.7) k/uL Lymphocytes # 0.1 L (1.0-4.8) k/uL Sodium 136 L (137-145) mmol/L Chloride 108 H (98-107) mmol/L BUN (7-17) mg/dL Creatinine (0.52-1.04) mg/dL Glucose 219 H (74-99) mg/dL POC Glucose (mg/dL) 197 H (75-99) mg/dL Calcium 8.1 L (8.4-10.2) mg/dL ALT 38 H (4-34) U/L Total Protein 4.9 L (6.3-8.2) g/dL Albumin 2.3 L (3.5-5.0) g/dL 09/26/21 09/26/21 09/27/21 Range/Units 15:48 20:59 00:27 WBC 11.3 H 13.3 H (3.8-10.6) k/uL RBC 3.15 L 2.93 L (3.80-5.40) m/uL Hgb 10.1 L 9.5 L (11.4-16.0) gm/dL Hct 30.2 L 28.5 L (34.0-46.0) % Neutrophils # 10.7 H 12.3 H (1.3-7.7) k/uL Lymphocytes # 0.2 L 0.3 L (1.0-4.8) k/uL Sodium (137-145) mmol/L Chloride (98-107) mmol/L BUN (7-17) mg/dL Creatinine (0.52-1.04) mg/dL Glucose (74-99) mg/dL POC Glucose (mg/dL) 199 H (75-99) mg/dL Calcium (8.4-10.2) mg/dL ALT (4-34) U/L Total Protein (6.3-8.2) g/dL Albumin (3.5-5.0) g/dL 09/27/21 09/27/21 09/27/21 Range/Units 04:17 04:17 04:17 WBC 13.0 H 16.2 H (3.8-10.6) k/uL RBC 2.79 L 2.95 L (3.80-5.40) m/uL Hgb 9.1 L 9.6 L (11.4-16.0) gm/dL Hct 27.1 L 28.4 L (34.0-46.0) % Neutrophils # 12.4 H 15.3 H (1.3-7.7) k/uL Lymphocytes # 0.2 L 0.2 L (1.0-4.8) k/uL Sodium 134 L (137-145) mmol/L Chloride 110 H (98-107) mmol/L BUN 22 H (7-17) mg/dL Creatinine 0.46 L (0.52-1.04) mg/dL Glucose 130 H (74-99) mg/dL POC Glucose (mg/dL) (75-99) mg/dL Calcium 7.4 L (8.4-10.2) mg/dL ALT (4-34) U/L Total Protein 3.8 L (6.3-8.2) g/dL Albumin 1.8 L (3.5-5.0) g/dL 09/27/21 Range/Units 09:17 WBC (3.8-10.6) k/uL RBC (3.80-5.40) m/uL Hgb (11.4-16.0) gm/dL Hct (34.0-46.0) % Neutrophils # (1.3-7.7) k/uL Lymphocytes # (1.0-4.8) k/uL Sodium (137-145) mmol/L Chloride (98-107) mmol/L BUN (7-17) mg/dL Creatinine (0.52-1.04) mg/dL Glucose (74-99) mg/dL POC Glucose (mg/dL) 129 H (75-99) mg/dL Calcium (8.4-10.2) mg/dL ALT (4-34) U/L Total Protein (6.3-8.2) g/dL Albumin (3.5-5.0) g/dL Microbiology - Last 24 Hours (Table) 09/22/21 16:51 Blood Culture - Preliminary Blood No Growth after 96 hours Assessment and Plan (1) Lower GI bleed Narrative/Plan: Patient with further bleeding overnight. We'll monitor throughout the afternoon and morning. If this persists will prep for EGD and colonoscopy tomorrow. Current Visit: Yes Status: Acute Code(s): K92.2 - GASTROINTESTINAL HEMORRHAGE, UNSPECIFIED SNOMED Code(s): 00548399
[2021-09-27] MEDS: FLUTICASONE 50MCG/SPRAY NASAL 16GM EA NOSTRIL SCH (10:41)
[2021-09-27] MEDS ORDERED: SODIUM CHLORIDE 0.9% 500 ML 500 ML IV ONE (11:44)
--- NOTE | 2021-09-27 16:00 | PN ---
PROGRESS NOTE 76-year-old white female who was transmitted to the ICU for GI bleeding, possibly due to anorectal fissure or hemorrhoids after she had a large bowel movement as she was severely constipated. Hemoglobin looks to be stable. She has improved breathing up to 98% on 15 L for her long herrmann with COVID pneumonia. Discussed the case with Dr. Sawyer. She remains on multiple medications for COVID. PHYSICAL EXAMINATION: Lungs are clear. Cardiovascular S1, S2. Neuro: She is alert and orient x3. Hematology negative Homans'. ASSESSMENT: 1. COVID pneumonia. 2. Probable rectal tear versus fissure versus acute diverticular bleed. Hemoglobin stable. Will keep monitoring the hemoglobin, treat her for COVID, possibly get her out of the ICU, she does not really need to be there at this time. MMODL / IJN: [id number] /
--- NOTE | 2021-09-27 16:33 | PN ---
PROGRESS NOTE DATE OF SERVICE: 09/27/2021 REASON FOR FOLLOWUP: COVID-19 pneumonia. INTERVAL HISTORY: Patient is afebrile. The patient is breathing comfortably. Still requiring 15 high- flow oxygen. Denies any chest pain or cough. No abdominal pain and no further bleeding from rectum per patient. PHYSICAL EXAMINATION: Blood pressure 108/65, pulse of 80, temperature 98. She is 95% on 15 L high flow oxygen. General description is an elderly female lying in bed in no distress. Respiratory system: Unlabored breathing, decreased breath sounds in the bases. No wheeze. Heart S1, S2. Regular rate and rhythm. Abdomen soft. No tenderness. LABS: Hemoglobin is 9.1, white count 13, BUN of 22, creatinine 0.46. DIAGNOSTIC PATIENT: This patient with acute respiratory failure secondary to COVID-19 pneumonia in this patient has completed her baricitinib, covered with Solu-Medrol. Zosyn has been added. We will repeat her inflammatory marker and procalcitonin to see the need for continuation of and monitor clinical course closely. MMODL / IJN: [id number] /
[2021-09-28] MEDS: PIPERACILLIN-TAZOBACTAM 3.375 GM in SODIUM CHLORIDE 0.9% 100 ML IVPB SCH ×4 (00:02→23:37)
[2021-09-28] MEDS: methylPREDNISolone SOD SUCCI 40 MG/ML 1 ML VIAL IV SCH ×4 (00:02→23:37)
[2021-09-28 00:41] LABS: Basophils % (A) 0 %; Eosinophils % (A) 0 %; HCT 26.5 % (34.0-46.0); HGB 8.7 gm/dL (11.4-16.0); Lymphocytes # (A) 0.2 k/uL (1.0-4.8); Lymphocytes % (A) 2 %; MCH 31.1 pg (25.0-35.0); MCHC 32.9 g/dL (31.0-37.0); MCV 94.6 fL (80.0-100.0); Mean Platelet Volume 7.9; Monocytes # (A) 0.5 k/uL (0-1.0); Monocytes % (A) 4 %; Neutrophils # (A) 11.1 k/uL (1.3-7.7); Neutrophils % (A) 93 %; Platelet Count 185 k/uL (150-450); RDW 14.1 % (11.5-15.5); WBC 11.9 k/uL (3.8-10.6)
[2021-09-28 06:16] LABS: Basophils % (A) 0 %; Eosinophils % (A) 0 %; HGB 8.4 gm/dL (11.4-16.0); Lymphocytes # (A) 0.1 k/uL (1.0-4.8); Lymphocytes % (A) 1 %; MCH 32.3 pg (25.0-35.0); MCHC 33.6 g/dL (31.0-37.0); MCV 96.1 fL (80.0-100.0); Mean Platelet Volume 8.2; Monocytes # (A) 0.4 k/uL (0-1.0); Monocytes % (A) 4 %; Neutrophils # (A) 9.5 k/uL (1.3-7.7); Neutrophils % (A) 94 %; Platelet Count 161 k/uL (150-450); RDW 13.6 % (11.5-15.5); WBC 10.1 k/uL (3.8-10.6)
[2021-09-28 06:31] LABS: ALT 30 U/L (4-34); AST 27 U/L (14-36); African American GFR (CKD) >90 (>60 ml/min/1.73 sqM); Albumin 1.9 g/dL (3.5-5.0); Alkaline Phosphatase 32 U/L (38-126); Anion Gap 1 mmol/L; Blood Urea Nitrogen 21 mg/dL (7-17); Calcium 7.5 mg/dL (8.4-10.2); Carbon Dioxide 22 mmol/L (22-30); Chloride 112 mmol/L (98-107); Glucose 111 mg/dL (74-99); Non-African American GFR(CKD) >90 (>60 ml/min/1.73 sqM); Potassium 4.5 mmol/L (3.5-5.1); Sodium 135 mmol/L (137-145); Total Bilirubin 0.7 mg/dL (0.2-1.3)
[2021-09-28] MEDS: SODIUM CHLORIDE 0.9% 1,000 ML IV SCH ×2 (06:55→20:33)
[2021-09-28] MEDS: LEVOTHYROXINE 75 MCG TAB PO SCH (06:55)
[2021-09-28] MEDS: SYMBICORT 160-4.5 MCG INHALER INHALATION SCH ×2 (07:44→20:33)
[2021-09-28] MEDS: PANTOPRAZOLE 40 MG/10 ML VIAL IVP SCH ×2 (08:39→20:33)
[2021-09-28] MEDS: ASCORBIC ACID 500 MG TAB PO SCH (08:40)
[2021-09-28] MEDS: ATORVASTATIN 40 MG TAB PO SCH (08:40)
[2021-09-28] MEDS: AZITHROMYCIN 500 MG TAB PO SCH (08:42)
[2021-09-28] MEDS: ERGOCALCIFEROL 1,250 MCG (50,000 IU) CAPSULE PO SCH (08:43)
[2021-09-28] MEDS: VIT A,C & E-LUTEIN-MINERALS 1 EACH TAB PO SCH ×2 (08:43→21:35)
--- NOTE | 2021-09-28 08:49 | P.PN ---
Subjective Progress Note Date: 09/28/21 Principal diagnosis: Lower GI bleed Acute diverticulitis Acute hypoxic respiratory failure Sepsis due to COVID-19 pneumonia with elevated lactic acid COVID-19 pneumonia Electrolyte imbalance with hypokalemia Elevated liver enzymes Elevated d-dimer and Normal pro-calcitonin #7 2020, patient seen and evaluated examined in the ICU awake and alert breathing comfortably, on 15 L mask saturation is 98%, denies any chest pain denies any cough or sputum production no more bleeding for the last 12 hours has been seen, hemoglobin dropped down to 8.4 appears to be post loss and dilutional effect, white cell count is 10,000 hemoglobin and hematocrit 8.425 platelets are 120 61,000, BUN/creatinine is 21.3. Sodium was 135, medications include Zithromax Solu-Medrol 40 every 8 Protonix 40 mg twice a day Zosyn and zinc. Computed tomography scan of the chest and pelvis reviewed, bases of x-ray shows interstitial infiltrate consistent with COVID-19 pneumonia L1 compression f racture seen no acute pathology identified on computed tomography scan of the abdominal and pelvis 09/26/2021, patient seen eval examined during the rounds patient has a massive lower GI bleed after that patient was starting feeling dizzy lightheaded blood was bright red patient emergently transferred to ICU Y tones were check blood pressure is stable status CBC was sent hemoglobin remained stable at 12 however patient has been rehydrated to 1 L of crystalloids has been given patient has been started on 100 mL an hour, Protonix have been changed to 40 mg IV every 12, general surgery on consult, will put patient on IV Zosyn likely diverticular bleed, will stop Lovenox, Plavix and aspirin for now, we'll check hemoglobin and hematocrit every 8 hourly, patient however remains on 15 L high flow oxygen sats are 96-97% significantly improved however we'll decrease IV steroids to every 8 instead of 60 every 6, critical care time spent 35 minutes 09/24/2021, patient seen eval examined during the rounds labs reviewed medications reviewed care plan discussed, respiratory status remains stable denies any chest pain, patient remains on high flow oxygen and needed has been using nonrebreather mask saturation are now mid 90s to low 90s, chest x-ray done earlier this morning reviewed no pneumothorax is seen, patient will get a midline, would plan to continue IV steroids and supportive care 09/23/2021, patient seen eval reexamined during the rounds patient has been on 12 L high flow oxygen with that her sats are about 88-90%, as needed she has been using nonrebreather mask, chest x-ray performed today reviewed decrease in size of the mediastinal emphysema is noted, pneumothorax seen on the right upper extremity with sleep not visualized anymore, lactic acid as well as normalized, 09/22/2021, patient seen eval examined during the rounds care plan discussed with RN at length, labs reviewed radiographic studies reviewed, and computed tomography scan of his chest reviewed as well, patient has incidental tiny right-sided apical pneumothorax discovered, no significant change in oxygenation patient remains on the 12 L high flow oxygen and as needed 100% nonrebreather mask saturation 88-90%, denies any chest pain some discomfort as needed improved with the Tylenol, patient remains on IV steroids, today's x-ray shows some improvement in tiny pneumothorax as well as 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, thoracic surgery is on consult in case emergent chest tube is required, noted lactic acid slightly elevated showing up or trend, patient is on Zithromax we will add cephapirin as well for healthcare associated pneumonia, computed tomography scan x-ray remains unchanged continue show bilateral basal infiltrate as well as patchy upper lobe infiltrate consistent with COVID-19 pneumonia, white cell count improved to 11,400, platelet count 4 60,000, lactic acid is 2.4 subsequent 2.6, pro-calcitonin has been normal 0.03 still September 20, 09/19/2021, patient seen eval examined, oxygen remains low requiring supplemental oxygen with 12-13 L high flow intermittently has been using mask as well, remains afebrile, labs reviewed white cell count 16,400 hemoglobin and hematocrit is 30 and 40, rehab has been following for placement, ID service following patient is still on too much oxygen to place and the rehab, pro- calcitonin remains normal 09/18/2021, patient seen eval examined during the rounds labs reviewed medications reviewed care plan discussed, oxygen saturation remained stable 92% on the high flow oxygen 12 L but however patient continued to require nonrebreather mask on top of that intermittently especially during some motion movement and activity, remains afebrile, will decrease the Solu-Medrol to every 12 now Other supportive measures and therapy 09/17/2021, patient seen eval examined during the rounds labs reviewed medications reviewed care plan discussed, history status patient is still short of breath continued to require high flow oxygen via nasal cannula as well as nasal mask as needed, that oxygen saturation improved to 91-92%, patient remains afebrile, remains on IV steroids supplements and Lovenox for anticoagulation, less distress is used to see before 09/16/2021, patient seen eval examined during the rounds labs reviewed medications reviewed care plan discussed, respiratory status remains marginal get short of breath activity and exertion, patient still have dry nonproductive cough, she is on 12 L high flow oxygen at times he uses a mask as well, she is afebrile with heart rate of 102, blood pressure HEENT hemodynamic stable oxygen saturation improved to 90-94% now, chest x-ray earlier this morning continued to show multifocal diffuse reticular and radicular nodular appearance bilaterally 09/15/2021, patient overall in good spirits breathing comfortably but get short of breath on activity and exertion continue to have intermittent dry cough, patient remains on 12 L high flow oxygen along with as needed 15 L face mask, remains afebrile, oxygen saturation is mostly 89-92%, d-dimer remains elevated, patient remains on the Lovenox IV steroids will repeat follow-up chest x-ray 09/13/2021, patient seen eval examined during the rounds labs reviewed medications reviewed care plan discussed, patient remains on the 15 L high flow oxygen along with nonrebreather mask with that saturation is 88-90%, labs from today reviewed white cell count come down to 8000, labs stable production up to 3.9, BUN/creatinine 22/.6, 09/12/2021, patient seen eval examined during the rounds labs reviewed medications reviewed care plan discussed, respiratory status is still marginal but stable, patient remains on 100% oxygen nonrebreather mask, T-max is 99.4, saturation is 89% to 90%, computed tomography scan of his chest consistent with interstitial pneumonia and COVID-19, no pulmonary embolism seen, patient remains on IV steroids and anticoagulation breathing treatment and continuation of home medications, Patient is a 76-year-old female who came into the hospital with increasing aches and pains malaise, symptoms started about 10-12 days ago, patient has outpatient covert testing which was negative however due to worsening system symptoms she decided to come into the hospital, patient oxygen saturation was just 75% in triage at room air, her appetite has been poor as well on specific questioning she denies any chest pain, denies any nausea vomiting diarrhea Past medical history significant for hypothyroidism, GERD, history of TIA, hypertension and hypertensive cardiovascular disease, thyroid disorder, history of the stroke,/TIA, patient is a nonsmokerhistory of substance In emergency department she underwent a chest x-ray which revealed bilateral patchy infiltrate more so on the bases on the right side compared to left side, EKG revealed sinus tachycardia, echocardiogram revealed ejection fraction 55%, mild TR and MR was noted along with AR, labs are significant for leukocytosis with WBC count of 14,600, primarily elevated 0.7, sodium is 1:30" 3.3, BUN/creatinine 16.67, glucose 155, AST and ALT Elevated, lactic acid is 3.3,, T-max 100.6 now currently afebrile, she is 90% on 15 L nonrebreather mask improved to 94% currently on 15 L nonrebreather mask, she came back positive for COVID-19 infection PCR, pro-calcitonin also elevated of 0.13 currently she is being treated with Y Lucinda as well as Zithromax, Decadron 6 mg daily, Lovenox 40 mg daily Objective - Vital Signs Vital signs: Vital Signs Temp 98.1 F 09/28/21 04:00 Pulse 63 09/28/21 07:00 Resp 14 09/28/21 07:00 BP 91/51 09/28/21 07:00 Pulse Ox 96 09/28/21 07:45 Intake & Output 09/27/21 09/28/21 09/28/21 19:59 06:59 18:59 Intake Total 100 Output Total Balance 100 Weight Intake: IV 100 Piperacillin-Tazobactam 3 .375 gm In Sodium Chloride 0.9% 100 ml @ 25 mls/hr IVPB Q8HR [facility] Rx# :[id number] Sodium Chloride 0.9% 1, 100 000 ml @ 100 mls/hr IV . Q10H [facility] Rx#:[id number] Intake, IV Titration Amount Sodium Chloride 0.9% 1, 000 ml @ 100 mls/hr IV . Q10H [facility] Rx#:[id number] Oral Output: Urine Stool Other: Voiding Method # Voids - Exam - Constitutional General appearance: mild distress, bleeding currently stopped now - EENT Eyes: PERRLA Ears: bilateral: normal - Neck Neck: normal ROM Carotids: bilateral: upstroke normal - Respiratory Respiratory: bilateral: diminished - Cardiovascular Rhythm: regular Heart sounds: normal: S1, S2 - Gastrointestinal General gastrointestinal: decreased bowel sounds - Neurologic Neurologic: CNII-XII intact - Musculoskeletal Musculoskeletal: generalized weakness - Psychiatric Psychiatric: A&O x's 3, appropriate affect - Labs CBC & Chem 7: 09/28/21 05:43 09/28/21 05:43 Labs: Abnormal Lab Results - Last 24 Hours (Table) 09/27/21 09/27/21 09/28/21 Range/Units 04:17 09:20 00:00 WBC 16.2 H 13.0 H 11.9 H (3.8-10.6) k/uL RBC 2.95 L 2.79 L 2.80 L (3.80-5.40) m/uL Hgb 9.6 L 9.1 L 8.7 L (11.4-16.0) gm/dL Hct 28.4 L 27.1 L 26.5 L (34.0-46.0) % Neutrophils # 15.3 H 12.4 H 11.1 H (1.3-7.7) k/uL Lymphocytes # 0.2 L 0.2 L 0.2 L (1.0-4.8) k/uL Sodium (137-145) mmol/L Chloride (98-107) mmol/L BUN (7-17) mg/dL Creatinine (0.52-1.04) mg/dL Glucose (74-99) mg/dL Calcium (8.4-10.2) mg/dL Alkaline Phosphatase (38-126) U/L Total Protein (6.3-8.2) g/dL Albumin (3.5-5.0) g/dL 09/28/21 09/28/21 Range/Units 05:43 05:43 WBC (3.8-10.6) k/uL RBC 2.60 L (3.80-5.40) m/uL Hgb 8.4 L (11.4-16.0) gm/dL Hct 25.0 L (34.0-46.0) % Neutrophils # 9.5 H (1.3-7.7) k/uL Lymphocytes # 0.1 L (1.0-4.8) k/uL Sodium 135 L (137-145) mmol/L Chloride 112 H (98-107) mmol/L BUN 21 H (7-17) mg/dL Creatinine 0.38 L (0.52-1.04) mg/dL Glucose 111 H (74-99) mg/dL Calcium 7.5 L (8.4-10.2) mg/dL Alkaline Phosphatase 32 L (38-126) U/L Total Protein 4.0 L (6.3-8.2) g/dL Albumin 1.9 L (3.5-5.0) g/dL Microbiology - Last 24 Hours (Table) 09/22/21 16:51 Blood Culture - Preliminary Blood No Growth after 120 hours Assessment and Plan Assessment: Lower GI bleed overall stable Acute blood loss anemia source of bleeding not checked identified appears to be lower GI bleed now stable Pneumothorax right side resolved 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 Sepsis related to COVID-19 pneumonia Acute hypoxic respiratory failure COVID-19 pneumonia 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 Electrolyte imbalance with hypokalemia Elevated liver enzymes Elevated d-dimer and pro-calcitonin due to chronic inflammation Plan: Continue gentle rehydration Protonix 40 mg IV every 12 Zosyn 3.375 every 8 hourly for diverticulosis/diverticulitis finish 5-7 day therapy We will check another hemoglobin and hematocrit later on today and then CBC once daily General surgery on consult recommendation noted and appreciated Hold aspirin and Plavix and Lovenox Patient can be moved out of ICU Continue steroid we'll taper to twice a day in next 24 hours Monitor off of Baricitinib, Continue deep breathing exercises incentive spirometry Continue high flow oxygen with deep breathing exercise incentive spirometry Titrated oxygen down as tolerated Once stable will do the computed tomography scan of the abdominal and pelvis Time with Patient: Greater than 30
--- NOTE | 2021-09-28 10:31 | P.PN ---
Subjective Progress Note Date: 09/28/21 Principal diagnosis: GI bleeding Patient doing well today. No further rectal bleeding. She has not had a bowel movement since yesterday early. Hemoglobin has drifted slightly lower with most recent hemoglobin 8.4. Patient states she was constipated prior to this event and did strain for that bowel movement. Objective - Vital Signs Vital signs: Vital Signs Temp 98.1 F 09/28/21 08:00 Pulse 67 09/28/21 10:00 Resp 16 09/28/21 10:00 BP 102/57 09/28/21 10:00 Pulse Ox 98 09/28/21 10:00 Intake & Output 09/27/21 09/28/21 09/28/21 19:59 06:59 18:59 Intake Total 450 Output Total Balance 450 Weight Intake: IV 450 Piperacillin-Tazobactam 3 50 .375 gm In Sodium Chloride 0.9% 100 ml @ 25 mls/hr IVPB Q8HR [facility] Rx# :[id number] Sodium Chloride 0.9% 1, 400 000 ml @ 100 mls/hr IV . Q10H [facility] Rx#:[id number] Intake, IV Titration Amount Sodium Chloride 0.9% 1, 000 ml @ 100 mls/hr IV . Q10H [facility] Rx#:[id number] Oral Output: Urine Stool Other: Voiding Method # Voids - Exam Abdomen: Soft, nontender, nondistended - Labs CBC & Chem 7: 09/28/21 05:43 09/28/21 05:43 Labs: Abnormal Lab Results - Last 24 Hours (Table) 09/27/21 09/27/21 09/28/21 Range/Units 04:17 09:20 00:00 WBC 16.2 H 13.0 H 11.9 H (3.8-10.6) k/uL RBC 2.95 L 2.79 L 2.80 L (3.80-5.40) m/uL Hgb 9.6 L 9.1 L 8.7 L (11.4-16.0) gm/dL Hct 28.4 L 27.1 L 26.5 L (34.0-46.0) % Neutrophils # 15.3 H 12.4 H 11.1 H (1.3-7.7) k/uL Lymphocytes # 0.2 L 0.2 L 0.2 L (1.0-4.8) k/uL Sodium (137-145) mmol/L Chloride (98-107) mmol/L BUN (7-17) mg/dL Creatinine (0.52-1.04) mg/dL Glucose (74-99) mg/dL Calcium (8.4-10.2) mg/dL Alkaline Phosphatase (38-126) U/L Total Protein (6.3-8.2) g/dL Albumin (3.5-5.0) g/dL 09/28/21 09/28/21 Range/Units 05:43 05:43 WBC (3.8-10.6) k/uL RBC 2.60 L (3.80-5.40) m/uL Hgb 8.4 L (11.4-16.0) gm/dL Hct 25.0 L (34.0-46.0) % Neutrophils # 9.5 H (1.3-7.7) k/uL Lymphocytes # 0.1 L (1.0-4.8) k/uL Sodium 135 L (137-145) mmol/L Chloride 112 H (98-107) mmol/L BUN 21 H (7-17) mg/dL Creatinine 0.38 L (0.52-1.04) mg/dL Glucose 111 H (74-99) mg/dL Calcium 7.5 L (8.4-10.2) mg/dL Alkaline Phosphatase 32 L (38-126) U/L Total Protein 4.0 L (6.3-8.2) g/dL Albumin 1.9 L (3.5-5.0) g/dL Microbiology - Last 24 Hours (Table) 09/22/21 16:51 Blood Culture - Preliminary Blood No Growth after 120 hours Assessment and Plan (1) Lower GI bleed Narrative/Plan: Patient doing well at this time. Continue to monitor hemoglobin. May require transfusion if hemoglobin drops significantly further. We will add Colace to her daily regimen. Begin clear liquids. Patient will require colonoscopy and upper endoscopy either later during this admission when she is doing better or possibly as an outpatient. Current Visit: Yes Status: Acute Code(s): K92.2 - GASTROINTESTINAL HEMORRHAGE, UNSPECIFIED SNOMED Code(s): 29847978
--- NOTE | 2021-09-28 11:04 | PN ---
PROGRESS NOTE Zsrlfni[age]zjo-tllz-old white female remains in the ICU. Hemoglobin is still stable at 8.7, now down to 8.4. She has bleeding when she has a large bowel movement. Otherwise she is not really bleeding. Wait for surgical recommendations. Going to continue her on her blood thinners at this time due to COVID. She is saturating high 90s on 15 L. Blood pressure 102/57, pulse 67, respiratory rate 16 to 18. CARDIOVASCULAR: S1, S2. GI: Soft. HEMATOLOGY: Negative Homans. PSYCH: Fair mood and affect. She had an abdominopelvic CT scan for bleeding yesterday that shows an old L1 compression fracture, patchy pneumonia, but no signs of bleeding. Continue to monitor hemoglobin. Prognosis guarded. Treat for COVID. Monitor her hemoglobin. MMODL / IJN: [id number] /
[2021-09-28] MEDS ORDERED: SODIUM CHLORIDE 0.9% 1,000 ML IV ONE (12:09)
[2021-09-28] MEDS: SODIUM FERRIC GLUCONAT-SUCROSE 125 MG in SODIUM CHLORIDE 0.9% 100 ML IVPB SCH (12:48)
[2021-09-28] MEDS: DOCUSATE 100 MG CAP PO SCH ×2 (12:48→20:33)
[2021-09-28] MEDS: FLUTICASONE 50MCG/SPRAY NASAL 16GM EA NOSTRIL SCH (16:22)
[2021-09-28 21:35] LABS: Basophils % (A) 0 %; Eosinophils % (A) 0 %; HCT 25.1 % (34.0-46.0); HGB 8.5 gm/dL (11.4-16.0); Lymphocytes # (A) 0.2 k/uL (1.0-4.8); Lymphocytes % (A) 2 %; MCH 32.4 pg (25.0-35.0); MCHC 33.7 g/dL (31.0-37.0); MCV 96.2 fL (80.0-100.0); Monocytes # (A) 0.4 k/uL (0-1.0); Monocytes % (A) 4 %; Neutrophils # (A) 8.7 k/uL (1.3-7.7); Neutrophils % (A) 93 %; Platelet Count 154 k/uL (150-450); RBC 2.61 m/uL (3.80-5.40); RDW 14.4 % (11.5-15.5); WBC 9.4 k/uL (3.8-10.6)
--- NOTE | 2021-09-28 22:10 | PN ---
PROGRESS NOTE DATE OF SERVICE: 09/28/2021 REASON FOR FOLLOWUP: COVID-19 pneumonia. INTERVAL HISTORY: The patient is afebrile. The patient is breathing more comfortably. She is currently up to 10 L nasal cannula. The patient denies any chest pain or worsening cough. No abdominal pain. No further bleeding per rectum. PHYSICAL EXAMINATION: Blood pressure /65, pulse of 78, temperature 98.1. She is 93% on 10 L high-flow oxygen. General description is an elderly female up in the chair in no distress. Respiratory system: Unlabored breathing, decreased intensity of breath sounds. No wheeze. Heart S1, S2. Regular rate and rhythm. Abdomen soft, no tenderness. LABS: Hemoglobin is 8.4, white count 10.1, creatinine 0.38. DIAGNOSTIC IMPRESSION AND PLAN: 1. Patient with acute respiratory failure secondary to COVID-19 pneumonia in this patient currently on Solu-Medrol, zinc and ascorbic acid. 2. Patient with a with negative CT of abdomen and pelvis. Surgery is following the patient closely. Continue with supportive care. MMODL / IJN: [id number] /
[2021-09-29] MEDS: SODIUM CHLORIDE 0.9% 1,000 ML IV SCH ×3 (05:11→14:34)
[2021-09-29 05:31] LABS: ALT 32 U/L (4-34); AST 22 U/L (14-36); African American GFR (CKD) >90 (>60 ml/min/1.73 sqM); Albumin 1.8 g/dL (3.5-5.0); Alkaline Phosphatase 44 U/L (38-126); Anion Gap 1 mmol/L; Blood Urea Nitrogen 15 mg/dL (7-17); Calcium 7.2 mg/dL (8.4-10.2); Carbon Dioxide 24 mmol/L (22-30); Chloride 107 mmol/L (98-107); Glucose 127 mg/dL (74-99); Non-African American GFR(CKD) >90 (>60 ml/min/1.73 sqM); Potassium 3.6 mmol/L (3.5-5.1); Sodium 132 mmol/L (137-145); Total Bilirubin 0.6 mg/dL (0.2-1.3); Total Protein 3.8 g/dL (6.3-8.2)
[2021-09-29 05:35] LABS: Basophils % (A) 0 %; Eosinophils # (A) 0.1 k/uL (0-0.7); Eosinophils % (A) 1 %; HCT 23.7 % (34.0-46.0); HGB 8.1 gm/dL (11.4-16.0); Lymphocytes # (A) 0.1 k/uL (1.0-4.8); Lymphocytes % (A) 1 %; MCH 32.2 pg (25.0-35.0); MCHC 34.1 g/dL (31.0-37.0); MCV 94.3 fL (80.0-100.0); Monocytes # (A) 0.3 k/uL (0-1.0); Monocytes % (A) 3 %; Neutrophils # (A) 8.6 k/uL (1.3-7.7); Neutrophils % (A) 94 %; Platelet Count 167 k/uL (150-450); RBC 2.52 m/uL (3.80-5.40); RDW 14.7 % (11.5-15.5); WBC 9.1 k/uL (3.8-10.6)
[2021-09-29] MEDS: LEVOTHYROXINE 75 MCG TAB PO SCH (06:19)
[2021-09-29] MEDS: SYMBICORT 160-4.5 MCG INHALER INHALATION SCH ×2 (07:37→21:37)
[2021-09-29] MEDS: methylPREDNISolone SOD SUCCI 40 MG/ML 1 ML VIAL IV SCH ×2 (08:37→15:37)
[2021-09-29] MEDS: PIPERACILLIN-TAZOBACTAM 3.375 GM in SODIUM CHLORIDE 0.9% 100 ML IVPB SCH ×2 (08:37→15:38)
[2021-09-29] MEDS: PANTOPRAZOLE 40 MG/10 ML VIAL IVP SCH ×2 (08:38→20:40)
[2021-09-29] MEDS: AZITHROMYCIN 500 MG TAB PO SCH (08:39)
[2021-09-29] MEDS: ZINC SULFATE 220 MG CAP PO SCH (08:39)
[2021-09-29] MEDS: ASCORBIC ACID 500 MG TAB PO SCH (08:39)
[2021-09-29] MEDS: ATORVASTATIN 40 MG TAB PO SCH (08:39)
[2021-09-29] MEDS: VIT A,C & E-LUTEIN-MINERALS 1 EACH TAB PO SCH ×2 (08:39→20:40)
[2021-09-29] MEDS: SODIUM FERRIC GLUCONAT-SUCROSE 125 MG in SODIUM CHLORIDE 0.9% 100 ML IVPB SCH (08:57)
[2021-09-29] MEDS: FLUTICASONE 50MCG/SPRAY NASAL 16GM EA NOSTRIL SCH (10:18)
--- NOTE | 2021-09-29 11:33 | P.PN ---
Subjective Progress Note Date: 09/29/21 Principal diagnosis: GI bleeding Patient feels well today. Still somewhat short of breath but improved. Hemoglobin 8.1. She had a small maroon stool yesterday afternoon and a very small one again this morning. Vitals are stable. Objective - Vital Signs Vital signs: Vital Signs Temp 98.3 F 09/29/21 08:00 Pulse 94 09/29/21 08:00 Resp 16 09/29/21 08:00 BP 102/60 09/29/21 08:00 Pulse Ox 93 L 09/29/21 08:00 Intake & Output 09/28/21 09/29/21 09/29/21 18:59 06:59 18:59 Intake Total 1425 1140 Output Total 300 1 Balance 1125 1139 Weight 84.6 kg Intake: IV 1325 900 Piperacillin-Tazobactam 3 125 .375 gm In Sodium Chloride 0.9% 100 ml @ 25 mls/hr IVPB Q8HR [facility] Rx# :[id number] Sodium Chloride 0.9% 1, 1200 900 000 ml @ 100 mls/hr IV . Q10H [facility] Rx#:[id number] Intake, IV Titration 100 Amount Piperacillin-Tazobactam 3 100 .375 gm In Sodium Chloride 0.9% 100 ml @ 25 mls/hr IVPB Q8HR [facility] Rx# :[id number] Oral 240 Output: Urine 300 Stool 1 Other: Voiding Method External Catheter External Catheter # Voids 2 # Bowel Movements 1 - Exam Abdomen: Soft, nontender, nondistended - Labs CBC & Chem 7: 09/29/21 04:47 09/29/21 04:47 Labs: Abnormal Lab Results - Last 24 Hours (Table) 09/28/21 09/29/21 09/29/21 Range/Units 20:48 04:47 04:47 RBC 2.61 L 2.52 L (3.80-5.40) m/uL Hgb 8.5 L 8.1 L (11.4-16.0) gm/dL Hct 25.1 L 23.7 L (34.0-46.0) % Neutrophils # 8.7 H 8.6 H (1.3-7.7) k/uL Lymphocytes # 0.2 L 0.1 L (1.0-4.8) k/uL Sodium 132 L (137-145) mmol/L Creatinine 0.40 L (0.52-1.04) mg/dL Glucose 127 H (74-99) mg/dL Calcium 7.2 L (8.4-10.2) mg/dL Total Protein 3.8 L (6.3-8.2) g/dL Albumin 1.8 L (3.5-5.0) g/dL Microbiology - Last 24 Hours (Table) 09/22/21 16:51 Blood Culture - Final Blood No Growth after 144 hours Assessment and Plan (1) Lower GI bleed Narrative/Plan: Patient did have some additional blood per rectum however this could be old blood that we are witnessing now. Will begin full liquid diet. Continue to f ollow hemoglobin. Current Visit: Yes Status: Acute Code(s): K92.2 - GASTROINTESTINAL HEMORRHAGE, UNSPECIFIED SNOMED Code(s): 60733412
[2021-09-29 13:07] LABS: Basophils % (A) 0 %; Eosinophils # (A) 0.1 k/uL (0-0.7); Eosinophils % (A) 1 %; HCT 25.9 % (34.0-46.0); HGB 8.3 gm/dL (11.4-16.0); Lymphocytes # (A) 0.1 k/uL (1.0-4.8); Lymphocytes % (A) 1 %; MCH 31.5 pg (25.0-35.0); MCHC 32.2 g/dL (31.0-37.0); Mean Platelet Volume 8.3; Monocytes # (A) 0.2 k/uL (0-1.0); Monocytes % (A) 2 %; Neutrophils # (A) 8.5 k/uL (1.3-7.7); Neutrophils % (A) 96 %; Platelet Count 134 k/uL (150-450); RBC 2.64 m/uL (3.80-5.40); RDW 13.8 % (11.5-15.5); WBC 8.8 k/uL (3.8-10.6)
[2021-09-29] MEDS: DOCUSATE 100 MG CAP PO SCH ×2 (13:59→20:39)
[2021-09-29] MEDS: methylPREDNISolone SOD SUCCI 125 MG/2 ML VIAL IV SCH (14:49)
--- NOTE | 2021-09-29 22:43 | PN ---
PROGRESS NOTE She has COVID pneumonia. She was transferred to the 4th floor out of the ICU today. She is saturating 94% on 9 L, and she was as high as 98 on 9 L today. Blood pressure 101/66, pulse in the 90s, temperature 98.1. CARDIOVASCULAR: S1, S2. LUNGS: Decreased breath sounds x4. Hemoglobin is 8.3. We are going to keep her on Venofer for iron infusions, as she has some small case of a GI bleed. We weaned her down from 15 L to 9 L, which is a miracle. She is breathing better. Prognosis guarded. Continue COVID treatments. Check for GI bleed. MMODL / IJN: [id number] /
--- NOTE | 2021-09-29 22:57 | PN ---
PROGRESS NOTE DATE OF SERVICE: 09/29/2021 REASON FOR FOLLOWUP: COVID-19 pneumonia. INTERVAL HISTORY: The patient is afebrile. The patient is breathing more comfortably. She is currently down to 9 L nasal cannula. Denies having any chest pain or worsening cough or abdominal pain and no further bleeding per rectum. PHYSICAL EXAMINATION: Blood pressure 101/66, pulse of 94, temperature 98.1. She is 94% on 9 L nasal cannula. General description is an elderly female up in the chair in no distress. Respiratory system: Unlabored breathing, decreased intensity of breath sounds. No wheeze. Heart S1, S2. Regular rate and rhythm. Abdomen soft, no tenderness. LABS: Hemoglobin is 8.3, white count 8.8, creatinine 0.40. DIAGNOSTIC IMPRESSION AND PLAN: Patient with acute COVID-19 pneumonia. This patient seems to have shown overall clinical improvement. Patient currently down to 9 L nasal cannula. She is covered with Solu-Medrol, zinc and ascorbic acid along with respiratory support. Will recheck her to see if there is any need for further antibiotic therapy at this point. Continue supportive care. MMODL / IJN: [id number] /
[2021-09-30] MEDS: methylPREDNISolone SOD SUCCI 40 MG/ML 1 ML VIAL IV SCH ×3 (00:05→15:46)
[2021-09-30] MEDS: PIPERACILLIN-TAZOBACTAM 3.375 GM in SODIUM CHLORIDE 0.9% 100 ML IVPB SCH ×3 (00:05→16:06)
[2021-09-30] MEDS: SODIUM CHLORIDE 0.9% 1,000 ML IV SCH ×3 (03:33→20:45)
[2021-09-30] MEDS: LEVOTHYROXINE 75 MCG TAB PO SCH (04:52)
[2021-09-30] MEDS: SYMBICORT 160-4.5 MCG INHALER INHALATION SCH ×2 (08:38→20:24)
[2021-09-30] MEDS: SODIUM FERRIC GLUCONAT-SUCROSE 125 MG in SODIUM CHLORIDE 0.9% 100 ML IVPB SCH (09:14)
[2021-09-30] MEDS: PANTOPRAZOLE 40 MG/10 ML VIAL IVP SCH ×2 (09:16→20:45)
[2021-09-30] MEDS: AZITHROMYCIN 500 MG TAB PO SCH (09:18)
[2021-09-30] MEDS: ASCORBIC ACID 500 MG TAB PO SCH (09:18)
[2021-09-30] MEDS: VIT A,C & E-LUTEIN-MINERALS 1 EACH TAB PO SCH ×2 (09:18→20:45)
[2021-09-30] MEDS: ZINC SULFATE 220 MG CAP PO SCH (09:19)
[2021-09-30] MEDS: FLUTICASONE 50MCG/SPRAY NASAL 16GM EA NOSTRIL SCH (09:19)
[2021-09-30] MEDS: DOCUSATE 100 MG CAP PO SCH ×2 (09:19→20:45)
[2021-09-30] MEDS: ATORVASTATIN 40 MG TAB PO SCH (09:19)
--- NOTE | 2021-09-30 09:57 | P.PN ---
Subjective Progress Note Date: 09/29/21 Principal diagnosis: Lower GI bleed Acute diverticulitis Acute hypoxic respiratory failure Sepsis due to COVID-19 pneumonia with elevated lactic acid COVID-19 pneumonia Electrolyte imbalance with hypokalemia Elevated liver enzymes Elevated d-dimer and Normal pro-calcitonin 09/29/2021, patient seen eval examined during the rounds respiratory status remained stable, continued to require less somewhat low oxygen, discussed with the respiratory therapist intervened and titrate oxygen down as tolerated maybe 1 L a day to keep saturation over 88% and above, general surgery is following for lower GI bleed hemoglobin however remains stable intermittent dark stools still present, anti-thrombolytic candidate for anticoagulants on hold including DVT prophylaxis along with aspirin and Plavix September 28 2021, patient seen and evaluated examined in the ICU awake and alert breathing comfortably, on 15 L mask saturation is 98%, denies any chest pain denies any cough or sputum production no more bleeding for the last 12 hours has been seen, hemoglobin dropped down to 8.4 appears to be post loss and dilutional effect, white cell count is 10,000 hemoglobin and hematocrit 8.425 platelets are 120 61,000, BUN/creatinine is 21.3. Sodium was 135, medications include Zithr omax Solu-Medrol 40 every 8 Protonix 40 mg twice a day Zosyn and zinc. Computed tomography scan of the chest and pelvis reviewed, bases of x-ray shows interstitial infiltrate consistent with COVID-19 pneumonia L1 compression fracture seen no acute pathology identified on computed tomography scan of the abdominal and pelvis 09/26/2021, patient seen eval examined during the rounds patient has a massive lower GI bleed after that patient was starting feeling dizzy lightheaded blood was bright red patient emergently transferred to ICU Y tones were check blood pressure is stable status CBC was sent hemoglobin remained stable at 12 however patient has been rehydrated to 1 L of crystalloids has been given patient has been started on 100 mL an hour, Protonix have been changed to 40 mg IV every 12, general surgery on consult, will put patient on IV Zosyn likely diverticular bleed, will stop Lovenox, Plavix and aspirin for now, we'll check hemoglobin and hematocrit every 8 hourly, patient however remains on 15 L high flow oxygen sats are 96-97% significantly improved however we'll decrease IV steroids to every 8 instead of 60 every 6, critical care time spent 35 minutes 09/24/2021, patient seen eval examined during the rounds labs reviewed medications reviewed care plan discussed, respiratory status remains stable denies any chest pain, patient remains on high flow oxygen and needed has been using nonrebreather mask saturation are now mid 90s to low 90s, chest x-ray done earlier this morning reviewed no pneumothorax is seen, patient will get a midline, would plan to continue IV steroids and supportive care 09/23/2021, patient seen eval reexamined during the rounds patient has been on 12 L high flow oxygen with that her sats are about 88-90%, as needed she has been using nonrebreather mask, chest x-ray performed today reviewed decrease in size of the mediastinal emphysema is noted, pneumothorax seen on the right upper extremity with sleep not visualized anymore, lactic acid as well as normalized, 09/22/2021, patient seen eval examined during the rounds care plan discussed with RN at length, labs reviewed radiographic studies reviewed, and computed tomography scan of his chest reviewed as well, patient has incidental tiny right-sided apical pneumothorax discovered, no significant change in oxygenation patient remains on the 12 L high flow oxygen and as needed 100% nonrebreather mask saturation 88-90%, denies any chest pain some discomfort as needed improved with the Tylenol, patient remains on IV steroids, today's x-ray shows some improvement in tiny pneumothorax as well as 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, thoracic surgery is on consult in case emergent chest tube is required, noted lactic acid slightly elevated showing up or trend, patient is on Zithromax we will add cephapirin as well for healthcare associated pneumonia, computed tomography scan x-ray remains unchanged continue show bilateral basal infiltrate as well as patchy upper lobe infiltrate consistent with COVID-19 pneumonia, white cell count improved to 11,400, platelet count 4 60,000, lactic acid is 2.4 subsequent 2.6, pro-calcitonin has been normal 0.03 still September 20, 09/19/2021, patient seen eval examined, oxygen remains low requiring sup plemental oxygen with 12-13 L high flow intermittently has been using mask as well, remains afebrile, labs reviewed white cell count 16,400 hemoglobin and hematocrit is 30 and 40, rehab has been following for placement, ID service following patient is still on too much oxygen to place and the rehab, pro- calcitonin remains normal 09/18/2021, patient seen eval examined during the rounds labs reviewed medications reviewed care plan discussed, oxygen saturation remained stable 92% on the high flow oxygen 12 L but however patient continued to require nonrebreather mask on top of that intermittently especially during some motion movement and activity, remains afebrile, will decrease the Solu-Medrol to every 12 now Other supportive measures and therapy 09/17/2021, patient seen eval examined during the rounds labs reviewed medications reviewed care plan discussed, history status patient is still short of breath continued to require high flow oxygen via nasal cannula as well as nasal mask as needed, that oxygen saturation improved to 91-92%, patient remains afebrile, remains on IV steroids supplements and Lovenox for anticoagulation, less distress is used to see before 09/16/2021, patient seen eval examined during the rounds labs reviewed medications reviewed care plan discussed, respiratory status remains marginal get short of breath activity and exertion, patient still have dry nonproductive cough, she is on 12 L high flow oxygen at times he uses a mask as well, she is afebrile with heart rate of 102, blood pressure HEENT hemodynamic stable oxygen saturation improved to 90-94% now, chest x-ray earlier this morning continued to show multifocal diffuse reticular and radicular nodular appearance bilaterally 09/15/2021, patient overall in good spirits breathing comfortably but get short of breath on activity and exertion continue to have intermittent dry cough, patient remains on 12 L high flow oxygen along with as needed 15 L face mask, remains afebrile, oxygen saturation is mostly 89-92%, d-dimer remains elevated, patient remains on the Lovenox IV steroids will repeat follow-up chest x-ray 09/13/2021, patient seen eval examined during the rounds labs reviewed medica tions reviewed care plan discussed, patient remains on the 15 L high flow oxygen along with nonrebreather mask with that saturation is 88-90%, labs from today reviewed white cell count come down to 8000, labs stable production up to 3.9, BUN/creatinine 22/.6, 09/12/2021, patient seen eval examined during the rounds labs reviewed medications reviewed care plan discussed, respiratory status is still marginal but stable, patient remains on 100% oxygen nonrebreather mask, T-max is 99.4, saturation is 89% to 90%, computed tomography scan of his chest consistent with interstitial pneumonia and COVID-19, no pulmonary embolism seen, patient remains on IV steroids and anticoagulation breathing treatment and continuation of home medications, Patient is a 76-year-old female who came into the hospital with increasing aches and pains malaise, symptoms started about 10-12 days ago, patient has outpatient covert testing which was negative however due to worsening system symptoms she decided to come into the hospital, patient oxygen saturation was just 75% in triage at room air, her appetite has been poor as well on specific questioning she denies any chest pain, denies any nausea vomiting diarrhea Past medical history significant for hypothyroidism, GERD, history of TIA, hypertension and hypertensive cardiovascular disease, thyroid disorder, history of the stroke,/TIA, patient is a nonsmokerhistory of substance In emergency department she underwent a chest x-ray which revealed bilateral patchy infiltrate more so on the bases on the right side compared to left side, EKG revealed sinus tachycardia, echocardiogram revealed ejection fraction 55%, mild TR and MR was noted along with AR, labs are significant for leukocytosis with WBC count of 14,600, primarily elevated 0.7, sodium is 1:30" 3.3, BUN/creatinine 16.67, glucose 155, AST and ALT Elevated, lactic acid is 3.3,, T-max 100.6 now currently afebrile, she is 90% on 15 L nonrebreather mask improved to 94% currently on 15 L nonrebreather mask, she came back positive for COVID-19 infection PCR, pro-calcitonin also elevated of 0.13 currently she is being treated with Y Lucinda as well as Zithromax, Decadron 6 mg daily, Lovenox 40 mg daily Objective - Vital Signs Vital signs: Vital Signs Temp 97.9 F 09/29/21 12:00 Pulse 75 09/29/21 12:00 Resp 16 09/29/21 12:00 BP 116/72 09/29/21 12:00 Pulse Ox 96 09/29/21 12:00 Intake & Output 09/28/21 09/29/21 09/29/21 18:59 06:59 18:59 Intake Total 1425 1140 Output Total 300 1 1 Balance 1125 1139 -1 Weight 84.6 kg Intake: IV 1325 900 Piperacillin-Tazobactam 3 125 .375 gm In Sodium Chloride 0.9% 100 ml @ 25 mls/hr IVPB Q8HR [facility] Rx# :[id number] Sodium Chloride 0.9% 1, 1200 900 000 ml @ 100 mls/hr IV . Q10H [facility] Rx#:[id number] Intake, IV Titration 100 Amount Piperacillin-Tazobactam 3 100 .375 gm In Sodium Chloride 0.9% 100 ml @ 25 mls/hr IVPB Q8HR [facility] Rx# :[id number] Oral 240 Output: Urine 300 Stool 1 1 Other: Voiding Method External Catheter External Catheter # Voids 2 1 # Bowel Movements 1 - Exam - Constitutional General appearance: mild distress, bleeding currently stopped now - EENT Eyes: PERRLA Ears: bilateral: normal - Neck Neck: normal ROM Carotids: bilateral: upstroke normal - Respiratory Respiratory: bilateral: diminished - Cardiovascular Rhythm: regular Heart sounds: normal: S1, S2 - Gastrointestinal General gastrointestinal: decreased bowel sounds - Neurologic Neurologic: CNII-XII intact - Musculoskeletal Musculoskeletal: generalized weakness - Psychiatric Psychiatric: A&O x's 3, appropriate affect - Labs CBC & Chem 7: 09/29/21 12:56 09/29/21 04:47 Labs: Abnormal Lab Results - Last 24 Hours (Table) 09/28/21 09/29/21 09/29/21 Range/Units 20:48 04:47 04:47 RBC 2.61 L 2.52 L (3.80-5.40) m/uL Hgb 8.5 L 8.1 L (11.4-16.0) gm/dL Hct 25.1 L 23.7 L (34.0-46.0) % Plt Count (150-450) k/uL Neutrophils # 8.7 H 8.6 H (1.3-7.7) k/uL Lymphocytes # 0.2 L 0.1 L (1.0-4.8) k/uL Sodium 132 L (137-145) mmol/L Creatinine 0.40 L (0.52-1.04) mg/dL Glucose 127 H (74-99) mg/dL Calcium 7.2 L (8.4-10.2) mg/dL Total Protein 3.8 L (6.3-8.2) g/dL Albumin 1.8 L (3.5-5.0) g/dL 09/29/21 Range/Units 12:56 RBC 2.64 L (3.80-5.40) m/uL Hgb 8.3 L (11.4-16.0) gm/dL Hct 25.9 L (34.0-46.0) % Plt Count 134 L (150-450) k/uL Neutrophils # 8.5 H (1.3-7.7) k/uL Lymphocytes # 0.1 L (1.0-4.8) k/uL Sodium (137-145) mmol/L Creatinine (0.52-1.04) mg/dL Glucose (74-99) mg/dL Calcium (8.4-10.2) mg/dL Total Protein (6.3-8.2) g/dL Albumin (3.5-5.0) g/dL Microbiology - Last 24 Hours (Table) 09/22/21 16:51 Blood Culture - Final Blood No Growth after 144 hours Assessment and Plan Assessment: Lower GI bleed overall stable Acute blood loss anemia source of bleeding not checked identified appears to be lower GI bleed now stable Pneumothorax right side resolved 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 Sepsis related to COVID-19 pneumonia Acute hypoxic respiratory failure COVID-19 pneumonia 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 Electrolyte imbalance with hypokalemia Elevated liver enzymes Elevated d-dimer and pro-calcitonin due to chronic inflammation Plan: Continue gentle rehydration Protonix 40 mg IV every 12 Zosyn 3.375 every 8 hourly for diverticulosis/diverticulitis finish 5-7 day therapy We will check another hemoglobin and hematocrit later on today and then CBC once daily General surgery on consult recommendation noted and appreciated Hold aspirin and Plavix and Lovenox Patient can be moved out of ICU Continue steroid we'll taper to twice a day in next 24 hours Monitor off of Baricitinib, Continue deep breathing exercises incentive spirometry Continue high flow oxygen with deep breathing exercise incentive spirometry Titrated oxygen down as tolerated Once stable will do the computed tomography scan of the abdominal and pelvis Time with Patient: Greater than 30
--- NOTE | 2021-09-30 10:01 | P.PN ---
Subjective Progress Note Date: 09/30/21 Principal diagnosis: Lower GI bleed Acute diverticulitis Acute hypoxic respiratory failure Sepsis due to COVID-19 pneumonia with elevated lactic acid COVID-19 pneumonia Electrolyte imbalance with hypokalemia Elevated liver enzymes Elevated d-dimer and Normal pro-calcitonin 09/30/2021, patient seen eval examined during rounds, patient is still short of breath on activity and exertion, on high flow oxygen 10 L currently she is down from 15 L, oxygen saturation 98%, white cell count 8800, hemoglobin is 8.3 which remains however stable 09/29/2021, patient seen eval examined during the rounds respiratory status remained stable, continued to require less somewhat low oxygen, discussed with the respiratory therapist intervened and titrate oxygen down as tolerated maybe 1 L a day to keep saturation over 88% and above, general surgery is following for lower GI bleed hemoglobin however remains stable intermittent dark stools still present, anti-thrombolytic candidate for anticoagulants on hold including DVT prophylaxis along with aspirin and Plavix September 28 2021, patient seen and evaluated examined in the ICU awake and alert breathing comfortably, on 15 L mask saturation is 98%, denies any chest pain denies any cough or sputum production no more bleeding for the last 12 hours has been seen, hemoglobin dropped down to 8.4 appears to be post loss and dilutional effect, white cell count is 10,000 hemoglobin and hematocrit 8.425 platelets are 120 61,000, BUN/creatinine is 21.3. Sodium was 135, medications include Zithromax Solu-Medrol 40 every 8 Protonix 40 mg twice a day Zosyn and zinc. Computed tomography scan of the chest and pelvis reviewed, bases of x-ray shows interstitial infiltrate consistent with COVID-19 pneumonia L1 compression fracture seen no acute pathology identified on computed tomography scan of the abdominal and pelvis 09/26/2021, patient seen eval examined during the rounds patient has a massive lower GI bleed after that patient was starting feeling dizzy lightheaded blood was bright red patient emergently transferred to ICU Y tones were check blood pressure is stable status CBC was sent hemoglobin remained stable at 12 however patient has been rehydrated to 1 L of crystalloids has been given patient has been started on 100 mL an hour, Protonix have been changed to 40 mg IV every 12, general surgery on consult, will put patient on IV Zosyn likely diverticular bleed, will stop Lovenox, Plavix and aspirin for now, we'll check hemoglobin and hematocrit every 8 hourly, patient however remains on 15 L high flow oxygen sats are 96-97% significantly improved however we'll decrease IV steroids to every 8 instead of 60 every 6, critical care time spent 35 minutes 09/24/2021, patient seen eval examined during the rounds labs reviewed medications reviewed care plan discussed, respiratory status remains stable denies any chest pain, patient remains on high flow oxygen and needed has been using nonrebreather mask saturation are now mid 90s to low 90s, chest x-ray done earlier this morning reviewed no pneumothorax is seen, patient will get a midline, would plan to continue IV steroids and supportive care 09/23/2021, patient seen eval reexamined during the rounds patient has been on 12 L high flow oxygen with that her sats are about 88-90%, as needed she has been using nonrebreather mask, chest x-ray performed today reviewed decrease in size of the mediastinal emphysema is noted, pneumothorax seen on the right upper extremity with sleep not visualized anymore, lactic acid as well as normalized, 09/22/2021, patient seen eval examined during the rounds care plan discussed with RN at length, labs reviewed radiographic studies reviewed, and computed tomography scan of his chest reviewed as well, patient has incidental tiny right-sided apical pneumothorax discovered, no significant change in oxygenation patient remains on the 12 L high flow oxygen and as needed 100% nonrebreather mask saturation 88-90%, denies any chest pain some discomfort as needed improved with the Tylenol, patient remains on IV steroids, today's x-ray shows some improvement in tiny pneumothorax as well as 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, thoracic surgery is on consult in case emergent chest tube is required, noted lactic acid slightly elevated showing up or trend, patient is on Zithromax we will add cephapirin as well for healthcare associated pneumonia, computed tomography scan x-ray remains unchanged continue show bilateral basal infiltrate as well as patchy upper lobe infiltrate consistent with COVID-19 pneumonia, white cell count improved to 11,400, platelet count 4 60,000, lactic acid is 2.4 subsequent 2.6, pro-calcitonin has been normal 0.03 still September 20, 09/19/2021, patient seen eval examined, oxygen remains low requiring supplemental oxygen with 12-13 L high flow intermittently has been using mask as well, remains afebrile, labs reviewed white cell count 16,400 hemoglobin and hematocrit is 30 and 40, rehab has been following for placement, ID service fol bunny patient is still on too much oxygen to place and the rehab, pro- calcitonin remains normal 09/18/2021, patient seen eval examined during the rounds labs reviewed medications reviewed care plan discussed, oxygen saturation remained stable 92% on the high flow oxygen 12 L but however patient continued to require nonrebreather mask on top of that intermittently especially during some motion movement and activity, remains afebrile, will decrease the Solu-Medrol to every 12 now Other supportive measures and therapy 09/17/2021, patient seen eval examined during the rounds labs reviewed medic ations reviewed care plan discussed, history status patient is still short of breath continued to require high flow oxygen via nasal cannula as well as nasal mask as needed, that oxygen saturation improved to 91-92%, patient remains afebrile, remains on IV steroids supplements and Lovenox for anticoagulation, less distress is used to see before 09/16/2021, patient seen eval examined during the rounds labs reviewed medications reviewed care plan discussed, respiratory status remains marginal get short of breath activity and exertion, patient still have dry nonproductive cough, she is on 12 L high flow oxygen at times he uses a mask as well, she is afebrile with heart rate of 102, blood pressure HEENT hemodynamic stable oxygen saturation improved to 90-94% now, chest x-ray earlier this morning continued to show multifocal diffuse reticular and radicular nodular appearance bilaterally 09/15/2021, patient overall in good spirits breathing comfortably but get short of breath on activity and exertion continue to have intermittent dry cough, patient remains on 12 L high flow oxygen along with as needed 15 L face mask, remains afebrile, oxygen saturation is mostly 89-92%, d-dimer remains elevated, patient remains on the Lovenox IV steroids will repeat follow-up chest x-ray 09/13/2021, patient seen eval examined during the rounds labs reviewed medications reviewed care plan discussed, patient remains on the 15 L high flow oxygen along with nonrebreather mask with that saturation is 88-90%, labs from today reviewed white cell count come down to 8000, labs stable production up to 3.9, BUN/creatinine 22/.6, 09/12/2021, patient seen eval examined during the rounds labs reviewed me dications reviewed care plan discussed, respiratory status is still marginal but stable, patient remains on 100% oxygen nonrebreather mask, T-max is 99.4, saturation is 89% to 90%, computed tomography scan of his chest consistent with interstitial pneumonia and COVID-19, no pulmonary embolism seen, patient remains on IV steroids and anticoagulation breathing treatment and continuation of home medications, Patient is a 76-year-old female who came into the hospital with increasing aches and pains malaise, symptoms started about 10-12 days ago, patient has outpatient covert testing which was negative however due to worsening system symptoms she decided to come into the hospital, patient oxygen saturation was just 75% in triage at room air, her appetite has been poor as well on specific questioning she denies any chest pain, denies any nausea vomiting diarrhea Past medical history significant for hypothyroidism, GERD, history of TIA, hypertension and hypertensive cardiovascular disease, thyroid disorder, history of the stroke,/TIA, patient is a nonsmokerhistory of substance In emergency department she underwent a chest x-ray which revealed bilateral patchy infiltrate more so on the bases on the right side compared to left side, EKG revealed sinus tachycardia, echocardiogram revealed ejection fraction 55%, mild TR and MR was noted along with AR, labs are significant for leukocytosis with WBC count of 14,600, primarily elevated 0.7, sodium is 1:30" 3.3, BUN/creatinine 16.67, glucose 155, AST and ALT Elevated, lactic acid is 3.3,, T-max 100.6 now currently afebrile, she is 90% on 15 L nonrebreather mask improved to 94% currently on 15 L nonrebreather mask, she came back positive for COVID-19 infection PCR, pro-calcitonin also elevated of 0.13 currently she is being treated with Y Lucinda as well as Zithromax, Decadron 6 mg daily, Lovenox 40 mg daily Objective - Vital Signs Vital signs: Vital Signs Temp 98.0 F 09/30/21 05:41 Pulse 87 09/30/21 05:41 Resp 20 09/30/21 05:41 BP 93/61 09/30/21 05:41 Pulse Ox 98 09/30/21 08:39 Intake & Output 09/29/21 09/30/21 09/30/21 18:59 06:59 18:59 Intake Total 100 Output Total 1 Balance 99 Intake: Intake, IV Titration 100 Amount Piperacillin-Tazobactam 3 100 .375 gm In Sodium Chloride 0.9% 100 ml @ 25 mls/hr IVPB Q8HR [facility] Rx# :[id number] Output: Stool 1 Other: # Voids 1 2 - Exam - Constitutional General appearance: mild distress, bleeding currently stopped now - EENT Eyes: PERRLA Ears: bilateral: normal - Neck Neck: normal ROM Carotids: bilateral: upstroke normal - Respiratory Respiratory: bilateral: diminished - Cardiovascular Rhythm: regular Heart sounds: normal: S1, S2 - Gastrointestinal General gastrointestinal: decreased bowel sounds - Neurologic Neurologic: CNII-XII intact - Musculoskeletal Musculoskeletal: generalized weakness - Psychiatric Psychiatric: A&O x's 3, appropriate affect - Labs CBC & Chem 7: 09/29/21 12:56 09/29/21 04:47 Labs: Abnormal Lab Results - Last 24 Hours (Table) 09/29/21 Range/Units 12:56 RBC 2.64 L (3.80-5.40) m/uL Hgb 8.3 L (11.4-16.0) gm/dL Hct 25.9 L (34.0-46.0) % Plt Count 134 L (150-450) k/uL Neutrophils # 8.5 H (1.3-7.7) k/uL Lymphocytes # 0.1 L (1.0-4.8) k/uL Assessment and Plan Assessment: Lower GI bleed overall stable Acute blood loss anemia source of bleeding not checked identified appears to be lower GI bleed now stable Pneumothorax right side resolved 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 Sepsis related to COVID-19 pneumonia Acute hypoxic respiratory failure COVID-19 pneumonia 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 Electrolyte imbalance with hypokalemia Elevated liver enzymes Elevated d-dimer and pro-calcitonin due to chronic inflammation Plan: Continue gentle rehydration Protonix 40 mg IV every 12 Zosyn 3.375 every 8 hourly for diverticulosis/diverticulitis finish 5-7 day therapy We will check another hemoglobin and hematocrit later on today and then CBC once daily General surgery on consult recommendation noted and appreciated Hold aspirin and Plavix and Lovenox Patient can be moved out of ICU Continue steroid we'll taper to twice a day in next 24 hours Monitor off of Baricitinib, Continue deep breathing exercises incentive spirometry Continue high flow oxygen with deep breathing exercise incentive spirometry Titrated oxygen down as tolerated Once stable will do the computed tomography scan of the abdominal and pelvis Time with Patient: Greater than 30
--- NOTE | 2021-09-30 10:07 | P.PN ---
<Portia Armstrong - Last Filed: 09/30/21 09:59> Subjective Progress Note Date: 09/30/21 CHIEF COMPLAINT: GI bleed HISTORY OF PRESENT ILLNESS: This 76-year-old female was admitted with Covid pneumonia. His hospitalization she became very dizzy and had a syncopal episode. She had a large amount of bright red blood per rectum. Her last colonoscopy was 3-5 years ago significant for polyps and diverticulosis. She had a CT of the abdomen L acute abnormality within the abdomen and pelvis. Likely dealing with a diverticular bleed which is resolving. Patient had a small amount of maroon colored stool yesterday evening. She is denying any dizziness, denies abdominal pain, nausea, or vomiting. She's had no coffee- ground or hematemesis. Hemoglobin has been stable today's hemoglobin at 8.3. Today's labs are currently pending. She's been prior, vital signs stable. PHYSICAL EXAM: VITAL SIGNS: Reviewed. GENERAL: Well-developed in no acute distress. HEENT: No sclera icterus. Extraocular movements grossly intact. Moist buccal mucosa. Head is atraumatic, normocephalic. ABDOMEN: Soft. Nondistended. Nontender. NEUROLOGIC: Alert and oriented. Cranial nerves II through XII grossly intact. ASSESSMENT: 1. Lower GI bleed likely diverticular PLAN: -Continue full liquid diet for now, consider advancing this evenin -No plans at this time for endoscopic evaluation -Continue to follow hemoglobin The impression and plan of care has been dictated as directed. Dr. Radu Grier I performed a history and examination of this patient, discussed the same with the dictator. I agree with the dictator's note ,documented as a scribe. Any additional findings or plans will be noted. Objective - Vital Signs Vital signs: Vital Signs Temp 98.0 F 09/30/21 05:41 Pulse 87 09/30/21 05:41 Resp 20 09/30/21 05:41 BP 93/61 09/30/21 05:41 Pulse Ox 98 09/30/21 05:41 Intake & Output 09/29/21 09/30/21 09/30/21 18:59 06:59 18:59 Intake Total 100 Output Total 1 Balance 99 Intake: Intake, IV Titration 100 Amount Piperacillin-Tazobactam 3 100 .375 gm In Sodium Chloride 0.9% 100 ml @ 25 mls/hr IVPB Q8HR [facility] Rx# :[id number] Output: Stool 1 Other: # Voids 1 2 - Labs CBC & Chem 7: 09/29/21 12:56 09/29/21 04:47 Labs: Abnormal Lab Results - Last 24 Hours (Table) 09/29/21 Range/Units 12:56 RBC 2.64 L (3.80-5.40) m/uL Hgb 8.3 L (11.4-16.0) gm/dL Hct 25.9 L (34.0-46.0) % Plt Count 134 L (150-450) k/uL Neutrophils # 8.5 H (1.3-7.7) k/uL Lymphocytes # 0.1 L (1.0-4.8) k/uL <Capo Grier - Last Filed: 09/30/21 16:25> Subjective As above. Patient did have some additional bleeding. Hemoglobin decreased further today. She remains asymptomatic. Begin clear liquids. Will plan colonoscopy or Wednesday. Agree with plans for transfusion. Objective - Vital Signs Vital signs: Vital Signs Temp 98.1 F 09/30/21 15:35 Pulse 92 09/30/21 15:35 Resp 20 09/30/21 13:51 BP 96/62 09/30/21 15:35 Pulse Ox 95 09/30/21 15:35 Intake & Output 09/29/21 09/30/21 09/30/21 18:59 06:59 18:59 Intake Total 100 279 Output Total 1 Balance 99 279 Weight 84.6 kg Intake: Intake, IV Titration 100 Amount Piperacillin-Tazobactam 3 100 .375 gm In Sodium Chloride 0.9% 100 ml @ 25 mls/hr IVPB Q8HR [facility] Rx# :[id number] Blood Product 279 Rc Pheresis 2 As3 Unit 279 [id number] Output: Stool 1 Other: # Voids 1 2 - Labs CBC & Chem 7: 09/30/21 06:04 09/30/21 06:04 Labs: Abnormal Lab Results - Last 24 Hours (Table) 09/30/21 09/30/21 09/30/21 Range/Units 06:04 06:04 12:28 RBC 2.22 L (4.10-5.20) X 10*6/uL Hgb 6.8 L* (12.0-15.0) g/dL Hct 21.2 L (37.2-46.3) % RDW 15.1 H (11.5-14.5) % Plt Count 124 L (140-440) X 10*3/uL Absolute Nucleated RBC 0.03 H (0.00-0.00) X 10*3/uL Immature Gran # 0.07 H (0.00-0.04) X 10*3/uL Lymphocytes # 0.18 L (0.90-5.00) X 10*3/uL Eosinophils # 0.02 L (0.04-0.35) X 10*3/uL NRBC/100 WBC Diff 0.4 H (0.0-0.0) /100 WBCS Potassium 3.4 L (3.5-5.5) mmol/L Chloride 110 H (96-109) mmol/L BUN 7.6 L (9.0-27.0) mg/dL Creatinine 0.4 L (0.6-1.5) mg/dL Glucose 135 H (70-110) mg/dL Calcium 7.1 L (8.7-10.3) mg/dL Total Protein 3.4 L (6.2-8.2) g/dL Albumin 2.0 L (3.8-4.9) g/dL Globulin 1.4 L (1.6-3.3) g/dL Albumin/Globulin Ratio 1.43 L (1.60-3.17) g/dL Crossmatch See Detail Assessment and Plan (1) Lower GI bleed Current Visit: Yes Status: Acute Code(s): K92.2 - GASTROINTESTINAL HEMORRHAGE, UNSPECIFIED SNOMED Code(s): 42320139
[2021-09-30 11:06] LABS: African American GFR (CKD) 117.3 (60.0-200.0); Albumin/Globulin Ratio 1.43 (1.60-3.17); Anion Gap 8.5 mmol/L (4.00-12.00); Blood Urea Nitrogen 7.6 mg/dL (9.0-27.0); Calcium 7.1 mg/dL (8.7-10.3); Carbon Dioxide 22.5 mmol/L (21.6-31.8); Globulin 1.4 g/dL (1.6-3.3); Non-African American GFR(CKD) 101.2 (60.0-200.0); Potassium 3.4 mmol/L (3.5-5.5); Total Bilirubin 0.4 mg/dL (0.30-1.20); Total Protein 3.4 g/dL (6.2-8.2)
[2021-09-30 11:22] LABS: Basophils # (A) 0 X 10*3/uL (0.00-0.10); Basophils % (A) 0 %; Eosinophils # (A) 0.02 X 10*3/uL (0.04-0.35); Eosinophils % (A) 0.2 %; HCT 21.2 % (37.2-46.3); HGB 6.8 g/dL (12.0-15.0); Lymphocytes # (A) 0.18 X 10*3/uL (0.90-5.00); Lymphocytes % (A) 2.2 %; MCH 30.6 pg (27.0-32.0); MCHC 32.1 g/dL (32.0-37.0); MCV 95.5 fL (80.0-97.0); Mean Platelet Volume 11.1 fL (9.5-12.2); Monocytes # (A) 0.37 X 10*3/uL (0.20-1.00); Monocytes % (A) 4.5 %; Neutrophils # (A) 7.67 X 10*3/uL (1.80-7.70); Neutrophils % (A) 92.3 %; Platelet Count 124 X 10*3/uL (140-440); RBC 2.22 X 10*6/uL (4.10-5.20); RDW 15.1 % (11.5-14.5); WBC 8.31 X 10*3/uL (4.50-10.00)
[2021-09-30 14:21] VITALS: BMI 32.0
[2021-09-30 21:23] LABS: % Iron Saturation 96.57 (12.00-45.00)
--- NOTE | 2021-09-30 23:42 | PN ---
PROGRESS NOTE DATE OF SERVICE: 09/30/2021 REASON FOR FOLLOWUP: COVID-19 pneumonia. INTERVAL HISTORY: The patient is afebrile. The patient is breathing more comfortably. The patient denies having any chest pain, shortness of breath or cough. No abdominal pain or diarrhea. PHYSICAL EXAMINATION: Blood pressure 115/70 with a pulse of 79, temperature 97.8. General description is an elderly female up in the bed in no distress. Respiratory system: Unlabored breathing, decreased intensity of breath sounds. No wheeze. Heart S1, S2. Regular rate and rhythm. Abdomen soft, no tenderness. LABS: Hemoglobin , white count 8.3, creatinine 0.49. DIAGNOSTIC IMPRESSION AND PLAN: Patient with acute COVID-19 pneumonia in this patient who seems to have shown some clinical improvement, having received a 2-week course of baricitinib. Patient is currently on Solu-Medrol, zinc and ascorbic acid; to continue along with respiratory support. Monitor clinical course closely. MMODL / IJN: [id number] /
[2021-10-01] MEDS: methylPREDNISolone SOD SUCCI 40 MG/ML 1 ML VIAL IV SCH ×4 (00:01→23:11)
[2021-10-01] MEDS: PIPERACILLIN-TAZOBACTAM 3.375 GM in SODIUM CHLORIDE 0.9% 100 ML IVPB SCH ×4 (00:01→23:11)
--- NOTE | 2021-10-01 00:27 | PN ---
PROGRESS NOTE COVID-19. Patient is much better. Saturating 96 on 6 L. Blood pressure 116/66, temperature 97.4. CARDIOVASCULAR: S1, S2. LUNGS: Scattered rhonchi, wheeze. GI: Soft. HEMATOLOGY: Negative Homans. ASSESSMENT: 1. COVID-19 pneumonia. 2. Acute hypoxemic respiratory distress. 3. Severe anemia with hemoglobin 6.8. We are going to have to transfuse a unit of blood. Continue to monitor for signs of GI bleeding. Prognosis guarded. Continue with Venofer infusions. Prognosis guarded. MMODL / IJN: [id number] /
[2021-10-01] MEDS: LEVOTHYROXINE 75 MCG TAB PO SCH (06:00)
[2021-10-01] MEDS: SODIUM CHLORIDE 0.9% 1,000 ML IV SCH ×3 (06:05→22:11)
[2021-10-01] MEDS: VIT A,C & E-LUTEIN-MINERALS 1 EACH TAB PO SCH ×2 (08:22→19:59)
[2021-10-01] MEDS: ERGOCALCIFEROL 1,250 MCG (50,000 IU) CAPSULE PO SCH (08:22)
[2021-10-01] MEDS: AZITHROMYCIN 500 MG TAB PO SCH (08:22)
[2021-10-01] MEDS: ZINC SULFATE 220 MG CAP PO SCH (08:23)
[2021-10-01] MEDS: DOCUSATE 100 MG CAP PO SCH ×2 (08:23→20:00)
[2021-10-01] MEDS: ASCORBIC ACID 500 MG TAB PO SCH (08:23)
[2021-10-01] MEDS: ATORVASTATIN 40 MG TAB PO SCH (08:23)
[2021-10-01] MEDS: SYMBICORT 160-4.5 MCG INHALER INHALATION SCH ×2 (08:23→19:50)
[2021-10-01] MEDS: FLUTICASONE 50MCG/SPRAY NASAL 16GM EA NOSTRIL SCH (08:26)
[2021-10-01] MEDS: PANTOPRAZOLE 40 MG/10 ML VIAL IVP SCH ×2 (08:26→19:59)
[2021-10-01 09:31] LABS: Basophils # (A) 0 X 10*3/uL (0.00-0.10); Basophils % (A) 0 %; Eosinophils # (A) 0.01 X 10*3/uL (0.04-0.35); Eosinophils % (A) 0.1 %; HCT 24.8 % (37.2-46.3); Lymphocytes # (A) 0.22 X 10*3/uL (0.90-5.00); Lymphocytes % (A) 3.3 %; MCH 30.3 pg (27.0-32.0); MCHC 32.3 g/dL (32.0-37.0); MCV 93.9 fL (80.0-97.0); Mean Platelet Volume 10.8 fL (9.5-12.2); Monocytes # (A) 0.35 X 10*3/uL (0.20-1.00); Monocytes % (A) 5.2 %; Neutrophils % (A) 88.7 %; Platelet Count 112 X 10*3/uL (140-440); RBC 2.64 X 10*6/uL (4.10-5.20); RDW 16.7 % (11.5-14.5); WBC 6.76 X 10*3/uL (4.50-10.00)
[2021-10-01] MEDS ORDERED: PEG 3350-NA SULF,BICARB,CL/KCL 4,000 ML BOTTLE PO ONE (10:11)
--- NOTE | 2021-10-01 10:39 | P.PN ---
<Portia Armstrong - Last Filed: 10/01/21 10:25> Subjective Progress Note Date: 10/01/21 CHIEF COMPLAINT: GI bleed HISTORY OF PRESENT ILLNESS: This 76-year-old female was admitted with Covid pneumonia. His hospitalization she became very dizzy and had a syncopal episode. She had a large amount of bright red blood per rectum. Her last colonoscopy was 3-5 years ago significant for polyps and diverticulosis. She had a CT of the abdomen with no acute abnormality within the abdomen and pelvis. Yesterday the patient had a drop in her hemoglobin is 6.8, she is status post 1 unit of PRBC transfusion. She had a couple episodes of maroon colored stool yesterday. Nursing is reporting that through the night she had a very small bowel movement with a scant amount of blood. No bowel movement today. The patient denies any abdominal pain, cramping, nausea or vomiting. She denies any coffee-ground emesis or hematemesis. She is currently on 6 L high flow nasal cannula oxygen saturation at 96% S morning. Pulmonology and respiratory therapy following patient closely for Covid-19 pneumonia. Patient states her breathing is better today. Repeat hemoglobin today is 8.0. She's been afebrile. PHYSICAL EXAM: VITAL SIGNS: Reviewed. GENERAL: Well-developed in no acute distress. HEENT: No sclera icterus. Extraocular movements grossly intact. Moist buccal mucosa. Head is atraumatic, normocephalic. ABDOMEN: Soft. Nondistended. Nontender. NEUROLOGIC: Alert and oriented. Cranial nerves II through XII grossly intact. ASSESSMENT: 1. Lower GI bleed likely diverticular, however other possible etiologies need to be considered 2. Covid-19 pneumonia PLAN: -Continue clear liquid diet, nothing by mouth after midnight -Plan is for EGD and colonoscopy tomorrow if pulmonary/respiratory status stable -Bowel Prep today -Continue to follow hemoglobin, transfuse for hemoglobin less than 7 -We'll discuss with pulmonology for clearance to proceed with endoscopic evaluation The impression and plan of care has been dictated as directed. Dr. Radu Grier I performed a history and examination of this patient, discussed the same with the dictator. I agree with the dictator's note ,documented as a scribe. Any additional findings or plans will be noted. Objective - Vital Signs Vital signs: Vital Signs Temp 98.2 F 10/01/21 05:49 Pulse 88 10/01/21 05:49 Resp 19 10/01/21 05:49 BP 106/63 10/01/21 05:49 Pulse Ox 96 10/01/21 05:49 Intake & Output 09/30/21 10/01/21 10/01/21 18:59 06:59 18:59 Intake Total 279 Balance 279 Weight 84.6 kg Intake: Blood Product 279 Rc Pheresis 2 As3 Unit 279 [id number] Other: # Voids 1 4 # Bowel Movements 2 - Labs CBC & Chem 7: 10/01/21 06:28 09/30/21 06:04 Labs: Abnormal Lab Results - Last 24 Hours (Table) 09/30/21 09/30/21 09/30/21 Range/Units 06:04 06:04 12:28 RBC 2.22 L (4.10-5.20) X 10*6/uL Hgb 6.8 L* (12.0-15.0) g/dL Hct 21.2 L (37.2-46.3) % RDW 15.1 H (11.5-14.5) % Plt Count 124 L (140-440) X 10*3/uL Absolute Nucleated RBC 0.03 H (0.00-0.00) X 10*3/uL Immature Gran # 0.07 H (0.00-0.04) X 10*3/uL Lymphocytes # 0.18 L (0.90-5.00) X 10*3/uL Eosinophils # 0.02 L (0.04-0.35) X 10*3/uL NRBC/100 WBC Diff 0.4 H (0.0-0.0) /100 WBCS Potassium 3.4 L (3.5-5.5) mmol/L Chloride 110 H (96-109) mmol/L BUN 7.6 L (9.0-27.0) mg/dL Creatinine 0.4 L (0.6-1.5) mg/dL Glucose 135 H (70-110) mg/dL Calcium 7.1 L (8.7-10.3) mg/dL TIBC 175 L (228-460) ug/dL % Saturation 96.57 H (12.00-45.00) Transferrin 125.0 L (204.0-354.0) mg/dL Ferritin 772.0 H (10.0-291.0) ng/mL Total Protein 3.4 L (6.2-8.2) g/dL Albumin 2.0 L (3.8-4.9) g/dL Globulin 1.4 L (1.6-3.3) g/dL Albumin/Globulin Ratio 1.43 L (1.60-3.17) g/dL Crossmatch 09/30/21 Range/Units 12:28 RBC (4.10-5.20) X 10*6/uL Hgb (12.0-15.0) g/dL Hct (37.2-46.3) % RDW (11.5-14.5) % Plt Count (140-440) X 10*3/uL Absolute Nucleated RBC (0.00-0.00) X 10*3/uL Immature Gran # (0.00-0.04) X 10*3/uL Lymphocytes # (0.90-5.00) X 10*3/uL Eosinophils # (0.04-0.35) X 10*3/uL NRBC/100 WBC Diff (0.0-0.0) /100 WBCS Potassium (3.5-5.5) mmol/L Chloride (96-109) mmol/L BUN (9.0-27.0) mg/dL Creatinine (0.6-1.5) mg/dL Glucose (70-110) mg/dL Calcium (8.7-10.3) mg/dL TIBC (228-460) ug/dL % Saturation (12.00-45.00) Transferrin (204.0-354.0) mg/dL Ferritin (10.0-291.0) ng/mL Total Protein (6.2-8.2) g/dL Albumin (3.8-4.9) g/dL Globulin (1.6-3.3) g/dL Albumin/Globulin Ratio (1.60-3.17) g/dL Crossmatch See Detail <Capo Grier - Last Filed: 10/01/21 12:09> Subjective As above. Hemoglobin is stable after receiving 1 unit of blood. We'll proceed with upper and lower endoscopy tomorrow. Bowel prep today. Risks of bleeding, infection, perforation, respiratory failure discussed with patient. She understands these risks and is agreeable. Objective - Vital Signs Vital signs: Vital Signs Temp 98 F 10/01/21 09:01 Pulse 116 H 10/01/21 09:01 Resp 20 10/01/21 09:01 BP 124/74 10/01/21 09:01 Pulse Ox 90 L 10/01/21 09:01 Intake & Output 09/30/21 10/01/21 10/01/21 18:59 06:59 18:59 Intake Total 279 Balance 279 Weight 84.6 kg Intake: Blood Product 279 Rc Pheresis 2 As3 Unit 279 [id number] Other: # Voids 1 4 # Bowel Movements 2 - Labs CBC & Chem 7: 10/01/21 06:28 09/30/21 06:04 Labs: Abnormal Lab Results - Last 24 Hours (Table) 09/30/21 09/30/21 10/01/21 Range/Units 12:28 12:28 06:28 RBC 2.64 L (4.10-5.20) X 10*6/uL Hgb 8.0 L (12.0-15.0) g/dL Hct 24.8 L (37.2-46.3) % RDW 16.7 H (11.5-14.5) % Plt Count 112 L (140-440) X 10*3/uL Absolute Nucleated RBC 0.04 H (0.00-0.00) X 10*3/uL Immature Gran # 0.18 H (0.00-0.04) X 10*3/uL Lymphocytes # 0.22 L (0.90-5.00) X 10*3/uL Eosinophils # 0.01 L (0.04-0.35) X 10*3/uL NRBC/100 WBC Diff 0.6 H (0.0-0.0) /100 WBCS TIBC 175 L (228-460) ug/dL % Saturation 96.57 H (12.00-45.00) Transferrin 125.0 L (204.0-354.0) mg/dL Ferritin 772.0 H (10.0-291.0) ng/mL Crossmatch See Detail Assessment and Plan (1) Lower GI bleed Current Visit: Yes Status: Acute Code(s): K92.2 - GASTROINTESTINAL HEMORRHAGE, UNSPECIFIED SNOMED Code(s): 51259702
[2021-10-01] MEDS: SODIUM FERRIC GLUCONAT-SUCROSE 125 MG in SODIUM CHLORIDE 0.9% 100 ML IVPB SCH (12:29)
[2021-10-01 12:49] LABS: Albumin 2.2 g/dL (3.8-4.9); Albumin/Globulin Ratio 1.57 (1.60-3.17); Anion Gap 7.6 mmol/L (4.00-12.00); BUN/Creat Ratio 9.2 Ratio (12.00-20.00); Blood Urea Nitrogen 4.6 mg/dL (9.0-27.0); Calcium 7.3 mg/dL (8.7-10.3); Carbon Dioxide 24.4 mmol/L (21.6-31.8); Globulin 1.4 g/dL (1.6-3.3); Potassium 3.1 mmol/L (3.5-5.5); Total Bilirubin 0.5 mg/dL (0.30-1.20); Total Protein 3.6 g/dL (6.2-8.2)
--- NOTE | 2021-10-01 16:01 | PN ---
PROGRESS NOTE DATE OF SERVICE: 10/01/2021 REASON FOR FOLLOWUP: Covid 19 pneumonia. INTERVAL HISTORY: The patient is afebrile. The patient is breathing comfortably. She is down to 6 L nasal cannula. She denies any chest pain. No worsening cough. No abdominal pain. No diarrhea. PHYSICAL EXAMINATION: Blood pressure 124/74 with a pulse of 116, temperature 98. She is 90% on 6 L nasal cannula. General description is an elderly female up in the chair in no distress. Respiratory system: Unlabored breathing. Decreased intensity of breath sounds. No wheeze. Heart S1, S2. Regular rate and rhythm. Abdomen soft, no tenderness. LABS: Hemoglobin is 8, white count 6.76, creatinine 0.5. DIAGNOSTIC IMPRESSION AND PLAN: Patient with acute COVID-19 pneumonia in this patient with slow clinical improvement. The patient is currently down to 6 L nasal cannula. Patient has completed a course of baricitinib. Currently on Solu-Medrol and zinc along with respiratory support. Continue supportive care. MMODL / IJN: [id number] /
--- NOTE | 2021-10-01 16:25 | PN ---
PROGRESS NOTE This 76-year-old white female with COVID pneumonia has acute on chronic anemia secondary to GI bleed. Remains on blood thinner secondary to pulmonary embolism and micro clot prevention due to COVID. Heart rates in 90s to 88 to 116, temperature 98. Blood pressure is 105 to 120s over 70s to 80s. She is 90% to 96% on 6 L, which is improved from 15 L. Cardiovascular S1-S2. Lungs clear. Hemoglobin is 8. Will continue on Venofer for acute on chronic anemia. Transfuse if it goes below 7. Continue with Venofer. Monitor CBC and chemistry panel daily. Prognosis is guarded, but she appears to be slowly improving from COVID. MMODL / IJN: [id number] /
--- NOTE | 2021-10-01 22:41 | P.PN ---
Subjective Progress Note Date: 10/01/21 Principal diagnosis: Lower/upper GI bleed Acute diverticulitis Acute hypoxic respiratory failure Sepsis due to COVID-19 pneumonia with elevated lactic acid COVID-19 pneumonia Electrolyte imbalance with hypokalemia Elevated liver enzymes Elevated d-dimer and Normal pro-calcitonin 10/01/2021, patient seen eval examined during the rounds labs reviewed medications reviewed, general surgery as per discussion was to proceed with upper and lower endoscopy, her FiO2 is down to 6 L oxygen saturation is 90-92%, respiratory rate is 18 she is afebrile, her hemoglobin drop down to 6.8 required 1 unit of packed RBC is now up to 8 and 24, sodium is 140 potassium is 3.1, latest covert test repeated negative, currently patient is on Tylenol and vitamin C Lipitor Symbicort Colace vitamin D 2 she had infusion of iron, Solu- Medrol IV, Zosyn and Protonix with COVID-19 minerals, patient remains off of heparin or Lovenox for ongoing GI bleed 09/30/2021, patient seen eval examined during rounds, patient is still short of breath on activity and exertion, on high flow oxygen 10 L currently she is down from 15 L, oxygen saturation 98%, white cell count 8800, hemoglobin is 8.3 which remains however stable 09/29/2021, patient seen eval examined during the rounds respiratory status remained stable, continued to require less somewhat low oxygen, discussed with the respiratory therapist intervened and titrate oxygen down as tolerated maybe 1 L a day to keep saturation over 88% and above, general surgery is following for lower GI bleed hemoglobin however remains stable intermittent dark stools still present, anti-thrombolytic candidate for anticoagulants on hold including DVT prophylaxis along with aspirin and Plavix September 28 2021, patient seen and evaluated examined in the ICU awake and alert breathing comfortably, on 15 L mask saturation is 98%, denies any chest pain denies any cough or sputum production no more bleeding for the last 12 hours has been seen, hemoglobin dropped down to 8.4 appears to be post loss and dilutional effect, white cell count is 10,000 hemoglobin and hematocrit 8.425 platelets are 120 61,000, BUN/creatinine is 21.3. Sodium was 135, medications include Zithromax Solu-Medrol 40 every 8 Protonix 40 mg twice a day Zosyn and zinc. C omputed tomography scan of the chest and pelvis reviewed, bases of x-ray shows interstitial infiltrate consistent with COVID-19 pneumonia L1 compression fracture seen no acute pathology identified on computed tomography scan of the abdominal and pelvis 09/26/2021, patient seen eval examined during the rounds patient has a massive lower GI bleed after that patient was starting feeling dizzy lightheaded blood was bright red patient emergently transferred to ICU Y tones were check blood pressure is stable status CBC was sent hemoglobin remained stable at 12 however patient has been rehydrated to 1 L of crystalloids has been given patient has been started on 100 mL an hour, Protonix have been changed to 40 mg IV every 12, general surgery on consult, will put patient on IV Zosyn likely diverticular bleed, will stop Lovenox, Plavix and aspirin for now, we'll check hemoglobin and hematocrit every 8 hourly, patient however remains on 15 L high flow oxygen sats are 96-97% significantly improved however we'll decrease IV steroids to every 8 instead of 60 every 6, critical care time spent 35 minutes 09/24/2021, patient seen eval examined during the rounds labs reviewed medications reviewed care plan discussed, respiratory status remains stable denies any chest pain, patient remains on high flow oxygen and needed has been using nonrebreather mask saturation are now mid 90s to low 90s, chest x-ray done earlier this morning reviewed no pneumothorax is seen, patient will get a midline, would plan to continue IV steroids and supportive care 09/23/2021, patient seen eval reexamined during the rounds patient has been on 12 L high flow oxygen with that her sats are about 88-90%, as needed she has been using nonrebreather mask, chest x-ray performed today reviewed decrease in size of the mediastinal emphysema is noted, pneumothorax seen on the right upper extremity with sleep not visualized anymore, lactic acid as well as normalized, 09/22/2021, patient seen eval examined during the rounds care plan discussed with RN at length, labs reviewed radiographic studies reviewed, and computed tomography scan of his chest reviewed as well, patient has incidental tiny right-sided apical pneumothorax discovered, no significant change in oxygenation patient remains on the 12 L high flow oxygen and as needed 100% nonrebreather mask saturation 88-90%, denies any chest pain some discomfort as needed improved with the Tylenol, patient remains on IV steroids, today's x-ray shows some impr ovement in tiny pneumothorax as well as 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, thoracic surgery is on consult in case emergent chest tube is required, noted lactic acid slightly elevated showing up or trend, patient is on Zithromax we will add cephapirin as well for healthcare associated pneumonia, computed tomography scan x-ray remains unchanged continue show bilateral basal infiltrate as well as patchy upper lobe infiltrate consistent with COVID-19 pneumonia, white cell count improved to 11,400, platelet count 4 60,000, lactic acid is 2.4 subsequent 2.6, pro-calcitonin has been normal 0.03 still September 20, 09/19/2021, patient seen eval examined, oxygen remains low requiring supplemental oxygen with 12-13 L high flow intermittently has been using mask as well, remains afebrile, labs reviewed white cell count 16,400 hemoglobin and hematocrit is 30 and 40, rehab has been following for placement, ID service following patient is still on too much oxygen to place and the rehab, pro- calcitonin remains normal 09/18/2021, patient seen eval examined during the rounds labs reviewed medications reviewed care plan discussed, oxygen saturation remained stable 92% on the high flow oxygen 12 L but however patient continued to require nonrebreather mask on top of that intermittently especially during some motion movement and activity, remains afebrile, will decrease the Solu-Medrol to every 12 now Other supportive measures and therapy 09/17/2021, patient seen eval examined during the rounds labs reviewed medications reviewed care plan discussed, history status patient is still short of breath continued to require high flow oxygen via nasal cannula as well as nasal mask as needed, that oxygen saturation improved to 91-92%, patient remains afebrile, remains on IV steroids supplements and Lovenox for anticoagulation, less distress is used to see before 09/16/2021, patient seen eval examined during the rounds labs reviewed medications reviewed care plan discussed, respiratory status remains marginal get short of breath activity and exertion, patient still have dry nonproductive cough, she is on 12 L high flow oxygen at times he uses a mask as well, she is afebrile with heart rate of 102, blood pressure HEENT hemodynamic stable oxygen saturation improved to 90-94% now, chest x-ray earlier this morning continued to show multifocal diffuse reticular and radicular nodular appearance bilaterally 09/15/2021, patient overall in good spirits breathing comfortably but get short of breath on activity and exertion continue to have intermittent dry cough, patient remains on 12 L high flow oxygen along with as needed 15 L face mask, remains afebrile, oxygen saturation is mostly 89-92%, d-dimer remains elevated, patient remains on the Lovenox IV steroids will repeat follow-up chest x-ray 09/13/2021, patient seen eval examined during the rounds labs reviewed medications reviewed care plan discussed, patient remains on the 15 L high flow oxygen along with nonrebreather mask with that saturation is 88-90%, labs from today reviewed white cell count come down to 8000, labs stable production up to 3.9, BUN/creatinine 22/.6, 09/12/2021, patient seen eval examined during the rounds labs reviewed medications reviewed care plan discussed, respiratory status is still marginal but stable, patient remains on 100% oxygen nonrebreather mask, T-max is 99.4, saturation is 89% to 90%, computed tomography scan of his chest consistent with interstitial pneumonia and COVID-19, no pulmonary embolism seen, patient remains on IV steroids and anticoagulation breathing treatment and continuation of home medications, Patient is a 76-year-old female who came into the hospital with increasing aches and pains malaise, symptoms started about 10-12 days ago, patient has outpatient covert testing which was negative however due to worsening system symptoms she decided to come into the hospital, patient oxygen saturation was just 75% in triage at room air, her appetite has been poor as well on specific questioning she denies any chest pain, denies any nausea vomiting diarrhea Past medical history significant for hypothyroidism, GERD, history of TIA, hypertension and hypertensive cardiovascular disease, thyroid disorder, history of the stroke,/TIA, patient is a nonsmokerhistory of substance In emergency department she underwent a chest x-ray which revealed bilateral patchy infiltrate more so on the bases on the right side compared to left side, EKG revealed sinus tachycardia, echocardiogram revealed ejection fraction 55%, mild TR and MR was noted along with AR, labs are significant for leukocytosis with WBC count of 14,600, primarily elevated 0.7, sodium is 1:30" 3.3, BUN/creatinine 16.67, glucose 155, AST and ALT Elevated, lactic acid is 3.3,, T-max 100.6 now currently afebrile, she is 90% on 15 L nonrebreather mask improved to 94% currently on 15 L nonrebreather mask, she came back positive for COVID-19 infection PCR, pro-calcitonin also elevated of 0.13 currently she is being treated with Y Lucinda as well as Zithromax, Dec adron 6 mg daily, Lovenox 40 mg daily Objective - Vital Signs Vital signs: Vital Signs Temp 98.0 F 10/01/21 19:25 Pulse 88 10/01/21 19:25 Resp 18 10/01/21 19:25 BP 116/68 10/01/21 19:25 Pulse Ox 92 L 10/01/21 19:25 Intake & Output 10/01/21 10/01/21 10/02/21 06:59 18:59 06:59 Intake Total 400 Output Total 600 400 Balance -200 -400 Intake: Oral 400 Output: Urine 600 Stool 400 Other: # Voids 4 3 # Bowel Movements 2 - Exam - Constitutional General appearance: mild distress, bleeding currently stopped now - EENT Eyes: PERRLA Ears: bilateral: normal - Neck Neck: normal ROM Carotids: bilateral: upstroke normal - Respiratory Respiratory: bilateral: diminished - Cardiovascular Rhythm: regular Heart sounds: normal: S1, S2 - Gastrointestinal General gastrointestinal: decreased bowel sounds - Neurologic Neurologic: CNII-XII intact - Musculoskeletal Musculoskeletal: generalized weakness - Psychiatric Psychiatric: A&O x's 3, appropriate affect - Labs CBC & Chem 7: 10/01/21 06:28 10/01/21 06:28 Labs: Abnormal Lab Results - Last 24 Hours (Table) 10/01/21 10/01/21 Range/Units 06:28 06:28 RBC 2.64 L (4.10-5.20) X 10*6/uL Hgb 8.0 L (12.0-15.0) g/dL Hct 24.8 L (37.2-46.3) % RDW 16.7 H (11.5-14.5) % Plt Count 112 L (140-440) X 10*3/uL Absolute Nucleated RBC 0.04 H (0.00-0.00) X 10*3/uL Immature Gran # 0.18 H (0.00-0.04) X 10*3/uL Lymphocytes # 0.22 L (0.90-5.00) X 10*3/uL Eosinophils # 0.01 L (0.04-0.35) X 10*3/uL NRBC/100 WBC Diff 0.6 H (0.0-0.0) /100 WBCS Potassium 3.1 L (3.5-5.5) mmol/L BUN 4.6 L (9.0-27.0) mg/dL Creatinine 0.5 L (0.6-1.5) mg/dL BUN/Creatinine Ratio 9.20 L (12.00-20.00) Ratio Glucose 128 H (70-110) mg/dL Calcium 7.3 L (8.7-10.3) mg/dL Total Protein 3.6 L (6.2-8.2) g/dL Albumin 2.2 L (3.8-4.9) g/dL Globulin 1.4 L (1.6-3.3) g/dL Albumin/Globulin Ratio 1.57 L (1.60-3.17) g/dL Assessment and Plan Assessment: Lower/upper GI bleed overall stable COVID-19 testing came back negative now Hypokalemia Acute blood loss anemia source of bleeding not checked identified appears to be lower GI bleed now stable Pneumothorax right side resolved 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 Sepsis related to COVID-19 pneumonia Acute hypoxic respiratory failure COVID-19 pneumonia 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 Electrolyte imbalance with hypokalemia Elevated liver enzymes Elevated d-dimer and pro-calcitonin due to chronic inflammation Plan: Continue gentle rehydration Protonix 40 mg IV every 12 Zosyn 3.375 every 8 hourly for diverticulosis/diverticulitis finish 5-7 day therapy Daily CBC Replace potassium Proceed with upper and lower endoscopy and as we need to exclude source of bleeding patient is at risk but need the procedure General surgery on consult recommendation noted and appreciated Hold aspirin and Plavix and Lovenox, until we sort out GI bleed Continue steroid we'll taper to twice a day in next 24 hours Monitor off of Baricitinib, Continue deep breathing exercises incentive spirometry Continue high flow oxygen with deep breathing exercise incentive spirometry Titrated oxygen down as tolerated Once stable will do the computed tomography scan of the abdominal and pelvis Time with Patient: Greater than 30
[2021-10-01] MEDS ORDERED: POTASSIUM CHLORIDE ER 20 MEQ TAB.ER PO STA (22:47)
[2021-10-02] MEDS: LEVOTHYROXINE 75 MCG TAB PO SCH (06:02)
[2021-10-02] MEDS: ASCORBIC ACID 500 MG TAB PO SCH (07:16)
[2021-10-02] MEDS: ATORVASTATIN 40 MG TAB PO SCH (07:16)
[2021-10-02] MEDS: DOCUSATE 100 MG CAP PO SCH ×2 (07:16→20:25)
[2021-10-02] MEDS: FLUTICASONE 50MCG/SPRAY NASAL 16GM EA NOSTRIL SCH (07:16)
[2021-10-02] MEDS: ZINC SULFATE 220 MG CAP PO SCH (07:17)
[2021-10-02] MEDS: VIT A,C & E-LUTEIN-MINERALS 1 EACH TAB PO SCH ×2 (07:17→20:24)
[2021-10-02] MEDS: SYMBICORT 160-4.5 MCG INHALER INHALATION SCH ×2 (07:38→20:34)
[2021-10-02] MEDS: PANTOPRAZOLE 40 MG/10 ML VIAL IVP SCH ×2 (07:50→20:24)
[2021-10-02] MEDS: methylPREDNISolone SOD SUCCI 40 MG/ML 1 ML VIAL IV SCH ×3 (07:50→23:47)
[2021-10-02] MEDS: PIPERACILLIN-TAZOBACTAM 3.375 GM in SODIUM CHLORIDE 0.9% 100 ML IVPB SCH ×3 (07:50→23:46)
[2021-10-02 08:13] LABS: Anisocytosis Slight; Basophils % (A) 0 %; Eosinophils # (A) 0.1 k/uL (0-0.7); Eosinophils % (A) 1 %; HCT 25.7 % (34.0-46.0); HGB 8.7 gm/dL (11.4-16.0); Lymphocytes # (A) 0.3 k/uL (1.0-4.8); Lymphocytes % (A) 4 %; MCH 31.8 pg (25.0-35.0); MCHC 33.8 g/dL (31.0-37.0); MCV 94.2 fL (80.0-100.0); Mean Platelet Volume 8.3; Monocytes # (A) 0.3 k/uL (0-1.0); Monocytes % (A) 5 %; Neutrophils # (A) 5.2 k/uL (1.3-7.7); Neutrophils % (A) 88 %; Platelet Count 110 k/uL (150-450); RBC 2.73 m/uL (3.80-5.40); RDW 16.2 % (11.5-15.5); WBC 5.9 k/uL (3.8-10.6)
[2021-10-02 08:47] LABS: ALT 33 U/L (4-34); AST 19 U/L (14-36); African American GFR (CKD) >90 (>60 ml/min/1.73 sqM); Albumin 1.9 g/dL (3.5-5.0); Alkaline Phosphatase 50 U/L (38-126); Anion Gap 2 mmol/L; Blood Urea Nitrogen 3 mg/dL (7-17); Calcium 7.3 mg/dL (8.4-10.2); Carbon Dioxide 29 mmol/L (22-30); Chloride 106 mmol/L (98-107); Globulin 1.9 g/dL; Glucose 101 mg/dL (74-99); Non-African American GFR(CKD) >90 (>60 ml/min/1.73 sqM); Potassium 3.2 mmol/L (3.5-5.1); Sodium 137 mmol/L (137-145); Total Bilirubin 0.4 mg/dL (0.2-1.3); Total Protein 3.8 g/dL (6.3-8.2)
[2021-10-02] MEDS ORDERED: POTASSIUM CHLORIDE 20 MEQ in WATER FOR INJECTION 1 100ML.BAG IVPB STA (10:42)
[2021-10-02] MEDS: SODIUM CHLORIDE 0.9% 1,000 ML IV SCH ×2 (10:54→23:47)
[2021-10-02] MEDS: SODIUM FERRIC GLUCONAT-SUCROSE 125 MG in SODIUM CHLORIDE 0.9% 100 ML IVPB SCH (10:54)
[2021-10-02] MEDS ORDERED: MIDAZOLAM 2 MG/2 ML VIAL ONE (15:22)
[2021-10-02] MEDS ORDERED: LIDOCAINE 1% INJ 10MG/ML (20 ML MDV) ONE (15:22)
[2021-10-02] MEDS ORDERED: GLYCOPYRROLATE 0.2 MG/ML 2 ML VIAL ONE (15:22)
[2021-10-02] MEDS ORDERED: KETAMINE 10 MG/ML 20 ML VIAL ONE (15:22)
[2021-10-02] MEDS ORDERED: PROPOFOL 10 MG/ML 20 ML VIAL IV ONE (15:22)
[2021-10-02] MEDS ORDERED: SODIUM CHLORIDE 0.9% 500 ML 500 ML IV ONE ×2 (15:26)
--- NOTE | 2021-10-02 16:11 | P.PCN ---
Date of Procedure: 10/02/21 Procedure(s) Performed: PREOPERATIVE DIAGNOSIS: GI bleed POSTOPERATIVE DIAGNOSIS: Normal upper endoscopy, multiple colon polyps without evidence of bleeding PROCEDURE: 1. EGD 2. Colonoscopy ANESTHESIA: MAC SURGEON: Capo Grier M.D. SPECIMENS: None ENDOSCOPIC PROCEDURE: The patient was on the endoscopy table in the left decubitus position. The Olympus gastroscope was inserted into the oropharynx and passed under direct visualization to the region of the third portion of the duodenum. From that point the scope was slowly withdrawn inspecting all surfaces carefully. There were no neoplastic inflammatory or polypoid lesions throughout the duodenum. The pylorus was widely patent. The stomach was carefully inspected. There was no appreciable gastritis were inflammatory changes. Retroflexion revealed a normal hiatus. The esophagus was then carefully examined. There were no neoplastic inflammatory or polypoid lesions throughout the visualized esophagus. The patient was kept on the endoscopy table in the left decubitus position. The Olympus colonoscope was inserted into the anus and passed under direct visualization to the base of the cecum. The appendiceal orifice was visualized. From that point the scope was slowly withdrawn inspecting all surfaces carefully. The patient had bilious diarrhea throughout the colon. This limited our visualization slightly however prep was considered good. At the ileocecal valve itself there was a flat sessile polyp that appeared adenomatous in nature. This was not inflamed. This measured approximately 1.5-2 cm in greatest dimension. I could not visualize any extension around the edge of the valve. This did not appear to be any source of bleeding. The patient had multiple smaller sessile polyps throughout the colon. I would estimate that we saw 4-6 additional polyps throughout the colon during our evaluation. None of these were bleeding. I decided not to remove these polyps at this time given the patient's recent GI bleed and potential for rebleeding after polypectomy. There was no visible diverticulosis seen. At the anus there was no significant hemorrhoidal disease noted. Digital rectal examination was normal. The patient was taken to the recovery room in stable condition per anesthesia guidelines. RECOMMENDATIONS: Resume diet. Continue to monitor for bleeding. Given the appearance of the ileocecal valve polyp I will refer to advanced endoscopy for Endoscopic mucosal resection once patient is fully recovered from her Covid pneumonia.
--- NOTE | 2021-10-02 23:08 | PN ---
PROGRESS NOTE DATE OF SERVICE: 10/02/2021 REASON FOR FOLLOWUP: COVID-19 pneumonia. INTERVAL HISTORY: The patient is afebrile. The patient is breathing comfortably. The patient denies having any chest pain, shortness of breath. Occasional cough. No abdominal pain or diarrhea. PHYSICAL EXAMINATION: Blood pressure 101/49, pulse of 80, temperature 98.5. She is 90% on 6 L nasal cannula. General description is an elderly female lying in bed in no distress. Respiratory system: Unlabored breathing, decreased intensity of breath sounds. No wheeze. Heart S1, S2. Regular rate and rhythm. Abdomen soft, no tenderness. LABS: Hemoglobin 8.7, white count 5.9, creatinine 0.34. DIAGNOSTIC IMPRESSION AND PLAN: Patient with acute COVID-19 pneumonia in this patient who seems to have shown overall clinical improvement. Patient is currently down to 6 L nasal cannula. Has completed a 2-week course of baricitinib. Patient is currently on supportive treatment Solu- Medrol, zinc and ascorbic acid; to continue and continue with supportive care. MMODL / IJN: [id number] /
[2021-10-03] MEDS: LEVOTHYROXINE 75 MCG TAB PO SCH (05:18)
[2021-10-03] MEDS: methylPREDNISolone SOD SUCCI 40 MG/ML 1 ML VIAL IV SCH ×3 (07:57→23:15)
[2021-10-03] MEDS: PANTOPRAZOLE 40 MG/10 ML VIAL IVP SCH ×2 (07:57→22:08)
--- NOTE | 2021-10-03 07:57 | PN ---
PROGRESS NOTE Admitted with Covid pneumonia. 76-year-old white female, cough, congestion, shortness of breath. Remains on 5 L of oxygen, saturating in the low 90s. Cardiovascular: S1-S2. Lungs scattered wheeze. Hematology negative Homans. GI soft. ASSESSMENT: 1. Status post colonoscopy, unclear etiology for gastrointestinal bleed. 2. Covid pneumonia. 3. Acute hypoxemic respiratory distress. 4. Prognosis guarded. Continue with Covid pneumonia medications and vitamins. Prognosis guarded. MMODL / IJN: [id number] /
[2021-10-03] MEDS: ATORVASTATIN 40 MG TAB PO SCH (07:58)
[2021-10-03] MEDS: FLUTICASONE 50MCG/SPRAY NASAL 16GM EA NOSTRIL SCH (07:58)
[2021-10-03] MEDS: ZINC SULFATE 220 MG CAP PO SCH (07:58)
[2021-10-03] MEDS: ASCORBIC ACID 500 MG TAB PO SCH (07:58)
[2021-10-03] MEDS: DOCUSATE 100 MG CAP PO SCH ×2 (07:58→22:08)
[2021-10-03] MEDS: SODIUM CHLORIDE 0.9% 1,000 ML IV SCH ×2 (07:58→16:32)
[2021-10-03] MEDS: VIT A,C & E-LUTEIN-MINERALS 1 EACH TAB PO SCH ×2 (07:58→22:09)
[2021-10-03] MEDS: SODIUM FERRIC GLUCONAT-SUCROSE 125 MG in SODIUM CHLORIDE 0.9% 100 ML IVPB SCH (08:06)
[2021-10-03] MEDS: SYMBICORT 160-4.5 MCG INHALER INHALATION SCH ×2 (09:04→19:29)
[2021-10-03] MEDS: PIPERACILLIN-TAZOBACTAM 3.375 GM in SODIUM CHLORIDE 0.9% 100 ML IVPB SCH ×3 (09:44→23:15)
--- NOTE | 2021-10-03 13:36 | P.PN ---
<Portia Armstrong - Last Filed: 10/03/21 13:30> Subjective Progress Note Date: 10/03/21 CHIEF COMPLAINT: GI bleed HISTORY OF PRESENT ILLNESS: This 76-year-old female was admitted with Covid pneumonia. His hospitalization she became very dizzy and had a syncopal episode. She had a large amount of bright red blood per rectum. Her last colonoscopy was 3-5 years ago significant for polyps and diverticulosis. She had a CT of the abdomen with no acute abnormality within the abdomen and pelvis. The patient had a drop in her hemoglobin to 6.8. Yesterday she underwent an EGD and colonoscopy with no evidence of old blood or bleeding noted. The patient had a normal upper endoscopy and colonoscopy revealed multiple colon polyps without any evidence of bleeding. Recommendation is outpatient referral for advanced endoscopy to evaluate ileocecal valve polyp. Patient denies any bleeding. She denies any abdominal pain, nausea, or vomiting. She is being followed closely by pulmonology. Hemoglobin been stable. PHYSICAL EXAM: VITAL SIGNS: Reviewed. GENERAL: Well-developed in no acute distress. HEENT: No sclera icterus. Extraocular movements grossly intact. Moist buccal mucosa. Head is atraumatic, normocephalic. ABDOMEN: Soft. Nondistended. Nontender. NEUROLOGIC: Alert and oriented. Cranial nerves II through XII grossly intact. ASSESSMENT: 1. Lower GI bleed 2. Colon polyps without evidence of bleeding 2. Covid-19 pneumonia PLAN: -Regular diet -Patient is status post EGD and colonoscopy without any evidence of bleeding or old blood -Continue to follow hemoglobin, transfuse for hemoglobin less than 7 -Patient is cleared for discharge from Gen. surgery -Follow-up in 4 weeks, at that time will refer for advanced endoscopy The impression and plan of care has been dictated as directed. Dr. Radu Grier I performed a history and examination of this patient, discussed the same with the dictator. I agree with the dictator's note ,documented as a scribe. Any additional findings or plans will be noted. Objective - Vital Signs Vital signs: Vital Signs Temp 98.7 F 10/03/21 08:00 Pulse 87 10/03/21 08:00 Resp 20 10/03/21 08:00 BP 119/65 10/03/21 08:00 Pulse Ox 97 10/03/21 08:00 Intake & Output 10/02/21 10/03/21 10/03/21 18:59 06:59 18:59 Intake Total 250 Output Total 600 300 Balance -350 -300 Intake: IV 250 Output: Urine 600 300 Other: Voiding Method External Catheter Bedside Commode Bedside Commode # Voids 2 2 - Labs CBC & Chem 7: 10/02/21 07:55 10/02/21 07:55 <Capo Grier - Last Filed: 10/03/21 14:19> Subjective As above. Patient doing well. No further bleeding. We'll sign off at this time. Follow-up as outpatient. We'll refer to [facility] for endoscopic mucosal resection. Objective - Vital Signs Vital signs: Vital Signs Temp 98.7 F 10/03/21 08:00 Pulse 87 10/03/21 08:00 Resp 20 10/03/21 08:00 BP 119/65 10/03/21 08:00 Pulse Ox 97 10/03/21 08:00 Intake & Output 10/02/21 10/03/21 10/03/21 18:59 06:59 18:59 Intake Total 250 Output Total 600 300 Balance -350 -300 Intake: IV 250 Output: Urine 600 300 Other: Voiding Method External Catheter Bedside Commode Bedside Commode # Voids 2 2 - Labs CBC & Chem 7: 10/03/21 13:19 10/03/21 13:19 Labs: Abnormal Lab Results - Last 24 Hours (Table) 10/03/21 10/03/21 Range/Units 13:19 13:19 RBC 3.22 L (3.80-5.40) m/uL Hgb 10.2 L (11.4-16.0) gm/dL Hct 30.9 L (34.0-46.0) % RDW 16.4 H (11.5-15.5) % Plt Count 132 L (150-450) k/uL Sodium 136 L (137-145) mmol/L Potassium 3.0 L (3.5-5.1) mmol/L BUN 6 L (7-17) mg/dL Creatinine 0.51 L (0.52-1.04) mg/dL Glucose 192 H (74-99) mg/dL Calcium 8.0 L (8.4-10.2) mg/dL Assessment and Plan (1) Lower GI bleed Current Visit: Yes Status: Acute Code(s): K92.2 - GASTROINTESTINAL HEMORRHAGE, UNSPECIFIED SNOMED Code(s): 10379545
[2021-10-03 14:06] LABS: Anisocytosis Slight; HCT 30.9 % (34.0-46.0); HGB 10.2 gm/dL (11.4-16.0); MCH 31.7 pg (25.0-35.0); Macrocytosis Slight; Mean Platelet Volume 7.9; Platelet Count 132 k/uL (150-450); RBC 3.22 m/uL (3.80-5.40); RDW 16.4 % (11.5-15.5); WBC 7.7 k/uL (3.8-10.6)
[2021-10-03 14:16] LABS: African American GFR (CKD) >90 (>60 ml/min/1.73 sqM); Anion Gap 5 mmol/L; Blood Urea Nitrogen 6 mg/dL (7-17); Carbon Dioxide 25 mmol/L (22-30); Chloride 106 mmol/L (98-107); Glucose 192 mg/dL (74-99); Non-African American GFR(CKD) >90 (>60 ml/min/1.73 sqM); Sodium 136 mmol/L (137-145)
--- NOTE | 2021-10-03 15:07 | P.DS ---
Providers Date of admission: 09/09/21 20:12 Expected date of discharge: 10/03/21 Attending physician: Marcelo Wheatley Consults: 09/10/21 01:15 Consult Physician Urgent Consulting Provider: Eze Sawyer Consult Reason/Comments: redesemir treatment Do you want consulting provider notified?: Yes 09/10/21 01:19 Consult Physician Routine Consulting Provider: Tanvir Nicolas Consult Reason/Comments: covid hypoxia Do you want consulting provider notified?: Yes 09/15/21 22:46 Consult Physician Routine Consulting Provider: Andrei Wells Consult Reason/Comments: rehab Do you want consulting provider notified?: Yes 09/21/21 10:32 Consult Physician Routine Consulting Provider: Chandler Gambino Consult Reason/Comments: pneumothorax Do you want consulting provider notified?: Yes 09/26/21 15:29 Consult Physician Stat Consulting Provider: Capo Grier Consult Reason/Comments: GI bleed Do you want consulting provider notified?: Yes Primary care physician: Marcelo Wheatley [facility] Course: Patient came into the hospital with acute respiratory failure severe hypoxia required oxygen 100% via nasal cannula high flow as well as mask she was coded positive she has a cold with pneumonia, hospitalization was complicated with development of small pneumothorax which resolved spontaneously 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 which also resolved spontaneously and complication noted with the hospitalization with GI bleed and requested that significant blood loss anemia requiring blood transfusion, patient underwent upper and lower endoscopy no active site of bleeding was seen some polyps identified, upper endoscopy was normal, gradually patient's oxygen have been titrated down to 6 L now nasal cannula, she has been on steroids now she can be changed to by mouth tapering dose she is going to rehab due to generalized weakness Assessment: Lower/upper GI bleed, resolved now Acute diverticulitis, improved status post antibiotic therapy Acute hypoxic respiratory failure, continued to improve oxygen requirement down to 6 L nasal cannula Sepsis due to COVID-19 pneumonia with elevated lactic acid, improved repeat covert testing came back negative COVID-19 pneumonia, Electrolyte imbalance with hypokalemia Elevated liver enzymes Elevated d-dimer and Normal pro-calcitonin Health Concerns: As above Pertinent Studies: Includes CT scans, endoscopy, Procedures: Upper and lower endoscopy by Dr. Juárez on 10/02/2021 Patient Condition at Discharge: Fair Plan - Discharge Summary Discharge Rx Participant: No New Discharge Prescriptions: No Action Levothyroxine Sodium [Synthroid] 75 mcg PO DAILY Clopidogrel [Plavix] 75 mg PO DAILY #0 Aspirin EC [Ecotrin Low Dose] 81 mg PO DAILY Meclizine HCl 12.5 mg PO BID PRN PRN Reason: DIZZINESS Azithromycin [Zithromax] 500 mg PO DAILY Vit C/E/Zn/Coppr/Lutein/Zeaxan [Preservision Areds 2 Softgel] 1 cap PO BID Multivit-Min/Iron/Folic/Lutein [Centrum Silver Women Tablet] 1 tab PO DAILY Atorvastatin [Lipitor] 40 mg PO DAILY 30 Days #30 tab Pantoprazole [Protonix] 40 mg PO DAILY methylPREDNISolone [Medrol Dose Pack] See Taper PO DIRECTED Discharge Medication List Levothyroxine Sodium [Synthroid] 75 mcg PO DAILY 01/22/16 [History] Clopidogrel [Plavix] 75 mg PO DAILY #0 01/24/16 [Rx] Aspirin EC [Ecotrin Low Dose] 81 mg PO DAILY 05/13/21 [History] Multivit-Min/Iron/Folic/Lutein [Centrum Silver Women Tablet] 1 tab PO DAILY 05/13/21 [History] Vit C/E/Zn/Coppr/Lutein/Zeaxan [Preservision Areds 2 Softgel] 1 cap PO BID 05/13/21 [History] Atorvastatin [Lipitor] 40 mg PO DAILY 30 Days #30 tab 05/15/21 [Rx] Pantoprazole [Protonix] 40 mg PO DAILY 07/30/21 [History] Azithromycin [Zithromax] 500 mg PO DAILY 09/09/21 [History] Meclizine HCl 12.5 mg PO BID PRN 09/09/21 [History] methylPREDNISolone [Medrol Dose Pack] See Taper PO DIRECTED 09/09/21 [History] Follow up Appointment(s)/Referral(s): Capo Grier MD [Medical Doctor] - 1 Week Marcelo Wheatley MD [Primary Care Provider] - 1-[address] [facility], [NON-STAFF] - As Needed Tanvir Nicolas MD [STAFF PHYSICIAN] - 1 Week
--- NOTE | 2021-10-03 18:22 | PN ---
PROGRESS NOTE DATE OF SERVICE: 10/03/2021 REASON FOR FOLLOWUP: Acute COVID-19 pneumonia. INTERVAL HISTORY: The patient is afebrile. The patient is currently breathing comfortably. The patient denies having any chest pain or shortness of breath. Occasional cough. No abdominal pain and no diarrhea. PHYSICAL EXAMINATION: Blood pressure 119/65, pulse of 87, temperature 98.7. General description is an elderly female lying in bed in no distress. Respiratory system: Unlabored breathing, decreased intensity of breath sounds. No wheeze. Heart S1, S2. Regular rate and rhythm. Abdomen soft, no tenderness. LABS: Hemoglobin is 10.8, white count 7.7, creatinine 0.51. DIAGNOSTIC IMPRESSION AND PLAN: Patient with acute COVID-19 pneumonia in this patient who seems to have shown some clinical improvement. She has completed her 2-week course of baricitinib. On Solu- Medrol, zinc and ascorbic acid. To continue, and monitor clinical course closely. Continue with supportive care. MMODL / IJN: [id number] /
[2021-10-04] MEDS: LEVOTHYROXINE 75 MCG TAB PO SCH (05:58)
[2021-10-04] MEDS: SODIUM CHLORIDE 0.9% 1,000 ML IV SCH (05:58)
[2021-10-04] MEDS: DOCUSATE 100 MG CAP PO SCH ×3 (08:53→22:53)
[2021-10-04] MEDS: ZINC SULFATE 220 MG CAP PO SCH (08:53)
[2021-10-04] MEDS: dexAMETHasone 2 MG TAB PO SCH (08:53)
[2021-10-04] MEDS: ASCORBIC ACID 500 MG TAB PO SCH (08:53)
[2021-10-04] MEDS: ATORVASTATIN 40 MG TAB PO SCH (08:53)
[2021-10-04] MEDS: ERGOCALCIFEROL 1,250 MCG (50,000 IU) CAPSULE PO SCH (08:53)
[2021-10-04] MEDS: VIT A,C & E-LUTEIN-MINERALS 1 EACH TAB PO SCH ×3 (08:53→22:53)
[2021-10-04] MEDS: PANTOPRAZOLE 40 MG/10 ML VIAL IVP SCH ×2 (08:54→22:23)
[2021-10-04] MEDS: ENOXAPARIN 30 MG/0.3 ML SYRINGE SQ SCH (08:54)
[2021-10-04] MEDS: SYMBICORT 160-4.5 MCG INHALER INHALATION SCH ×2 (09:05→20:07)
[2021-10-04] MEDS: FLUTICASONE 50MCG/SPRAY NASAL 16GM EA NOSTRIL SCH (09:40)
[2021-10-04] MEDS: SODIUM FERRIC GLUCONAT-SUCROSE 125 MG in SODIUM CHLORIDE 0.9% 100 ML IVPB SCH (09:41)
[2021-10-04] MEDS ORDERED: Potassium Replacement Protocol 1 EACH MISC MISCELLANE PRN (15:43)
[2021-10-04] MEDS: POTASSIUM CHLORIDE ER 20 MEQ TAB.ER PO SCH ×2 (16:25→17:46)
--- NOTE | 2021-10-04 22:00 | PN ---
PROGRESS NOTE DATE OF SERVICE: 10/04/2021 REASON FOR FOLLOWUP: COVID-19 pneumonia. INTERVAL HISTORY: The patient is afebrile. The patient is currently breathing comfortably. The patient is down to 6 L nasal cannula. The patient denies having any chest pain or worsening cough. No abdominal pain or diarrhea. PHYSICAL EXAMINATION: Blood pressure 115/69, pulse of 93, temperature 98.2. She is 93% on 6 L nasal cannula. General description is an elderly female up in the chair in no distress. Respiratory system: Unlabored breathing, decreased intensity of breath sounds. No wheeze. Heart S1, S2. Regular rate and rhythm. Abdomen: Soft no tenderness. LABS: Hemoglobin is 12, white count 7.7, creatinine 0.51. DIAGNOSTIC IMPRESSION AND PLAN: Patient with acute COVID-19 pneumonia in this patient who has completed a two-week course of baricitinib. Steroids have been switched over to dexamethasone, to continue along with Lovenox and respiratory support and monitor clinical course closely. MMODL / IJN: [id number] /
[2021-10-05] MEDS: LEVOTHYROXINE 75 MCG TAB PO SCH (05:47)
[2021-10-05] MEDS: dexAMETHasone 2 MG TAB PO SCH (08:31)
[2021-10-05] MEDS: ENOXAPARIN 30 MG/0.3 ML SYRINGE SQ SCH (08:31)
[2021-10-05] MEDS: ASCORBIC ACID 500 MG TAB PO SCH (08:31)
[2021-10-05] MEDS: ATORVASTATIN 40 MG TAB PO SCH (08:31)
[2021-10-05] MEDS: ZINC SULFATE 220 MG CAP PO SCH (08:31)
[2021-10-05] MEDS: DOCUSATE 100 MG CAP PO SCH ×2 (08:31→21:42)
[2021-10-05] MEDS: FLUTICASONE 50MCG/SPRAY NASAL 16GM EA NOSTRIL SCH (08:32)
[2021-10-05] MEDS: PANTOPRAZOLE 40 MG/10 ML VIAL IVP SCH ×2 (08:32→21:42)
[2021-10-05] MEDS: VIT A,C & E-LUTEIN-MINERALS 1 EACH TAB PO SCH ×2 (08:32→21:42)
[2021-10-05] MEDS: SYMBICORT 160-4.5 MCG INHALER INHALATION SCH ×2 (09:20→19:42)
[2021-10-05] MEDS: SODIUM FERRIC GLUCONAT-SUCROSE 125 MG in SODIUM CHLORIDE 0.9% 100 ML IVPB SCH (10:22)
[2021-10-05 18:45] LABS: ALT 36 U/L (4-34); AST 43 U/L (14-36); African American GFR (CKD) >90 (>60 ml/min/1.73 sqM); Albumin 2.1 g/dL (3.5-5.0); Albumin/Globulin Ratio 0.9; Alkaline Phosphatase 71 U/L (38-126); Anion Gap 4 mmol/L; Blood Urea Nitrogen 9 mg/dL (7-17); Calcium 7.3 mg/dL (8.4-10.2); Carbon Dioxide 22 mmol/L (22-30); Chloride 105 mmol/L (98-107); Globulin 2.4 g/dL; Glucose 162 mg/dL (74-99); Non-African American GFR(CKD) >90 (>60 ml/min/1.73 sqM); Sodium 131 mmol/L (137-145); Total Bilirubin 0.7 mg/dL (0.2-1.3); Total Protein 4.5 g/dL (6.3-8.2)
[2021-10-05 18:46] LABS: Potassium 4.4 mmol/L (3.5-5.1)
--- NOTE | 2021-10-05 23:11 | PN ---
PROGRESS NOTE DATE OF SERVICE: 10/05/2021 REASON FOR FOLLOWUP: COVID-19 pneumonia. INTERVAL HISTORY: The patient is afebrile. The patient is breathing slightly comfortably. The patient denies having any chest pain or any worsening cough. No abdominal pain or diarrhea. PHYSICAL EXAMINATION: Her blood pressure is 95/67, pulse of 108, temperature 99. She is 94% on 7 L nasal cannula. General description is an elderly female up in the bed in no distress. Respiratory system: Unlabored breathing, decreased intensity of breath sounds. No wheeze. Heart S1, S2. Regular rate and rhythm. Abdomen soft, no tenderness. LABS: BUN of 9, creatinine 0.43. DIAGNOSTIC IMPRESSION AND PLAN: Patient with acute COVID-19 pneumonia in this patient who has completed her 14-day course of baricitinib, currently on dexamethasone, Lovenox; to continue along with respiratory support and monitor her clinical course closely. Continue supportive care. MMODL / IJN: [id number] /
[2021-10-06] MEDS: LEVOTHYROXINE 75 MCG TAB PO SCH (05:35)
[2021-10-06] MEDS: DOCUSATE 100 MG CAP PO SCH ×2 (08:58→21:21)
[2021-10-06] MEDS: ZINC SULFATE 220 MG CAP PO SCH (08:58)
[2021-10-06] MEDS: dexAMETHasone 2 MG TAB PO SCH (08:58)
[2021-10-06] MEDS: ATORVASTATIN 40 MG TAB PO SCH (08:58)
[2021-10-06] MEDS: ASCORBIC ACID 500 MG TAB PO SCH (08:58)
[2021-10-06] MEDS: VIT A,C & E-LUTEIN-MINERALS 1 EACH TAB PO SCH ×2 (08:58→21:22)
[2021-10-06] MEDS: PANTOPRAZOLE 40 MG/10 ML VIAL IVP SCH (08:59)
[2021-10-06] MEDS: FLUTICASONE 50MCG/SPRAY NASAL 16GM EA NOSTRIL SCH (08:59)
[2021-10-06] MEDS: ENOXAPARIN 30 MG/0.3 ML SYRINGE SQ SCH (08:59)
[2021-10-06] MEDS: SYMBICORT 160-4.5 MCG INHALER INHALATION SCH ×2 (09:14→21:38)
[2021-10-06] MEDS: SODIUM FERRIC GLUCONAT-SUCROSE 125 MG in SODIUM CHLORIDE 0.9% 100 ML IVPB SCH (09:41)
--- NOTE | 2021-10-06 10:20 | P.PN ---
Subjective Progress Note Date: 10/04/21 (Late entry note as per XZERES nonfunctional) Principal diagnosis: Lower/upper GI bleed Acute diverticulitis Acute hypoxic respiratory failure Sepsis due to COVID-19 pneumonia with elevated lactic acid COVID-19 pneumonia Electrolyte imbalance with hypokalemia Elevated liver enzymes Elevated d-dimer and Normal pro-calcitonin 10/04/2021, patient seen eval examined care plan discussed with RN, chrissy DC IV steroids and IV antibiotics, switched to by mouth Decadron 6 mg daily patient was resumed on Lovenox, awaiting insurance approval for ECF placement 10/03/2021, patient requested to be discharged but however insurance denied the ECF placement patient was 10/01/2021, patient seen eval examined during the rounds labs reviewed medications reviewed, general surgery as per discussion was to proceed with upper and lower endoscopy, her FiO2 is down to 6 L oxygen saturation is 90-92%, respiratory rate is 18 she is afebrile, her hemoglobin drop down to 6.8 required 1 unit of packed RBC is now up to 8 and 24, sodium is 140 potassium is 3.1, latest covert test repeated negative, currently patient is on Tylenol and vitamin C Lipitor Symbicort Colace vitamin D 2 she had infusion of iron, Solu- Medrol IV, Zosyn and Protonix with COVID-19 minerals, patient remains off of heparin or Lovenox for ongoing GI bleed 09/30/2021, patient seen eval examined during rounds, patient is still short of breath on activity and exertion, on high flow oxygen 10 L currently she is down from 15 L, oxygen saturation 98%, white cell count 8800, hemoglobin is 8.3 which remains however stable 09/29/2021, patient seen eval examined during the rounds respiratory status remained stable, continued to require less somewhat low oxygen, discussed with the respiratory therapist intervened and titrate oxygen down as tolerated maybe 1 L a day to keep saturation over 88% and above, general surgery is following for lower GI bleed hemoglobin however remains stable intermittent dark stools still present, anti-thrombolytic candidate for anticoagulants on hold including DVT prophylaxis along with aspirin and Plavix September 28 2021, patient seen and evaluated examined in the ICU awake and alert breathing comfortably, on 15 L mask saturation is 98%, denies any chest pain denies any cough or sputum production no more bleeding for the last 12 hours has been seen, hemoglobin dropped down to 8.4 appears to be post loss and dilutional effect, white cell count is 10,000 hemoglobin and hematocrit 8.425 platelets are 120 61,000, BUN/creatinine is 21.3. Sodium was 135, medications include Zithromax Solu-Medrol 40 every 8 Protonix 40 mg twice a day Zosyn and zinc. Computed tomography scan of the chest and pelvis reviewed, bases of x-ray shows interstitial infiltrate consistent with COVID-19 pneumonia L1 compression fracture seen no acute pathology identified on computed tomography scan of the abdominal and pelvis 09/26/2021, patient seen eval examined during the rounds patient has a massive lower GI bleed after that patient was starting feeling dizzy lightheaded blood was bright red patient emergently transferred to ICU Y tones were check blood pressure is stable status CBC was sent hemoglobin remained stable at 12 however patient has been rehydrated to 1 L of crystalloids has been given patient has been started on 100 mL an hour, Protonix have been changed to 40 mg IV every 12, general surgery on consult, will put patient on IV Zosyn likely diverticular bleed, will stop Lovenox, Plavix and aspirin for now, we'll check hemoglobin and hematocrit every 8 hourly, patient however remains on 15 L high flow oxygen sats are 96-97% significantly improved however we'll decrease IV steroids to every 8 instead of 60 every 6, critical care time spent 35 minutes 09/24/2021, patient seen eval examined during the rounds labs reviewed medications reviewed care plan discussed, respiratory status remains stable denies any chest pain, patient remains on high flow oxygen and needed has been using nonrebreather mask saturation are now mid 90s to low 90s, chest x-ray done earlier this morning reviewed no pneumothorax is seen, patient will get a midline, would plan to continue IV steroids and supportive care 09/23/2021, patient seen eval reexamined during the rounds patient has been on 12 L high flow oxygen with that her sats are about 88-90%, as needed she has been using nonrebreather mask, chest x-ray performed today reviewed decrease in size of the mediastinal emphysema is noted, pneumothorax seen on the right upper extremity with sleep not visualized anymore, lactic acid as well as normalized, 09/22/2021, patient seen eval examined during the rounds care plan discussed with RN at length, labs reviewed radiographic studies reviewed, and computed tomography scan of his chest reviewed as well, patient has incidental tiny right-sided apical pneumothorax discovered, no significant change in oxygenation patient remains on the 12 L high flow oxygen and as needed 100% nonrebreather mask saturation 88-90%, denies any chest pain some discomfort as needed improved with the Tylenol, patient remains on IV steroids, today's x-ray shows some improvement in tiny pneumothorax as well as 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, thoracic surgery is on consult in case emergent chest tube is required, noted lactic acid slightly elevated showing up or trend, patient is on Zithromax we will add cephapirin as well for healthcare associated pneumonia, computed tomography scan x-ray remains unchanged continue show bilateral basal infiltrate as well as patchy upper lobe infiltrate consistent with COVID-19 pneumonia, white cell count improved to 11,400, platelet count 4 60,000, lactic acid is 2.4 subsequent 2.6, pro-calcitonin has been normal 0.03 still September 20, 09/19/2021, patient seen eval examined, oxygen remains low requiring supplemental oxygen with 12-13 L high flow intermittently has been using mask as well, remains afebrile, labs reviewed white cell count 16,400 hemoglobin and hematocrit is 30 and 40, rehab has been following for placement, ID service following patient is still on too much oxygen to place and the rehab, pro- calcitonin remains normal 09/18/2021, patient seen eval examined during the rounds labs reviewed medications reviewed care plan discussed, oxygen saturation remained stable 92% on the high flow oxygen 12 L but however patient continued to require nonrebreather mask on top of that intermittently especially during some motion movement and activity, remains afebrile, will decrease the Solu-Medrol to every 12 now Other supportive measures and therapy 09/17/2021, patient seen eval examined during the rounds labs reviewed medications reviewed care plan discussed, history status patient is still short of breath continued to require high flow oxygen via nasal cannula as well as nasal mask as needed, that oxygen saturation improved to 91-92%, patient remains afebrile, remains on IV steroids supplements and Lovenox for anticoagulation, less distress is used to see before 09/16/2021, patient seen eval examined during the rounds labs reviewed medications reviewed care plan discussed, respiratory status remains marginal get short of breath activity and exertion, patient still have dry nonproductive cough, she is on 12 L high flow oxygen at times he uses a mask as well, she is afebrile with heart rate of 102, blood pressure HEENT hemodynamic stable oxygen saturation improved to 90-94% now, chest x-ray earlier this morning continued to show multifocal diffuse reticular and radicular nodular appearance bilaterally 09/15/2021, patient overall in good spirits breathing comfortably but get short of breath on activity and exertion continue to have intermittent dry cough, patient remains on 12 L high flow oxygen along with as needed 15 L face mask, remains afebrile, oxygen saturation is mostly 89-92%, d-dimer remains elevated, patient remains on the Lovenox IV steroids will repeat follow-up chest x-ray 09/13/2021, patient seen eval examined during the rounds labs reviewed medications reviewed care plan discussed, patient remains on the 15 L high flow oxygen along with nonrebreather mask with that saturation is 88-90%, labs from today reviewed white cell count come down to 8000, labs stable production up to 3.9, BUN/creatinine 22/.6, 09/12/2021, patient seen eval examined during the rounds labs reviewed medications reviewed care plan discussed, respiratory status is still marginal but stable, patient remains on 100% oxygen nonrebreather mask, T-max is 99.4, saturation is 89% to 90%, computed tomography scan of his chest consistent with interstitial pneumonia and COVID-19, no pulmonary embolism seen, patient remains on IV steroids and anticoagulation breathing treatment and continuation of home medications, Patient is a 76-year-old female who came into the hospital with increasing aches and pains malaise, symptoms started about 10-12 days ago, patient has outpatient covert testing which was negative however due to worsening system symptoms she decided to come into the hospital, patient oxygen saturation was just 75% in triage at room air, her appetite has been poor as well on specific questioning she denies any chest pain, denies any nausea vomiting diarrhea Past medical history significant for hypothyroidism, GERD, history of TIA, hypertension and hypertensive cardiovascular disease, thyroid disorder, history of the stroke,/TIA, patient is a nonsmokerhistory of substance In emergency department she underwent a chest x-ray which revealed bilateral patchy infiltrate more so on the bases on the right side compared to left side, EKG revealed sinus tachycardia, echocardiogram revealed ejection fraction 55%, mild TR and MR was noted along with AR, labs are significant for leukocytosis with WBC count of 14,600, primarily elevated 0.7, sodium is 1:30" 3.3, BUN/creatinine 16.67, glucose 155, AST and ALT Elevated, lactic acid is 3.3,, T-max 100.6 now currently afebrile, she is 90% on 15 L nonrebreather mask improved to 94% currently on 15 L nonrebreather mask, she came back positive for COVID-19 infection PCR, pro-calcitonin also elevated of 0.13 currently she is being treated with Y Lucnida as well as Zithromax, Decadron 6 mg daily, Lovenox 40 mg daily Objective - Vital Signs Vital signs: Vital Signs Temp 99.5 F 10/06/21 07:03 Pulse 116 H 10/06/21 07:03 Resp 18 10/06/21 07:03 BP 113/72 10/06/21 07:03 Pulse Ox 89 L 10/06/21 09:14 Intake & Output 10/05/21 10/06/21 10/06/21 18:59 06:59 18:59 Intake Total 100 Balance 100 Intake: Intake, IV Titration 100 Amount Sodium Ferric Gluconat- 100 Sucrose 125 mg In Sodium Chloride 0.9% 100 ml @ 100 mls/hr IVPB DAILY [facility] Rx#:[id number] Other: # Voids 7 2 - Exam - Constitutional General appearance: mild distress, bleeding currently stopped now - EENT Eyes: PERRLA Ears: bilateral: normal - Neck Neck: normal ROM Carotids: bilateral: upstroke normal - Respiratory Respiratory: bilateral: diminished - Cardiovascular Rhythm: regular Heart sounds: normal: S1, S2 - Gastrointestinal General gastrointestinal: decreased bowel sounds - Neurologic Neurologic: CNII-XII intact - Musculoskeletal Musculoskeletal: generalized weakness - Psychiatric Psychiatric: A&O x's 3, appropriate affect - Labs CBC & Chem 7: 10/03/21 13:19 10/05/21 18:03 Labs: Abnormal Lab Results - Last 24 Hours (Table) 10/05/21 Range/Units 18:03 Sodium 131 L (137-145) mmol/L Creatinine 0.43 L (0.52-1.04) mg/dL Glucose 162 H (74-99) mg/dL Calcium 7.3 L (8.4-10.2) mg/dL AST 43 H (14-36) U/L ALT 36 H (4-34) U/L Total Protein 4.5 L (6.3-8.2) g/dL Albumin 2.1 L (3.5-5.0) g/dL Assessment and Plan Assessment: Lower/upper GI bleed overall stable COVID-19 testing came back negative now Hypokalemia Acute blood loss anemia source of bleeding not checked identified appears to be lower GI bleed now stable Pneumothorax right side resolved 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 Sepsis related to COVID-19 pneumonia Acute hypoxic respiratory failure COVID-19 pneumonia 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
--- NOTE | 2021-10-06 10:23 | P.PN ---
Subjective Progress Note Date: 10/05/21 Principal diagnosis: Lower/upper GI bleed Acute diverticulitis Acute hypoxic respiratory failure Sepsis due to COVID-19 pneumonia with elevated lactic acid COVID-19 pneumonia Electrolyte imbalance with hypokalemia Elevated liver enzymes Elevated d-dimer and Normal pro-calcitonin 10/05/2021, patient seen eval examined during the rounds labs reviewed medications reviewed, respiratory status remains stable patient is down to 6-7 L nasal cannula oxygen saturation is in the low 90s, undergoing physical therapy awaiting placement to [facility] but insurance approval 10/04/2021, patient seen eval examined care plan discussed with RN, chrissy DC IV steroids and IV antibiotics, switched to by mouth Decadron 6 mg daily patient was resumed on Lovenox, awaiting insurance approval for ECF placement 10/03/2021, patient requested to be discharged but however insurance denied the ECF placement patient was 10/01/2021, patient seen eval examined during the rounds labs reviewed medic ations reviewed, general surgery as per discussion was to proceed with upper and lower endoscopy, her FiO2 is down to 6 L oxygen saturation is 90-92%, respiratory rate is 18 she is afebrile, her hemoglobin drop down to 6.8 required 1 unit of packed RBC is now up to 8 and 24, sodium is 140 potassium is 3.1, latest covert test repeated negative, currently patient is on Tylenol and vitamin C Lipitor Symbicort Colace vitamin D 2 she had infusion of iron, Solu- Medrol IV, Zosyn and Protonix with COVID-19 minerals, patient remains off of heparin or Lovenox for ongoing GI bleed 09/30/2021, patient seen eval examined during rounds, patient is still short of breath on activity and exertion, on high flow oxygen 10 L currently she is down from 15 L, oxygen saturation 98%, white cell count 8800, hemoglobin is 8.3 which remains however stable 09/29/2021, patient seen eval examined during the rounds respiratory status remained stable, continued to require less somewhat low oxygen, discussed with the respiratory therapist intervened and titrate oxygen down as tolerated maybe 1 L a day to keep saturation over 88% and above, general surgery is following for lower GI bleed hemoglobin however remains stable intermittent dark stools still present, anti-thrombolytic candidate for anticoagulants on hold including DVT prophylaxis along with aspirin and Plavix September 28 2021, patient seen and evaluated examined in the ICU awake and alert breathing comfortably, on 15 L mask saturation is 98%, denies any chest pain denies any cough or sputum production no more bleeding for the last 12 hours has been seen, hemoglobin dropped down to 8.4 appears to be post loss and dilutional effect, white cell count is 10,000 hemoglobin and hematocrit 8.425 platelets are 120 61,000, BUN/creatinine is 21.3. Sodium was 135, medications include Zithromax Solu-Medrol 40 every 8 Protonix 40 mg twice a day Zosyn and zinc. Computed tomography scan of the chest and pelvis reviewed, bases of x-ray shows interstitial infiltrate consistent with COVID-19 pneumonia L1 compression fracture seen no acute pathology identified on computed tomography scan of the abdominal and pelvis 09/26/2021, patient seen eval examined during the rounds patient has a massive lower GI bleed after that patient was starting feeling dizzy lightheaded blood was bright red patient emergently transferred to ICU Y tones were check blood pressure is stable status CBC was sent hemoglobin remained stable at 12 however patient has been rehydrated to 1 L of crystalloids has been given patient has been started on 100 mL an hour, Protonix have been changed to 40 mg IV every 12, general surgery on consult, will put patient on IV Zosyn likely diverticular bleed, will stop Lovenox, Plavix and aspirin for now, we'll check hemoglobin and hematocrit every 8 hourly, patient however remains on 15 L high flow oxygen sats are 96-97% significantly improved however we'll decrease IV steroids to every 8 instead of 60 every 6, critical care time spent 35 minutes 09/24/2021, patient seen eval examined during the rounds labs reviewed medicat ions reviewed care plan discussed, respiratory status remains stable denies any chest pain, patient remains on high flow oxygen and needed has been using nonrebreather mask saturation are now mid 90s to low 90s, chest x-ray done earlier this morning reviewed no pneumothorax is seen, patient will get a midline, would plan to continue IV steroids and supportive care 09/23/2021, patient seen eval reexamined during the rounds patient has been on 12 L high flow oxygen with that her sats are about 88-90%, as needed she has been using nonrebreather mask, chest x-ray performed today reviewed decrease in size of the mediastinal emphysema is noted, pneumothorax seen on the right upper extremity with sleep not visualized anymore, lactic acid as well as normalized, 09/22/2021, patient seen evjulian examined during the rounds care plan discussed with RN at length, labs reviewed radiographic studies reviewed, and computed tomography scan of his chest reviewed as well, patient has incidental tiny right -sided apical pneumothorax discovered, no significant change in oxygenation patient remains on the 12 L high flow oxygen and as needed 100% nonrebreather mask saturation 88-90%, denies any chest pain some discomfort as needed improved with the Tylenol, patient remains on IV steroids, today's x-ray shows some improvement in tiny pneumothorax as well as 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, thoracic surgery is on consult in case emergent chest tube is required, noted lactic acid slightly elevated showing up or trend, patient is on Zithromax we will add cephapirin as well for healthcare associated pneumonia, computed tomography scan x-ray remains unchanged continue show bilateral basal infiltrate as well as patchy upper lobe infiltrate consistent with COVID-19 pneumonia, white cell count improved to 11,400, platelet count 4 60,000, lactic acid is 2.4 subsequent 2.6, pro-calcitonin has been normal 0.03 still September 20, 09/19/2021, patient seen evjulian examined, oxygen remains low requiring supplemental oxygen with 12-13 L high flow intermittently has been using mask as well, remains afebrile, labs reviewed white cell count 16,400 hemoglobin and hematocrit is 30 and 40, rehab has been following for placement, ID service following patient is still on too much oxygen to place and the rehab, pro- calcitonin remains normal 09/18/2021, patient seen eval examined during the rounds labs reviewed medications reviewed care plan discussed, oxygen saturation remained stable 92% on the high flow oxygen 12 L but however patient continued to require nonreb reather mask on top of that intermittently especially during some motion movement and activity, remains afebrile, will decrease the Solu-Medrol to every 12 now Other supportive measures and therapy 09/17/2021, patient seen eval examined during the rounds labs reviewed medications reviewed care plan discussed, history status patient is still short of breath continued to require high flow oxygen via nasal cannula as well as nasal mask as needed, that oxygen saturation improved to 91-92%, patient remains afebrile, remains on IV steroids supplements and Lovenox for anticoagulation, less distress is used to see before 09/16/2021, patient seen eval examined during the rounds labs reviewed medica tions reviewed care plan discussed, respiratory status remains marginal get short of breath activity and exertion, patient still have dry nonproductive cough, she is on 12 L high flow oxygen at times he uses a mask as well, she is afebrile with heart rate of 102, blood pressure HEENT hemodynamic stable oxygen saturation improved to 90-94% now, chest x-ray earlier this morning continued to show multifocal diffuse reticular and radicular nodular appearance bilaterally 09/15/2021, patient overall in good spirits breathing comfortably but get short of breath on activity and exertion continue to have intermittent dry cough, patient remains on 12 L high flow oxygen along with as needed 15 L face mask, remains afebrile, oxygen saturation is mostly 89-92%, d-dimer remains elevated, patient remains on the Lovenox IV steroids will repeat follow-up chest x-ray 09/13/2021, patient seen eval examined during the rounds labs reviewed medications reviewed care plan discussed, patient remains on the 15 L high flow oxygen along with nonrebreather mask with that saturation is 88-90%, labs from today reviewed white cell count come down to 8000, labs stable production up to 3.9, BUN/creatinine 22/.6, 09/12/2021, patient seen eval examined during the rounds labs reviewed medications reviewed care plan discussed, respiratory status is still marginal but stable, patient remains on 100% oxygen nonrebreather mask, T-max is 99.4, saturation is 89% to 90%, computed tomography scan of his chest consistent with interstitial pneumonia and COVID-19, no pulmonary embolism seen, patient remains on IV steroids and anticoagulation breathing treatment and continuation of home medications, Patient is a 76-year-old female who came into the hospital with increasing aches and pains malaise, symptoms started about 10-12 days ago, patient has outpatient covert testing which was negative however due to worsening system symptoms she decided to come into the hospital, patient oxygen saturation was just 75% in triage at room air, her appetite has been poor as well on specific questioning she denies any chest pain, denies any nausea vomiting diarrhea Past medical history significant for hypothyroidism, GERD, history of TIA, hypertension and hypertensive cardiovascular disease, thyroid disorder, history of the stroke,/TIA, patient is a nonsmokerhistory of substance In emergency department she underwent a chest x-ray which revealed bilateral patchy infiltrate more so on the bases on the right side compared to left side, EKG revealed sinus tachycardia, echocardiogram revealed ejection fraction 55%, mild TR and MR was noted along with AR, labs are significant for leukocytosis with WBC count of 14,600, primarily elevated 0.7, sodium is 1:30" 3.3, BUN/creatinine 16.67, glucose 155, AST and ALT Elevated, lactic acid is 3.3,, T-max 100.6 now currently afebrile, she is 90% on 15 L nonrebreather mask improved to 94% currently on 15 L nonrebreather mask, she came back positive for COVID-19 infection PCR, pro-calcitonin also elevated of 0.13 currently she is being treated with Y Lucinda as well as Zithromax, Decadron 6 mg daily, Lovenox 40 mg daily Objective - Vital Signs Vital signs: Vital Signs Temp 99.5 F 10/06/21 07:03 Pulse 116 H 10/06/21 07:03 Resp 18 10/06/21 07:03 BP 113/72 10/06/21 07:03 Pulse Ox 89 L 10/06/21 09:14 Intake & Output 10/05/21 10/06/21 10/06/21 18:59 06:59 18:59 Intake Total 100 Balance 100 Intake: Intake, IV Titration 100 Amount Sodium Ferric Gluconat- 100 Sucrose 125 mg In Sodium Chloride 0.9% 100 ml @ 100 mls/hr IVPB DAILY [facility] Rx#:[id number] Other: # Voids 7 2 - Exam - Constitutional General appearance: mild distress, bleeding currently stopped now - EENT Eyes: PERRLA Ears: bilateral: normal - Neck Neck: normal ROM Carotids: bilateral: upstroke normal - Respiratory Respiratory: bilateral: diminished - Cardiovascular Rhythm: regular Heart sounds: normal: S1, S2 - Gastrointestinal General gastrointestinal: decreased bowel sounds - Neurologic Neurologic: CNII-XII intact - Musculoskeletal Musculoskeletal: generalized weakness - Psychiatric Psychiatric: A&O x's 3, appropriate affect - Labs CBC & Chem 7: 10/03/21 13:19 10/05/21 18:03 Labs: Abnormal Lab Results - Last 24 Hours (Table) 10/05/21 Range/Units 18:03 Sodium 131 L (137-145) mmol/L Creatinine 0.43 L (0.52-1.04) mg/dL Glucose 162 H (74-99) mg/dL Calcium 7.3 L (8.4-10.2) mg/dL AST 43 H (14-36) U/L ALT 36 H (4-34) U/L Total Protein 4.5 L (6.3-8.2) g/dL Albumin 2.1 L (3.5-5.0) g/dL Assessment and Plan Assessment: Lower/upper GI bleed overall stable COVID-19 testing came back negative now Hypokalemia Acute blood loss anemia source of bleeding not checked identified appears to be lower GI bleed now stable Pneumothorax right side resolved 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 Sepsis related to COVID-19 pneumonia Acute hypoxic respiratory failure COVID-19 pneumonia 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
--- NOTE | 2021-10-06 10:25 | P.PN ---
Subjective Progress Note Date: 10/06/21 Principal diagnosis: Lower/upper GI bleed Acute diverticulitis Acute hypoxic respiratory failure Sepsis due to COVID-19 pneumonia with elevated lactic acid COVID-19 pneumonia Electrolyte imbalance with hypokalemia Elevated liver enzymes Elevated d-dimer and Normal pro-calcitonin 10/06/2021, patient seen eval examined on 7 L nasal cannula breathing comfortably denies any chest pain, medications reviewed, discussed with social media community manager bed is available likely patient can be discharged later on today, Protonix will be changed to by mouth 10/05/2021, patient seen eval examined during the rounds labs reviewed medications reviewed, respiratory status remains stable patient is down to 6-7 L nasal cannula oxygen saturation is in the low 90s, undergoing physical therapy awaiting placement to [facility] but insurance approval 10/04/2021, patient seen eval examined care plan discussed with RN, will DC IV steroids and IV antibiotics, switched to by mouth Decadron 6 mg daily patient was resumed on Lovenox, awaiting insurance approval for ECF placement 10/03/2021, patient requested to be discharged but however insurance denied the ECF placement patient was 10/01/2021, patient seen eval examined during the rounds labs reviewed medications reviewed, general surgery as per discussion was to proceed with upper and lower endoscopy, her FiO2 is down to 6 L oxygen saturation is 90-92%, respiratory rate is 18 she is afebrile, her hemoglobin drop down to 6.8 required 1 unit of packed RBC is now up to 8 and 24, sodium is 140 potassium is 3.1, latest covert test repeated negative, currently patient is on Tylenol and vitamin C Lipitor Symbicort Colace vitamin D 2 she had infusion of iron, Solu- Medrol IV, Zosyn and Protonix with COVID-19 minerals, patient remains off of hep marcus or Lovenox for ongoing GI bleed 09/30/2021, patient seen eval examined during rounds, patient is still short of breath on activity and exertion, on high flow oxygen 10 L currently she is down from 15 L, oxygen saturation 98%, white cell count 8800, hemoglobin is 8.3 which remains however stable 09/29/2021, patient seen eval examined during the rounds respiratory status remained stable, continued to require less somewhat low oxygen, discussed with the respiratory therapist intervened and titrate oxygen down as tolerated maybe 1 L a day to keep saturation over 88% and above, general surgery is following for lower GI bleed hemoglobin however remains stable intermittent dark stools still present, anti-thrombolytic candidate for anticoagulants on hold including DVT prophylaxis along with aspirin and Plavix September 28 2021, patient seen and evaluated examined in the ICU awake and alert breathing comfortably, on 15 L mask saturation is 98%, denies any chest pain denies any cough or sputum production no more bleeding for the last 12 hours has been seen, hemoglobin dropped down to 8.4 appears to be post loss and dilutional effect, white cell count is 10,000 hemoglobin and hematocrit 8.425 platelets are 120 61,000, BUN/creatinine is 21.3. Sodium was 135, medications include Zith romax Solu-Medrol 40 every 8 Protonix 40 mg twice a day Zosyn and zinc. Computed tomography scan of the chest and pelvis reviewed, bases of x-ray shows interstitial infiltrate consistent with COVID-19 pneumonia L1 compression fracture seen no acute pathology identified on computed tomography scan of the abdominal and pelvis 09/26/2021, patient seen eval examined during the rounds patient has a massive lower GI bleed after that patient was starting feeling dizzy lightheaded blood was bright red patient emergently transferred to ICU Y tones were check blood pressure is stable status CBC was sent hemoglobin remained stable at 12 however patient has been rehydrated to 1 L of crystalloids has been given patient has been started on 100 mL an hour, Protonix have been changed to 40 mg IV every 12, general surgery on consult, will put patient on IV Zosyn likely diverticular bleed, will stop Lovenox, Plavix and aspirin for now, we'll check hemoglobin and hematocrit every 8 hourly, patient however remains on 15 L high flow oxygen sats are 96-97% significantly improved however we'll decrease IV steroids to every 8 instead of 60 every 6, critical care time spent 35 minutes 09/24/2021, patient seen eval examined during the rounds labs reviewed medications reviewed care plan discussed, respiratory status remains stable denies any chest pain, patient remains on high flow oxygen and needed has been using nonrebreather mask saturation are now mid 90s to low 90s, chest x-ray done earlier this morning reviewed no pneumothorax is seen, patient will get a midline, would plan to continue IV steroids and supportive care 09/23/2021, patient seen eval reexamined during the rounds patient has been on 12 L high flow oxygen with that her sats are about 88-90%, as needed she has been using nonrebreather mask, chest x-ray performed today reviewed decrease in size of the mediastinal emphysema is noted, pneumothorax seen on the right upper extremity with sleep not visualized anymore, lactic acid as well as normalized, 09/22/2021, patient seen eval examined during the rounds care plan discussed with RN at length, labs reviewed radiographic studies reviewed, and computed tomography scan of his chest reviewed as well, patient has incidental tiny right-sided apical pneumothorax discovered, no significant change in oxygenation patient remains on the 12 L high flow oxygen and as needed 100% nonrebreather mask saturation 88-90%, denies any chest pain some discomfort as needed improved with the Tylenol, patient remains on IV steroids, today's x-ray shows some improvement in tiny pneumothorax as well as 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, thoracic surgery is on consult in case emergent chest tube is required, noted lactic acid slightly elevated showing up or trend, patient is on Zithromax we will add cephapirin as well for healthcare associated pneumonia, computed tomography scan x-ray remains unchanged continue show bilateral basal infiltrate as well as patchy upper lobe infiltrate consistent with COVID-19 pneumonia, white cell count improved to 11,400, platelet count 4 60,000, lactic acid is 2.4 subsequent 2.6, pro-calcitonin has been normal 0.03 still September 20, 09/19/2021, patient seen eval examined, oxygen remains low requiring lucero pplemental oxygen with 12-13 L high flow intermittently has been using mask as well, remains afebrile, labs reviewed white cell count 16,400 hemoglobin and hematocrit is 30 and 40, rehab has been following for placement, ID service following patient is still on too much oxygen to place and the rehab, pro- calcitonin remains normal 09/18/2021, patient seen eval examined during the rounds labs reviewed medications reviewed care plan discussed, oxygen saturation remained stable 92% on the high flow oxygen 12 L but however patient continued to require nonrebreather mask on top of that intermittently especially during some motion movement and activity, remains afebrile, will decrease the Solu-Medrol to every 12 now Other supportive measures and therapy 09/17/2021, patient seen eval examined during the rounds labs reviewed medications reviewed care plan discussed, history status patient is still short of breath continued to require high flow oxygen via nasal cannula as well as nasal mask as needed, that oxygen saturation improved to 91-92%, patient remains afebrile, remains on IV steroids supplements and Lovenox for anticoagulation, less distress is used to see before 09/16/2021, patient seen eval examined during the rounds labs reviewed medications reviewed care plan discussed, respiratory status remains marginal get short of breath activity and exertion, patient still have dry nonproductive cough, she is on 12 L high flow oxygen at times he uses a mask as well, she is afebrile with heart rate of 102, blood pressure HEENT hemodynamic stable oxygen saturation improved to 90-94% now, chest x-ray earlier this morning continued to show multifocal diffuse reticular and radicular nodular appearance bilaterally 09/15/2021, patient overall in good spirits breathing comfortably but get short of breath on activity and exertion continue to have intermittent dry cough, patient remains on 12 L high flow oxygen along with as needed 15 L face mask, remains afebrile, oxygen saturation is mostly 89-92%, d-dimer remains elevated, patient remains on the Lovenox IV steroids will repeat follow-up chest x-ray 09/13/2021, patient seen eval examined during the rounds labs reviewed medic ations reviewed care plan discussed, patient remains on the 15 L high flow oxygen along with nonrebreather mask with that saturation is 88-90%, labs from today reviewed white cell count come down to 8000, labs stable production up to 3.9, BUN/creatinine 22/.6, 09/12/2021, patient seen eval examined during the rounds labs reviewed medications reviewed care plan discussed, respiratory status is still marginal but stable, patient remains on 100% oxygen nonrebreather mask, T-max is 99.4, saturation is 89% to 90%, computed tomography scan of his chest consistent with interstitial pneumonia and COVID-19, no pulmonary embolism seen, patient remains on IV steroids and anticoagulation breathing treatment and continuation of home medications, Patient is a 76-year-old female who came into the hospital with increasing aches and pains malaise, symptoms started about 10-12 days ago, patient has outpatient covert testing which was negative however due to worsening system symptoms she decided to come into the hospital, patient oxygen saturation was just 75% in triage at room air, her appetite has been poor as well on specific questioning she denies any chest pain, denies any nausea vomiting diarrhea Past medical history significant for hypothyroidism, GERD, history of TIA, hypertension and hypertensive cardiovascular disease, thyroid disorder, history of the stroke,/TIA, patient is a nonsmokerhistory of substance In emergency department she underwent a chest x-ray which revealed bilateral patchy infiltrate more so on the bases on the right side compared to left side, EKG revealed sinus tachycardia, echocardiogram revealed ejection fraction 55%, mild TR and MR was noted along with AR, labs are significant for leukocytosis with WBC count of 14,600, primarily elevated 0.7, sodium is 1:30" 3.3, BUN/creatinine 16.67, glucose 155, AST and ALT Elevated, lactic acid is 3.3,, T-max 100.6 now currently afebrile, she is 90% on 15 L nonrebreather mask improved to 94% currently on 15 L nonrebreather mask, she came back positive for COVID-19 infection PCR, pro-calcitonin also elevated of 0.13 currently she is being treated with Y Lucinda as well as Zithromax, Decadron 6 mg daily, Lovenox 40 mg daily Objective - Vital Signs Vital signs: Vital Signs Temp 99.5 F 10/06/21 07:03 Pulse 116 H 10/06/21 07:03 Resp 18 10/06/21 07:03 BP 113/72 10/06/21 07:03 Pulse Ox 89 L 10/06/21 09:14 Intake & Output 10/05/21 10/06/21 10/06/21 18:59 06:59 18:59 Intake Total 100 Balance 100 Intake: Intake, IV Titration 100 Amount Sodium Ferric Gluconat- 100 Sucrose 125 mg In Sodium Chloride 0.9% 100 ml @ 100 mls/hr IVPB DAILY [facility] Rx#:[id number] Other: # Voids 7 2 - Exam - Constitutional General appearance: mild distress, bleeding currently stopped now - EENT Eyes: PERRLA Ears: bilateral: normal - Neck Neck: normal ROM Carotids: bilateral: upstroke normal - Respiratory Respiratory: bilateral: diminished - Cardiovascular Rhythm: regular Heart sounds: normal: S1, S2 - Gastrointestinal General gastrointestinal: decreased bowel sounds - Neurologic Neurologic: CNII-XII intact - Musculoskeletal Musculoskeletal: generalized weakness - Psychiatric Psychiatric: A&O x's 3, appropriate affect - Labs CBC & Chem 7: 10/03/21 13:19 10/05/21 18:03 Labs: Abnormal Lab Results - Last 24 Hours (Table) 10/05/21 Range/Units 18:03 Sodium 131 L (137-145) mmol/L Creatinine 0.43 L (0.52-1.04) mg/dL Glucose 162 H (74-99) mg/dL Calcium 7.3 L (8.4-10.2) mg/dL AST 43 H (14-36) U/L ALT 36 H (4-34) U/L Total Protein 4.5 L (6.3-8.2) g/dL Albumin 2.1 L (3.5-5.0) g/dL Assessment and Plan Assessment: Lower/upper GI bleed overall stable COVID-19 testing came back negative now Hypokalemia Acute blood loss anemia source of bleeding not checked identified appears to be lower GI bleed now stable Pneumothorax right side resolved 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 Sepsis related to COVID-19 pneumonia Acute hypoxic respiratory failure COVID-19 pneumonia 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
[2021-10-06] MEDS: atenoloL 50 MG TAB PO SCH ×2 (12:30→21:21)
[2021-10-06] MEDS: FUROSEMIDE 10 MG/ML 2 ML VIAL IV SCH (17:26)
--- NOTE | 2021-10-06 17:35 | PN ---
PROGRESS NOTE DATE OF SERVICE: 10/06/2021 REASON FOR FOLLOWUP: COVID-19 infection. INTERVAL HISTORY: The patient is afebrile, breathing slightly comfortably. The patient denies having any chest pain or worsening cough or sputum production. No abdominal pain or diarrhea. PHYSICAL EXAMINATION: Blood pressure 117/72 with pulse of , temperature 98.4. She is 95% on 7 L nasal cannula. General description is an elderly female up in the bed in no distress. Respiratory system: Unlabored breathing, decreased intensity of breath sounds. No wheeze. Heart S1, S2. Regular rate and rhythm. Abdomen soft, no tenderness. LABS: No new labs been obtained today. DIAGNOSTIC IMPRESSION AND PLAN: Patient with acute COVID-19 infection in this patient who has completed her 2-week course of baricitinib and has shown some clinical improvement. Patient is currently on dexamethasone, Lovenox, zinc and ascorbic acid. Plan to slowly wean off the oxygen. Continue with supportive care. MMODL / IJN: [id number] /
--- NOTE | 2021-10-06 20:19 | XR ---
EXAMINATION TYPE: XR chest 2V DATE OF EXAM: 10/06/2021 COMPARISON: 09/24/2021 HISTORY: Chest pain. Short of breath. TECHNIQUE: 2 views FINDINGS: There is coarse interstitial density in the lungs. There is some patchy atelectasis left mi dlung field with elevated left diaphragm. There are chest leads. IMPRESSION: Moderate coarse pulmonary interstitial infiltrates consistent with pneumonia. No change c ompared to recent exam.
--- NOTE | 2021-10-06 21:03 | PN ---
PROGRESS NOTE This 76-year-old white female had tachycardia up into 130s today, hypoxemia down to 88% on 7 L. Due to this condition today, she was started on Tenormin 50 mg b.i.d. for tachycardia and was started on a low dose of Lasix 20 mg daily. If she is better by tomorrow, we can possibly send her for rehab on 7 L. She is up in the chair today. When she gets walking better, she can go home on home oxygen. She has survived a 4- week stay in the hospital with COVID. As mentioned today, she dropped down 89% on 7 L. Now she is 93% on 6 L. T-max is 100.1. Pulse is 120, respiratory rate 16 to 18. Blood pressure is low at 90s to 93 over 52. Lungs are clear. Cardiovascular: S1-S2. Hematology: Negative Homans. ASSESSMENT: COVID pneumonia with recurrent hypoxemia today with tachycardia. Possibly do a CT of the chest later today. Increase beta blockers. Continue her on steroids as well as blood thinners. Prognosis extremely guarded. MMODL / IJN: [id number] /
[2021-10-07] MEDS: LEVOTHYROXINE 75 MCG TAB PO SCH (05:44)
[2021-10-07] MEDS: FUROSEMIDE 10 MG/ML 2 ML VIAL IV SCH (08:48)
[2021-10-07] MEDS: ZINC SULFATE 220 MG CAP PO SCH (08:49)
[2021-10-07] MEDS: ASCORBIC ACID 500 MG TAB PO SCH (08:49)
[2021-10-07] MEDS: PANTOPRAZOLE 40 MG TABLET PO SCH (08:49)
[2021-10-07] MEDS: VIT A,C & E-LUTEIN-MINERALS 1 EACH TAB PO SCH ×2 (08:49→21:52)
[2021-10-07] MEDS: dexAMETHasone 2 MG TAB PO SCH (08:49)
[2021-10-07] MEDS: DOCUSATE 100 MG CAP PO SCH ×3 (08:49→22:04)
[2021-10-07] MEDS: ENOXAPARIN 30 MG/0.3 ML SYRINGE SQ SCH (08:49)
[2021-10-07] MEDS: ERGOCALCIFEROL 1,250 MCG (50,000 IU) CAPSULE PO SCH (08:50)
[2021-10-07] MEDS: SYMBICORT 160-4.5 MCG INHALER INHALATION SCH ×2 (08:50→20:17)
[2021-10-07] MEDS: ATORVASTATIN 40 MG TAB PO SCH (08:52)
[2021-10-07] MEDS: atenoloL 50 MG TAB PO SCH ×2 (08:53→21:53)
[2021-10-07] MEDS: FLUTICASONE 50MCG/SPRAY NASAL 16GM EA NOSTRIL SCH (08:53)
[2021-10-07] MEDS: SODIUM FERRIC GLUCONAT-SUCROSE 125 MG in SODIUM CHLORIDE 0.9% 100 ML IVPB SCH (09:10)
[2021-10-07 11:02] LABS: Basophils # (A) 0.01 X 10*3/uL (0.00-0.10); Basophils % (A) 0.2 %; Eosinophils # (A) 0.13 X 10*3/uL (0.04-0.35); Eosinophils % (A) 2.6 %; HCT 25.7 % (37.2-46.3); HGB 8.3 g/dL (12.0-15.0); Lymphocytes # (A) 0.69 X 10*3/uL (0.90-5.00); Lymphocytes % (A) 13.6 %; MCH 31.6 pg (27.0-32.0); MCHC 32.3 g/dL (32.0-37.0); MCV 97.7 fL (80.0-97.0); Mean Platelet Volume 11.1 fL (9.5-12.2); Monocytes # (A) 0.22 X 10*3/uL (0.20-1.00); Monocytes % (A) 4.3 %; Neutrophils # (A) 3.93 X 10*3/uL (1.80-7.70); Neutrophils % (A) 77.5 %; Platelet Count 71 X 10*3/uL (140-440); RBC 2.63 X 10*6/uL (4.10-5.20); RDW 18.5 % (11.5-14.5); WBC 5.07 X 10*3/uL (4.50-10.00)
[2021-10-07 16:06] LABS: African American GFR (CKD) 113.8 (60.0-200.0); Albumin 2.2 g/dL (3.8-4.9); Albumin/Globulin Ratio 1.37 (1.60-3.17); BUN/Creat Ratio 23.97 Ratio (12.00-20.00); Blood Urea Nitrogen 10.5 mg/dL (9.0-27.0); Calcium 7.6 mg/dL (8.7-10.3); Carbon Dioxide 28.1 mmol/L (21.6-31.8); Globulin 1.6 g/dL (1.6-3.3); Non-African American GFR(CKD) 98.2 (60.0-200.0); Potassium 3.8 mmol/L (3.5-5.5); Total Bilirubin 0.3 mg/dL (0.30-1.20); Total Protein 3.8 g/dL (6.2-8.2)
--- NOTE | 2021-10-07 16:43 | P.PN ---
Subjective Progress Note Date: 10/07/21 Principal diagnosis: Lower/upper GI bleed Acute diverticulitis Acute hypoxic respiratory failure Sepsis due to COVID-19 pneumonia with elevated lactic acid COVID-19 pneumonia Electrolyte imbalance with hypokalemia Elevated liver enzymes Elevated d-dimer and Normal pro-calcitonin 10/07/2021, patient seen and evaluated examined during the rounds patient remains afebrile, oxygen is being tapered down to 5 L now saturation is 95%, hemodynamic status stable, last chest x-ray was performed yesterday positive bilateral coarse infiltrate was seen 10/06/2021, patient seen eval examined on 7 L nasal cannula breathing comfortably denies any chest pain, medications reviewed, discussed with child welfare social worker bed is available likely patient can be discharged later on today, Pro tonix will be changed to by mouth 10/05/2021, patient seen eval examined during the rounds labs reviewed medications reviewed, respiratory status remains stable patient is down to 6-7 L nasal cannula oxygen saturation is in the low 90s, undergoing physical therapy awaiting placement to [facility]CF but insurance approval 10/04/2021, patient seen eval examined care plan discussed with RN, will DC IV steroids and IV antibiotics, switched to by mouth Decadron 6 mg daily patient was resumed on Lovenox, awaiting insurance approval for ECF placement 10/03/2021, patient requested to be discharged but however insurance denied the ECF placement patient was 10/01/2021, patient seen eval examined during the rounds labs reviewed medications reviewed, general surgery as per discussion was to proceed with upp er and lower endoscopy, her FiO2 is down to 6 L oxygen saturation is 90-92%, respiratory rate is 18 she is afebrile, her hemoglobin drop down to 6.8 required 1 unit of packed RBC is now up to 8 and 24, sodium is 140 potassium is 3.1, latest covert test repeated negative, currently patient is on Tylenol and vitamin C Lipitor Symbicort Colace vitamin D 2 she had infusion of iron, Solu- Medrol IV, Zosyn and Protonix with COVID-19 minerals, patient remains off of heparin or Lovenox for ongoing GI bleed 09/30/2021, patient seen eval examined during rounds, patient is still short of breath on activity and exertion, on high flow oxygen 10 L currently she is down from 15 L, oxygen saturation 98%, white cell count 8800, hemoglobin is 8.3 which remains however stable 09/29/2021, patient seen eval examined during the rounds respiratory status remained stable, continued to require less somewhat low oxygen, discussed with the respiratory therapist intervened and titrate oxygen down as tolerated maybe 1 L a day to keep saturation over 88% and above, general surgery is following for lower GI bleed hemoglobin however remains stable intermittent dark stools still present, anti-thrombolytic candidate for anticoagulants on hold including DVT prophylaxis along with aspirin and Plavix September 28 2021, patient seen and evaluated examined in the ICU awake and alert breathing comfortably, on 15 L mask saturation is 98%, denies any chest pain denies any cough or sputum production no more bleeding for the last 12 hours has been seen, hemoglobin dropped down to 8.4 appears to be post loss and dilutional effect, white cell count is 10,000 hemoglobin and hematocrit 8.425 platelets are 120 61,000, BUN/creatinine is 21.3. Sodium was 135, medications include Zithromax Solu-Medrol 40 every 8 Protonix 40 mg twice a day Zosyn and zinc. Computed tomography scan of the chest and pelvis reviewed, bases of x-ray shows interstitial infiltrate consistent with COVID-19 pneumonia L1 compression fracture seen no acute pathology identified on computed tomography scan of the abdominal and pelvis 09/26/2021, patient seen eval examined during the rounds patient has a massive lower GI bleed after that patient was starting feeling dizzy lightheaded blood was bright red patient emergently transferred to ICU Y tones were check blood pressure is stable status CBC was sent hemoglobin remained stable at 12 however patient has been rehydrated to 1 L of crystalloids has been given patient has been started on 100 mL an hour, Protonix have been changed to 40 mg IV every 12, general surgery on consult, will put patient on IV Zosyn likely diverticular bleed, will stop Lovenox, Plavix and aspirin for now, we'll check hemoglobin and hematocrit every 8 hourly, patient however remains on 15 L high flow oxygen sats are 96-97% significantly improved however we'll decrease IV steroids to every 8 instead of 60 every 6, critical care time spent 35 minutes 09/24/2021, patient seen eval examined during the rounds labs reviewed medications reviewed care plan discussed, respiratory status remains stable denies any chest pain, patient remains on high flow oxygen and needed has been using nonrebreather mask saturation are now mid 90s to low 90s, chest x-ray done earlier this morning reviewed no pneumothorax is seen, patient will get a midline, would plan to continue IV steroids and supportive care 09/23/2021, patient seen eval reexamined during the rounds patient has been on 12 L high flow oxygen with that her sats are about 88-90%, as needed she has been using nonrebreather mask, chest x-ray performed today reviewed decrease in size of the mediastinal emphysema is noted, pneumothorax seen on the right upper extremity with sleep not visualized anymore, lactic acid as well as normalized, 09/22/2021, patient seen eval examined during the rounds care plan discussed with RN at length, labs reviewed radiographic studies reviewed, and computed tomography scan of his chest reviewed as well, patient has incidental tiny right-sided apical pneumothorax discovered, no significant change in oxygenation patient remains on the 12 L high flow oxygen and as needed 100% nonrebreather mask saturation 88-90%, denies any chest pain some discomfort as needed improved with the Tylenol, patient remains on IV steroids, today's x-ray shows some improvement in tiny pneumothorax as well as 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, thoracic surgery is on consult in case emergent chest tube is required, noted lactic acid slightly elevated showing up or trend, patient is on Zithromax we will add cephapirin as well for healthcare associated pneumonia, computed tomography scan x-ray remains unchanged continue show bilateral basal infiltrate as well as patchy upper lobe infiltrate consistent with COVID-19 pneumonia, white cell count improved to 11,400, platelet count 4 60,000, lactic acid is 2.4 subsequent 2.6, pro-calcitonin has been normal 0.03 still September 2009/19/2021, patient seen eval examined, oxygen remains low requiring supplemental oxygen with 12-13 L high flow intermittently has been using mask as well, remains afebrile, labs reviewed white cell count 16,400 hemoglobin and hematocrit is 30 and 40, rehab has been following for placement, ID service [facility] patient is still on too much oxygen to place and the rehab, pro- calcitonin remains normal 09/18/2021, patient seen eval examined during the rounds labs reviewed medications reviewed care plan discussed, oxygen saturation remained stable 92% on the high flow oxygen 12 L but however patient continued to require nonrebreather mask on top of that intermittently especially during some motion m ovement and activity, remains afebrile, will decrease the Solu-Medrol to every 12 now Other supportive measures and therapy 09/17/2021, patient seen eval examined during the rounds labs reviewed medi cations reviewed care plan discussed, history status patient is still short of breath continued to require high flow oxygen via nasal cannula as well as nasal mask as needed, that oxygen saturation improved to 91-92%, patient remains afebrile, remains on IV steroids supplements and Lovenox for anticoagulation, less distress is used to see before 09/16/2021, patient seen eval examined during the rounds labs reviewed medications reviewed care plan discussed, respiratory status remains marginal ge t short of breath activity and exertion, patient still have dry nonproductive cough, she is on 12 L high flow oxygen at times he uses a mask as well, she is afebrile with heart rate of 102, blood pressure HEENT hemodynamic stable oxygen saturation improved to 90-94% now, chest x-ray earlier this morning continued to show multifocal diffuse reticular and radicular nodular appearance bilaterally 09/15/2021, patient overall in good spirits breathing comfortably but get short of breath on activity and exertion continue to have intermittent dry cough, patient remains on 12 L high flow oxygen along with as needed 15 L face mask, remains afebrile, oxygen saturation is mostly 89-92%, d-dimer remains elevated, patient remains on the Lovenox IV steroids will repeat follow-up chest x-ray 09/13/2021, patient seen eval examined during the rounds labs reviewed medications reviewed care plan discussed, patient remains on the 15 L high flow oxygen along with nonrebreather mask with that saturation is 88-90%, labs from today reviewed white cell count come down to 8000, labs stable production up to 3.9, BUN/creatinine 22/.6, 09/12/2021, patient seen eval examined during the rounds labs reviewed m edications reviewed care plan discussed, respiratory status is still marginal but stable, patient remains on 100% oxygen nonrebreather mask, T-max is 99.4, saturation is 89% to 90%, computed tomography scan of his chest consistent with interstitial pneumonia and COVID-19, no pulmonary embolism seen, patient remains on IV steroids and anticoagulation breathing treatment and continuation of home medications, Patient is a 76-year-old female who came into the hospital with increasing aches and pains malaise, symptoms started about 10-12 days ago, patient has outpatient covert testing which was negative however due to worsening system symptoms she decided to come into the hospital, patient oxygen saturation was just 75% in triage at room air, her appetite has been poor as well on specific questioning she denies any chest pain, denies any nausea vomiting diarrhea Past medical history significant for hypothyroidism, GERD, history of TIA, hypertension and hypertensive cardiovascular disease, thyroid disorder, history of the stroke,/TIA, patient is a nonsmokerhistory of substance In emergency department she underwent a chest x-ray which revealed bilateral patchy infiltrate more so on the bases on the right side compared to left side, EKG revealed sinus tachycardia, echocardiogram revealed ejection fraction 55%, mild TR and MR was noted along with AR, labs are significant for leukocytosis with WBC count of 14,600, primarily elevated 0.7, sodium is 1:30" 3.3, BUN/creatinine 16.67, glucose 155, AST and ALT Elevated, lactic acid is 3.3,, T-max 100.6 now currently afebrile, she is 90% on 15 L nonrebreather mask improved to 94% currently on 15 L nonrebreather mask, she came back positive for COVID-19 infection PCR, pro-calcitonin also elevated of 0.13 currently she is being treated with Y Lucinda as well as Zithromax, Decadron 6 mg daily, Lovenox 40 mg daily Objective - Vital Signs Vital signs: Vital Signs Temp 98.5 F 10/07/21 14:00 Pulse 98 10/07/21 14:00 Resp 18 10/07/21 14:00 BP 93/60 10/07/21 14:00 Pulse Ox 95 10/07/21 14:00 Intake & Output 10/06/21 10/07/21 10/07/21 18:59 06:59 18:59 Other: Voiding Method Bedside Commode # Voids 2 2 - Exam - Constitutional General appearance: mild distress, bleeding currently stopped now - EENT Eyes: PERRLA Ears: bilateral: normal - Neck Neck: normal ROM Carotids: bilateral: upstroke normal - Respiratory Respiratory: bilateral: diminished - Cardiovascular Rhythm: regular Heart sounds: normal: S1, S2 - Gastrointestinal General gastrointestinal: decreased bowel sounds - Neurologic Neurologic: CNII-XII intact - Musculoskeletal Musculoskeletal: generalized weakness - Psychiatric Psychiatric: A&O x's 3, appropriate affect - Labs CBC & Chem 7: 10/07/21 05:46 10/07/21 05:46 Labs: Abnormal Lab Results - Last 24 Hours (Table) 10/07/21 10/07/21 Range/Units 05:46 05:46 RBC 2.63 L (4.10-5.20) X 10*6/uL Hgb 8.3 L (12.0-15.0) g/dL Hct 25.7 L (37.2-46.3) % MCV 97.7 H (80.0-97.0) fL RDW 18.5 H (11.5-14.5) % Plt Count 71 L (140-440) X 10*3/uL Plt Count Comment DECREASED A Immature Gran # 0.09 H (0.00-0.04) X 10*3/uL Lymphocytes # 0.69 L (0.90-5.00) X 10*3/uL Creatinine 0.4 L (0.6-1.5) mg/dL BUN/Creatinine Ratio 23.97 H (12.00-20.00) Ratio Calcium 7.6 L (8.7-10.3) mg/dL Total Protein 3.8 L (6.2-8.2) g/dL Albumin 2.2 L (3.8-4.9) g/dL Albumin/Globulin Ratio 1.37 L (1.60-3.17) g/dL Assessment and Plan Assessment: Lower/upper GI bleed overall stable COVID-19 testing came back negative now Hypokalemia Acute blood loss anemia source of bleeding not checked identified appears to be lower GI bleed now stable Pneumothorax right side resolved 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
[2021-10-07] MEDS: MIDODRINE 5 MG TAB PO SCH (17:31)
--- NOTE | 2021-10-07 22:09 | PN ---
PROGRESS NOTE DATE OF SERVICE: 10/07/2021 REASON FOR FOLLOWUP: Covid 19 pneumonia. INTERVAL HISTORY: Patient is afebrile. She is breathing comfortably. Patient denies having any chest pain or shortness of breath. Occasional cough, not bringing up any sputum. No abdominal pain or diarrhea. EXAMINATION: Her blood pressure is 93/68 with a pulse of 98, temperature 98.5. She is 95% on 5 L nasal cannula. General description is an elderly female up in the bed in no distress. Respiratory system: Unlabored breathing, decreased intensity of breath sounds. No wheeze. Heart S1, S2. Regular rate and rhythm. Abdomen soft, no tenderness. LABS: Hemoglobin 8.3, white count 5.07, creatinine 0.4. Chest x-ray with no change. DIAGNOSTIC IMPRESSION AND PLAN: Patient with acute COVID-19 pneumonia in this patient admitted to the hospital for almost 4 weeks now. The patient has completed a 2 week course of baricitinib and currently on Dexamethasone to continue along with supportive treatment, slowly wean off her oxygen and continue supportive care. MMODL / IJN: [id number] /
[2021-10-08] MEDS: LEVOTHYROXINE 75 MCG TAB PO SCH (05:56)
[2021-10-08 07:54] VITALS: BP 111/69; PULSE 100; RESP 20; TEMP 98.9
--- NOTE | 2021-10-08 08:10 | PN ---
PROGRESS NOTE This 76-year-old white female is breathing better with oral Lasix, was given midodrine for orthostatic hypotension. She is breathing better. She has been given IV ferritin infusions. Remains on Lovenox, Hexadrol, Colace, Symbicort, Tenormin, Lipitor, Synthroid, Lasix 20 IV daily. Will switch that to oral. She will be sent to her skilled nursing tomorrow most likely. She has saturating on 4 to 5 liters in the mid 90s. She has improved from pulmonary standpoint over the last 3 weeks. Remains on 5 L, saturating in the mid 90s. Will monitor her blood pressure. Add midodrine. Switch her IV Lasix to oral and possible discharge home tomorrow. MMOZZIEL / IJN: [id number] /
[2021-10-08] MEDS: SYMBICORT 160-4.5 MCG INHALER INHALATION SCH (08:12)
--- NOTE | 2021-10-08 08:18 | DS ---
DISCHARGE SUMMARY DISCHARGE DIAGNOSES: 1. Pneumonia secondary to COVID-19 pneumonia. 2. Acute hypoxemic respiratory distress secondary to pneumonia. 3. Lower gastrointestinal bleed. HOSPITAL COURSE OF EVENTS: Patient had a progressive 3- to 4-week stay due to acute hypoxemic respiratory distress, maintaining on 15 L high-flow for least 3 weeks. Luvox was started for depression, which has helped improve her COVID. Oral steroids have been started. Patient continued to improve, down to 5 L. We had to start Lasix for fluid overload prior to discharge. Continue on Decadron, azithromycin, zinc, multivitamin, Luvox. Prognosis guarded. Symbicort inhaler. IV ferritin was given for severe anemia. The patient's hemoglobin stabilized in the low 8s. She completed a 2-week course of baricitinib and continues on dexamethasone. Prognosis is guarded. She will go to a rehab center. Continue to wean off oxygen. She is up ambulating to a chair prior to discharge. As soon as she gets her strength back she will be able to go back home. Condition stable. Prognosis guarded. Diet as tolerated. MMODL / IJN: [id number] /
[2021-10-08] MEDS ORDERED: FUROSEMIDE 20 MG TAB PO SCH (09:00)
[2021-10-08] MEDS: SODIUM FERRIC GLUCONAT-SUCROSE 125 MG in SODIUM CHLORIDE 0.9% 100 ML IVPB SCH (09:45)
[2021-10-08] MEDS: ENOXAPARIN 30 MG/0.3 ML SYRINGE SQ SCH (10:07)
[2021-10-08] MEDS: dexAMETHasone 2 MG TAB PO SCH (10:07)
[2021-10-08] MEDS: DOCUSATE 100 MG CAP PO SCH (10:07)
[2021-10-08] MEDS: ASCORBIC ACID 500 MG TAB PO SCH (10:08)
[2021-10-08] MEDS: atenoloL 50 MG TAB PO SCH (10:08)
[2021-10-08] MEDS: PANTOPRAZOLE 40 MG TABLET PO SCH (10:08)
[2021-10-08] MEDS: ZINC SULFATE 220 MG CAP PO SCH (10:08)
[2021-10-08] MEDS: VIT A,C & E-LUTEIN-MINERALS 1 EACH TAB PO SCH (10:08)
[2021-10-08] MEDS: ATORVASTATIN 40 MG TAB PO SCH (10:08)
[2021-10-08] MEDS: MIDODRINE 5 MG TAB PO SCH (10:08)
[2021-10-08] MEDS: FLUTICASONE 50MCG/SPRAY NASAL 16GM EA NOSTRIL SCH (10:11)
--- NOTE | 2021-10-08 15:48 | PN ---
PROGRESS NOTE DATE OF SERVICE: 10/08/2021 REASON FOR FOLLOWUP: COVID-19 infection. INTERVAL HISTORY: The patient is afebrile. The patient is breathing comfortably. The patient denies having any chest pain. Did have a cough, not bringing up any sputum. No abdominal pain or diarrhea. PHYSICAL EXAMINATION: Blood pressure 111/69, pulse 100, temperature 98.9. She is 91% on 5 L nasal cannula. General description is an elderly female lying in bed in no distress. Respiratory system: Unlabored breathing, decreased intensity of breath sounds. No wheeze. Heart S1, S2. Regular rate and rhythm. Abdomen soft, no tenderness. LABS: Hemoglobin is 8.3, white count 5.0, creatinine 0.4. DIAGNOSTIC IMPRESSION AND PLAN: Patient with acute COVID-19 pneumonia in this patient who has received a 2-week course of baricitinib. Treatment from now on will be mostly supportive. No need for any systemic antibiotic therapy. Continue with supportive care. MMODL / IJN: [id number] /
--- NOTE | 2021-10-09 11:08 | P.PN ---
Subjective Progress Note Date: 10/08/21 Principal diagnosis: Lower/upper GI bleed Acute diverticulitis Acute hypoxic respiratory failure Sepsis due to COVID-19 pneumonia with elevated lactic acid COVID-19 pneumonia Electrolyte imbalance with hypokalemia Elevated liver enzymes Elevated d-dimer and Normal pro-calcitonin 10/08/2021, and seen evaluated examined during the rounds care plan discussed, patient remains afebrile, saturation is 91% on 5 L oxygen now, patient is being planned for placement in extended care facility 10/07/2021, patient seen and evaluated examined during the rounds patient remains afebrile, oxygen is being tapered down to 5 L now saturation is 95%, hemodynamic status stable, last chest x-ray was performed yesterday positive bilateral coarse infiltrate was seen 10/06/2021, patient seen eval examined on 7 L nasal cannula breathing comfortably denies any chest pain, medications reviewed, discussed with social media job titles bed is available likely patient can be discharged later on today, Protonix will be changed to by mouth 10/05/2021, patient seen eval examined during the rounds labs reviewed medications reviewed, respiratory status remains stable patient is down to 6-7 L nasal cannula oxygen saturation is in the low 90s, undergoing physical therapy awaiting placement to ECF but insurance approval 10/04/2021, patient seen eval examined care plan discussed with RN, will DC IV steroids and IV antibiotics, switched to by mouth Decadron 6 mg daily patient was resumed on Lovenox, awaiting insurance approval for ECF placement 10/03/2021, patient requested to be discharged but however insurance denied the ECF placement patient was 10/01/2021, patient seen eval examined during the rounds labs reviewed medications reviewed, general surgery as per discussion was to proceed with upper and lower endoscopy, her FiO2 is down to 6 L oxygen saturation is 90-92%, respiratory rate is 18 she is afebrile, her hemoglobin drop down to 6.8 required 1 unit of packed RBC is now up to 8 and 24, sodium is 140 potassium is 3.1, latest covert test repeated negative, currently patient is on Tylenol and vitamin C Lipitor Symbicort Colace vitamin D 2 she had infusion of iron, Solu-Medrol IV, Zosyn and Protonix with COVID-19 minerals, patient remains off of heparin or Lovenox for ongoing GI bleed 09/30/2021, patient seen eval examined during rounds, patient is still short of breath on activity and exertion, on high flow oxygen 10 L currently she is down from 15 L, oxygen saturation 98%, white cell count 8800, hemoglobin is 8.3 which remains however stable 09/29/2021, patient seen eval examined during the rounds respiratory status remained stable, continued to require less somewhat low oxygen, discussed with the respiratory therapist intervened and titrate oxygen down as tolerated maybe 1 L a day to keep saturation over 88% and above, general surgery is following for lower GI bleed hemoglobin however remains stable intermittent dark stools still present, anti-thrombolytic candidate for anticoagulants on hold including DVT prophylaxis along with aspirin and Plavix September 28 2021, patient seen and evaluated examined in the ICU awake and alert breathing comfortably, on 15 L mask saturation is 98%, denies any chest pain denies any cough or sputum production no more bleeding for the last 12 hours has been seen, hemoglobin dropped down to 8.4 appears to be post loss and dilutional effect, white cell count is 10,000 hemoglobin and hematocrit 8.425 platelets are 120 61,000, BUN/creatinine is 21.3. Sodium was 135, medications include Zithromax Solu-Medrol 40 every 8 Protonix 40 mg twice a day Zosyn and zinc. Computed tomography scan of the chest and pelvis reviewed, bases of x-ray shows interstitial infiltrate consistent with COVID-19 pneumonia L1 compression fracture seen no acute pathology identified on computed tomography scan of the abdominal and pelvis 09/26/2021, patient seen eval examined during the rounds patient has a massive lower GI bleed after that patient was starting feeling dizzy lightheaded blood was bright red patient emergently transferred to ICU Y tones were check blood pressure is stable status CBC was sent hemoglobin remained stable at 12 however patient has been rehydrated to 1 L of crystalloids has been given patient has been started on 100 mL an hour, Protonix have been changed to 40 mg IV every 12, general surgery on consult, will put patient on IV Zosyn likely diverticular bleed, will stop Lovenox, Plavix and aspirin for now, we'll check hemoglobin and hematocrit every 8 hourly, patient however remains on 15 L high flow oxygen sats are 96-97% significantly improved however we'll decrease IV steroids to every 8 instead of 60 every 6, critical care time spent 35 minutes 09/24/2021, patient seen eval examined during the rounds labs reviewed medications reviewed care plan discussed, respiratory status remains stable denies any chest pain, patient remains on high flow oxygen and needed has been using nonrebreather mask saturation are now mid 90s to low 90s, chest x-ray done earlier this morning reviewed no pneumothorax is seen, patient will get a midline, would plan to continue IV steroids and supportive care 09/23/2021, patient seen eval reexamined during the rounds patient has been on 12 L high flow oxygen with that her sats are about 88-90%, as needed she has been using nonrebreather mask, chest x-ray performed today reviewed decrease in size of the mediastinal emphysema is noted, pneumothorax seen on the right upper extremity with sleep not visualized anymore, lactic acid as well as normalized, 09/22/2021, patient seen eval examined during the rounds care plan discussed with RN at length, labs reviewed radiographic studies reviewed, and computed tomography scan of his chest reviewed as well, patient has incidental tiny right-sided apical pneumothorax discovered, no significant change in oxygenation patient remains on the 12 L high flow oxygen and as needed 100% nonrebreather mask saturation 88-90%, denies any chest pain some discomfort as needed improved with the Tylenol, patient remains on IV steroids, today's x-ray shows some improvement in tiny pneumothorax as well as 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, thoracic surgery is on consult in case emergent chest tube is required, noted lactic acid slightly elevated showing up or trend, patient is on Zithromax we will add cephapirin as well for healthcare associated pneumonia, computed tomography scan x-ray remains unchanged continue show bilateral basal infiltrate as well as patchy upper lobe infiltrate consistent with COVID-19 pneumonia, white cell count improved to 11,400, platelet count 4 60,000, lactic acid is 2.4 subsequent 2.6, pro-calcitonin has been normal 0.03 still September 2009/19/2021, patient seen eval examined, oxygen remains low requiring supplemental oxygen with 12-13 L high flow intermittently has been using mask as well, remains afebrile, labs reviewed white cell count 16,400 hemoglobin and hematocrit is 30 and 40, rehab has been following for placement, ID service following patient is still on too much oxygen to place and the rehab, pro- calcitonin remains normal 09/18/2021, patient seen eval examined during the rounds labs reviewed medications reviewed care plan discussed, oxygen saturation remained stable 92% on the high flow oxygen 12 L but however patient continued to require nonrebreather mask on top of that intermittently especially during some motion movement and activity, remains afebrile, will decrease the Solu-Medrol to every 12 now Other supportive measures and therapy 09/17/2021, patient seen eval examined during the rounds labs reviewed medications reviewed care plan discussed, history status patient is still short of breath continued to require high flow oxygen via nasal cannula as well as nasal mask as needed, that oxygen saturation improved to 91-92%, patient remains afebrile, remains on IV steroids supplements and Lovenox for anticoagulation, less distress is used to see before 09/16/2021, patient seen eval examined during the rounds labs reviewed medications reviewed care plan discussed, respiratory status remains marginal get short of breath activity and exertion, patient still have dry nonproductive cough, she is on 12 L high flow oxygen at times he uses a mask as well, she is afebrile with heart rate of 102, blood pressure HEENT hemodynamic stable oxygen saturation improved to 90-94% now, chest x-ray earlier this morning continued to show multifocal diffuse reticular and radicular nodular appearance bilaterally 09/15/2021, patient overall in good spirits breathing comfortably but get short of breath on activity and exertion continue to have intermittent dry cough, patient remains on 12 L high flow oxygen along with as needed 15 L face mask, remains afebrile, oxygen saturation is mostly 89-92%, d-dimer remains elevated, patient remains on the Lovenox IV steroids will repeat follow-up chest x-ray 09/13/2021, patient seen eval examined during the rounds labs reviewed medications reviewed care plan discussed, patient remains on the 15 L high flow oxygen along with nonrebreather mask with that saturation is 88-90%, labs from today reviewed white cell count come down to 8000, labs stable production up to 3.9, BUN/creatinine 22/.6, 09/12/2021, patient seen eval examined during the rounds labs reviewed medications reviewed care plan discussed, respiratory status is still marginal but stable, patient remains on 100% oxygen nonrebreather mask, T-max is 99.4, saturation is 89% to 90%, computed tomography scan of his chest consistent with interstitial pneumonia and COVID-19, no pulmonary embolism seen, patient remains on IV steroids and anticoagulation breathing treatment and continuation of home medications, Patient is a 76-year-old female who came into the hospital with increasing aches and pains malaise, symptoms started about 10-12 days ago, patient has outpatient covert testing which was negative however due to worsening system symptoms she decided to come into the hospital, patient oxygen saturation was just 75% in triage at room air, her appetite has been poor as well on specific questioning she denies any chest pain, denies any nausea vomiting diarrhea Past medical history significant for hypothyroidism, GERD, history of TIA, hypertension and hypertensive cardiovascular disease, thyroid disorder, history of the stroke,/TIA, patient is a nonsmokerhistory of substance In emergency department she underwent a chest x-ray which revealed bilateral patchy infiltrate more so on the bases on the right side compared to left side, EKG revealed sinus tachycardia, echocardiogram revealed ejection fraction 55%, mild TR and MR was noted along with AR, labs are significant for leukocytosis with WBC count of 14,600, primarily elevated 0.7, sodium is 1:30" 3.3, BUN/creatinine 16.67, glucose 155, AST and ALT Elevated, lactic acid is 3.3,, T-max 100.6 now currently afebrile, she is 90% on 15 L nonrebreather mask improved to 94% currently on 15 L nonrebreather mask, she came back positive for COVID-19 infection PCR, pro-calcitonin also elevated of 0.13 currently she is being treated with Y Lucinda as well as Zithromax, Decadron 6 mg daily, Lovenox 40 mg daily Objective - Vital Signs Vital signs: Vital Signs Temp 98.9 F 10/08/21 07:53 Pulse 100 10/08/21 07:53 Resp 20 10/08/21 07:53 BP 111/69 10/08/21 07:53 Pulse Ox 91 L 10/08/21 07:53 Intake & Output 10/07/21 10/08/21 10/08/21 18:59 06:59 18:59 Intake Total 100 Output Total 2 Balance 100 -2 Intake: Intake, IV Titration 100 Amount Sodium Ferric Gluconat- 100 Sucrose 125 mg In Sodium Chloride 0.9% 100 ml @ 100 mls/hr IVPB DAILY [facility] Rx#:[id number] Output: Urine 2 Other: # Bowel Movements 1 - Exam - Constitutional General appearance: mild distress, bleeding currently stopped now - EENT Eyes: PERRLA Ears: bilateral: normal - Neck Neck: normal ROM Carotids: bilateral: upstroke normal - Respiratory Respiratory: bilateral: diminished - Cardiovascular Rhythm: regular Heart sounds: normal: S1, S2 - Gastrointestinal General gastrointestinal: decreased bowel sounds - Neurologic Neurologic: CNII-XII intact - Musculoskeletal Musculoskeletal: generalized weakness - Psychiatric Psychiatric: A&O x's 3, appropriate affect - Labs CBC & Chem 7: 10/07/21 05:46 10/07/21 05:46 Assessment and Plan Assessment: Lower/upper GI bleed overall stable COVID-19 testing came back negative now Hypokalemia Acute blood loss anemia source of bleeding not checked identified appears to be lower GI bleed now stable Pneumothorax right side resolved 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 Sepsis related to COVID-19 pneumonia Acute hypoxic respiratory failure COVID-19 pneumonia 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
== END 2021-10-08 17:10 | DRG 871 ==
LOC: EC 17:33 → 4SSUR 20:12 → UNDODISIN 09-26 15:17 → 2SICU 09-26 15:33 → 4SSUR 09-29 14:15
PROVIDERS: ADMIT Family Medicine; ATTEND Family Medicine
PROC: 3E0333Z Introduction of Anti-inflammatory into Peripheral Vein, Percutaneous Approach (ICD-10-PCS; 2021-09-10)
PROC: XW0DXM6 Introduction of Baricitinib into Mouth and Pharynx, External Approach, New Technology Group 6 (ICD-10-PCS; principal; 2021-09-12)
PROC: 5A0945A Assistance with Respiratory Ventilation, 24-96 Consecutive Hours, High Flow/Velocity Cannula (ICD-10-PCS; 2021-09-29)
PROC: 0DJD8ZZ Inspection of Lower Intestinal Tract, Via Natural or Artificial Opening Endoscopic (ICD-10-PCS; 2021-10-02)
PROC: 0DJ08ZZ Inspection of Upper Intestinal Tract, Via Natural or Artificial Opening Endoscopic (ICD-10-PCS; 2021-10-02 13:30)
DX: A41.89 Other specified sepsis (principal); U07.1 COVID-19; J12.82 Pneumonia due to coronavirus disease 2019; J96.01 Acute respiratory failure with hypoxia; K57.91 Diverticulosis of intestine, part unspecified, without perforation or abscess with bleeding; J44.0 Chronic obstructive pulmonary disease with (acute) lower respiratory infection; D62 Acute posthemorrhagic anemia; E87.2 Acidosis; G93.40 Encephalopathy, unspecified; J93.9 Pneumothorax, unspecified; K57.92 Diverticulitis of intestine, part unspecified, without perforation or abscess without bleeding; M48.56XA Collapsed vertebra, not elsewhere classified, lumbar region, initial encounter for fracture; K62.5 Hemorrhage of anus and rectum; J44.1 Chronic obstructive pulmonary disease with (acute) exacerbation; E03.9 Hypothyroidism, unspecified; E78.5 Hyperlipidemia, unspecified; E87.5 Hyperkalemia; E87.6 Hypokalemia; E87.70 Fluid overload, unspecified; F32.9 Major depressive disorder, single episode, unspecified; F40.240 Claustrophobia; I69.320 Aphasia following cerebral infarction; I11.9 Hypertensive heart disease without heart failure; I95.1 Orthostatic hypotension; J98.2 Interstitial emphysema; K21.9 Gastro-esophageal reflux disease without esophagitis; K59.00 Constipation, unspecified; K63.5 Polyp of colon; K64.9 Unspecified hemorrhoids; Z79.02 Long term (current) use of antithrombotics/antiplatelets; Z79.82 Long term (current) use of aspirin; Z79.890 Hormone replacement therapy; Z79.899 Other long term (current) drug therapy; Z82.5 Family history of asthma and other chronic lower respiratory diseases; Z87.19 Personal history of other diseases of the digestive system; R79.89 Other specified abnormal findings of blood chemistry; R00.0 Tachycardia, unspecified; R74.8 Abnormal levels of other serum enzymes
CPT/HCPCS: 36410; 36415; 43235; 45378; 71045; 71046; 71250; 71275; 74176; 76937; 80048; 80053; 81001; 82728; 83540; 83550; 83605; 83615; 84132; 84145; 84484; 85025; 85027; 85379; 85610; 85730; 86140; 86850; 86900; 86901; 86920; 87040; 87635; 87636; 93005; 93306; 94640; 94760; 96361; 96374; 99291

== ENCOUNTER 2022-01-10 17:34 | Observation (INO) | payer MEDICARE ==
[2022-01-10] MEDS ORDERED: SODIUM CHLORIDE 0.9% 500 ML 500 ML IV STA (17:58)
[2022-01-10] MEDS ORDERED: diphenhydrAMINE 50 MG/ML 1 ML VIAL IVP STA (17:58)
[2022-01-10] MEDS ORDERED: MECLIZINE 12.5 MG TAB PO STA (17:58)
--- NOTE | 2022-01-10 17:58 | ED ---
General Adult HPI - General Chief complaint: Neuro Symptoms/Deficit Stated complaint: R arm numbness,Dizziness Time Seen by Provider: 01/10/22 17:48 Source: patient Mode of arrival: wheelchair Limitations: no limitations - History of Present Illness Initial comments: Patient presents to the ED with her son for evaluation. Patient states that she has felt dizzy and off balance since last night. Patient states that her dizziness worsened after bending over to pick something up earlier today, and she states that her dizziness is worse with changes in position. Patient denies feeling dizzy currently while lying still. Patient also states that she has had a right arm "prickly" sensation since this morning. Patient is unsure when her right arm paresthesias began, but she states that it was well over 6 hours ago. Patient denies having any other symptoms or complaints. Patient denies having any pain, trauma or injury, fever or chills, headache, focal weakness, visual changes, speech difficulty, otalgia, chest pain or pressure, dyspnea, cough or cold symptoms, palpitations, syncope, abdominal pain, nausea/vomiting/diarrhea, bloody or melanotic stool, dysuria or urinary symptoms, leg or calf swelling or pain, or any other symptoms or complaints. - Related Data Home Medications Medication Instructions Recorded Confirmed Levothyroxine Sodium [Synthroid] 75 mcg PO DAILY 01/22/16 09/09/21 Aspirin EC [Ecotrin Low Dose] 81 mg PO DAILY 05/13/21 09/09/21 Multivit-Min/Iron/Folic/Lutein 1 tab PO DAILY 05/13/21 09/09/21 [Centrum Silver Women Tablet] Vit C/E/Zn/Coppr/Lutein/Zeaxan 1 cap PO BID 05/13/21 09/09/21 [Preservision Areds 2 Softgel] Pantoprazole [Protonix] 40 mg PO DAILY 07/30/21 09/09/21 Azithromycin [Zithromax] 500 mg PO DAILY 09/09/21 09/09/21 Previous Rx's Medication Instructions Recorded Clopidogrel [Plavix] 75 mg PO DAILY #0 01/24/16 Atorvastatin [Lipitor] 40 mg PO DAILY 30 Days #30 tab 05/15/21 Acetaminophen Tab [Tylenol] 650 mg PO Q6HR PRN tab 10/07/21 Ascorbic Acid [Vitamin C] 1,000 mg PO DAILY tab 10/07/21 Budesonide-Formot 160-4.5 Mcg 2 puff INHALATION RT-BID gm 10/07/21 [Symbicort 160-4.5 Mcg Inhaler] Docusate [Colace] 100 mg PO BID cap 10/07/21 Enoxaparin [Lovenox] 30 mg SQ DAILY each 10/07/21 Ergocalciferol [Vitamin D2 (1250 1,250 mcg PO Q72H capsule 10/07/21 Mcg = 18901 Iu)] Fluticasone Nasal [place] [Flonase 2 spray EA NOSTRIL DAILY gm 10/07/21 Nasal [place]] Furosemide [Lasix] 20 mg PO DAILY tab 10/07/21 Midodrine [ProAmatine] 5 mg PO AC-BID tab 10/07/21 Zinc Sulfate [Orazinc] 220 mg PO DAILY cap 10/07/21 atenoloL [Tenormin] 50 mg PO BID tab 10/07/21 dexAMETHasone ORAL [Hexadrol] 6 mg PO DAILY tab 10/07/21 fluvoxaMINE [Luvox] 100 mg PO HS tab 10/07/21 Allergies Allergy/AdvReac Type Severity Reaction Status Date / Time codeine Allergy Unknown Verified 01/10/22 17:40 Review of Systems ROS Statement: Those systems with pertinent positive or pertinent negative responses have been documented in the HPI. ROS Other: All systems not noted in ROS Statement are negative. Past Medical History Past Medical History: CVA/TIA, GERD/Reflux, Hyperlipidemia, Hypertension, Thyroid Disorder Additional Past Medical History / Comment(s): 3-2-16 ADMITTED WITH STROKE LIKE SYMPTOMS-pt. states was told didn't have stroke, history of TIAs,DIVERTICULITIS History of Any Multi-Drug Resistant Organisms: None Reported Past Surgical History: Appendectomy, Section, Cholecystectomy Past Anesthesia/Blood Transfusion Reactions: No Reported Reaction Additional Past Anesthesia/Blood Transfusion Reaction / Comment(s): MILD CLAUSTROPHOBIA Past Psychological History: No Psychological Hx Reported Smoking Status: Never smoker Past Alcohol Use History: None Reported Past Drug Use History: None Reported - Past Family History Mother Family Medical History: Cancer Additional Family Medical History / Comment(s): UNSURE WHAT TYPE OF CANCER Father Family Medical History: Cancer Additional Family Medical History / Comment(s): BONE CANCER Brother(s) Family Medical History: Asthma Sister(s) Family Medical History: No Reported History Son(s) Family Medical History: No Reported History General Exam Limitations: no limitations General appearance: alert, in no apparent distress Head exam: Present: atraumatic, normocephalic Eye exam: Present: normal appearance, PERRL, EOMI. Absent: nystagmus ENT exam: Present: mucous membranes moist Neck exam: Present: other (Trachea is in midline). Absent: tenderness, meni ngismus Respiratory exam: Present: normal lung sounds bilaterally. Absent: respiratory distress, wheezes, rales, rhonchi, stridor Cardiovascular Exam: Present: regular rate, normal rhythm, normal heart sounds, other (Normal radial pulses bilaterally) GI/Abdominal exam: Present: soft. Absent: distended, tenderness, guarding Extremities exam: Present: full ROM. Absent: tenderness, pedal edema Back exam: Present: normal inspection. Absent: tenderness Neurological exam: Present: alert, oriented X3, CN II-XII intact, other (NIH stroke scale score = 0; normal [id number] exam bilaterally). Absent: motor sensory deficit Psychiatric exam: Present: normal affect, normal mood Skin exam: Present: warm, dry, intact, normal color Course Vital Signs 01/10/22 17:36 Temperature 97.1 F L Pulse Rate 74 Respiratory 16 Rate Blood Pressure 173/95 O2 Sat by Pulse 97 Oximetry - Reevaluation(s) Reevaluation #1: 01/10/22 19:45 Case, H&P, test results and ED management were discussed with Dr. Marcelo Wheatley. He accepts hospital admission. He agrees with neurology consultation. He has no further recommendations at this time. 01/10/22 19:49 Patient was unsteady with ambulation in the ED. Patient continues to have a normal/nonfocal neurological exam, and she denies development of any new sy mptoms while in the ED. Patient remains alert and breathing comfortably. Patient and family are aware the patient's test results, and they all agree with hospital admission at this time. EKG Findings - EKG Comments: EKG Findings:: Normal sinus rhythm, ventricular rate of 72 bpm, no ectopy, normal [place] and QRS intervals, normal QT interval, normal axis, no ST or T-wave abnormality Medical Decision Making - Medical Decision Making Patient's labs are fairly unremarkable. Patient's head CT shows no acute abnormality. I do not feel that the patient clinically has pneumonia despite her chest x-ray findings. Patient is afebrile and without leukocytosis. Patient denies having a cough or respiratory symptoms. Patient reports that her dizziness is positional in nature, but given her persisting symptoms and reported right arm paresthesias, will admit the patient to the hospital for observation, further evaluation and neurology consultation. Patient reports that her right arm paresthesias began more than 6 hours prior to arrival to the ED, she has had a nonfocal/normal neurological exam in the ED, and her NIH stroke scale score is 0, and this is why a code stroke was not activated in the ED. Dr. Marcelo Wheatley has accepted hospital admission. A neurology consultatio n order has been placed. - Lab Data Result diagrams: 01/10/22 18:30 01/10/22 18:30 Lab Results 01/10/22 01/10/22 01/10/22 Range/Units 18:30 18:30 18:30 WBC 6.9 (3.8-10.6) k/uL RBC 4.53 (3.80-5.40) m/uL Hgb 13.9 (11.4-16.0) gm/dL Hct 42.7 (34.0-46.0) % MCV 94.3 (80.0-100.0) fL MCH 30.7 (25.0-35.0) pg MCHC 32.6 (31.0-37.0) g/dL RDW 12.2 (11.5-15.5) % Plt Count 218 (150-450) k/uL MPV 7.8 Neutrophils % 53 % Lymphocytes % 31 % Monocytes % 9 % Eosinophils % 5 % Basophils % 1 % Neutrophils # 3.7 (1.3-7.7) k/uL Lymphocytes # 2.1 (1.0-4.8) k/uL Monocytes # 0.6 (0-1.0) k/uL Eosinophils # 0.3 (0-0.7) k/uL Basophils # 0.1 (0-0.2) k/uL PT 11.1 (9.0-12.0) sec INR 1.0 (<1.2) APTT 24.0 (22.0-30.0) sec Sodium 138 (137-145) mmol/L Potassium 3.7 (3.5-5.1) mmol/L Chloride 107 (98-107) mmol/L Carbon Dioxide 23 (22-30) mmol/L Anion Gap 8 mmol/L BUN 14 (7-17) mg/dL Creatinine 0.49 L (0.52-1.04) mg/dL Est GFR (CKD-EPI)AfAm >90 (>60 ml/min/1.73 sqM) Est GFR (CKD-EPI)NonAf >90 (>60 ml/min/1.73 sqM) Glucose 90 (74-99) mg/dL Calcium 9.0 (8.4-10.2) mg/dL Total Bilirubin 0.4 (0.2-1.3) mg/dL AST 27 (14-36) U/L ALT 23 (4-34) U/L Alkaline Phosphatase 95 (38-126) U/L Troponin I (0.000-0.034) ng/mL Total Protein 7.6 (6.3-8.2) g/dL Albumin 3.8 (3.5-5.0) g/dL Urine Color Urine Appearance (Clear) Urine pH (5.0-8.0) Ur Specific [place] (1.001-1.035) Urine Protein (Negative) Urine Glucose (UA) (Negative) Urine Ketones (Negative) Urine Blood (Negative) Urine Nitrite (Negative) Urine Bilirubin (Negative) Urine Urobilinogen (<2.0) mg/dL Ur Leukocyte Esterase (Negative) 01/10/22 01/10/22 Range/Units 18:30 19:18 WBC (3.8-10.6) k/uL RBC (3.80-5.40) m/uL Hgb (11.4-16.0) gm/dL Hct (34.0-46.0) % MCV (80.0-100.0) fL MCH (25.0-35.0) pg MCHC (31.0-37.0) g/dL RDW (11.5-15.5) % Plt Count (150-450) k/uL MPV Neutrophils % % Lymphocytes % % Monocytes % % Eosinophils % % Basophils % % Neutrophils # (1.3-7.7) k/uL Lymphocytes # (1.0-4.8) k/uL Monocytes # (0-1.0) k/uL Eosinophils # (0-0.7) k/uL Basophils # (0-0.2) k/uL PT (9.0-12.0) sec INR (<1.2) APTT (22.0-30.0) sec Sodium (137-145) mmol/L Potassium (3.5-5.1) mmol/L Chloride (98-107) mmol/L Carbon Dioxide (22-30) mmol/L Anion Gap mmol/L BUN (7-17) mg/dL Creatinine (0.52-1.04) mg/dL Est GFR (CKD-EPI)AfAm (>60 ml/min/1.73 sqM) Est GFR (CKD-EPI)NonAf (>60 ml/min/1.73 sqM) Glucose (74-99) mg/dL Calcium (8.4-10.2) mg/dL Total Bilirubin (0.2-1.3) mg/dL AST (14-36) U/L ALT (4-34) U/L Alkaline Phosphatase (38-126) U/L Troponin I <0.012 (0.000-0.034) ng/mL Total Protein (6.3-8.2) g/dL Albumin (3.5-5.0) g/dL Urine Color Light Yellow Urine Appearance Clear (Clear) Urine pH 6.5 (5.0-8.0) Ur Specific [place] 1.003 (1.001-1.035) Urine Protein Negative (Negative) Urine Glucose (UA) Negative (Negative) Urine Ketones Negative (Negative) Urine Blood Negative (Negative) Urine Nitrite Negative (Negative) Urine Bilirubin Negative (Negative) Urine Urobilinogen <2.0 (<2.0) mg/dL Ur Leukocyte Esterase Negative (Negative) - Radiology Data Chest x-ray: Coarse interstitial pulmonary infiltrates improved compared to last exam and consistent with acute and chronic interstitial pneumonia. Noncontrast head CT: Mild white matter hypodensities suggestive of some chronic small vessel ischemia. No acute abnormality. No change. Disposition Clinical Impression: Dizziness, Paresthesia of right upper extremity Disposition: ADMITTED IP TO THIS [facility] Condition: Stable Is patient prescribed a controlled substance at d/c from ED?: No Referrals: Marcelo Wheatley MD [Primary Care Provider] - 1-2 days Time of Disposition: 19:59
--- NOTE | 2022-01-10 18:36 | CT ---
EXAMINATION TYPE: CT brain wo con DATE OF EXAM: 01/10/2022 COMPARISON: 05/13/2021 HISTORY: headaches, numbness down left arm CT DLP: 1023.4 mGycm Automated exposure control for dose reduction was used. Images obtained of the brain without contrast. Ventricles have fairly normal size. There is no mass effect or midline shift. There is no sign of int racranial hemorrhage. There is minimal white matter hypodensity around the lateral ventricles. Calvar ium is intact. Skull base is intact. IMPRESSION: Mild white matter hypodensities suggestive of some chronic small vessel ischemia. No acute abnormalit y. No change.
--- NOTE | 2022-01-10 18:38 | XR ---
EXAMINATION TYPE: XR chest 2V DATE OF EXAM: 01/10/2022 COMPARISON: 10/06/2021 HISTORY: Dizziness TECHNIQUE: 2 views FINDINGS: There is coarse interstitial infiltrate in both lungs. Heart size is normal. There is no he art failure. There is no pleural effusion. There are no hilar masses. IMPRESSION: Coarse interstitial pulmonary infiltrates improved compared to last exam and consistent w ith acute and chronic interstitial pneumonia.
[2022-01-10 18:40] LABS: Basophils # (A) 0.1 k/uL (0-0.2); Basophils % (A) 1 %; Eosinophils # (A) 0.3 k/uL (0-0.7); Eosinophils % (A) 5 %; HCT 42.7 % (34.0-46.0); HGB 13.9 gm/dL (11.4-16.0); Lymphocytes # (A) 2.1 k/uL (1.0-4.8); Lymphocytes % (A) 31 %; MCH 30.7 pg (25.0-35.0); MCHC 32.6 g/dL (31.0-37.0); MCV 94.3 fL (80.0-100.0); Mean Platelet Volume 7.8; Monocytes # (A) 0.6 k/uL (0-1.0); Monocytes % (A) 9 %; Neutrophils # (A) 3.7 k/uL (1.3-7.7); Neutrophils % (A) 53 %; Platelet Count 218 k/uL (150-450); RBC 4.53 m/uL (3.80-5.40); RDW 12.2 % (11.5-15.5); WBC 6.9 k/uL (3.8-10.6)
[2022-01-10 18:50] LABS: Prothrombin Time 11.1 sec (9.0-12.0)
[2022-01-10 18:54] LABS: ALT 23 U/L (4-34); AST 27 U/L (14-36); African American GFR (CKD) >90 (>60 ml/min/1.73 sqM); Albumin 3.8 g/dL (3.5-5.0); Alkaline Phosphatase 95 U/L (38-126); Anion Gap 8 mmol/L; Blood Urea Nitrogen 14 mg/dL (7-17); Carbon Dioxide 23 mmol/L (22-30); Chloride 107 mmol/L (98-107); Glucose 90 mg/dL (74-99); Non-African American GFR(CKD) >90 (>60 ml/min/1.73 sqM); Potassium 3.7 mmol/L (3.5-5.1); Sodium 138 mmol/L (137-145); Total Bilirubin 0.4 mg/dL (0.2-1.3); Total Protein 7.6 g/dL (6.3-8.2)
[2022-01-10 19:27] LABS: Appearance,Urine Clear (Clear); Bilirubin,Urine Negative (Negative); Blood,Urine Negative (Negative); Color,Urine Light Yellow; Glucose,Urine (UA) Negative (Negative); Ketones,Urine Negative (Negative); Leukocyte Esterase,Urine Negative (Negative); Nitrite,Urine Negative (Negative); PH, Urine 6.5 (5.0-8.0); Protein,Urine Negative (Negative); Specific Gravity,Urine 1.003 (1.001-1.035); Urobilinogen,Urine <2.0 mg/dL (<2.0)
[2022-01-10] MEDS ORDERED: ASPIRIN 81 MG PO STA (19:42)
[2022-01-10] MEDS: SODIUM CHLORIDE 0.9% 1,000 ML IV SCH (22:52)
[2022-01-11] MEDS: LEVOTHYROXINE 88 MCG TAB PO SCH (06:26)
[2022-01-11] MEDS ORDERED: FUROSEMIDE 20 MG TAB PO PRN (09:00)
[2022-01-11] MEDS: ASPIRIN 81 MG PO SCH (10:00)
[2022-01-11] MEDS: PANTOPRAZOLE 40 MG TABLET PO SCH (10:00)
[2022-01-11] MEDS: CLOPIDOGREL 75 MG TAB PO SCH (10:00)
[2022-01-11] MEDS: KETOROLAC 0.5% OPHTH DROPS 5 ML BTL LEFT EYE SCH ×4 (10:02→20:18)
[2022-01-11] MEDS ORDERED: MECLIZINE 12.5 MG TAB PO PRN (10:53)
--- NOTE | 2022-01-11 11:27 | P.CNNES ---
History of Present Illness Consult date: 01/11/22 Reason for Consult: dizziness and right arm paresthesias History of Present Illness: The patient is a 76-year-old female who is seen in neurologic consultation on January 11, 2022, via telemedicine. The patient is being seen because of presenting symptoms consisting of dizziness and right arm paresthesias. The patient describes her dizziness as a lightheaded feeling. She said she especially notices this sensation when she stands back up, after bending over. She says her symptoms have been present for the past 2 days. In addition to the lightheadedness, the patient reports a tingling sensation in her right hand and arm. She has not notice any other symptoms. There is no facial numbness or tingling. No weakness in her arms or legs. The patient does report a little bit of difficulty with walking and balance. She uses a walker at baseline. This has been the case since she had a prolonged hospitalization with Covid 19 and pneumonia. Following that prolonged hospitalization patient was discharged to a rehabilitation unit. She reports being home for the past 1 week. She has been using oxygen since that time. She does report that she has been attempting to wean herself from the oxygen. Workup in the emergency department consisted of a CT scan of the brain. There was no reported hemorrhage or acute infarct. I have personally reviewed these images and agree with the interpretation. The patient's blood pressure was elevated at 173/95, upon presentation to the emergency department. Review of Systems negative except for that noted in history of chief complaint Past Medical History Past Medical History: CVA/TIA, GERD/Reflux, Hyperlipidemia, Hypertension, Thyroid Disorder Additional Past Medical History / Comment(s): 3-2-16 ADMITTED WITH STROKE LIKE SYMPTOMS-pt. states was told didn't have stroke, history of TIAs,DIVERTICULITIS History of Any Multi-Drug Resistant Organisms: None Reported Past Surgical History: Appendectomy, Section, Cholecystectomy Past Anesthesia/Blood Transfusion Reactions: No Reported Reaction Additional Past Anesthesia/Blood Transfusion Reaction / Comment(s): MILD CLAUSTROPHOBIA Past Psychological History: No Psychological Hx Reported Smoking Status: Never smoker Past Alcohol Use History: None Reported Past Drug Use History: None Reported - Past Family History Mother Family Medical History: Cancer Additional Family Medical History / Comment(s): UNSURE WHAT TYPE OF CANCER Father Family Medical History: Cancer Additional Family Medical History / Comment(s): BONE CANCER Brother(s) Family Medical History: Asthma Sister(s) Family Medical History: No Reported History Son(s) Family Medical History: No Reported History Medications and Allergies Home Medications Medication Instructions Recorded Confirmed Type Clopidogrel [Plavix] 75 mg PO DAILY #0 01/24/16 01/10/22 Rx Aspirin EC [Ecotrin Low Dose] 81 mg PO DAILY 05/13/21 01/10/22 History Multivit-Min/Iron/Folic/Lutein 1 tab PO DAILY 05/13/21 01/10/22 History [Centrum Silver Women Tablet] Vit C/E/Zn/Coppr/Lutein/Zeaxan 1 cap PO BID 05/13/21 01/10/22 History [Preservision Areds 2 Softgel] Pantoprazole [Protonix] 40 mg PO DAILY 07/30/21 01/10/22 History Atorvastatin [Lipitor] 40 mg PO HS 01/10/22 01/10/22 History Furosemide [Lasix] 20 mg PO DAILY PRN 01/10/22 01/10/22 History Ketorolac 0.5% Ophth Soln [Acular 1 drops LEFT EYE QID 01/10/22 01/10/22 History 0.5%] Levothyroxine Sodium [Synthroid] 88 mcg PO DAILY 01/10/22 01/10/22 History Allergies Allergy/AdvReac Type Severity Reaction Status Date / Time codeine Allergy Unknown Verified 01/10/22 20:18 Physical Examination - Vital Signs Vital Signs: Vital Signs Temp Pulse Pulse Resp BP BP Pulse Ox 01/11/22 09:58 98.2 F 70 16 182/89 93 L 01/11/22 04:00 77 18 130/75 97 01/11/22 00:00 74 18 144/78 93 L 01/10/22 21:31 97.8 F 74 16 161/84 96 01/10/22 20:39 97.3 F L 70 18 168/82 98 01/10/22 19:30 74 20 168/88 98 01/10/22 18:30 72 18 170/70 97 01/10/22 17:36 97.1 F L 74 16 173/95 97 Intake and Output 01/10/22 01/11/22 01/11/22 22:59 06:59 14:59 Intake Total 970 Output Total 700 Balance 970 -700 Intake: Oral 970 Output: Urine 700 Other: Voiding Method Toilet Toilet # Voids 1 1 Weight 73.482 kg Gen.: The patient is reclining in the bed. She is well-nourished, well-develop ed and in no acute distress. HEENT: Head is atraumatic, normocephalic. Fundus not visualized. There is no scleral icterus. Mucous membranes are moist. Neck: Supple without carotid bruits Heart: Regular rate and rhythm Lungs: Clear to auscultation Extremities: Without edema Neurological examination Mental status: The patient is awake, alert and oriented 3. Her speech is clear. There is no dysarthria or aphasia. Cranial nerves: Pupils are equal at 3 mm and reactive. Visual field testing rev eals decrease in the left peripheral vision. Extraocular movements are intact. There is no nystagmus. Visual sensation is intact. There is no facial asymmetry. Hearing is grossly intact. Uvula and palate are midline. Shoulder shrug is symmetric. Tongue protrudes midline. Motor: Strength is 5/5 throughout. Coordination: Finger to nose and rapid alternating movements are intact. Sensation: Grossly intact to light touch throughout. There is no extinction with double simultaneous stimulation. Deep tendon reflexes: 2+/4+ throughout with the exception of the right patellar reflexes 1+/4+. Gait: Not assessed Results - Laboratory Findings CBC and BMP: 01/10/22 18:30 01/10/22 18:30 Abnormal Lab Findings: Abnormal Labs 01/10/22 18:30 Creatinine 0.49 L - Diagnostic Findings Comments: CT scan images were personally reviewed. There is no evidence of acute hemorrhage or infarct Assessment and Plan Assessment: 1. Possible transient ischemic attack involving the posterior circulation, and a patient with a history of TIAs 2. History of hypertension 3. History of hyperlipidemia Plan: 1. MRI of brain has been ordered to further evaluate for stroke 2. 2-D echocardiogram has been ordered 3. Carotid Doppler 4. Lipid panel, TSH and hemoglobin A1c 5. Orthostatic vitals 6. Physical therapy evaluation 7. Based on MRI results, consider changing Plavix to Brilinta Thank you for allowing us to participate in the care of this for a nice lady. Dr. Kimble will assume neurologic coverage January 12, 2022 Time with Patient: Greater than 30 (spent 40 minutes with patient via telemedicine)
--- NOTE | 2022-01-11 11:41 | US ---
EXAMINATION TYPE: US carotid duplex BILAT DATE OF EXAM: 01/11/2022 COMPARISON: 01/22/2016 CLINICAL HISTORY: 76-year-old female paraesthesia to arm, dizziness. Dizziness for the past 2 weeks, TIA, Rt arm weakness. TECHNIQUE: Carotid duplex ultrasound examination. Indirect Doppler criteria was utilized. FINDINGS: EXAM MEASUREMENTS: RIGHT: Peak Systolic Velocity (PSV) cm/sec ----- Right CCA: 53.3 ----- Right ICA: 53.6 ----- Right ECA: 55.8 ICA/CCA ratio: 1.01 RIGHT: End Diastole cm/sec ----- Right CCA: 13.0 ----- Right ICA: 16.1 ----- Right ECA: 7.87 LEFT: Peak Systolic Velocity (PSV) cm/sec ----- Left CCA: 55.1 ----- Left ICA: 102 ----- Left ECA: 59.3 ICA/CCA ratio: 1.85 LEFT: End Diastole cm/sec ----- Left CCA: 16.8 ----- Left ICA: 31.5 ----- Left ECA: 13.1 VERTEBRALS (direction of flow): Right Vertebral: Antegrade Left Vertebral: Antegrade Rhythm: Normal Dialysis Tech notes: No elevated velocities IMPRESSION: No hemodynamically significant internal carotid artery stenosis on either side. Criteria for Assigning % of Stenosis / Diameter reduction (Estimation based on the indirect measurements of the internal carotid artery velocities (ICA PSV). 1. Normal (no stenosis)=ICA PSV < 125 cm/s: ratio < 2.0: ICA EDV<40 cm/s. 2. Less than 50% stenosis=ICA PSV < 125 cm/s: ratio < 2.0: ICA EDV<40 cm/s. 3. 50 to 69% stenosis=ICA PSV of 125 to 230 cm/s: ration 2.0 ? 4.0: ICA EDV 40-100 cm/s. 4. Greater than 70% stenosis to near occlusion= ICA PSV > 230 cm/s: ratio > 4.0: ICA EDV > 100 cm/s. 5. Near occlusion= ICA PSV velocities may be low or undetectable: variable ratio and ICA EDV. 6. Total occlusion=unable to detect flow.
--- NOTE | 2022-01-11 11:54 | HP ---
HISTORY AND PHYSICAL This patient is a 76-year-old white female feels dizzy and off balance over the past 2 weeks, she says. It is worse after bending over to pick something up, worse with change in positions. Denies feeling dizzy currently while lying still. She had a right arm prickly sensation this morning. She was having right arm paresthesias. She was concerned about having a stroke, at which time she came to the hospital. She survived an extensive hospitalization with COVID pneumonia where she nearly 2 to 3 months ago, but has just recently started. No chest pain. No leg swelling, calf swelling. No change in medicines. She has been eating and drinking fairly well, she says. Home medicines are Synthroid 75 mcg daily, aspirin 81 daily, multivitamin daily. ALLERGIES: CODEINE. Fourteen-point review of systems otherwise negative. PAST MEDICAL HISTORY: CVA, TIA, hypertension, dyslipidemia, hypothyroidism. FAMILY HISTORY: Reviewed. See chart. PHYSICAL EXAMINATION: She is losing some hair. She is dishevelled. She looks in no acute distress. Cardiovascular S1, S2. Lungs clear. GI soft. Extremities no significant edema. Vascular: Pulses are normal. ENT normal. Ophthalmologic normal. Psych normal. Blood pressure 173/95, O2 97, temperature 97.1, pulse 70s, respiratory rate 16 to 18. ASSESSMENT: Possible acute neurologic change, dizziness, possible benign positional vertigo. Will try her on Antivert. Check her thyroid. Check her cortisol levels. She has got neuro workup coming. Could be dizziness from hypertension variation or blood pressures or hypertension acceleration; on admission it was quite high. Please see further orders. MMODL / IJN: [id number] /
[2022-01-11] MEDS: SODIUM CHLORIDE 0.9% 1,000 ML IV SCH (12:43)
[2022-01-11] MEDS: amLODIPine 5 MG TAB PO SCH (12:50)
[2022-01-11] MEDS ORDERED: SODIUM CHLORIDE 0.65% NASAL SPRAY 44 ML BTL NASAL PRN (12:58)
[2022-01-11 13:04] LABS: T4, Free (Free Thyroxine) 1.91 ng/dL (0.78-2.19)
--- NOTE | 2022-01-11 14:10 | CT ---
EXAMINATION TYPE: CT chest wo con DATE OF EXAM: 01/11/2022 COMPARISON: 09/20/2021 HISTORY: 76-year-old female Abnormal CXR TECHNIQUE: Contiguous axial scanning of the chest without IV contrast. Coronal and sagittal reconstru ctions performed. CT DLP: 312.8 mGycm Automated exposure control for dose reduction was used. FINDINGS: Heart normal size without pericardial effusion. Prominent epicardial fat pad. Mild LAD coronary arter y calcifications. Aorta normal caliber with bovine configuration to the aortic arch. No thoracic lymphadenopathy by CT size criteria. There is a large caliber to the main right and left pulmonary arteries measuring up to 2.7 cm each lucero ggesting underlying pulmonary arterial hypertension. The groundglass changes have shown some improvement and have become less confluent compared to 2020. While there has been improvement, these now have a more chronic reticulated appearance with ass ociated microcystic change and traction bronchiolectasis and some areas of parenchymal distortion. No pleural effusion. Visualized upper abdomen shows prominent congested debris within the stomach. Bones: Multiple endplate Schmorl's nodes lower thoracic spine. Osteopenia. Dextroconvex curvature upp er third thoracic spine. IMPRESSION: 1. PROGRESSION NOW TO A MORE CHRONIC APPEARANCE WITH RETICULATIONS, SOME RESIDUAL GROUNDGLASS CHANGES , AREAS OF BRONCHIOLECTASIS, AND SOME PARENCHYMAL DISTORTION. SUSPECT EXTENSIVE POSTINFECTIOUS SCARRI NG. ADDITIONAL FOLLOW-UP CAN BE PERFORMED TO ASSESS FOR ANY EVOLVING CHANGES. 2. CORRELATE FOR UNDERLYING PULMONARY ARTERIAL HYPERTENSION.
[2022-01-11 17:21] LABS: Chol/HDL Ratio 3.16 Ratio
[2022-01-11] MEDS ORDERED: ATORVASTATIN 40 MG TAB PO SCH (21:00)
[2022-01-12] MEDS: SODIUM CHLORIDE 0.9% 1,000 ML IV SCH ×2 (02:13→07:44)
[2022-01-12] MEDS: LEVOTHYROXINE 88 MCG TAB PO SCH (06:49)
[2022-01-12 07:42] VITALS: RESP 16
[2022-01-12] MEDS: ASPIRIN 81 MG PO SCH (07:42)
[2022-01-12] MEDS: amLODIPine 5 MG TAB PO SCH (07:42)
[2022-01-12] MEDS: PANTOPRAZOLE 40 MG TABLET PO SCH (07:43)
[2022-01-12] MEDS: CLOPIDOGREL 75 MG TAB PO SCH (07:43)
[2022-01-12] MEDS: KETOROLAC 0.5% OPHTH DROPS 5 ML BTL LEFT EYE SCH ×3 (07:44→17:49)
--- NOTE | 2022-01-12 11:22 | MR ---
EXAMINATION TYPE: MR brain wo con DATE OF EXAM: 01/12/2022 COMPARISON: CT brain 01/10/2022 HISTORY: Prior on synapse, CVA TECHNIQUE: T1-weighted sagittal, T2, FLAIR, and diffusion axial, and T2 coronal coronal views of the brain are submitted. FINDINGS: There is no evidence of acute ischemia. The ventricles, basal cisterns, and sulci overlying the conv exities are consistent with the patient's age. There is no mass effect. Craniocervical junction maintained. Sella turcica has a normal appearance. Dolichoectasia the vertebr al basilar system. No cerebellopontine angle mass. Changes of chronic sinusitis. Orbits are symmetric. There is diffuse and focal areas of abnormal signal seen scattered throughout the white matter compatible with remote white matter ischemia. Area of abnormal signal noted in the [place] suggestive of remote ischemia. IMPRESSION: 1. No acute intracranial process degenerative and not remote ischemic change as noted above involving the white matter. 2. Mild prominence of the vertebral basilar system associated with dolichoectasia. Correlate with MRA [place] as clinically warranted.
--- NOTE | 2022-01-12 13:01 | ECHOF ---
Referral Reason:TIA MEASUREMENTS -------- HEIGHT: 165.1 cm WEIGHT: 73.5 kg BP: 124/75 RVIDd: 2.7 cm (< 3.3) IVSd: 1.1 cm (0.6 - 1.1) LVIDd: 4.2 cm (3.9 - 5.3) LVPWd: 0.9 cm (0.6 - 1.1) IVSs: 1.7 cm LVIDs: 2.8 cm LVPWs: 1.3 cm LA Diam: 2.8 cm (2.7 - 3.8) LAESV Index (A-L): 17.80 ml/m Ao Diam: 3.5 cm (2.0 - 3.7) AV Cusp: 1.7 cm (1.5 - 2.6) MV EXCURSION: 14.273 mm (> 18.000) MV EF SLOPE: 98 mm/s (70 - 150) EPSS: 0.5 cm MV E Juan Manuel: 0.63 m/s MV DecT: 313 ms MV A Juan Manuel: 0.91 m/s MV E/A Ratio: 0.69 AR PHT: 939 ms RAP: 5.00 mmHg RVSP: 31.94 mmHg FINDINGS -------- Sinus rhythm. This was a technically adequate study. The left ventricular size is normal. There is borderline concentric left ventricular hypertrophy. Overall left ventricular systolic function is normal with, an EF between 55 - 60 %. The diastolic filling pattern is normal for the age of the patient 10.61. The right ventricle is normal in size. Normal LA size by volume 22+/-6 ml/m2. The right atrial size is normal. Interatrial and interventricular septum intact. The aortic valve is trileaflet and appears structurally normal. There is mild aortic regurgitation. The mitral valve is normal. Mild mitral regurgitation is present. The tricuspid valve appears structurally normal. Mild tricuspid regurgitation present. Right vent ricular systolic pressure is normal at < 35 mmHg. Trace/mild (physiologic) pulmonic regurgitation. The aortic root size is normal. IVC Not well visulized. There is no pericardial effusion. CONCLUSIONS -------- 1. There is borderline concentric left ventricular hypertrophy. 2. Overall left ventricular systolic function is normal with, an EF between 55 - 60 %. 3. Normal LA size by volume 22+/-6 ml/m2. 4. There is mild aortic regurgitation. 5. Mild mitral regurgitation is present. 6. Mild tricuspid regurgitation present. 7. Trace/mild (physiologic) pulmonic regurgitation. 8. There is no pericardial effusion. [place]: Christine Melgar RDCS
[2022-01-12 16:03] VITALS: BP 124/74; PULSE 78; TEMP 98.4
--- NOTE | 2022-01-12 17:40 | PN ---
PROGRESS NOTE This 76-year-old white female was admitted for dizziness, near-syncope; tried her on Antivert. Multiple neurologic workup. Carotids are negative. MRI of the brain is negative for CVA. Free T4 is normal. Cortisol level is 2, which was done at 11:36 a.m. orders. I suspect she had adrenal insufficiency secondary to extended steroids while she was treated for COVID for months at a time versus orthostatic hypotension. Blood pressure 120s over 60s, O2 96 on room air, temperature 98.4, pulse 78, respiratory rate 16 to 18. Lungs clear. Cardiovascular S1, S2. ASSESSMENT: Adrenal insufficiency with low cortisol levels. She will have to start Cortef 20 b.i.d. and she will be able to go home. She had negative orthostatic. MRI is negative for stroke. Carotids normal. Cardiology, neurology: No findings are seen. Please see further orders. She has COVID confusion and fatigue and adrenal insufficiency. MMODL / IJN: [id number] /
[2022-01-12] MEDS ORDERED: HYDROCORTISONE 10 MG TAB PO SCH (21:00)
== END 2022-01-12 18:28 | disposition home or self-care (01) ==
LOC: EC 17:34 → 3SCARD 19:54
PROVIDERS: ADMIT Family Medicine; ATTEND Family Medicine
DX: R42 Dizziness and giddiness (principal); R53.83 Other fatigue; U09.9 Post COVID-19 condition, unspecified; M93.921 Osteochondropathy, unspecified, right upper arm; R20.2 Paresthesia of skin; E03.9 Hypothyroidism, unspecified; E78.5 Hyperlipidemia, unspecified; E27.40 Unspecified adrenocortical insufficiency; I10 Essential (primary) hypertension; K21.9 Gastro-esophageal reflux disease without esophagitis; Z20.822 Contact with and (suspected) exposure to COVID-19; F40.240 Claustrophobia; X50.1XXA Overexertion from prolonged static or awkward postures, initial encounter; I08.1 Rheumatic disorders of both mitral and tricuspid valves; K57.90 Diverticulosis of intestine, part unspecified, without perforation or abscess without bleeding; Z79.02 Long term (current) use of antithrombotics/antiplatelets; Z79.51 Long term (current) use of inhaled steroids; Z79.82 Long term (current) use of aspirin; Z79.890 Hormone replacement therapy; Z79.899 Other long term (current) drug therapy; Z88.5 Allergy status to narcotic agent; Z87.01 Personal history of pneumonia (recurrent); Z90.49 Acquired absence of other specified parts of digestive tract; Z86.73 Personal history of transient ischemic attack (TIA), and cerebral infarction without residual deficits; Z82.5 Family history of asthma and other chronic lower respiratory diseases; Z80.9 Family history of malignant neoplasm, unspecified; Z80.8 Family history of malignant neoplasm of other organs or systems; Z99.81 Dependence on supplemental oxygen
CPT/HCPCS: 99285; 96374; 36415; 93005; 93306; 84439; 80061; 80053; 84443; 82533; 82607; 82746; 84484; 85025; 85610; 85730; 81003; 83036; 87635; 71046; 93880; 70450; 71250; 70551; G0378 ×3; J1200

== ENCOUNTER 2022-05-01 11:18 | Emergency (ER) | payer MEDICARE ==
[2022-05-01 11:40] VITALS: BP 147/83; PULSE 71; RESP 16; TEMP 97.8
[2022-05-01] MEDS ORDERED: KETOROLAC 15 MG/ML 1 ML VIAL IVP STA (13:51)
[2022-05-01] MEDS ORDERED: SODIUM CHLORIDE 0.9% 1,000 ML IV STA (13:51)
--- NOTE | 2022-05-01 14:26 | XR ---
EXAMINATION TYPE: XR KUB DATE OF EXAM: 05/01/2022 COMPARISON: None INDICATION: Constipation right flank pain TECHNIQUE: Single view abdomen upright view FINDINGS: There is a normal bowel gas pattern. Single normal-appearing loop of small bowel contains air within the left midabdomen which is normal. No suspicious air-fluid levels or differential air-fluid levels are evident. No free air is evident. Psoas margins are normal. No organomegaly is present. IMPRESSION: 1. Unremarkable Abdomen
[2022-05-01 14:42] LABS: Appearance,Urine Clear (Clear); Bilirubin,Urine Negative (Negative); Blood,Urine Negative (Negative); Color,Urine Light Yellow; Glucose,Urine (UA) Negative (Negative); Ketones,Urine Negative (Negative); Leukocyte Esterase,Urine Negative (Negative); Nitrite,Urine Negative (Negative); Protein,Urine Negative (Negative); Urobilinogen,Urine <2.0 mg/dL (<2.0)
[2022-05-01 14:58] LABS: Basophils # (A) 0.1 k/uL (0-0.2); Basophils % (A) 1 %; Eosinophils # (A) 0.2 k/uL (0-0.7); Eosinophils % (A) 2 %; HCT 46.6 % (34.0-46.0); HGB 15.7 gm/dL (11.4-16.0); Lymphocytes # (A) 2.3 k/uL (1.0-4.8); Lymphocytes % (A) 33 %; MCH 31.4 pg (25.0-35.0); MCHC 33.6 g/dL (31.0-37.0); MCV 93.5 fL (80.0-100.0); Mean Platelet Volume 7.8; Monocytes # (A) 0.5 k/uL (0-1.0); Monocytes % (A) 7 %; Neutrophils # (A) 3.9 k/uL (1.3-7.7); Neutrophils % (A) 54 %; Platelet Count 166 k/uL (150-450); RBC 4.99 m/uL (3.80-5.40); WBC 7.1 k/uL (3.8-10.6)
[2022-05-01 15:05] LABS: ALT 19 U/L (4-34); African American GFR (CKD) >90 (>60 ml/min/1.73 sqM); Anion Gap 8 mmol/L; Blood Urea Nitrogen 14 mg/dL (7-17); Calcium 8.6 mg/dL (8.4-10.2); Carbon Dioxide 21 mmol/L (22-30); Chloride 110 mmol/L (98-107); Glucose 79 mg/dL (74-99); Lipase 63 U/L (23-300); Non-African American GFR(CKD) 90 (>60 ml/min/1.73 sqM); Sodium 139 mmol/L (137-145); Total Bilirubin 0.8 mg/dL (0.2-1.3)
[2022-05-01 15:19] LABS: AST 30 U/L (14-36); Albumin 3.9 g/dL (3.5-5.0); Alkaline Phosphatase 77 U/L (38-126); Potassium 4.6 mmol/L (3.5-5.1); Total Protein 7.3 g/dL (6.3-8.2)
[2022-05-01] MEDS ORDERED: ORPHENADRINE 30 MG/ML 2 ML VIAL IM STA (15:48)
--- NOTE | 2022-05-01 15:51 | ED ---
General Adult HPI - General Chief complaint: Urogenital Stated complaint: Rt Sided Back Pain Time Seen by Provider: 05/01/22 13:33 Source: patient Mode of arrival: ambulatory Limitations: no limitations - History of Present Illness Initial comments: Patient is a 77-year-old female who presents to the emergency department with a chief complaint of constipation and back pain. Patient states she normally has regular daily bowel movements but has not had a bowel movement in 3 days. Patient reached out to her primary care provider who told her to try milk of magnesia and prune juice which she attempted which resulted in one small soft stool, nonbloody. Patient denies passing gas. She denies abdominal pain, nausea, and vomiting. Denies fever and chills. Patient also reports back pain that started yesterday. Denies injury. Describes it as lower right back pain with no radiation. Worse with rotation of the spine. Patient took Tylenol for pain with no relief. Denies pain, numbness, and tingling in the legs, groin, and buttock region. Denies loss of bowel or bladder function. Denies burning with urination, increased urinary frequency/urgency, blood in the urine. Denies history of kidney stone and infection. - Related Data Home Medications Medication Instructions Recorded Confirmed Aspirin EC [Ecotrin Low Dose] 81 mg PO DAILY 05/13/21 01/10/22 Pantoprazole [Protonix] 40 mg PO DAILY 07/30/21 01/10/22 Atorvastatin [Lipitor] 40 mg PO HS 01/10/22 01/10/22 Furosemide [Lasix] 20 mg PO DAILY PRN 01/10/22 01/10/22 Levothyroxine Sodium [Synthroid] 88 mcg PO DAILY 01/10/22 01/10/22 Previous Rx's Medication Instructions Recorded Clopidogrel [Plavix] 75 mg PO DAILY #0 01/24/16 Cyclobenzaprine [Flexeril] 5 mg PO BID #14 tablet 05/01/22 Lidocaine 5% Patch [Lidoderm 5% 1 patch TOPICAL DAILY PRN #5 patch 05/01/22 Patch] Allergies Allergy/AdvReac Type Severity Reaction Status Date / Time codeine Allergy Unknown Verified 05/01/22 14:25 Review of Systems ROS Statement: Those systems with pertinent positive or pertinent negative responses have been documented in the HPI. ROS Other: All systems not noted in ROS Statement are negative. Past Medical History Past Medical History: CVA/TIA, GERD/Reflux, Hyperlipidemia, Hypertension, Thyroid Disorder Additional Past Medical History / Comment(s): 3-2-16 ADMITTED WITH STROKE LIKE SYMPTOMS-pt. states was told didn't have stroke, history of TIAs,DIVERTICULITIS History of Any Multi-Drug Resistant Organisms: None Reported Past Surgical History: Appendectomy, Section, Cholecystectomy Past Anesthesia/Blood Transfusion Reactions: No Reported Reaction Additional Past Anesthesia/Blood Transfusion Reaction / Comment(s): MILD C LAUSTROPHOBIA Past Psychological History: No Psychological Hx Reported Smoking Status: Never smoker Past Alcohol Use History: None Reported Past Drug Use History: None Reported - Past Family History Mother Family Medical History: Cancer Additional Family Medical History / Comment(s): UNSURE WHAT TYPE OF CANCER Father Family Medical History: Cancer Additional Family Medical History / Comment(s): BONE CANCER Brother(s) Family Medical History: Asthma Sister(s) Family Medical History: No Reported History Son(s) Family Medical History: No Reported History General Exam Limitations: no limitations General appearance: alert Head exam: Present: atraumatic, normocephalic, normal inspection Eye exam: Present: normal appearance, PERRL, EOMI. Absent: scleral icterus, conjunctival injection, periorbital swelling Neck exam: Present: normal inspection, full ROM Respiratory exam: Present: normal lung sounds bilaterally. Absent: respiratory distress, wheezes, rales, rhonchi, stridor Cardiovascular Exam: Present: regular rate, normal rhythm, normal heart sounds. Absent: systolic murmur, diastolic murmur, rubs, gallop, clicks GI/Abdominal exam: Present: soft, normal bowel sounds. Absent: distended, tenderness, guarding, rebound, rigid Back exam: Present: normal inspection, full ROM, paraspinal tenderness (right lumbar). Absent: CVA tenderness (R), CVA tenderness (L), vertebral tenderness Neurological exam: Present: alert, oriented X3, CN II-XII intact Psychiatric exam: Present: normal affect, normal mood Skin exam: Present: warm, dry, intact, normal color. Absent: rash Course Vital Signs 05/01/22 11:38 Temperature 97.8 F Pulse Rate 71 Respiratory 16 Rate Blood Pressure 147/83 O2 Sat by Pulse 96 Oximetry Medical Decision Making - Medical Decision Making This is a 77-year-old female who presents for concern of constipation as well as back pain. Thorough history and examination were performed. Patient had small bowel movement yesterday. No abdominal pain, nausea, or vomiting. The abdomen is soft and nontender. There is moderate tenderness in the right lumbar paravertebral muscles. No red flag or sciatica symptoms. No flank tenderness with palpation. With patient's concern for constipation and back pain I will obtain laboratory studies and KUB x-ray. Laboratory studies are relatively unremarkable. Urinalysis is not indicative of infection or blood. KUB x-ray is negative for acute process including o bstruction, constipation, and fecal impaction. With patient's tenderness wiyj palpation of the lumbar paravertebral muscles as well as negative kidney and abdominal workup, pain is likely musculoskeletal in origin. Patient will be discharged with lidocaine patches and Flexeril for musculoskeletal back pain. She is encouraged to use ice packs for pain relief for the next 24 hours and warm compress after. She instructed to follow-up with her primary care provider. Return parameters discussed. Patient verbalizes understanding and is agreeable to this plan. Dr. Rosales is my attending. - Lab Data Result diagrams: 05/01/22 14:25 05/01/22 14:25 Lab Results 05/01/22 05/01/22 05/01/22 Range/Units 14:05 14:25 14:25 WBC 7.1 (3.8-10.6) k/uL RBC 4.99 (3.80-5.40) m/uL Hgb 15.7 (11.4-16.0) gm/dL Hct 46.6 H (34.0-46.0) % MCV 93.5 (80.0-100.0) fL MCH 31.4 (25.0-35.0) pg MCHC 33.6 (31.0-37.0) g/dL RDW 14.0 (11.5-15.5) % Plt Count 166 (150-450) k/uL MPV 7.8 Neutrophils % 54 % Lymphocytes % 33 % Monocytes % 7 % Eosinophils % 2 % Basophils % 1 % Neutrophils # 3.9 (1.3-7.7) k/uL Lymphocytes # 2.3 (1.0-4.8) k/uL Monocytes # 0.5 (0-1.0) k/uL Eosinophils # 0.2 (0-0.7) k/uL Basophils # 0.1 (0-0.2) k/uL Sodium 139 (137-145) mmol/L Potassium 4.6 (3.5-5.1) mmol/L Chloride 110 H (98-107) mmol/L Carbon Dioxide 21 L (22-30) mmol/L Anion Gap 8 mmol/L BUN 14 (7-17) mg/dL Creatinine 0.57 (0.52-1.04) mg/dL Est GFR (CKD-EPI)AfAm >90 (>60 ml/min/1.73 sqM) Est GFR (CKD-EPI)NonAf 90 (>60 ml/min/1.73 sqM) Glucose 79 (74-99) mg/dL Calcium 8.6 (8.4-10.2) mg/dL Total Bilirubin 0.8 (0.2-1.3) mg/dL AST 30 (14-36) U/L ALT 19 (4-34) U/L Alkaline Phosphatase 77 (38-126) U/L Total Protein 7.3 (6.3-8.2) g/dL Albumin 3.9 (3.5-5.0) g/dL Lipase 63 (23-300) U/L Urine Color Light Yellow Urine Appearance Clear (Clear) Urine pH 7.0 (5.0-8.0) Ur Specific [place] 1.010 (1.001-1.035) Urine Protein Negative (Negative) Urine Glucose (UA) Negative (Negative) Urine Ketones Negative (Negative) Urine Blood Negative (Negative) Urine Nitrite Negative (Negative) Urine Bilirubin Negative (Negative) Urine Urobilinogen <2.0 (<2.0) mg/dL Ur Leukocyte Esterase Negative (Negative) Disposition Clinical Impression: Back pain Disposition: HOME SELF-CARE Condition: Good Instructions (If sedation given, give patient instructions): Back Pain (ED) Additional Instructions: Please take Flexeril as directed. Apply lidocaine patches as directed. Take ibuprofen or naproxen as needed for pain. For more pain relief you can use an ice pack for the next 24 hours. If symptoms continue you can then apply heat packs. Follow-up with primary care provider in one to 2 days. Return to the emergency department if you experience new, concerning, or worsening symptoms. Prescriptions: Cyclobenzaprine [Flexeril] 5 mg PO BID #14 tablet Lidocaine 5% Patch [Lidoderm 5% Patch] 1 patch TOPICAL DAILY PRN #5 patch PRN Reason: Pain Is patient prescribed a controlled substance at d/c from ED?: No Referrals: Marcelo Wheatley MD [Primary Care Provider] - 1-2 days Time of Disposition: 15:51
[2022-05-01] MEDS ORDERED: LIDOCAINE 5% PATCH TOPICAL SCH (16:00)
== END 2022-05-01 16:46 | disposition home or self-care (01) ==
LOC: EC 11:18
DX: M54.9 Dorsalgia, unspecified (principal); E78.5 Hyperlipidemia, unspecified; I10 Essential (primary) hypertension; Z86.73 Personal history of transient ischemic attack (TIA), and cerebral infarction without residual deficits; K21.9 Gastro-esophageal reflux disease without esophagitis; Z79.899 Other long term (current) drug therapy; Z88.5 Allergy status to narcotic agent
CPT/HCPCS: 36415; 80053; 83690; 85025; 81003; 74018; 99283; 96374; 96361 ×2; 96372; J2360; J1885

== ENCOUNTER 2022-06-09 15:47 | Emergency (ER) | payer MEDICARE ==
[2022-06-09 15:55] VITALS: TEMP 98.4
[2022-06-09 16:09] LABS: Glucose,Whole Blood 125 mg/dL (70-110)
[2022-06-09] MEDS ORDERED: SODIUM CHLORIDE 0.9% 1,000 ML IV STA (16:45)
--- NOTE | 2022-06-09 16:48 | ED ---
General Adult HPI - General Chief complaint: Neuro Symptoms/Deficit Stated complaint: Facial numbness Time Seen by Provider: 06/09/22 16:32 Source: patient, RN notes reviewed Mode of arrival: ambulatory Limitations: no limitations - History of Present Illness Initial comments: Patient is a pleasant 77-year-old female presenting to the emergency department with concerns with right facial droop. Patient noticed symptoms today. Patient has had some mild discomfort behind her right ear for the past day or 2. Patient rates this as a 5/10. No confusion. No extremity weakness. 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 - Related Data Home Medications Medication Instructions Recorded Confirmed Aspirin EC [Ecotrin Low Dose] 81 mg PO DAILY 05/13/21 06/09/22 Pantoprazole [Protonix] 40 mg PO DAILY 07/30/21 06/09/22 Atorvastatin [Lipitor] 40 mg PO HS 01/10/22 06/09/22 Furosemide [Lasix] 20 mg PO DAILY PRN 01/10/22 06/09/22 Levothyroxine Sodium [Synthroid] 88 mcg PO DAILY 01/10/22 06/09/22 Previous Rx's Medication Instructions Recorded Clopidogrel [Plavix] 75 mg PO DAILY #0 01/24/16 predniSONE [Deltasone] 3 tab PO DAILY #21 tab 06/09/22 valACYclovir HCL [Valtrex] 1 tab PO DAILY #21 tablet 06/09/22 Allergies Allergy/AdvReac Type Severity Reaction Status Date / Time codeine Allergy Unknown Verified 06/09/22 15:52 Review of Systems ROS Statement: Those systems with pertinent positive or pertinent negative responses have been documented in the HPI. ROS Other: All systems not noted in ROS Statement are negative. Constitutional: Denies: fever Eyes: Denies: eye pain ENT: Reports: as per HPI Respiratory: Denies: cough Cardiovascular: Denies: chest pain Endocrine: Denies: fatigue Gastrointestinal: Denies: abdominal pain Genitourinary: Denies: dysuria Musculoskeletal: Denies: back pain Skin: Denies: rash Neurological: Reports: as per HPI Past Medical History Past Medical History: CVA/TIA, GERD/Reflux, Hyperlipidemia, Hypertension, Thyroid Disorder Additional Past Medical History / Comment(s): 3-2-16 ADMITTED WITH STROKE LIKE SYMPTOMS-pt. states was told didn't have stroke, history of TIAs,DIVERTICULITIS , covid pos 09/2021 History of Any Multi-Drug Resistant Organisms: None Reported Past Surgical History: Appendectomy, Section, Cholecystectomy Past Anesthesia/Blood Transfusion Reactions: No Reported Reaction Additional Past Anesthesia/Blood Transfusion Reaction / Comment(s): MILD CLAUSTROPHOBIA Past Psychological History: No Psychological Hx Reported Smoking Status: Never smoker Past Alcohol Use History: None Reported Past Drug Use History: None Reported - Past Family History Mother Family Medical History: Cancer Additional Family Medical History / Comment(s): UNSURE WHAT TYPE OF CANCER Father Family Medical History: Cancer Additional Family Medical History / Comment(s): BONE CANCER Brother(s) Family Medical History: Asthma Sister(s) Family Medical History: No Reported History Son(s) Family Medical History: No Reported History General Exam Limitations: no limitations General appearance: alert, in no apparent distress Head exam: Present: atraumatic, normocephalic Eye exam: Present: normal appearance, PERRL, EOMI ENT exam: Present: normal oropharynx, TM's normal bilaterally Neck exam: Present: normal inspection. Absent: tenderness Respiratory exam: Present: normal lung sounds bilaterally Cardiovascular Exam: Present: regular rate, normal rhythm GI/Abdominal exam: Present: soft. Absent: tenderness Extremities exam: Present: normal inspection Neurological exam: Present: alert, oriented X3, other (Right facial droop that includes the forehead, difficulty closing right eyelid. Otherwise cranial nerves intact.) Expanded Speech: Present: fluid speech Cranial nerves: EOM's Intact: Normal Sensory exam: Upper Extremity Light Touch: Normal, Lower Extremity Light Touch: Normal Motor strength exam: RUE: 5, LUE: 5, RLE: 5, LLE: 5 Eye Response: (4) open spontaneously Motor Response: (6) obeys commands Verbal Response: (5) oriented Psychiatric exam: Present: normal affect, normal mood Skin exam: Present: normal color Course Vital Signs 06/09/22 06/09/22 06/09/22 15:52 16:41 16:56 Temperature 98.4 F Pulse Rate 100 68 98 Respiratory 18 18 18 Rate Blood Pressure 142/95 120/73 136/74 O2 Sat by Pulse 94 L 97 94 L Oximetry EKG Findings - EKG Comments: EKG Findings:: Sinus rhythm rate 93. AR 162. QRS 88. QT 35-5. QTC 406. Normal axis. Normal QRS. No acute ST change. Medical Decision Making - Medical Decision Making Patient reevaluated. Patient updated. - Lab Data Result diagrams: 06/09/22 16:46 06/09/22 16:46 Lab Results 06/09/22 06/09/22 06/09/22 Range/Units 16:07 16:46 16:46 WBC 7.5 (3.8-10.6) k/uL RBC 4.75 (3.80-5.40) m/uL Hgb 15.3 (11.4-16.0) gm/dL Hct 45.0 (34.0-46.0) % MCV 94.8 (80.0-100.0) fL MCH 32.2 (25.0-35.0) pg MCHC 33.9 (31.0-37.0) g/dL RDW 13.2 (11.5-15.5) % Plt Count 269 (150-450) k/uL MPV 7.9 Neutrophils % 50 % Lymphocytes % 32 % Monocytes % 9 % Eosinophils % 5 % Basophils % 1 % Neutrophils # 3.8 (1.3-7.7) k/uL Lymphocytes # 2.4 (1.0-4.8) k/uL Monocytes # 0.7 (0-1.0) k/uL Eosinophils # 0.4 (0-0.7) k/uL Basophils # 0.1 (0-0.2) k/uL PT 10.8 (9.0-12.0) sec INR 1.0 (<1.2) APTT 24.1 (22.0-30.0) sec Sodium (137-145) mmol/L Potassium (3.5-5.1) mmol/L Chloride (98-107) mmol/L Carbon Dioxide (22-30) mmol/L Anion Gap mmol/L BUN (7-17) mg/dL Creatinine (0.52-1.04) mg/dL Est GFR (CKD-EPI)AfAm (>60 ml/min/1.73 sqM) Est GFR (CKD-EPI)NonAf (>60 ml/min/1.73 sqM) Glucose (74-99) mg/dL POC Glucose (mg/dL) 125 H (70-110) mg/dL POC Glu Gel Coater ID Lexii Mitchell Calcium (8.4-10.2) mg/dL Total Bilirubin (0.2-1.3) mg/dL AST (14-36) U/L ALT (4-34) U/L Alkaline Phosphatase (38-126) U/L Total Protein (6.3-8.2) g/dL Albumin (3.5-5.0) g/dL 06/09/22 Range/Units 16:46 WBC (3.8-10.6) k/uL RBC (3.80-5.40) m/uL Hgb (11.4-16.0) gm/dL Hct (34.0-46.0) % MCV (80.0-100.0) fL MCH (25.0-35.0) pg MCHC (31.0-37.0) g/dL RDW (11.5-15.5) % Plt Count (150-450) k/uL MPV Neutrophils % % Lymphocytes % % Monocytes % % Eosinophils % % Basophils % % Neutrophils # (1.3-7.7) k/uL Lymphocytes # (1.0-4.8) k/uL Monocytes # (0-1.0) k/uL Eosinophils # (0-0.7) k/uL Basophils # (0-0.2) k/uL PT (9.0-12.0) sec INR (<1.2) APTT (22.0-30.0) sec Sodium 141 (137-145) mmol/L Potassium 4.0 (3.5-5.1) mmol/L Chloride 110 H (98-107) mmol/L Carbon Dioxide 24 (22-30) mmol/L Anion Gap 7 mmol/L BUN 17 (7-17) mg/dL Creatinine 0.62 (0.52-1.04) mg/dL Est GFR (CKD-EPI)AfAm >90 (>60 ml/min/1.73 sqM) Est GFR (CKD-EPI)NonAf 87 (>60 ml/min/1.73 sqM) Glucose 123 H (74-99) mg/dL POC Glucose (mg/dL) (70-110) mg/dL POC Glu Gel Coater ID Calcium 9.2 (8.4-10.2) mg/dL Total Bilirubin 0.4 (0.2-1.3) mg/dL AST 21 (14-36) U/L ALT 17 (4-34) U/L Alkaline Phosphatase 89 (38-126) U/L Total Protein 7.1 (6.3-8.2) g/dL Albumin 3.8 (3.5-5.0) g/dL - Radiology Data Radiology results: report reviewed (CT brain and CT angiogram show no acute process) Disposition Clinical Impression: Rosa's palsy Disposition: HOME SELF-CARE Condition: Stable Instructions (If sedation given, give patient instructions): Rosa Palsy (ED) Additional Instructions: Prescriptions have been sent to pharmacy. Please follow-up with primary care physician in the next day or 2 for recheck. Use Lacri-Lube or similar moisturizing drops 4 times daily and prior to going to bed. Tape your eye shut at bedtime. Return for confusion, any other area of weakness, worsening symptom s or other concerns. Prescriptions: predniSONE [Deltasone] 3 tab PO DAILY #21 tab valACYclovir HCL [Valtrex] 1 tab PO DAILY #21 tablet Is patient prescribed a controlled substance at d/c from ED?: No Referrals: Marcelo Wheatley MD [Primary Care Provider] - 1-2 days Time of Disposition: 18:10
[2022-06-09 17:01] LABS: Basophils # (A) 0.1 k/uL (0-0.2); Basophils % (A) 1 %; Eosinophils # (A) 0.4 k/uL (0-0.7); Eosinophils % (A) 5 %; HGB 15.3 gm/dL (11.4-16.0); Lymphocytes # (A) 2.4 k/uL (1.0-4.8); Lymphocytes % (A) 32 %; MCH 32.2 pg (25.0-35.0); MCHC 33.9 g/dL (31.0-37.0); MCV 94.8 fL (80.0-100.0); Mean Platelet Volume 7.9; Monocytes # (A) 0.7 k/uL (0-1.0); Monocytes % (A) 9 %; Neutrophils # (A) 3.8 k/uL (1.3-7.7); Neutrophils % (A) 50 %; Platelet Count 269 k/uL (150-450); RBC 4.75 m/uL (3.80-5.40); RDW 13.2 % (11.5-15.5); WBC 7.5 k/uL (3.8-10.6)
[2022-06-09 17:11] LABS: Partial Thromboplastin Time 24.1 sec (22.0-30.0); Prothrombin Time 10.8 sec (9.0-12.0)
[2022-06-09 17:13] LABS: ALT 17 U/L (4-34); AST 21 U/L (14-36); African American GFR (CKD) >90 (>60 ml/min/1.73 sqM); Albumin 3.8 g/dL (3.5-5.0); Alkaline Phosphatase 89 U/L (38-126); Anion Gap 7 mmol/L; Blood Urea Nitrogen 17 mg/dL (7-17); Calcium 9.2 mg/dL (8.4-10.2); Carbon Dioxide 24 mmol/L (22-30); Chloride 110 mmol/L (98-107); Glucose 123 mg/dL (74-99); Non-African American GFR(CKD) 87 (>60 ml/min/1.73 sqM); Sodium 141 mmol/L (137-145); Total Bilirubin 0.4 mg/dL (0.2-1.3); Total Protein 7.1 g/dL (6.3-8.2)
--- NOTE | 2022-06-09 17:40 | CT ---
EXAMINATION TYPE: CT brain wo con DATE OF EXAM: 06/09/2022 COMPARISON: 01/10/2022 HISTORY: Right sided weakness and headache. CT DLP: 1084.6 mGycm Automated exposure control for dose reduction was used. There is some cerebral cortical atrophy. There is hypodensity in the periventricular white matter. Th ere is no mass effect or midline shift. No sign of intracranial hemorrhage. The calvarium is intact. There is normal aeration of the mastoid sinuses. There is ectasia of the vertebrobasilar artery system without evidence of aneurysm. IMPRESSION: Mild atrophy. Mild chronic small vessel ischemia. No acute intracranial abnormality. No change.
--- NOTE | 2022-06-09 17:59 | CT ---
EXAMINATION TYPE: CT angio head neck DATE OF EXAM: 06/09/2022 COMPARISON: 05/13/2021 HISTORY: Right occipital pain. Rosa's palsy. CT DLP: mGycm Automated exposure control for dose reduction was used. CONTRAST: Performed , patient injected with mL of . Images obtained from the aortic arch to the vertex of the brain with the IV contrast. There are Three -D postprocessed images. FINDINGS: There is normal branching pattern of the great vessels on the aortic arch. There is normal contrast o pacification of the subclavian arteries. There is arterial flow in the common internal and external c arotid arteries bilaterally. There is fairly wide patency of the carotid artery bifurcations. There i s arterial flow in both vertebral arteries. There is arterial flow in the vertebrobasilar artery syst em. There is no evidence of carotid or vertebral artery aneurysm or dissection. No evidence of any si gnificant plaque formation. The basilar artery has large diameter but is not aneurysmal. There is arterial flow in the anterior m iddle and posterior cerebral arteries bilaterally. No evidence of hemodynamic stenosis. No arterial a neurysm or dissection. No mass effect. There is normal enhancement of the venous sinuses. IMPRESSION: Negative CT angiogram of the brain and negative CT angiogram of the neck. There is mild ectasia of th e basilar artery stable compared to old exam.
[2022-06-09] MEDS ORDERED: ACETAMINOPHEN TAB 500 MG TAB PO STA (18:16)
[2022-06-09 18:40] VITALS: BP 147/88; PULSE 82; RESP 16
== END 2022-06-09 18:40 | disposition home or self-care (01) ==
LOC: EC 15:47
DX: G51.0 Bell's palsy (principal); I10 Essential (primary) hypertension; K21.9 Gastro-esophageal reflux disease without esophagitis; E07.9 Disorder of thyroid, unspecified; E78.5 Hyperlipidemia, unspecified; Z86.73 Personal history of transient ischemic attack (TIA), and cerebral infarction without residual deficits; Z88.5 Allergy status to narcotic agent; Z79.82 Long term (current) use of aspirin; Z79.899 Other long term (current) drug therapy; Z79.890 Hormone replacement therapy
CPT/HCPCS: 36415; 93005; 80053; 85025; 85610; 85730; 70496; 70450; 70498; 99285; 96360; 96361; Q9967

== ENCOUNTER → 2023-04-28 | Outpatient (CLI) | payer MEDICARE ==
[2023-04-28 16:16] LABS: Partial Thromboplastin Time 24.6 sec (22.0-30.0); Prothrombin Time 10.7 sec (9.0-12.0)
[2023-04-28 21:32] LABS: Basophils # (A) 0.09 X 10*3/uL (0.00-0.10); Basophils % (A) 1.2 %; Eosinophils # (A) 0.24 X 10*3/uL (0.04-0.35); Eosinophils % (A) 3.1 %; HCT 42.8 % (37.2-46.3); HGB 14.4 d/dL (12.0-15.0); Lymphocytes # (A) 2.37 X 10*3/uL (0.90-5.00); Lymphocytes % (A) 30.9 %; MCHC 33.6 d/dL (32.0-37.0); MCV 92.2 FL (80.0-97.0); Mean Platelet Volume 10.9 FL (9.5-12.2); Monocytes # (A) 0.93 X 10*3/uL (0.20-1.00); Monocytes % (A) 12.1 %; NRBC Per 100 WBC 0 X 10*3/uL (0.00-0.01); Neutrophils # (A) 4.03 X 10*3/uL (1.80-7.70); Neutrophils % (A) 52.4 %; Platelet Count 229 X 10*3/uL (140-440); RBC 4.64 X 10*6/uL (4.10-5.20); RDW 13.3 % (11.5-14.5); WBC 7.68 X 10*3/uL (4.50-10.00)
[2023-04-28 22:05] LABS: ALT 23 U/L (8-44); AST 20 U/L (13-35); Albumin 3.7 d/dL (3.8-4.9); Albumin/Globulin Ratio 1.42 Ratio (1.60-3.17); Alkaline Phosphatase 95 U/L (41-126); BUN/Creat Ratio 24.33 Ratio (12.00-20.00); Blood Urea Nitrogen 14.6 mg/dL (9.0-27.0); Calcium 8.9 mg/dL (8.7-10.3); Carbon Dioxide 21.5 mmol/L (21.6-31.8); Chloride 108 mmol/L (96-109); Globulin 2.6 d/dL (1.6-3.3); Glucose 130 mg/dL (70-110); Potassium 3.9 mmol/L (3.5-5.5); Sodium 142 mmol/L (135-145); Total Bilirubin 0.3 mg/dL (0.3-1.2); Total Protein 6.3 d/dL (6.2-8.2)
== END | disposition home or self-care (01) ==
LOC: LABWHC1 13:28
PROVIDERS: ATTEND Family Medicine
DX: Z01.818 Encounter for other preprocedural examination (principal)
CPT/HCPCS: 36415; 80053; 85025; 85610; 85730; 93005

== ENCOUNTER 2024-11-14 00:45 | Emergency (ER) | payer MEDICARE ==
--- NOTE | 2024-11-14 01:02 | ED ---
Fall HPI - General Chief Complaint: Fall Stated Complaint: Fall Time Seen by Provider: 11/14/24 01:00 Source: patient, RN notes reviewed Mode of arrival: wheelchair - History of Present Illness Initial Comments: 79-year-old female presenting for fall with head injury 1 hour ago. States she was making a Khloe dip when she spilled some onto the floor and slipped and fell onto the kitchen floor. States she struck her face on the ground as well as her right shoulder. States she is having pain in her right shoulder and elbow. She is on Plavix. Denies loss of consciousness. Denies other injuries from the fall. - Related Data Home Medications Medication Instructions Recorded Confirmed Aspirin EC [Ecotrin Low Dose] 81 mg PO DAILY 05/13/21 06/09/22 Pantoprazole [Protonix] 40 mg PO DAILY 07/30/21 06/09/22 Atorvastatin [Lipitor] 40 mg PO HS 01/10/22 06/09/22 Furosemide [Lasix] 20 mg PO DAILY PRN 01/10/22 06/09/22 Levothyroxine Sodium [Synthroid] 88 mcg PO DAILY 01/10/22 06/09/22 Previous Rx's Medication Instructions Recorded Clopidogrel [Plavix] 75 mg PO DAILY #0 01/24/16 predniSONE [Deltasone] 3 tab PO DAILY #21 tab 06/09/22 valACYclovir HCL [Valtrex] 1 tab PO DAILY #21 tablet 06/09/22 Allergies Allergy/AdvReac Type Severity Reaction Status Date / Time codeine Allergy Unknown Verified 11/14/24 00:47 Review of Systems ROS Statement: Those systems with pertinent positive or pertinent negative responses have been documented in the HPI. ROS Other: All systems not noted in ROS Statement are negative. Past Medical History Past Medical History: CVA/TIA, GERD/Reflux, Hyperlipidemia, Hypertension, Thyroid Disorder Additional Past Medical History / Comment(s): 3-2-16 ADMITTED WITH STROKE LIKE SYMPTOMS-pt. states was told didn't have stroke, history of TIAs,DIVERTICULITIS , covid pos 09/2021 History of Any Multi-Drug Resistant Organisms: None Reported Past Surgical History: Appendectomy, Section, Cholecystectomy Past Anesthesia/Blood Transfusion Reactions: No Reported Reaction Additional Past Anesthesia/Blood Transfusion Reaction / Comment(s): MILD CLAUSTROPHOBIA Past Psychological History: No Psychological Hx Reported Smoking Status: Never smoker Past Alcohol Use History: None Reported Past Drug Use History: None Reported - Past Family History Mother Family Medical History: Cancer Additional Family Medical History / Comment(s): UNSURE WHAT TYPE OF CANCER Father Family Medical History: Cancer Additional Family Medical History / Comment(s): BONE CANCER Brother(s) Family Medical History: Asthma Sister(s) Family Medical History: No Reported History Son(s) Family Medical History: No Reported History General Exam Limitations: no limitations General appearance: alert, in no apparent distress Head exam: Present: atraumatic, normocephalic, normal inspection Eye exam: Present: normal appearance, PERRL, EOMI. Absent: scleral icterus, conjunctival injection, periorbital swelling ENT exam: Present: normal exam, mucous membranes moist Neck exam: Present: other (C-collar present) Respiratory exam: Present: normal lung sounds bilaterally. Absent: respiratory distress, wheezes, rales, rhonchi, stridor Cardiovascular Exam: Present: regular rate, normal rhythm, normal heart sounds. Absent: systolic murmur, diastolic murmur, rubs, gallop, clicks GI/Abdominal exam: Present: soft, normal bowel sounds. Absent: distended, tenderness, guarding, rebound, rigid Right Shoulder Exam: Present: tenderness (Tenderness on posterior aspect of right shoulder), dislocation. Absent: normal inspection, full ROM Upper Arm exam: Present: normal inspection, full ROM. Absent: tenderness, swelling Elbow exam: Present: normal inspection, full ROM. Absent: tenderness, swelling Forearm Wrist exam: Present: normal inspection, full ROM. Absent: tenderness, swelling Vascular: Present: normal capillary refill, radial pulse. Absent: vascular compromise Back exam: Present: normal inspection Neurological exam: Present: alert, oriented X3, CN II-XII intact Psychiatric exam: Present: normal affect, normal mood Skin exam: Present: warm, dry, intact, normal color. Absent: rash Course Vital Signs 11/14/24 11/14/24 11/14/24 00:47 01:35 02:21 Temperature 98 F Pulse Rate 70 77 85 Respiratory 18 24 19 Rate Blood Pressure 161/81 156/101 196/102 O2 Sat by Pulse 94 L 98 98 Oximetry 11/14/24 11/14/24 02:30 02:33 Temperature Pulse Rate 95 98 Respiratory 8 L 14 Rate Blood Pressure 149/95 147/93 O2 Sat by Pulse 98 98 Oximetry Medical Decision Making - Medical Decision Making Was pt. sent in by a medical professional or institution (NICOLE Perez, COMPUTER SYSTEMS SECURITY ANALYST, urgent care, hospital, or senior care...) When possible be specific @ -No Did you speak to anyone other than the patient for history (EMS, parent, family, police, friend...)? What history was obtained from this source @ -No Did you review nursing and triage notes (agree or disagree)? Why? @ -I reviewed and agree with nursing and triage notes Were old charts reviewed (outside hosp., previous admission, EMS record, old EKG, old radiological studies, urgent care reports/EKG's, senior care records)? Report findings @ -No old charts were reviewed Differential Diagnosis (chest pain, altered mental status, abdominal pain women, abdominal pain men, vaginal bleeding, weakness, fever, dyspnea, syncope, headache, dizziness, GI bleed, back pain, seizure, CVA, palpatations, mental health, musculoskeletal)? @ -Differential Musculoskeletal Intracranial bleed, skull fracture, muscular strain, contusion, ligament sprain, fracture, arthritis, septic arthritis, bursitis, cellulitis, muscle spasm, nerve compression, DVT, arterial occlusion, herpes zoster, electrolyte abnormality, tumor.... This is not meant to be in all inclusive list EKG interpreted by me (3pts min.). @ -None X-rays interpreted by me (1pt min.). @ -X-ray right shoulder reveals anterior/inferior shoulder dislocation, x-ray right elbow reveals no acute process CT interpreted by me (1pt min.). @ -CT brain and C-spine reveals no acute process U/S interpreted by me (1pt. min.). @ -None done What testing was considered but not performed or refused? (CT, X-rays, U/S, labs)? Why? @ -None What meds were considered but not given or refused? Why? @ -None Did you discuss the management of the patient with other professionals (prof kayla i.e. NICOLE Perez, COMPUTER SYSTEMS SECURITY ANALYST, lab, RT, psych nurse, family welfare social work professor, photography sales associate, teacher, chief client officer, manager rn case)? Give summary @ -No Was smoking cessation discussed for >3mins.? @ -No Was critical care preformed (if so, how long)? @ -No Were there social determinants of health that impacted care today? How? (Homelessness, low income, unemployed, alcoholism, drug addiction, transportation, low edu. Level, literacy, decrease access to med. care, correction, rehab)? @ -No Was there de-escalation of care discussed even if they declined (Discuss DNR or withdrawal of care, Hospice)? DNR status @ -No What co-morbidities impacted this encounter? (DM, HTN, Smoking, COPD, CAD, Cancer, CVA, ARF, Chemo, Hep., AIDS, mental health diagnosis, sleep apnea, morbid obesity)? @ -None Was patient admitted / discharged? Hospital course, mention meds given and route, prescriptions, significant lab abnormalities, going to OR and other pertinent info. @ -Discharge. This is a 79-year-old female presenting for mechanical fall with head injury. Patient is also endorsing right shoulder pain. Denies loss of consciousness. Patient is on Plavix. Code coag was activated. Patient was provided with analgesics. CT brain and C-spine reveals no acute process. X-ray right shoulder reveals anterior/inferior shoulder dislocation, x-ray right elbow reveals no acute process. Conscious sedation was performed by Dr. Perry with successful reduction of right shoulder. Patient was placed in sling. Appropriate return precautions and follow-up care discussed. Case was discussed with my ED attending Dr. Perry Undiagnosed new problem with uncertain prognosis? @ -No Drug Therapy requiring intensive monitoring for toxicity (Heparin, Nitro, Insulin, Cardizem)? @ -No Were any procedures done? @ -Yes, conscious sedation for right shoulder reduction Diagnosis/symptom? @ -Right shoulder dislocation, head injury Acute, or Chronic, or Acute on Chronic? @ -Acute Uncomplicated (without systemic symptoms) or Complicated (systemic symptoms)? @ -Uncomplicated Side effects of treatment? @ -No Exacerbation, Progression, or Severe Exacerbation? @ -No Poses a threat to life or bodily function? How? (Chest pain, [place], [place], pneumonia, PE, COPD, DKA, ARF, appy, cholecystitis, CVA, Diverticulitis, Homicidal, Suicidal, threat to staff... and all critical care pts) @ -Not at this time Disposition Clinical Impression: Dislocation of right shoulder joint, Head injury Disposition: HOME SELF-CARE Condition: Stable Instructions (If sedation given, give patient instructions): Shoulder Dislocation (ED) Additional Instructions: Please return to the Emergency Department if symptoms worsen or any other concerns. Is patient prescribed a controlled substance at d/c from ED?: No Referrals: Marcelo Wheatley MD [Primary Care Provider] - 1-2 days Crescencio Grove MD [Medical Doctor] - 1-2 days Time of Disposition: 03:14
[2024-11-14] MEDS: ACETAMINOPHEN TAB 500 MG TAB PO STA (01:37)
[2024-11-14] MEDS: HYDROmorphone 1 MG/ML 1 ML SYRINGE IVP STA (01:43)
[2024-11-14] MEDS: PROPOFOL 10 MG/ML 20 ML VIAL IV STA (01:43)
--- NOTE | 2024-11-14 02:14 | CT ---
EXAM: CT Head Without Intravenous Contrast CLINICAL HISTORY: ITS.REASON CT Reason: pain TECHNIQUE: Axial computed tomography images of the head/brain without intravenous contrast. CTDI is 45.3 mGy and DLP is 1133 mGy-cm. This CT exam was performed using one or more of the following dose reduction techniques: automated exposure control, adjustment of the mA and/or kV according to patient size, and/or use of iterative reconstruction technique. COMPARISON: No relevant prior studies available. FINDINGS: No acute intracranial hemorrhage. No midline shift or mass effect. The territorial zamora-white matter differentiation is maintained throughout. Age-related cerebral volume loss. Periventricular and subcortical white matter hypoattenuation, consistent with chronic microangiopathy. The visualized orbits appear grossly unremarkable. The calvarium is intact. The visualized paranasal sinuses and mastoid air cells are grossly clear. IMPRESSION: No acute intracranial hemorrhage, midline shift, or mass effect. EXAM: CT Cervical Spine Without Intravenous Contrast CLINICAL HISTORY: ITS.REASON CT Reason: pain TECHNIQUE: Axial computed tomography images of the cervical spine without intravenous contrast. CTDI is 12.3 mGy and DLP is 368 mGy-cm. This CT exam was performed using one or more of the following dose reduction techniques: automated exposure control, adjustment of the mA and/or kV according to patient size, and/or use of iterative reconstruction technique. COMPARISON: No relevant prior studies available. FINDINGS: The vertebral body heights are maintained. The craniocervical junction is intact. The atlanto-dens interval is maintained. The dens is intact. There is no spondylolisthesis. Multilevel cervical spondylosis and degenerative disc disease. Straightening of the cervical lordosis. IMPRESSION: No acute fracture or subluxation of the cervical spine.
--- NOTE | 2024-11-14 02:15 | XR ---
EXAM: XR Right Elbow Complete, 3 or More Views CLINICAL HISTORY: ITS.REASON XR Reason: right elbow injury TECHNIQUE: Frontal, lateral and oblique views of the right elbow. COMPARISON: No relevant prior studies available. FINDINGS: Bones/joints: Diffuse osseous demineralization. No acute fracture or subluxation. Soft tissues: Unremarkable. IMPRESSION: No acute fracture or subluxation.
--- NOTE | 2024-11-14 02:15 | XR ---
EXAM: XR Right Shoulder Complete, 2 or More Views CLINICAL HISTORY: ITS.REASON XR Reason: right shoulder injury TECHNIQUE: Two or more views of the right shoulder. COMPARISON: No relevant prior studies available. FINDINGS: Bones/joints: Anterior-inferior shoulder dislocation. Postreduction views recommended. No acute fracture. Soft tissues: Unremarkable. IMPRESSION: Anterior-inferior shoulder dislocation. Postreduction views recommended.
[2024-11-14 03:52] VITALS: RESP 15
[2024-11-14 04:30] VITALS: BP 135/82; PULSE 97; TEMP 98
--- NOTE | 2024-11-14 07:19 | XR ---
EXAM: XR Right Shoulder Complete, 2 or More Views CLINICAL HISTORY: ITS.REASON XR Reason: post R shoulder reduction TECHNIQUE: Two or more views of the right shoulder. COMPARISON: X-ray dated 11/14/2024 FINDINGS: Bones/joints: Fracture fragment is seen at the inferior joint space. The shoulder appears normally located. Mild degenerative changes are seen at the acromial clavicular joint. Ground glass changes are seen throughout the visualized right lung. No dislocation. Soft tissues: Unremarkable. IMPRESSION: 1. Normal-appearing alignment of the glenohumeral joint although limited due to a single view. 2. Fracture fragment is seen within the inferior joint space.
== END 2024-11-14 04:01 | disposition home or self-care (01) ==
LOC: EC 00:45
DX: S43.004A Unspecified dislocation of right shoulder joint, initial encounter (principal); S09.90XA Unspecified injury of head, initial encounter; Z88.5 Allergy status to narcotic agent; W01.0XXA Fall on same level from slipping, tripping and stumbling without subsequent striking against object, initial encounter
CPT/HCPCS: 73020; 73030; 73080; 72125; 70450; 99284; 96374; 96375; J1171; J2704

== ENCOUNTER → 2024-11-28 | Outpatient (CLI) | payer MEDICARE ==
--- NOTE | 2024-11-28 12:36 | XR ---
EXAMINATION TYPE: XR knee complete bilateral DATE OF EXAM: 11/28/2024 12:23 PM COMPARISON: None. CLINICAL INDICATION: Female, 79 years old with history of M25.561, M25.562, pain TECHNIQUE: Three views of the bilateral knees are obtained. FINDINGS: There is no acute fracture/dislocation evident in either knee. Moderate to severe tricompa rtment joint space loss and spurring of both knees is present. Overlying soft tissues are unremarkabl e bilaterally. IMPRESSION: As above. [facility], , 11/28/2024 12:34 PM
== END | disposition home or self-care (01) ==
LOC: RADXRMAIN 12:01
PROVIDERS: ATTEND Family Medicine
DX: M25.561 Pain in right knee (principal); M25.562 Pain in left knee

== ENCOUNTER 2025-03-08 10:30 | Inpatient (IN) | payer MEDICARE ==
--- NOTE | 2025-03-08 11:41 | CT ---
EXAMINATION TYPE: CODE STROKE: CT brain wo contr CT DLP: 1102.6 mGycm, Automated exposure control for dose reduction was used. DATE OF EXAM: 03/08/2025 11:32 AM COMPARISON: CT brain 06/09/2022, 01/10/2022, CTA head and neck 06/09/2022, MRI brain 01/12/2022, CT brain C-spine 11/14/2024 CLINICAL INDICATION:Female, 80 years old with history of Neuro deficit, acute, stroke suspected, Code stroke neuro deficits lt leg weakness fall yesterday TECHNIQUE: Brain: Multiple axial CT images of the brain were obtained without IV contrast. . Coronal and sagitta l reformats reviewed. FINDINGS: Brain: Extra-axial spaces: No abnormal extra-axial fluid collections. Ventricular system: Within normal limits Cerebral parenchyma: No acute intraparenchymal hemorrhage or mass effect. The zamora-white junction is well differentiated. Scattered hypoattenuating areas are seen within the periventricular and subcort ical white matter. Cerebellum: Unremarkable. Mass effect: No evidence of midline shift. Intracranial vasculature: Atherosclerotic calcifications of the intracranial vessels. Soft tissues: Normal. Calvarium/osseous structures: No depressed skull fracture. Paranasal sinuses and mastoid air cells: The mastoid air cells are clear. Mild mucosal thickening of the ethmoid sinuses and right maxillary sinus. Visualized orbits: Bilateral aphakia IMPRESSION: 1. No acute intracranial process. 2. Nonspecific white matter changes, likely secondary to chronic small vessel ischemic disease. Findings communicated to Dr. Ashley Greenberg MD on 03/08/2025 11:[address] Shayne Brown . [facility], , 03/08/2025 11:39 AM
[2025-03-08 11:48] LABS: Basophils # (A) 0.05 10*3/uL (0.00-0.10); Basophils % (A) 0.5 %; Eosinophils # (A) 0.08 10*3/uL (0.04-0.35); Eosinophils % (A) 0.8 %; HCT 41.7 % (37.2-46.3); HGB 13.8 g/dL (12.0-15.0); Lymphocytes # (A) 1.48 10*3/uL (0.90-5.00); Lymphocytes % (A) 14.9 %; MCH 26.6 pg (27.0-32.0); MCHC 33.1 g/dL (32.0-37.0); MCV 80.3 fL (80.0-97.0); Mean Platelet Volume 10.6 fL (9.5-12.2); Monocytes # (A) 1.21 10*3/uL (0.20-1.00); Monocytes % (A) 12.2 %; Neutrophils # (A) 7.05 10*3/uL (1.80-7.70); Neutrophils % (A) 70.9 %; Platelet Count 293 10*3/uL (140-440); RBC 5.19 10*6/uL (4.10-5.20); RDW 17.9 % (11.5-14.5); WBC 9.94 10*3/uL (4.50-10.00)
--- NOTE | 2025-03-08 12:08 | ED ---
Fall HPI - General Source: patient, family, RN notes reviewed Mode of arrival: wheelchair <Ashley Greenberg - Last Filed: 03/08/25 15:49> <Brodie Blackwell - Last Filed: 03/09/25 14:18> - General Chief Complaint: Fall Stated Complaint: Fall on thinner-head injury Time Seen by Provider: 03/08/25 10:33 - History of Present Illness Initial Comments: 80-year-old female with past medical history of hypertension, history of TIA 3 years ago on Plavix who presented to the ER status post fall. Patient states she hit her head. She denies loss of consciousness. Patient reports new onset lower extremity weakness of the left leg which she attributes caused her fall. Patient's family at bedside who report she has been falling more recently. P atient reports at baseline she is able to ambulate with her walker. Denies any fevers, chills, abdominal pain, headaches. (Ashley Greenberg) - Related Data Home Medications Medication Instructions Recorded Confirmed Furosemide [Lasix] 20 mg PO DAILY PRN 01/10/22 03/08/25 Levothyroxine Sodium [Synthroid] 75 mcg PO DAILY 03/08/25 03/08/25 Pantoprazole Sodium [Protonix] 20 mg PO HS 03/08/25 03/08/25 Simvastatin [Zocor] 10 mg PO HS 03/08/25 03/08/25 traMADol HCL 50 mg PO Q8H PRN 03/08/25 03/08/25 Previous Rx's Medication Instructions Recorded Clopidogrel [Plavix] 75 mg PO DAILY #0 01/24/16 Allergies Allergy/AdvReac Type Severity Reaction Status Date / Time codeine Allergy Unknown Verified 03/08/25 12:44 Review of Systems ROS Other: All systems not noted in ROS Statement are negative. Constitutional: Denies: fever, chills Eyes: Denies: eye pain Respiratory: Denies: cough, dyspnea Cardiovascular: Denies: chest pain, palpitations Endocrine: Denies: fatigue Gastrointestinal: Denies: abdominal pain, nausea, vomiting Genitourinary: Denies: urgency, dysuria <Ashley Greenberg - Last Filed: 03/08/25 15:49> ROS Other: All systems not noted in ROS Statement are negative. <Brodie Blackwell - Last Filed: 03/09/25 14:18> ROS Statement: Those systems with pertinent positive or pertinent negative responses have been documented in the HPI. Past Medical History Past Medical History: CVA/TIA, GERD/Reflux, Hyperlipidemia, Hypertension, Thyroid Disorder Additional Past Medical History / Comment(s): 3-2-16 ADMITTED WITH STROKE LIKE SYMPTOMS-pt. states was told didn't have stroke, history of TIAs,DIVERTICULITIS , covid pos 09/2021 History of Any Multi-Drug Resistant Organisms: None Reported Past Surgical History: Appendectomy, Section, Cholecystectomy Past Anesthesia/Blood Transfusion Reactions: No Reported Reaction Additional Past Anesthesia/Blood Transfusion Reaction / Comment(s): MILD CLAUSTROPHOBIA Past Psychological History: No Psychological Hx Reported Smoking Status: Never smoker Past Alcohol Use History: None Reported Past Drug Use History: None Reported - Past Family History Mother Family Medical History: Cancer Additional Family Medical History / Comment(s): UNSURE WHAT TYPE OF CANCER Father Family Medical History: Cancer Additional Family Medical History / Comment(s): BONE CANCER Brother(s) Family Medical History: Asthma Sister(s) Family Medical History: No Reported History Son(s) Family Medical History: No Reported History <DionicioAshley Last Filed: 03/08/25 15:49> General Exam Limitations: no limitations General appearance: alert, in no apparent distress Head exam: Present: atraumatic, normocephalic Eye exam: Present: PERRL, EOMI Pupils: Present: normal accommodation Respiratory exam: Present: normal lung sounds bilaterally. Absent: respiratory distress, wheezes, rales Cardiovascular Exam: Present: regular rate, normal rhythm GI/Abdominal exam: Present: soft. Absent: distended, tenderness Extremities exam: Present: calf tenderness (right) Neurological exam: Present: alert, oriented X3 Expanded Motor strength exam: RUE: 5, LUE: 5, RLE: 5, LLE: 2/1 Eye Response: (4) open spontaneously Motor Response: (6) obeys commands Verbal Response: (5) oriented Psychiatric exam: Present: normal affect, normal mood Skin exam: Present: warm, other (Ecchymosis noted on left flank) <Ashley Greenberg Last Filed: 03/08/25 15:49> Course Vital Signs 03/08/25 03/08/25 03/08/25 10:32 11:57 13:04 Temperature 98 F 98.9 F Pulse Rate 90 83 52 L Respiratory 20 14 16 Rate Blood Pressure 156/82 143/87 152/81 O2 Sat by Pulse 97 97 95 Oximetry 03/08/25 16:17 Temperature 98.7 F Pulse Rate 90 Respiratory 18 Rate Blood Pressure 139/79 O2 Sat by Pulse 95 Oximetry Medical Decision Making - Lab Data Result diagrams: 03/08/25 11:40 03/08/25 11:40 <Ashley Greenberg - Last Filed: 03/08/25 15:49> - Lab Data Result diagrams: 03/08/25 11:40 03/08/25 11:40 <Brodie Blackwell - Last Filed: 03/09/25 14:18> - Medical Decision Making Was pt. sent in by a medical professional or institution (, PA, PLAN CHECKER, urgent care, hospital, or senior care...) When possible be specific @ -No Did you speak to anyone other than the patient for history (EMS, parent, family, police, friend...)? What history was obtained from this source @ -No Did you review nursing and triage notes (agree or disagree)? Why? @ -I reviewed and agree with nursing and triage notes Were old charts reviewed (outside hosp., previous admission, EMS record, old EKG, old radiological studies, urgent care reports/EKG's, senior care records)? Report findings @ -No old charts were reviewed Differential Diagnosis? @ -Differential Weakness: Hypoglycemia, shock, sepsis, hyponatremia, anemia, infection, NH, ETOH, adverse medicine reaction, overdose, stroke, this is not meant to be an all-inclusive list. Go EKG interpreted by me (3pts min.). @ -EKG interpreted by me shows sinus rhythm ventricular rate of 76 bpm, QRS of 88ms, QTc of 402ms, no acute ST wave changes X-rays interpreted by me (1pt min.). @ -Chest x-ray did not show acute rib fractures. CT interpreted by me (1pt min.). @ -CT brain showed no acute process. CT angio did not show any aneurysm or hemorrhage. U/S interpreted by me (1pt. min.). @ -Bilateral venous duplex was negative for DVT. What testing was considered but not performed or refused? (CT, X-rays, U/S, labs)? Why? @ -None What meds were considered but not given or refused? Why? @ -None Did you discuss the management of the patient with other professionals (professionals i.e. , PA, PLAN CHECKER, lab, RT, psych nurse, social worker health services, harvest crew supervisor, teacher, tactical debriefer officer, special education case manager)? Give summary @ -Case was discussed with the ED attending physician Dr. Blackwell. Code stroke was called. Brain CT was unremarkable. NIH was assessed at 1. Case was discussed with neurointensivist who recommended medical management and no thrombolytics. Was smoking cessation discussed for >3mins.? @ -No Was critical care preformed (if so, how long)? @ -No Were there social determinants of health that impacted care today? How? (Homelessness, low income, unemployed, alcoholism, drug addiction, transportation, low edu. Level, literacy, decrease access to med. care, [facility], rehab)? @ -No Was there de-escalation of care discussed even if they declined (Discuss DNR or withdrawal of care, Hospice)? DNR status @ -No What co-morbidities impacted this encounter? (DM, HTN, Smoking, COPD, CAD, Cancer, CVA, ARF, Chemo, Hep., AIDS, mental health diagnosis, sleep apnea, morbid obesity)? @ -Hypertension, history of TIAs Was patient admitted / discharged? Hospital course, mention meds given and route, prescriptions, significant lab abnormalities, going to OR and other pertinent info. @ -Code stroke was called. Case was discussed with on-call neurointensivist who recommended medical management and no thrombolytics. Case was discussed with Dr. Wheatley who accepted the admission to inpatient service. Undiagnosed new problem with uncertain prognosis? @ -No Drug Therapy requiring intensive monitoring for toxicity (Heparin, Nitro, Insulin, Cardizem)? @ -No Were any procedures done? @ -No Diagnosis/symptom? @ -Stroke versus TIA Acute, or Chronic, or Acute on Chronic? @ -Acute Uncomplicated (without systemic symptoms) or Complicated (systemic symptoms)? @ -Uncomplicated Side effects of treatment? @ -No Exacerbation, Progression, or Severe Exacerbation? @ -No Poses a threat to life or bodily function? How? (Chest pain, USA, NH, pneumonia, PE, COPD, DKA, ARF, appy, cholecystitis, CVA, Diverticulitis, Homicidal, Suicidal, threat to staff... and all critical care pts) @ -No (Ashley Greenberg) EKG is interpreted by myself. EKG shows a sinus rhythm at 76 bpm WI was under 65 QRS is 88 QT interval 372 QTc is 402 I personally saw the patient and performed the critical portion of the service. I discussed the patient care with the resident. I directed management, care planning and final disposition of the patient. This includes, but not limited to, review of all lab work, radiological studies, EKG's, consultations, vital signs, and nursing notes. EKG interpreted by me (3pts min.) @As above X-Rays interpreted by me (1 pt min.) @Chest x-ray showed no acute abnormality CT interpreted by me ( 1pt min.) @None U/S interpreted by me (1 pt min.) @None Critical care time of 0 minutes excluding separately billable procedures was spent in conjunction with critical care activities provided by the Resident and Attending simultaneously. I was present during no procedures for all critical portions of the procedure and as immediately available to furnish service during the entire procedure. (Brodie Blackwell) - Lab Data Lab Results 03/08/25 03/08/25 03/08/25 Range/Units 11:40 11:40 11:40 WBC 9.94 (4.50-10.00) 10*3/uL RBC 5.19 (4.10-5.20) 10*6/uL Hgb 13.8 (12.0-15.0) g/dL Hct 41.7 (37.2-46.3) % MCV 80.3 (80.0-97.0) fL MCH 26.6 L (27.0-32.0) pg MCHC 33.1 (32.0-37.0) g/dL Plt Count 293 (140-440) 10*3/uL MPV 10.6 (9.5-12.2) fL Immature Gran % (Auto) 0.7 % Neutrophils % 70.9 % Lymphocytes % 14.9 % Monocytes % 12.2 % Eosinophils % 0.8 % Basophils % 0.5 % Immature Gran # 0.07 H (0.00-0.04) 10*3/uL Neutrophils # 7.05 (1.80-7.70) 10*3/uL Lymphocytes # 1.48 (0.90-5.00) 10*3/uL Monocytes # 1.21 H (0.20-1.00) 10*3/uL Eosinophils # 0.08 (0.04-0.35) 10*3/uL Basophils # 0.05 (0.00-0.10) 10*3/uL PT 10.9 (10.0-12.5) sec INR 1.0 (<1.2) APTT 21.9 L (22.0-30.0) sec Sodium 137 (137-145) mmol/L Potassium 3.8 (3.5-5.1) mmol/L Chloride 104 (98-107) mmol/L Carbon Dioxide 26 (22-30) mmol/L Anion Gap 7 mmol/L BUN 12 (7-17) mg/dL Creatinine 0.47 L (0.52-1.04) mg/dL Est GFR (CKD-EPI)AfAm >90 (>60 ml/min/1.73 sqM) Est GFR (CKD-EPI)NonAf >90 (>60 ml/min/1.73 sqM) Glucose 95 (74-99) mg/dL Calcium 9.1 (8.4-10.2) mg/dL Total Bilirubin 1.1 (0.2-1.3) mg/dL AST 21 (14-36) U/L ALT 21 (4-34) U/L Alkaline Phosphatase 79 (38-126) U/L Troponin I (0.000-0.034) ng/mL Total Protein 6.7 (6.3-8.2) g/dL Albumin 3.6 (3.5-5.0) g/dL 03/08/25 Range/Units 11:40 WBC (4.50-10.00) 10*3/uL RBC (4.10-5.20) 10*6/uL Hgb (12.0-15.0) g/dL Hct (37.2-46.3) % MCV (80.0-97.0) fL MCH (27.0-32.0) pg MCHC (32.0-37.0) g/dL Plt Count (140-440) 10*3/uL MPV (9.5-12.2) fL Immature Gran % (Auto) % Neutrophils % % Lymphocytes % % Monocytes % % Eosinophils % % Basophils % % Immature Gran # (0.00-0.04) 10*3/uL Neutrophils # (1.80-7.70) 10*3/uL Lymphocytes # (0.90-5.00) 10*3/uL Monocytes # (0.20-1.00) 10*3/uL Eosinophils # (0.04-0.35) 10*3/uL Basophils # (0.00-0.10) 10*3/uL PT (10.0-12.5) sec INR (<1.2) APTT (22.0-30.0) sec Sodium (137-145) mmol/L Potassium (3.5-5.1) mmol/L Chloride (98-107) mmol/L Carbon Dioxide (22-30) mmol/L Anion Gap mmol/L BUN (7-17) mg/dL Creatinine (0.52-1.04) mg/dL Est GFR (CKD-EPI)AfAm (>60 ml/min/1.73 sqM) Est GFR (CKD-EPI)NonAf (>60 ml/min/1.73 sqM) Glucose (74-99) mg/dL Calcium (8.4-10.2) mg/dL Total Bilirubin (0.2-1.3) mg/dL AST (14-36) U/L ALT (4-34) U/L Alkaline Phosphatase (38-126) U/L Troponin I 0.014 (0.000-0.034) ng/mL Total Protein (6.3-8.2) g/dL Albumin (3.5-5.0) g/dL Disposition Time of Disposition: 13:00 Decision Date: 03/08/25 Decision Time: 13:00 <Ashley rGeenberg - Last Filed: 03/08/25 15:49> <Brodie Blackwell - Last Filed: 03/09/25 14:18> Clinical Impression: Transient ischemic attack Disposition: ADMITTED IP TO THIS HOSP
[2025-03-08 12:09] LABS: ALT 21 U/L (4-34); AST 21 U/L (14-36); African American GFR (CKD) >90 (>60 ml/min/1.73 sqM); Albumin 3.6 g/dL (3.5-5.0); Alkaline Phosphatase 79 U/L (38-126); Anion Gap 7 mmol/L; Blood Urea Nitrogen 12 mg/dL (7-17); Calcium 9.1 mg/dL (8.4-10.2); Carbon Dioxide 26 mmol/L (22-30); Chloride 104 mmol/L (98-107); Glucose 95 mg/dL (74-99); Non-African American GFR(CKD) >90 (>60 ml/min/1.73 sqM); Potassium 3.8 mmol/L (3.5-5.1); Prothrombin Time 10.9 sec (10.0-12.5); Sodium 137 mmol/L (137-145); Total Bilirubin 1.1 mg/dL (0.2-1.3); Total Protein 6.7 g/dL (6.3-8.2)
[2025-03-08 12:13] LABS: Partial Thromboplastin Time 21.9 sec (22.0-30.0)
--- NOTE | 2025-03-08 12:18 | CT ---
EXAMINATION TYPE: CODE STROKE: CTA head neck CT DLP: 444.6 mGycm, Automated exposure control for dose reduction was used. DATE OF EXAM: 03/08/2025 12:04 PM COMPARISON: CTA head and Neck 06/09/2022, 05/13/2021, 07/18/2018, MRA head 01/23/2016, carotid ultrasound 01/11/2022, 01/22/2016. CT head 03/08/2025, 06/09/2022 CT chest 01/11/2022 CLINICAL INDICATION:Female, 80 years old with history of Neuro deficit, acute, stroke suspected; [facility], Neuro deficits code stroke LT leg weakness fall yesterday TECHNIQUE: Axially acquired helical CT angiogram of the head and neck was obtained with contrast util izing 75 cc of Isovue-370 administered intravenously. Axial images are supplemented with 3D reconstru ctions which were post-processed at an independent workstation. NASCET criteria used. MIP imaging performed on a separate workstation and submitted for review. FINDINGS: CTA HEAD: No evidence of acute intracranial hemorrhage, mass effect, or midline shift. The ventricles, sulci, a nd cisterns are unremarkable. The visualized portions of the internal carotid arteries, middle cerebral arteries, anterior cerebral arteries, and posterior cerebral arteries are patent. The basilar and vertebral arteries are patent. Similar ectasia of the distal basal artery measures to 6 mm. CTA NECK: Right Carotid System: The common carotid artery and external carotid artery are patent. The carotid bifurcation demonstrate s no evidence of hemodynamically significant stenosis. The remaining portions of the internal carotid artery demonstrate normal size without significant narrowing. Left Carotid System: The common carotid artery and external carotid artery are patent. The carotid bifurcation demonstrate s no evidence of hemodynamically significant stenosis. The remaining portions of the internal carotid artery demonstrate normal size without significant narrowing. Vertebral arteries are patent without evidence hemodynamically significant stenosis. There is a bovine aortic arch. The origins of the great vessels are patent. No evidence of hemodynami sadiq significant stenosis. Patchy reticular groundglass opacities within the bilateral upper lobes. Similar to prior exams and f avored to represent postinfectious scarring. Multilevel degenerative disc disease. Stable enlarged ri ght paratracheal lymph node measuring 1.[address] chest 2021 and considered benign due to stabilit y. Similar isthmus thyroid nodule measuring up to 1.9 cm. This can be further evaluated with thyroid ultrasound as clinically indicated. IMPRESSION: 1. No evidence of dissection of the cervical internal carotid arteries or vertebral arteries or any e vidence of significant stenosis at the carotid bifurcations. 2. No evidence of high-grade stenosis or intracranial aneurysm. Similar ectasia of the basilar arter y. [facility], , 03/08/2025 12:15 PM
--- NOTE | 2025-03-08 13:34 | US ---
EXAMINATION TYPE: US venous doppler duplex LE BI DATE OF EXAM: 03/08/2025 1:24 PM COMPARISON: NONE CLINICAL INDICATION: Female, 80 years old with history of calf tenderness; Pain, Pain TECHNIQUE: The lower extremity deep venous system is examined utilizing real time linear array sonog eva with graded compression, color doppler sonography, and spectral doppler. SIDE PERFORMED: Bilateral FINDINGS: VESSELS IMAGED: Common Femoral Vein Deep Femoral Vein Greater Saphenous Vein * Femoral Vein Popliteal Vein Small Saphenous Vein * Proximal Calf Veins (* superficial vessels) Right Leg: Negative for DVT, Color Doppler imaging shows patency of the vessels. Spectral waveforms are within normal limits. Left Leg: Negative for DVT, Color Doppler imaging shows patency of the vessels. Spectral waveforms a re within normal limits. IMPRESSION: No ultrasound evidence for deep venous thrombosis. [facility], , 03/08/2025 1:31 PM
[2025-03-08] MEDS ORDERED: NALOXONE 0.4 MG/ML 1 ML VIAL IV PRN (14:11)
--- NOTE | 2025-03-08 15:07 | XR ---
EXAMINATION TYPE: XR chest 2V DATE OF EXAM: 03/08/2025 3:01 PM COMPARISON: Chest radiographs from 01/10/2022, CT chest 01/11/2022 TECHNIQUE: XR chest 2V Frontal and lateral views of the chest. CLINICAL INDICATION:Female, 80 years old with history of fall; pain FINDINGS: Lungs/Pleura: Prominent interstitial lung markings are seen scattered throughout the lungs. No eviden ce of focal consolidation, pneumothorax or pleural effusion. Pulmonary vascularity: Unremarkable. Heart/mediastinum: Cardiomediastinal silhouette is unremarkable. Musculoskeletal: No acute osseous pathology. Multilevel degenerative disc disease of the thoracic spi ne. IMPRESSION: Chronic interstitial changes likely representing scarring. No focal consolidation. [facility], , 03/08/2025 3:04 PM
[2025-03-08] MEDS: traMADol 50 MG TAB PO PRN (17:19)
--- NOTE | 2025-03-08 18:13 | XR ---
EXAMINATION TYPE: XR knee complete LT DATE OF EXAM: 03/08/2025 6:00 PM COMPARISON: Previous radiograph 11/28/2024. CLINICAL INDICATION: Female, 80 years old with history of pain, recent fall; PHH, pain TECHNIQUE: XR knee complete LT views submitted.. FINDINGS: No acute fracture or dislocation. Moderately severe check compartmental degenerative arthri tis with large marginal osteophyte along the lateral tibial plateau. Subchondral sclerotic changes al so noted. Small suprapatellar joint effusion. No unexpected radiopaque foreign body or soft tissue ma ss. Questionable linear lucency along the lateral tibial plateau visualized on single view only IMPRESSION: 1. No acute convincing radiographic evidence of osseous pathology. 2. 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 [facility], , 03/08/2025 6:11 PM
--- NOTE | 2025-03-08 18:14 | XR ---
EXAMINATION TYPE: XR Hip Complete LT DATE OF EXAM: 03/08/2025 6:00 PM COMPARISON: None. CLINICAL INDICATION: Female, 80 years old with history of pain, recent fall; PHH, pain TECHNIQUE: XR Hip Complete LT; Frontal and lateral views FINDINGS: No acute fracture or dislocation. Moderate left hip degenerative arthritis. Contrast visual ized within the partially visualized urinary bladder. No focal osseous erosion or aggressive perioste al reaction. No soft tissue mass. Partially visualized left hemipelvis appears grossly intact. IMPRESSION: No acute process. [facility], , 03/08/2025 6:11 PM
--- NOTE | 2025-03-08 18:15 | XR ---
EXAMINATION TYPE: XR femur LT DATE OF EXAM: 03/08/2025 6:01 PM COMPARISON: None. CLINICAL INDICATION: Female, 80 years old with history of pain recent fall; PHH, pain TECHNIQUE: XR femur LT examined in Frontal and lateral projections. FINDINGS: No evidence of acute osseous pathology, joint dislocation, or soft tissue swelling IMPRESSION: No acute osseous pathology. [facility], , 03/08/2025 6:12 PM
[2025-03-08] MEDS: ATORVASTATIN 10 MG TAB PO SCH (19:56)
--- NOTE | 2025-03-09 00:12 | HP ---
HISTORY AND PHYSICAL HISTORY OF PRESENT ILLNESS: An 80-year-old white female, who was walking on her porch after getting out of the car feeling normal. Her legs gave out, and she fell down twice getting into the house, was not dizzy, lightheaded, and does not know if she drips. She fell on her knee and her ribs. X-ray on her left hip and left knee shows [id number] arthritis. She probably has lumbar stenosis. Maybe her legs gave out. I do not think she had a stroke at all. She is normal. She is moving all extremities tonight. She has had no dizziness. No chest pain or shortness of breath. No upper extremity loss of movement or facial movements. Does not feel like she had a stroke. HOME MEDICINES: Include: 1. Lipitor 10 daily. 2. Plavix 75 daily. 3. Lasix 20 daily. 4. Synthroid 75 daily. 5. Pantoprazole 40 daily. 6. Tramadol 50 q.6. PHYSICAL EXAMINATION: VITAL SIGNS: Temperature 98.2, pulse 52, blood pressure 152/81, on room air. CARDIOVASCULAR: S1, S2. LUNGS: Transmitted upper airway sounds. MUSCULOSKELETAL: Knee range of motion is moderate. Lumbar shows tenderness to palpation bilateral lumbar spine. GI: Soft, nontender. HEMATOLOGY: Negative for Homans. PSYCHIATRIC: Alert and oriented x3. NEUROLOGIC: Cranial nerves intact. ASSESSMENT: 1. Falls x2. Suspect severe osteoarthritis of the knees, hips, and maybe her legs gave out due to the bad arthritis in her left side or possibly lumbar stenosis. Get [place] consult. 2. Brain CT, CTA are all normal. Vital signs are normal. Prognosis is guarded. PT and OT. MMODL / IJN: [id number] /
--- NOTE | 2025-03-09 01:44 | CT ---
EXAM: CT Lumbar Spine Without Intravenous Contrast CLINICAL HISTORY: ITS.REASON CT Reason: lumbar ddd TECHNIQUE: Axial computed tomography images of the lumbar spine without intravenous contrast. CTDI is 30.1 mGy and DLP is 930.2 mGy-cm. This CT exam was performed using one or more of the following dose reduction techniques: automated exposure control, adjustment of the mA and/or kV according to patient size, and/or use of iterative reconstruction technique. COMPARISON: No relevant prior studies available. FINDINGS: Vertebrae: No acute fracture. No sagittal subluxation. Chronic mild wedging of L1. Discs/spinal canal/neural foramina: Mild spinal canal stenosis L3-4 from disc bulge. Mild bilateral foraminal stenosis throughout the lumbar spine. Soft tissues: Unremarkable. IMPRESSION: No acute findings. Degenerative changes.
[2025-03-09] MEDS: PANTOPRAZOLE 40 MG TABLET PO SCH (06:13)
[2025-03-09] MEDS: LEVOTHYROXINE 75 MCG TAB PO SCH (06:13)
[2025-03-09] MEDS: CLOPIDOGREL 75 MG TAB PO SCH (08:28)
--- NOTE | 2025-03-09 08:54 | P.CNNES ---
History of Present Illness Consult date: 03/08/25 Requesting physician: Ashley Greenberg Reason for Consult: CVA vs TIA History of Present Illness: Patient is a 80-year-old right-handed female came to the hospital today at 10:30 AM for a fall. Patient states that she was going up steps to her house at around 4 PM and her left leg gave out and she fell on the side. She tried to get up and she could not. She tried to pull herself up, and leg gave out again and she fell backwards, hitting her head and tailbone on the deck. Both of these falls have been within a span of minutes. Her son came over and helped her get up. He had her with her cane, getting into the house. She did not hurt herself although subsequently is complaining of pain in the lateral side of the thigh with burning aching feeling and now somewhat involve the inner thigh as well. Patient denies any back pain. Patient denies any slurred speech, facial droop, any problem vision or any numbness or tingling. Her right lateral side of the chest is hurting as it hit the railing. Patient states that she had a slip and fall before [place], in which she dislocated her right shoulder. Vital signs on arrival blood pressure 156/82, pulse rate 90, temperature 98.0. Blood test shows normal CBC, PT PTT, normal CMP. Troponin negative. CT head showed no acute intracranial process. Nonspecific white matter changes, likely secondary to chronic small vessel ischemic disease. I personally reviewed CT head, agree with the findings. Venous Doppler of the lower extremity negative for DVT. EKG showed sinus rhythm, chest x-ray showed chronic interstitial changes, likely representing scarring. No focal consolidation Patient had a TIA on 05/15/2021, when she presented with transient left hand weakness, tingling and vertigo. She was seen by Dr. Bhandari. He mentioned, she has hypertension, hyperlipidemia. Patient's orthostatics were negative at that time.. He had recommended patient to switch from Plavix to Brilinta, but she declined. Patient also had another admission on 01/11/2022 for possible TIA involving the posterior circulation. She was seen by Dr. Saul. MRI of the brain was ordered. Based on MRI results, consider changing Plavix to Brilinta. Patient at present continues to be on Plavix 75 mg, Lasix 20 mg, simvastatin 10 mg, tramadol, levothyroxine and Protonix. Patient denies hypertension or diabetes. Denies any tobacco or alcohol use. Review of Systems All pertinent positive and negative review of systems mentioned in the HPI. Otherwise unremarkable. Past Medical History Past Medical History: CVA/TIA, GERD/Reflux, Hyperlipidemia, Hypertension, Thyroid Disorder Additional Past Medical History / Comment(s): 3--16 ADMITTED WITH STROKE LIKE SYMPTOMS-pt. states was told didn't have stroke, history of TIAs,DIVERTICULITIS , covid pos 09/2021 History of Any Multi-Drug Resistant Organisms: None Reported Past Surgical History: Appendectomy, Section, Cholecystectomy Past Anesthesia/Blood Transfusion Reactions: No Reported Reaction Additional Past Anesthesia/Blood Transfusion Reaction / Comment(s): MILD CLAUSTROPHOBIA Past Psychological History: No Psychological Hx Reported Smoking Status: Never smoker Past Alcohol Use History: None Reported Past Drug Use History: None Reported - Past Family History Mother Family Medical History: Cancer Additional Family Medical History / Comment(s): UNSURE WHAT TYPE OF CANCER Father Family Medical History: Cancer Additional Family Medical History / Comment(s): BONE CANCER Brother(s) Family Medical History: Asthma Sister(s) Family Medical History: No Reported History Son(s) Family Medical History: No Reported History Medications and Allergies Home Medications Medication Instructions Recorded Confirmed Type Clopidogrel [Plavix] 75 mg PO DAILY #0 01/24/16 03/08/25 Rx Furosemide [Lasix] 20 mg PO DAILY PRN 01/10/22 03/08/25 History Levothyroxine Sodium [Synthroid] 75 mcg PO DAILY 03/08/25 03/08/25 History Pantoprazole Sodium [Protonix] 20 mg PO HS 03/08/25 03/08/25 History Simvastatin [Zocor] 10 mg PO HS 03/08/25 03/08/25 History traMADol HCL 50 mg PO Q8H PRN 03/08/25 03/08/25 History Allergies Allergy/AdvReac Type Severity Reaction Status Date / Time codeine Allergy Unknown Verified 03/08/25 12:44 Physical Examination - Vital Signs Vital Signs: Vital Signs Temp Pulse Pulse Resp BP BP Pulse Ox 03/08/25 17:00 98.2 F 92 18 123/88 95 03/08/25 16:17 98.7 F 90 18 139/79 95 03/08/25 13:04 98.9 F 52 L 16 152/81 95 03/08/25 11:57 83 14 143/87 97 03/08/25 10:32 98 F 90 20 156/82 97 Intake and Output 03/08/25 03/08/25 03/08/25 06:59 14:59 22:59 Other: Weight 68.946 kg 68.946 kg Patient is an elderly female, in no acute distress. Patient is alert awake oriented to time place and person. Speech and language functions are normal. Patient can name and repeat very well. No aphasia or dysarthria. Attention, concentration and fund of knowledge is adequate. On cranial nerve examination, pupils are equal, round and reacting to light, visual koehler are full on confrontation, with no neglect on double simultaneous stimulation. Extraocular muscles are intact with no nystagmus. Face is symmetric, tongue protrudes to the midline. Palatal elevation and sensation normal, hearing and shoulder shrug normal, facial sensation normal. On muscle strength testing, right shoulder mobility is very much decreased because of recent history of shoulder dislocation. Otherwise the strength is normal in the bilateral swatch cutter, biceps and triceps and the left deltoid. In the lower limbs, her ankle dorsiflexion, toe extension and knee extension are normal bilaterally. Right hip flexion is 5, left 2. Examination of the hip was not very painful. Deep tendon reflexes are symmetric 1+ and plantars downgoing. Sensory to touch is equal with no neglect on double simultaneous stimulation. Cerebellar function showed no ataxia for [id number] testing on either side. No dysdiadochokinesia. No ataxia for hisn-ar-[id number] testing with the right leg. Cannot perform with the left leg. Tone and bulk of muscles normal. Gait deferred.. On general examination, there is no carotid bruit or murmur, S1-S2 audible. Chest is clear on consultation. Abdomen is soft nontender. No organomegaly, bowel sounds present. Peripheral pulses are present. No peripheral edema. Results - Laboratory Findings CBC and BMP: 03/08/25 11:40 03/08/25 11:40 Abnormal Lab Findings: Abnormal Labs 03/08/25 03/08/25 03/08/25 11:40 11:40 11:40 MCH 26.6 L Immature Gran # 0.07 H Monocytes # 1.21 H APTT 21.9 L Creatinine 0.47 L Assessment and Plan Assessment: * Acute onset of left leg weakness, while going up steps to the house, resulting in a fall. Patient has developed left leg weakness, mainly involving the hip region. There is no significant pain however involving the hip. Denies any lower back pain. Exact cause of left leg weakness uncertain. * Previous history of TIAs * Hypertension * Hyperlipidemia * History of right shoulder dislocation in 10/2024, from a slip and fall accident. Plan: * MRI brain, rule out CVA. * If negative, we will consider orthopedic consultation to rule out any orthopedic issue. * CTA of head and neck showed no evidence of dissection of the cervical internal carotid arteries or vertebral arteries or any evidence of significant stenosis of the carotid bifurcations. No evidence of high-grade stenosis or intracranial aneurysm. Similar ectasia of the basilar artery. * Check B12, folate, TSH, CK, A1c. * Venous Doppler negative for DVTs. * Continue Plavix 75 mg and Lipitor 10 mg. * PT, OT evaluate gait. * DVT prophylaxis: Start Lovenox 40 g of daily. * Neurology will follow. Thank you for the consult.
[2025-03-09 10:01] LABS: Creatine Kinase 24 U/L (30-135)
[2025-03-09] MEDS: ASPIRIN 81 MG PO SCH (10:03)
[2025-03-09] MEDS: ENOXAPARIN 40 MG/0.4 ML SYRINGE SQ SCH (10:03)
--- NOTE | 2025-03-09 13:51 | P.CNOR ---
History of Present Illness - [facility] Consult date: 03/09/25 Consult reason: other (Lumbar stenosis) History of present illness: Patient is a 80-year-old female who presented to [facility] with regards to weakness to the left lower extremity/falling incident yesterday. Patient apparently was trying to go up the steps at her home when her left leg gave out on her and she fell on 2 separate occasions. Currently the patient had been dealing with some left lower extremity pain for a week or so. She denied any previous trauma prior to that. Patient does have a history of TIAs, she was admitted to the hospital for possible stroke, she has multiple medical s pecialties following her at this time. She underwent many x-rays, this to include left knee, femur, hip and lumbar CT scan. Our orthopedic team was consulted. Patient was evaluated at bedside, she is resting in her hospital chair, she has a sister present with her at bedside. Patient states that the pain in that left lower extremity has been going on for about a week, she states the weakness d eveloped suddenly when she was trying to get up the steps yesterday. She denies any right lower extremity weakness. She denies any weakness to the bilateral upper extremities. She does have a chronic issue with her right shoulder after falling around [place] time, she has very limited motion. She denies any numbness or tingling to the right lower extremity. She denies any numbness or tingling to the left upper or right upper extremity. She denies any numbness or tingling to the left lower extremity. She notes more radiating pain on the lateral aspect of the left leg that does trend in past her knee slightly. She denies any numbness or tingling to the genital or perineal region. She denies any loss of bowel or bladder function. She denies any fevers or chills. She denies any previous surgery to her lumbar spine. Review of Systems Constitutional: Reports as per HPI Past Medical History Past Medical History: CVA/TIA, GERD/Reflux, Hyperlipidemia, Hypertension, Thyroid Disorder Additional Past Medical History / Comment(s): 3-2-16 ADMITTED WITH STROKE LIKE SYMPTOMS-pt. states was told didn't have stroke, history of TIAs,DIVERTICULITIS , covid pos 09/2021 History of Any Multi-Drug Resistant Organisms: None Reported Past Surgical History: Appendectomy, Section, Cholecystectomy Past Anesthesia/Blood Transfusion Reactions: No Reported Reaction Additional Past Anesthesia/Blood Transfusion Reaction / Comm: MILD CLAUSTROPHOBIA Past Psychological History: No Psychological Hx Reported Smoking Status: Never smoker Past Alcohol Use History: None Reported Past Drug Use History: None Reported - Past Family History Mother Family Medical History: Cancer Additional Family Medical History / Comment(s): UNSURE WHAT TYPE OF CANCER Father Family Medical History: Cancer Additional Family Medical History / Comment(s): BONE CANCER Brother(s) Family Medical History: Asthma Sister(s) Family Medical History: No Reported History Son(s) Family Medical History: No Reported History Medications and Allergies Home Medications Medication Instructions Recorded Confirmed Type Clopidogrel [Plavix] 75 mg PO DAILY #0 01/24/16 03/08/25 Rx Furosemide [Lasix] 20 mg PO DAILY PRN 01/10/22 03/08/25 History Levothyroxine Sodium [Synthroid] 75 mcg PO DAILY 03/08/25 03/08/25 History Pantoprazole Sodium [Protonix] 20 mg PO HS 03/08/25 03/08/25 History Simvastatin [Zocor] 10 mg PO HS 03/08/25 03/08/25 History traMADol HCL 50 mg PO Q8H PRN 03/08/25 03/08/25 History Allergies Allergy/AdvReac Type Severity Reaction Status Date / Time codeine Allergy Unknown Verified 03/08/25 12:44 Physical Examination Gen: AOx3, NAD VSS stable at this time Integument: No open lesions or sores are visualized throughout the thoracic or lumbar spine. Palpation: No tenderness with palpation to the midline or paraspinal region of the lumbar s pine ROM: Full range of motion in all major muscle groups of the bilateral upper extremities, she is limited with forward elevation and shoulder abduction on the right upper extremity. Full range of motion noted in the bilateral lower extremities, no focal deficits Sensory Exam: Senory exam to light touch is intact C5-T1 Senosry exam to light touch is intact L2-S1 Motor: 5/5 strength appreciated in the right lower extremity with hip flexion, knee extension, knee flexion, plantarflexion, dorsiflexion, EHL, FHL 4/5 strength appreciated in the left lower extremity with plantarflexion, dors iflexion, EHL, FHL 4-/5 strength appreciated in the left lower extremity with hip flexion, knee extension, knee flexion Reflexes: 2/4 in all UE and LE Negative clonus bilaterally Special Test: Positive straight leg raise left lower extremity Logroll maneuver of the bilateral lower extremities reproduces no groin pain Results - Labs Labs: Abnormal Lab Results - Last 24 Hours (Table) 03/09/25 Range/Units 09:09 Creatine Kinase 24 L (30-135) U/L H & H 03/08/25 Range/Units 11:40 Hgb 13.8 (12.0-15.0) g/dL Hct 41.7 (37.2-46.3) % Coagulation 03/08/25 Range/Units 11:40 INR 1.0 (<1.2) Result Diagrams: 03/08/25 11:40 03/08/25 11:40 - Diagnostic results Hip x-ray: report reviewed, image reviewed Knee x-ray: report reviewed, image reviewed CT Scan - lumbar: report reviewed, image reviewed Assessment and Plan Assessment: Left lower extremity radiculopathy Left lower extremity weakness Chronic L1 VCF Multilevel lumbar spondylosis, vacuum disc phenomenon noted at L1-L2, L4-L5 Grade 1 spondylolisthesis L5-S1 Left knee moderate/severe osteoarthritis Left hip mild osteoarthritis Other medical comorbidities Plan: I was able to discuss the case, this to include both physical exam findings and imaging studies and my attending Dr. Lowe. No emergent orthopedic spine surgical intervention recommended at this time Recommending conservative measures, this to include both medication and physical therapy IV Decadron will be ordered, neurology has started patient on Lyrica. Could also consider low-dose muscle relaxer PT/OT evaluation GI DVT prophylaxis per primary medical service Other medical specialty recommendations appreciated Will continue to follow during hospital stay Time with Patient: Less than 30
[2025-03-09] MEDS: PREGABALIN 25 MG CAP PO SCH (14:39)
--- NOTE | 2025-03-09 14:52 | P.PN ---
Subjective Progress Note Date: 03/09/25 This is an 80-year-old female who comes in after having a fall at home and complaining of left leg pain. Orthopedics was consulted and started the patient on IV Decadron. Of note the patient does state that when the pain all started she had noticed a red rash going from the ankle up to her thigh on the inside of her leg she currently has a scabbed over vesicular rash on her thigh. This is likely a shingles infection that is mostly resolved however patient is now having post herpetic pain I will recommend to add a small dose of Lyrica. She is currently pending brain MRI and the rest of her stroke workup. Review of Systems Constitutional: Denied any fatigue denied any fever. Cardio vascular: denied any chest pain, palpitations Gastrointestinal: denied any nausea, vomiting, diarrhea Pulmonary: Denied any shortness of breath cough Neurologic denied any new focal deficits reports a dull achy pain to her left leg All inpatient medications were reviewed and appropriate changes in these medica tions as dictated in the interval history and assessment and plan. PHYSICAL EXAMINATION: GENERAL: The patient is alert and oriented x3, not in any acute distress. Well developed, well nourished. HEENT: Pupils are round and equally reacting to light. EOMI. No scleral icterus. No conjunctival pallor. Normocephalic, atraumatic. No pharyngeal erythema. No thyromegaly. CARDIOVASCULAR: S1 and S2 present. No murmurs, rubs, or gallops. PULMONARY: Chest is clear to auscultation, no wheezing or crackles. ABDOMEN: Soft, nontender, nondistended, normoactive bowel sounds. No palpable organomegaly. MUSCULOSKELETAL: No joint swelling or deformity. EXTREMITIES: No cyanosis, clubbing, or pedal edema. NEUROLOGICAL: Gross neurological examination did not reveal any focal deficits. SKIN: No rashes. A scabbed vesicular rash on her left thigh Assessment and Plan Fall x 2 likely from osteoarthritis rule out acute stroke Left leg weakness Herpes zoster infection; essentially healed with scabbed rash remaining on the left leg Post herpatic pain History of TIA Hypertension Hyperlipidemia Hypothyroidism GI prophylaxis: protonix DVT prophylaxis: Lovenox Full Code Plan Add lyrica twice daily Patient is currently pending brain MRI The rest of the stroke work up is unremarkable Orthopedic consultation; patient has been started on IV decadron PT/OT consultation The impression and plan of care has been dictated by rBee Mathew, Nurse Practitioner as directed. Dr. Josse MD I have performed a history and physical examination and medical decision making of this patient, discussed the same with the dictator, and agree with the dictators assessment and plan as written, documented as a scribe. Based on total visit time, I have performed more than 50% of this visit. Objective - Vital Signs Vital signs: Vital Signs Temp 97.8 F 03/09/25 11:24 Pulse 86 03/09/25 11:24 Resp 16 03/09/25 11:24 BP 150/82 03/09/25 11:24 Pulse Ox 95 03/09/25 11:24 FiO2 Intake & Output 03/08/25 03/09/25 03/09/25 18:59 06:59 18:59 Intake Total 150 540 Balance 150 540 Weight 68.946 kg 72.8 kg Intake: Oral 150 540 Other: Voiding Method Toilet Toilet # Voids 1 1 - Labs CBC & Chem 7: 03/08/25 11:40 03/08/25 11:40 Labs: Abnormal Lab Results - Last 24 Hours (Table) 03/09/25 Range/Units 09:09 Creatine Kinase 24 L (30-135) U/L Assessment and Plan Time with Patient: Less than 30
[2025-03-09] MEDS: DEXAMETHASONE SOD PHOSPHATE 4 MG/ML 1 ML VIAL IVP SCH (14:59)
--- NOTE | 2025-03-09 16:05 | MR ---
INDICATION: Patient age:Female; 80 years old; Reason for study: Acute onset left leg weakness, ?CVA; PHH. COMPARISON: CT brain 03/08/2025, 06/09/2022, CTA head and neck 03/08/2025, 06/09/2022, MRI brain TECHNIQUE: Multi planar, multi sequence imaging was performed through the brain without the administr ation of intravenous contrast. FINDINGS: The zamora-white junctions, ventricular system, basal cisterns appear unremarkable. Age-appropriate cer ebral volume loss. Diffusion-weighted imaging shows no evidence of restricted diffusion to suggest ac lower sioux/subacute infarct. Intracranial arterial flow voids are maintained. Midline structures show no abn ormality. Similar patchy and confluent areas of high T2/FLAIR signal intensity are seen within the pe riventricular and subcortical white matter. Additional region within the central camden. The susceptibi lity weighted images demonstrate similar several scattered foci of blooming artifact throughout the c erebral hemispheres and cerebellum. There is also involvement in the camden, bilateral thalami, and richie ateral basal ganglia. Mild prominence of the vertebrobasilar system associated with dolichoectasia ag ain. The bone marrow signal is within normal limits. The paranasal sinuses are unremarkable. Bilateral ap hakia. IMPRESSION: 1. No evidence of intracranial mass or acute/subacute infarct. 2. Similar moderate nonspecific white matter changes, likely related to small vessel ischemic disease . 3. Similar scattered foci of blooming artifact throughout the brain consistent with prior hemosiderin deposition. [facility], , 03/09/2025 4:02 PM
[2025-03-09] MEDS: CYANOCOBALAMIN 1,000 MCG/ML 1 ML VIAL IM SCH (18:17)
[2025-03-09] MEDS: MELATONIN 5 MG TABLET PO PRN (20:23)
--- NOTE | 2025-03-10 09:25 | P.PN ---
Subjective Progress Note Date: 03/09/25 Patient was seen for follow-up. Patient is sitting in the chair. Patient apparently had shingles in the left leg and there is a scab in the left anterior thigh region. Patient complains of burning in the medial thigh region, not as much as in the outer thigh region. The burning pain in the left medial thigh region is 6/10. Patient again admits that the left leg weakness was acute in onset, after the fall. Objective - Vital Signs Vital signs: Vital Signs Temp 98.2 F 03/09/25 15:08 Pulse 81 03/09/25 15:08 Resp 16 03/09/25 15:08 BP 130/77 03/09/25 15:08 Pulse Ox 93 L 03/09/25 15:08 FiO2 Intake & Output 03/08/25 03/09/25 03/09/25 18:59 06:59 18:59 Intake Total 150 540 730 Balance 150 540 730 Weight 68.946 kg 72.8 kg Intake: IV 10 Invasive Line 2 10 Oral 150 540 720 Other: Voiding Method Toilet Toilet # Voids 1 2 - Exam Patient's mental status, speech and language functions are normal. Cranial nerves are normal. On muscle strength testing, the strength is normal in both arms distally and proximally. In the lower limbs (right/left) hip flexion 5/2, hip adduction 5/3+, hip abduction 5/5, knee extension 5/5, ankle dorsiflexion 5/5, toe extension 5/5. Deep tendon reflexes are absent in the upper limbs at biceps and brachioradialis, absent at both knees but 1+ to 2 at both ankles and plantars are downgoing bilaterally. - Labs CBC & Chem 7: 03/08/25 11:40 03/08/25 11:40 Labs: Abnormal Lab Results - Last 24 Hours (Table) 03/09/25 03/09/25 Range/Units 09:09 09:09 Hemoglobin A1c 6.3 H (<=6.0) % Creatine Kinase 24 L (30-135) U/L Vitamin B12 157.0 L (200.0-944.0) pg/mL Assessment and Plan Assessment: * Acute onset of left leg weakness, while going up steps to the house, resulting in a fall. Patient has healing herpetic rash involving the left anterior thigh and also has now developed left leg weakness, mainly involving the left L2 myotome distribution. Suspect the weakness could be related to herpes radiculitis. Denies any lower back pain. Acute stroke ruled out. * Vitamin B12 deficiency, severe. * Previous history of TIAs * Hypertension * Hyperlipidemia * History of right shoulder dislocation in 10/2024, from a slip and fall accident. Plan: * MRI brain revealed no evidence of intracranial mass or acute/subacute infarct. Similar moderate nonspecific bipedal changes, likely related to small vessel ischemic disease. Similar scattered foci of blooming artifact throughout the brain consistent with prior hemosiderin deposition. I personally reviewed MRI, and agree with the findings. No acute ischemic stroke. * Suspect her left leg weakness is related to recent herpes zoster. * Recommended EMG and nerve conduction studies of left lower limb as an outpatient. * Continue Lyrica for possible neuralgia (involving medial thigh region), and can increase the dose as tolerated, and as needed. * CTA of head and neck showed no evidence of dissection of the cervical internal carotid arteries or vertebral arteries or any evidence of significant stenosis of the carotid bifurcations. No evidence of high-grade stenosis or intracranial aneurysm. Similar ectasia of the basilar artery. * B12 157, folate 23.7, TSH 3.0, CK 24, A1c 6.3. Start vitamin B12 injections. Suggest B12 injections daily for a week, then weekly for a month and then at least once a month. * Venous Doppler negative for DVTs. * Continue Plavix 75 mg and Lipitor 10 mg. * PT, OT evaluate gait. * DVT prophylaxis: Start Lovenox 40 mg of daily. * Neurologically otherwise clear.
--- NOTE | 2025-03-10 13:45 | P.PN ---
Subjective Progress Note Date: 03/10/25 This is an 80-year-old female who comes in after having a fall at home and complaining of left leg pain. Orthopedics was consulted and started the patient on IV Decadron. Of note the patient does state that when the pain all started she had noticed a red rash going from the ankle up to her thigh on the inside of her leg she currently has a scabbed over vesicular rash on her thigh. This is likely a shingles infection that is mostly resolved however patient is now having post herpetic pain I will recommend to add a small dose of Lyrica. She is currently pending brain MRI and the rest of her stroke workup. 03/10. Patient seen and examined. MRI brain done showed no evidence of acute intracranial mass or acute/subacute infarct. States she feels better REVIEW OF SYSTEMS: CONSTITUTIONAL: No fever, no malaise,. CARDIOVASCULAR: No chest pain, no palpitations, no syncope. PULMONARY: No shortness of breath, no cough, GASTROINTESTINAL: No diarrhea, no nausea, no vomiting, no abdominal pain. NEUROLOGICAL: No headaches, no weakness, PHYSICAL EXAMINATION: GENERAL: The patient is alert and oriented x3, not in any acute distress. Well developed, well nourished. HEENT: Pupils are round and equally reacting to light. EOMI. No scleral icterus. No conjunctival pallor. Normocephalic, atraumatic. No pharyngeal erythema. No thyromegaly. CARDIOVASCULAR: S1 and S2 present. No murmurs, rubs, or gallops. PULMONARY: Chest is clear to auscultation, no wheezing or crackles. ABDOMEN: Soft, nontender, nondistended, normoactive bowel sounds. No palpable organomegaly. MUSCULOSKELETAL: No joint swelling or deformity. EXTREMITIES: No cyanosis, clubbing, or pedal edema. NEUROLOGICAL: Gross neurological examination did not reveal any focal deficits. SKIN: No rashes. Assessment and plan Fall x 2 Stroke ruled out Left leg weakness Herpes zoster infection; essentially healed with scabbed rash remaining on the left leg Post herpatic pain History of TIA Hypertension Hyperlipidemia Hypothyroidism GI prophylaxis: protonix DVT prophylaxis: Lovenox Full Code Plan Monitor vital sign Monitor CBC Monitor CMP CTA of head and neck showed no evidence of dissection of the cervical internal c arotid arteries or vertebral arteries or any evidence of significant stenosis of the carotid bifurcations. No evidence of high-grade stenosis or intracranial aneurysm. MRI brain done showed no evidence of acute intracranial mass or acute/subacute infarct. Continue Plavix 75 mg and Lipitor 10 mg. Neurology following Orthopedic consultation; patient has been started on IV decadron PT/OT consultation Labs and medication were reviewed.. Continue same treatment. Continue with symptomatic treatment. Resume home medication. Monitor labs and vitals. DVT and GI prophylaxis. Further recommendations as per clinical course of the patient Dictation was produced using [employer] dictation software. please excuse any grammatical, word or spelling errors. Objective - Vital Signs Vital signs: Vital Signs Temp 97.5 F L 03/10/25 09:05 Pulse 93 03/10/25 09:05 Resp 18 03/10/25 09:05 BP 128/73 03/10/25 09:05 Pulse Ox 98 03/10/25 09:05 FiO2 Intake & Output 03/09/25 03/10/25 03/10/25 18:59 06:59 18:59 Intake Total 730 540 Balance 730 540 Weight 73.6 kg Intake: IV 10 Invasive Line 2 10 Oral 720 540 Other: Voiding Method Toilet Toilet # Voids 2 1 1 - Labs CBC & Chem 7: 03/08/25 11:40 03/08/25 11:40 Labs: Abnormal Lab Results - Last 24 Hours (Table) 03/09/25 03/09/25 Range/Units 09:09 09:09 Hemoglobin A1c 6.3 H (<=6.0) % Creatine Kinase 24 L (30-135) U/L Vitamin B12 157.0 L (200.0-944.0) pg/mL
--- NOTE | 2025-03-10 15:20 | P.PN ---
Subjective Progress Note Date: 03/10/25 Principal diagnosis: Left lower extremity weakness Patient was evaluated today at bedside, her sister is again present with her. She continues to have that left lower extremity discomfort, it seems improved since yesterday. Discussed with internal medicine, there was concern for possible recent shingles infection involving that left lower extremity, she was started on Lyrica yesterday for this. She was also placed on IV steroids by our orthopedic practice. She has no worsening symptoms with regards to the left lower extremity. She has no bowel or bladder dysfunction at this time. Objective - Vital Signs Vital signs: Vital Signs Temp 98 F 03/10/25 12:35 Pulse 87 03/10/25 12:35 Resp 18 03/10/25 12:35 BP 126/67 03/10/25 12:35 Pulse Ox 95 03/10/25 12:35 FiO2 Intake & Output 03/09/25 03/10/25 03/10/25 18:59 06:59 18:59 Intake Total 730 540 500 Balance 730 540 500 Weight 73.6 kg Intake: IV 10 20 Invasive Line 2 10 10 Invasive Line 3 10 Oral 720 540 480 Other: Voiding Method Toilet Toilet Toilet # Voids 2 1 1 - Exam Gen: AOx3, NAD VSS stable at this time Integument: No open lesions or sores are visualized throughout the thoracic or lumbar spine. Palpation: No tenderness with palpation to the midline or paraspinal region of the lumbar spine ROM: Full range of motion in all major muscle groups of the bilateral upper extremities, she is limited with forward elevation and shoulder abduction on the right upper extremity. Full range of motion noted in the bilateral lower extremities, no focal deficits Sensory Exam: Senory exam to light touch is intact C5-T1 Senosry exam to light touch is intact L2-S1 Motor: 5/5 strength appreciated in the right lower extremity with hip flexion, knee extension, knee flexion, plantarflexion, dorsiflexion, EHL, FHL 4/5 strength appreciated in the left lower extremity with plantarflexion, dorsiflexion, EHL, FHL 4-/5 strength appreciated in the left lower extremity with hip flexion, knee extension, knee flexion Reflexes: 2/4 in all UE and LE Negative clonus bilaterally Special Test: Positive straight leg raise left lower extremity Logroll maneuver of the bilateral lower extremities reproduces no groin pain - Labs CBC & Chem 7: 03/08/25 11:40 03/08/25 11:40 Labs: Abnormal Lab Results - Last 24 Hours (Table) 03/09/25 Range/Units 09:09 Vitamin B12 157.0 L (200.0-944.0) pg/mL Assessment and Plan Assessment: Left lower extremity radiculopathy Left lower extremity weakness Chronic L1 VCF Multilevel lumbar spondylosis, vacuum disc phenomenon noted at L1-L2, L4-L5 Grade 1 spondylolisthesis L5-S1 Left knee moderate/severe osteoarthritis Left hip mild osteoarthritis Other medical comorbidities Plan: Continue conservative measures, will decrease the IV Decadron. Will also plan to discharge with Medrol Dosepak PT/OT evaluation GI DVT prophylaxis per primary medical service Other medical specialty recommendations appreciated Discharge planning: Orthopedic standpoint patient is stable for discharge and follow-up in the outpatient setting Time with Patient: Less than 30
--- NOTE | 2025-03-11 07:46 | P.PN ---
Subjective Progress Note Date: 03/10/25 Patient was seen for follow-up. Patient is sitting in the chair. Patient apparently had shingles in the left leg and there is a scab in the left anterior thigh region. Patient complains of burning in the medial thigh region in the left leg, not as much as in the outer thigh region. The burning pain in the left medial thigh region is slightly better today, 5/10. Patient again admits that the left leg weakness was acute in onset, after the fall. Objective - Vital Signs Vital signs: Vital Signs Temp 98 F 03/10/25 12:35 Pulse 87 03/10/25 12:35 Resp 18 03/10/25 12:35 BP 126/67 03/10/25 12:35 Pulse Ox 95 03/10/25 12:35 FiO2 Intake & Output 03/09/25 03/10/25 03/10/25 18:59 06:59 18:59 Intake Total 730 540 500 Balance 730 540 500 Weight 73.6 kg Intake: IV 10 20 Invasive Line 2 10 10 Invasive Line 3 10 Oral 720 540 480 Other: Voiding Method Toilet Toilet Toilet # Voids 2 1 1 - Exam Patient's mental status, speech and language functions are normal. Cranial nerves are normal. On muscle strength testing, the strength is normal in both arms distally and proximally. In the lower limbs (right/left) hip flexion 5/2+3-, hip adduction 5/3+, hip abduction 5/5, knee extension 5/5, ankle dorsiflexion 5/5, toe extension 5/5. Deep tendon reflexes are absent in the upper limbs at biceps and brachioradialis, absent at both knees but 1+ to 2 at both ankles and plantars are downgoing bilaterally. - Labs CBC & Chem 7: 03/08/25 11:40 03/08/25 11:40 Labs: Abnormal Lab Results - Last 24 Hours (Table) 03/09/25 Range/Units 09:09 Vitamin B12 157.0 L (200.0-944.0) pg/mL Assessment and Plan Assessment: * Acute onset of left leg weakness, while going up steps to the house, resulting in a fall. Patient has healing herpetic rash involving the left anterior thigh and also has now developed left leg weakness, mainly involving the left L2 myotome distribution. Suspect the weakness could be related to herpes radiculitis. Denies any lower back pain. Acute stroke ruled out. * Vitamin B12 deficiency, severe. * Previous history of TIAs * Hypertension * Hyperlipidemia * History of right shoulder dislocation in 10/2024, from a slip and fall accident. Plan: * MRI brain revealed no evidence of intracranial mass or acute/subacute infarct. Similar moderate nonspecific bipedal changes, likely related to small vessel ischemic disease. Similar scattered foci of blooming artifact throughout the brain consistent with prior hemosiderin deposition. I personally reviewed MRI, and agree with the findings. No acute ischemic stroke. * Suspect her left leg weakness is related to recent herpes zoster with radiculopathy from zoster virus. * Recommended EMG and nerve conduction studies of left lower limb as an outpatient. * Continue Lyrica for possible neuralgia (involving medial thigh region), and can increase the dose as tolerated, and as needed. * CTA of head and neck showed no evidence of dissection of the cervical internal carotid arteries or vertebral arteries or any evidence of significant stenosis of the carotid bifurcations. No evidence of high-grade stenosis or intracranial aneurysm. Similar ectasia of the basilar artery. * B12 157, folate 23.7, TSH 3.0, CK 24, A1c 6.3. Start vitamin B12 injections. Suggest B12 injections daily for a week, then weekly for a month and then at least once a month. * Venous Doppler negative for DVTs. * Continue Plavix 75 mg and Lipitor 10 mg. * PT, OT evaluate gait. * DVT prophylaxis: Start Lovenox 40 mg of daily. * Neurologically clear for discharge with the above recommendations.
--- NOTE | 2025-03-11 13:33 | P.PN ---
Subjective Progress Note Date: 03/11/25 This is an 80-year-old female who comes in after having a fall at home and complaining of left leg pain. Orthopedics was consulted and started the patient on IV Decadron. Of note the patient does state that when the pain all started she had noticed a red rash going from the ankle up to her thigh on the inside of her leg she currently has a scabbed over vesicular rash on her thigh. This is likely a shingles infection that is mostly resolved however patient is now having post herpetic pain I will recommend to add a small dose of Lyrica. She is currently pending brain MRI and the rest of her stroke workup. 03/10. Patient seen and examined. MRI brain done showed no evidence of acute intracranial mass or acute/subacute infarct. States she feels better 03/11. Patient seen and examined. States she feels better. Still having left leg pain but improved from before. Denies any nausea or vomiting REVIEW OF SYSTEMS: CONSTITUTIONAL: No fever, no malaise,. CARDIOVASCULAR: No chest pain, no palpitations, no syncope. PULMONARY: No shortness of breath, no cough, GASTROINTESTINAL: No diarrhea, no nausea, no vomiting, no abdominal pain. NEUROLOGICAL: No headaches, no weakness, PHYSICAL EXAMINATION: GENERAL: The patient is alert and oriented x3, not in any acute distress. Well developed, well nourished. HEENT: Pupils are round and equally reacting to light. EOMI. No scleral icterus. No conjunctival pallor. Normocephalic, atraumatic. No pharyngeal erythema. No thyromegaly. CARDIOVASCULAR: S1 and S2 present. No murmurs, rubs, or gallops. PULMONARY: Chest is clear to auscultation, no wheezing or crackles. ABDOMEN: Soft, nontender, nondistended, normoactive bowel sounds. No palpable organomegaly. MUSCULOSKELETAL: No joint swelling or deformity. EXTREMITIES: No cyanosis, clubbing, or pedal edema. NEUROLOGICAL: Gross neurological examination did not reveal any focal deficits. SKIN: No rashes. Assessment and plan Fall x 2 Stroke ruled out Left leg weakness Vitamin B12 deficient Herpes zoster infection; essentially healed with scabbed rash remaining on the left leg Post herpatic pain History of TIA Hypertension Hyperlipidemia Hypothyroidism GI prophylaxis: protonix DVT prophylaxis: Lovenox Full Code Plan Monitor vital sign Monitor CBC Monitor CMP CTA of head and neck showed no evidence of dissection of the cervical internal carotid arteries or vertebral arteries or any evidence of significant stenosis of the carotid bifurcations. No evidence of high-grade stenosis or intracranial aneurysm. MRI brain done showed no evidence of acute intracranial mass or acute/subacute infarct. Continue aspirin, Plavix 75 mg and Lipitor 10 mg. Currently on vitamin B12, B12 injections daily for a week, then weekly for a month and then at least once a month Neurology following Orthopedic consultation; patient has been started on IV decadron PT/OT consultation Labs and medication were reviewed.. Continue same treatment. Continue with symptomatic treatment. Resume home medication. Monitor labs and vitals. DVT and GI prophylaxis. Further recommendations as per clinical course of the patient Dictation was produced using [employer] dictation software. please excuse any grammatical, word or spelling errors. Objective - Vital Signs Vital signs: Vital Signs Temp 98.3 F 03/11/25 08:52 Pulse 85 03/11/25 08:52 Resp 18 03/11/25 08:52 BP 119/67 03/11/25 08:52 Pulse Ox 95 03/11/25 08:52 FiO2 Intake & Output 03/10/25 03/11/25 03/11/25 18:59 06:59 18:59 Intake Total 740 540 210 Balance 740 540 210 Weight 74.7 kg Intake: IV 20 10 Invasive Line 2 10 Invasive Line 3 10 10 Oral 720 540 200 Other: Voiding Method Toilet Toilet Toilet # Voids 2 1 - Labs CBC & Chem 7: 03/08/25 11:40 03/08/25 11:40
--- NOTE | 2025-03-11 15:36 | P.PN ---
Subjective Progress Note Date: 03/11/25 Patient was seen for follow-up. Patient is sitting in the chair. Patient apparently had shingles in the left leg and there is a scab in the left anterior thigh region. Patient complains of burning in the medial thigh region in the left leg, not as much as in the outer thigh region. The burning pain in the left medial thigh region is slightly better today, 4/10. After I did testing, the pain went up to 5/10, involving the medial thigh region. Patient again admits that the left leg weakness was acute in onset, after the fall. Objective - Vital Signs Vital signs: Vital Signs Temp 98.3 F 03/11/25 11:20 Pulse 70 03/11/25 11:20 Resp 18 03/11/25 11:20 BP 136/71 03/11/25 11:20 Pulse Ox 97 03/11/25 11:20 FiO2 Intake & Output 03/10/25 03/11/25 03/11/25 18:59 06:59 18:59 Intake Total 740 540 447 Balance 740 540 447 Weight 74.7 kg Intake: IV 20 10 Invasive Line 2 10 Invasive Line 3 10 10 Oral 720 540 437 Other: Voiding Method Toilet Toilet Toilet # Voids 2 1 2 - Exam Patient's mental status, speech and language functions are normal. Cranial nerves are normal. On muscle strength testing, the strength is normal in both arms distally and proximally. In the lower limbs (right/left) hip flexion 5/2+3-, hip adduction 5/4+, hip abduction 5/5, knee extension 5/5, ankle dorsiflexion 5/5, toe extension 5/5. Deep tendon reflexes are absent in the upper limbs at biceps and brachioradialis, absent at both knees but 1+ to 2 at both ankles and plantars are downgoing bilaterally. - Labs CBC & Chem 7: 03/08/25 11:40 03/08/25 11:40 Assessment and Plan Assessment: * Acute onset of left leg weakness, while going up steps to the house, resulting in a fall. Patient has healing herpetic rash involving the left anterior th igh and also has now developed left leg weakness, mainly involving the left L2 myotome distribution. Suspect the weakness could be related to herpes radiculitis. Denies any lower back pain. Acute stroke ruled out. * Vitamin B12 deficiency, severe. * Previous history of TIAs * Hypertension * Hyperlipidemia * History of right shoulder dislocation in 10/2024, from a slip and fall accident. Plan: * MRI brain revealed no evidence of intracranial mass or acute/subacute infarct. Similar moderate nonspecific bipedal changes, likely related to small vessel ischemic disease. Similar scattered foci of blooming artifact throughout the brain consistent with prior hemosiderin deposition. I personally reviewed MRI, and agree with the findings. No acute ischemic stroke. * Suspect her left leg weakness is related to recent herpes zoster with radiculopathy from zoster virus. * Recommended follow-up with neurologist outpatient and EMG and nerve conduction studies of left lower limb as an outpatient. * Continue Lyrica for possible neuralgia (involving medial thigh region). We will increase the dose to 50 mg twice daily. * CTA of head and neck showed no evidence of dissection of the cervical internal carotid arteries or vertebral arteries or any evidence of significant stenosis of the carotid bifurcations. No evidence of high-grade stenosis or intracranial aneurysm. Similar ectasia of the basilar artery. * B12 157, folate 23.7, TSH 3.0, CK 24, A1c 6.3. Start vitamin B12 injections. Suggest B12 injections daily for a week, then weekly for a month and then at least once a month. * Venous Doppler negative for DVTs. * Continue Plavix 75 mg and Lipitor 10 mg. * PT, OT evaluate gait. * DVT prophylaxis: Start Lovenox 40 mg of daily. * Neurologically clear for discharge with the above recommendations. Dr. Marco Bhandari starting neurology service in the morning.
[2025-03-11 16:09] VITALS: RESP 16
[2025-03-11] MEDS: DEXAMETHASONE SOD PHOSPHATE 4 MG/ML 1 ML VIAL IVP SCH (20:05)
[2025-03-11] MEDS: PREGABALIN 50 MG CAP PO SCH (20:06)
--- NOTE | 2025-03-12 23:40 | PN ---
PROGRESS NOTE An 80-year-old white female, does not have a stroke. She had shortness of breath moving around. She is not doing a breathing treatment. She is not wearing her oxygen. She said she normally wears. She is short of breath with exertion. We will start breathing treatments. Continue with oxygen at night. Discharge home in the morning. Home PT to see her. BEAR / FREDIN: [id number] /
[2025-03-13] MEDS: CYANOCOBALAMIN 500 MCG TAB PO SCH ×2 (01:44→06:30)
[2025-03-13 03:45] VITALS: TEMP 97.5
[2025-03-13] MEDS: IPRATROPIUM-ALBUTEROL 3 ML NEB INHALATION SCH (08:17)
[2025-03-13] MEDS: FUROSEMIDE 20 MG TAB PO PRN (09:02)
[2025-03-13 12:32] VITALS: BP 125/79; PULSE 110
--- NOTE | 2025-03-13 13:43 | PN ---
PROGRESS NOTE The patient is saturating 95% on 2 L. Blood pressure is 125/79, pulse rate is 80, respiratory rate 16 to 18. We will send home on for B12 deficiency with B12 pills. Continue treatment for lumbar disk disease, osteoarthritis of the knees and hips. PT, OT. Prognosis guarded. She wants to go home. We will send her home. BEAR / KALA: [id number] /
--- NOTE | 2025-03-15 06:31 | CDI ---
Documentation Clarification Form Date: 03/15/25 From: Shyanne Maier Admit Date: 03/08/2025 02:18:00 PM Patient Name: Kyra Stern Visit Number: [id number] Discharge Date: 03/13/2025 03:07:00 PM ATTENTION: The Clinical Documentation Specialists (CDI) and [facility] Coding Staff appreciate your assistance in clarifying documentation. Please respond to the clarification below the line at the bottom and electronically sign. The CDI & [facility] Coding staff will review the response and follow-up if needed. Please note: Queries are made part of the Legal Health Record. If you have any questions, please contact the author of this message via ITS. Doctor/Provider: Marcelo Wheatley, The patients principal diagnosis the diagnosis that was chiefly responsible for the admission - has not been clearly identified and clarification is requested. The patient presented with the following new onset of lower extremity weakness with a fall. Motor strength exam: E 12/23 History/Risk factors: hypothyroidism, HTN, HLD, Vitamin B deficiency, hx of TIA Clinical Indicators: Lower extremity weakness, Patient stated when the pain all started she had noticed a red rash going from the ankle up to her thigh on the inside of her left leg, currently has a scabbed vesicular rash on her left thigh. The left leg weakness mainly involving the left L2 myotome distribution. Left knee osteoarthritis. Multilevel lumbar spondylosis. Lab findings: Creatine Kinase 24, Vitamin B 157.0 Radiology findings: Lumbar Spine -Chronic mild wedging of L1. Mild spinal canal stenosis L3-4 from disc bulge. Mild bilateral foraminal stenosis throughout the lumbar spine. Left Knee- Moderate to severe tricompartmental degenerative osteoarthritis. Brain scan No acute intracranial process. Vital Signs: T 98, P 90/83/52, R 20, BP 156/82, O2 sat 97 Treatment: Decadron, Ultram prn, Lyrica Discharged home on medications: Lyrica 50 mg PO BID and Medrol Dose Pack 4 mg. Consults: Dr. Loaiza - She likely had a shingles infection that is mostly resolve however in now having post herpetic pain- Jim added Dr. Woodall - Suspect the weakness could be related to herpes radiculitis. Dr. Lowe - Chronic L1 VCF, multilevel lumbar spondylosis, vacuum disc phenomenon, Grade I spondylolisthesis, Left knee moderate/severe osteoarthritis, left hip mild osteoarthritis In your professional opinion, can you please clarify which diagnosis, after study, was the reason chiefly responsible for the admission? [ ] Post herpetic radiculitis [ ] Lumbar spondylosis with radiculopathy [ ] Left knee osteoarthritis [ ] Other, please specify [ ] Unable to determine MTDD
--- NOTE | 2025-03-23 10:51 | PN ---
PROGRESS NOTE Lumbar spondylosis with radiculopathy, left knee osteoarthritis. MMODL / IJN: [id number] /
== END 2025-03-13 15:07 | disposition home or self-care (01) | DRG 552 ==
LOC: EC 10:30 → 3SCARD 14:18
PROVIDERS: ADMIT Family Medicine; ATTEND Family Medicine
DX: M47.26 Other spondylosis with radiculopathy, lumbar region (principal); S09.90XA Unspecified injury of head, initial encounter; E03.9 Hypothyroidism, unspecified; I10 Essential (primary) hypertension; B02.29 Other postherpetic nervous system involvement; M17.0 Bilateral primary osteoarthritis of knee; M16.0 Bilateral primary osteoarthritis of hip; M43.17 Spondylolisthesis, lumbosacral region; M48.061 Spinal stenosis, lumbar region without neurogenic claudication; E78.5 Hyperlipidemia, unspecified; E53.8 Deficiency of other specified B group vitamins; K21.9 Gastro-esophageal reflux disease without esophagitis; Z79.02 Long term (current) use of antithrombotics/antiplatelets; Z79.890 Hormone replacement therapy; Z79.899 Other long term (current) drug therapy; Z86.73 Personal history of transient ischemic attack (TIA), and cerebral infarction without residual deficits; Z86.16 Personal history of COVID-19; W10.9XXA Fall (on) (from) unspecified stairs and steps, initial encounter; Y92.018 Other place in single-family (private) house as the place of occurrence of the external cause; Y93.01 Activity, walking, marching and hiking; Z88.5 Allergy status to narcotic agent
CPT/HCPCS: 36415; 70450; 70496; 70498; 70551; 71046; 72131; 73502; 80053; 82550; 82607; 82746; 83036; 84443; 84484; 85025; 85610; 85652; 85730; 93005; 93970; 94640; 99285